=== PATIENT | female | born 1990 | race Caucasian/White ===

== ENCOUNTER 2023-03-21 08:01 | Outpatient (CLI) | payer BC, SELFPAY ==
--- NOTE | 2023-03-21 08:15 | CRLHL7_ITS ---
For Patients: As a result of the Century Cures Act, medical imaging exams and procedure reports are released immediately into your electronic medical record. You may view this report before your referring provider. If you have questions, please contact your health care provider. INDICATION: First trimester scan, establish dates. COMPARISON: None. TECHNIQUE: Real-time anaya-scale imaging of the pelvis was performed. FINDINGS: Sonographic imaging demonstrates a single living intrauterine gestation. The embryo demonstrates a regular cardiac rate measuring 168 beats per minute. The embryo`s crown-rump length measurement of 1.9 cm corresponds to a gestational age of 8 weeks 3 days with a sonographic due date of 10/28/2023. There is a normal-appearing yolk sac. There are no gross abnormalities noted within the embryo at this early state of development. The gestational sac has a normal appearance. There is no evidence of a perigestational hemorrhage. The amount of fluid within the sac appears appropriate for gestational age. The cervix is closed. The myometrium appears normal. Corpus luteal cyst right ovary. Left ovary not visualized. There are no suspicious fluid collections noted in the cul-de-sac. IMPRESSION: Normal first trimester OB ultrasound exam. Gestational age calculated at 8 weeks 3 days with a sonographic due date of 10/28/2023. Dictated by Abundio Lane MD @ 03/21/2023 9:09:45 AM (Electronically Signed)
== END 2023-03-21 08:02 | disposition home or self-care (01) ==
LOC: US 08:02
PROVIDERS: PCP Physician Assistant; Visit Provider Family Medicine
DX: Z34.91 Encounter for supervision of normal pregnancy, unspecified, first trimester (principal); Z3A.08 8 weeks gestation of pregnancy
CPT/HCPCS: 76817; 82565; 82570; 84156; 84450; 84460; 84520; 84550; 86592; 86703; 86704; 86706; 86762; 86787; 86803; 86850; 86900; 86901; 87086; 87340; 87491; 87591

== ENCOUNTER 2023-04-21 12:00 | Outpatient (CLI) | payer BC, SELFPAY | END 2023-04-21 12:01 | disposition home or self-care (01) | PROVIDERS: PCP Physician Assistant; Visit Provider Obstetrics & Gynecology | DX: E55.9 Vitamin D deficiency, unspecified (principal); E53.8 Deficiency of other specified B group vitamins | CPT/HCPCS: 80048 ==

== ENCOUNTER 2023-05-12 16:58 | Outpatient (REF) | payer BC, SELFPAY | END 2023-05-12 16:59 | disposition home or self-care (01) | LOC: NFLDREF 16:58 | PROVIDERS: PCP Physician Assistant; Referring Provider Physician Assistant; Visit Provider Obstetrics & Gynecology | DX: Z00.00 Encounter for general adult medical examination without abnormal findings (principal); Q87.81 Alport syndrome; E66.9 Obesity, unspecified; E55.9 Vitamin D deficiency, unspecified; E53.8 Deficiency of other specified B group vitamins; N20.0 Calculus of kidney | CPT/HCPCS: 82570; 84156 ==

== ENCOUNTER 2023-06-05 10:10 | Outpatient (CLI) | payer BC, OTHER, SELFPAY ==
--- OUTSIDE RECORDS SUMMARY | 2023-06-12 09:46 | XMS_ITS | Clinical Summary ---
Author Name Unknown Organization [email or web address] [facility] [employer] [facility] Address [place], [place] [address] Care Team Providers Care Powerbuilder Name Role Phone Val Byrd Primary Care Provider +1- [phone] Allergies Active Allergy Reactions Criticality Noted Date Comments 2-Octyl Cyanoacrylate Rash 06/12/2020 Amoxicillin Hives 05/16/2020 Cefaclor Hives 05/16/2020 Cefuroxime Axetil Hives 05/16/2020 Clindamycin Hives 05/16/2020 Latex Rash 05/16/2020 Benzalkonium Chloride Rash 04/22/2022 Shellfish Derived Itching 05/22/2020 Itchy tongue and lips (benadryl has taken care of it in the past) Ondansetron Chest Pain 02/13/2022 Medications Medication Sig Dispensed Refills Start Date End Date Status albuterol (PROVENTIL) 0.083 % neb solutionIndications: Exacerbation of asthma, unspecified asthma severity, unspecified whether persistent Inhale 3 mL (2.5 mg) via a nebulizer every 4 hours if needed for Shortness Of Breath or Wheezing. 1 box 180 mL 11 09/02/2022 Active albuterol HFA (PRO-AIR; VENTOLIN; PROVENTIL) 90 mcg/actuation inhalerIndications:M ild persistent asthma without complication Inhale 2 Puffs by mouth every 4 hours if needed for Wheezing 1st choice. 18 g 11 09/02/2022 Active beclomethasone dipropionate (Qvar RediHaler) 40 mcg/actuation HFA inhalerIndications:M ild persistent asthma without complication Inhale 2 Puffs by mouth two times daily. Doesn't need a spacer or shaking. 10.6 g 11 09/02/2022 Active montelukast (SINGULAIR) 10 mg tabletIndications:Al lergic rhinitis due to pollen, unspecified seasonality Take 1 Tablet (10 mg) by mouth at bedtime. 90 Tablet 3 09/02/2022 Active triamcinolone (ARISTOCORT) 0.1 % ointmentIndications: Polymorphous light eruption Apply topically to affected area(s) two times daily. 80 g 1 09/02/2022 Active mometasone (NASONEX) (50 mcg each actuation) nasal sprayIndications:All ergic rhinitis due to pollen, unspecified seasonality Inhale 2 Sprays to both nostrils once daily. 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 180 Tablet 3 09/02/2022 Active 727-xkrq-prrds-omega 3 27 mg iron- 800 mcg-235 mg cap Take by mouth. 0 03/03/2023 Active azithromycin (Zithromax Z-Wade) 250 mg tabletIndications:Br onchitis Take 500 mg (2 tabs) by mouth on day 1, then 250 mg (1 tab) daily for days 2-5. 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 Val Byrd PA-C, Family Medicine.....................08/31/2021 9:04 AM Endometriosis 07/30/2021 Comments Yes Resolved Problems Problem Noted Date Diagnosed Date Resolved Date Pap smear for cervical cancer screening 07/24/2020 11/27/2021 Overview: 07/24/2020 NIL/HPV negative. Plan: Pap/HPV due 07/2025 Encounters Date Type Department Care Team Description 05/05/2023 2:25 PM FABRIC WORKER LEADER - 05/05/2023 11:59 PM FABRIC WORKER LEADER Hospital En[facility] [address] [place] [address] Val Byrd PA Olsen, Michelle J, PT 05/05/2023 Travel 04/28/2023 9:59 AM FABRIC WORKER LEADER - 04/28/2023 11:59 PM FABRIC WORKER LEADER Hospital Encounter [facility] ? [facility] [address] [place] [address] Val Byrd PA Olsen, Michelle J, PT 04/28/2023 Travel 04/21/2023 7:47 AM FABRIC WORKER LEADER - 04/21/2023 11:59 PM FABRIC WORKER LEADER Hospital Encounter [facility] ? [facility] [address], [place] [address] Val Byrd PA Olsen, Michelle J, PT 04/21/2023 Travel 04/13/2023 9:45 AM FABRIC WORKER LEADER Office Visit [facility] [address] [place] [phone] Yoselin Drew, PRIMER WATERPROOFING MACHINE OPERATOR Throat Problem; Sinus Problem; Headache (C/O having a sore throat 04/06/2023. Cough sinus congestion and sinus headache. She has asthma and is . ) 04/13/2023 Travel 04/07/2023 12:56 PM FABRIC WORKER LEADER - 04/07/2023 11:59 PM FABRIC WORKER LEADER Hospital Encounter [facility] ? [facility] [address] [place] [address] Val Byrd PA Helms, Colleen G, PT 04/07/2023 Travel 03/31/2023 10:54 AM FABRIC WORKER LEADER - 03/31/2023 11:59 PM FABRIC WORKER LEADER Hospital Encounter [facility] ? [facility] [address] [place] [address] Val Byrd PA Helms, Colleen G, PT 03/31/2023 Travel 03/24/2023 1:36 PM CDT - 03/24/2023 11:59 PM CDT Hospital Encounter [facility] ? [facility] [address] [place] [address] Val Byrd, Adelita Christianson, PT 03/24/2023 Travel 03/18/2023 1:25 PM CDT - 03/18/2023 11:59 PM CDT Hospital Encounter [facility] and [facility] ? [facility] [address] [place] [address] Val Byrd PA Olsen, Michelle J, PT Chronic right-sided thoracic back pain 03/18/2023 Travel from Last 3 Months Immunizations Name Administration Dates Next Due COVID-19 vaccine (Grovac NTTesaris 30mcg/0.3mL) PF, MDV 06/17/2021,12/17/2020,11/19/2020 DT (Age < 7 years) 09/17/1993 DTP 01/20/1991, 0,01/31/1989,10/29 DTaP 07/13/2007 HIB HbOC (HibTITER) 03/03/1990 Hepatitis B (Peds) 03/02/1999,10/31/1998, 999 Hepatitis B, Unspecified 03/02/1999,10/31/1998,0 08/21/1998 Human Papilloma Virus Vaccine 01/11/2008, 008,07/13/2007 Influenza A (H1N1), Inactivated 04/15/2009 Influenza Virus, Unspecified 04/23/2016, 04/17/2015,04/04/2014,04/27,05/01/2011,03/31/2009,04/02/2005 ,03/14/2004,06/09/2000,04/03/1999,03/26 Influenza, IIV3 (Age >=3 years) 04/02/20 05,03/14/2004,06/09/2000,04/03 Influenza, IIV4 05/14/2021, 1,06/28/2019,07/21,04/23/2016 Influenza, IIV4 (=>6mos) MDV 04/17/2015 Influenza, Live, Intranasal Laiv3 03/31/2009 MMR 09/17/1993,03/03/1990 Meningococcal Vaccine (Menomune) 07/13/2007 Oral Polio Vaccine 09/17/1993, 1,01/31/1989,10/29 Pneumococcal Poly,23-Valent (Pneumovax) 04/04/2014 Polio (Oral Polio Vaccine,Unspecified) 0 09/17/1993,01/20/1991,01/31/1989,10/29 Td (Age >=7 Years) 08/28/2004,03/02/1999 Tdap 06/09/2017,07/13/2007 Social History Tobacco Use Types Packs/Day Years Used Date Smoking Tobacco: Never Smokeless Tobacco: Never Tobacco Cessation:Counseling Given: Yes Alcohol Use Standard Drinks/Week Comments Yes 0 (1 standard drink = 0.6 oz pur e alcohol) 1 per month PHQ-2 Answer Date Recorded PHQ-2 TOTAL SCORE 0 09/02/2022 Social Connections Answer Date Recorded Frequency of Communication with Friends and Fami ly 0 09/02/2022 Financial Resource Strain Answer Date R ecorded Difficulty of Paying Living Expenses 3 09/02/2022 Difficulty of Paying Living Expenses Not on file 09/02/2022 Food Insecurity Answer Date Recorded Worried About Running Out of Food in the Last Ye ar 1 09/02/2022 Transportation Needs Answer Date Record ed Lack of Transportation (Medical) 1 09/02/2022 Housing Stability Answer Date Recorded Unable to Pay for Housing in the Last Year 1 09/02/2022 Comments Yes Sex and Gender Information Value Date Recorded Sex Assigned at Not on file Gender Identity Not on file Sexual Orientation Not on file Obstetrics History Para Term AB IAB SAB Ectopic Multiple Livin g Live Births 1 Date Outcome GA Total Labor Labor/2nd/3rd Weight Sex Delivery Anes PTL Christine A1 A5 Name Cl in Current Last Filed Vital Signs Vital Sign Reading Time Taken Comments Blood Pressure 99/70 04/13/2023 10:07 AM FABRIC WORKER LEADER Pulse 93 04/13/2023 10:07 AM FABRIC WORKER LEADER Temperature 36.4 ??C (97.6 ??F) 04/13/2023 10:[address] Respiratory Rate 14 04/13/2023 10:07 AM FABRIC WORKER LEADER Oxygen Saturation 96% 04/13/2023 10:07 AM FABRIC WORKER LEADER Inhaled Oxygen Concentration - - Weight 109.8 kg (242 lb) 04/13/2023 10:07 AM FABRIC WORKER LEADER Height 172.7 cm (5' 8) 10/08/2022 8:13 PM CDT Body Mass Index 36.8 10/08/2022 8:13 PM CDT Plan of Treatment Health Maintenance Due Date Last Done Comments Pneumococcal series for age 6-64 (2 of 2 - PCV) 04/04/2015 04/04/2014 Influenza for age 9-49 01/24/2023 , 07/24/2020, 06/28/2019, Additional history exists BMI (ht and wt on same day) for age 18+ 09/03/2023 09/02/2022, 08/28/2021 Depression screening for age 12+ 09/03/2023 09/03/19 23, 08/28/2021 Pap test for age 21-65 07/24/2025 (Verified in Care Everywhere or Patient Record) Tetanus booster 06/09/2027 06/09/2017, 06/26, 08/28/2004, Additional history exists Tdap Completed 06/09/2017, 07/13/2007 HIV for age 15-65 Completed 09/02/2022 Hepatitis C screening for ag e 18-79 Completed 09/02/2022 COVID-19 vaccine series Completed 03/23/20, 06/17/2021, 12/17/2020, Additional history exists Procedures Procedure Name Priority Date/Time Associated Diagnosis Comments STREP A PCR STAT 04/13/2023 10:09 AM FABRIC WORKER LEADER Sore throat THROAT RAPID STREP A WITH REFLEX STAT 04/13/2023 10:09 AM FABRIC WORKER LEADER Sore throat from Last 3 Months Results * STREP A PCR (04/13/2023 10:09 AM FABRIC WORKER LEADER) GROUP A STREP Negative 04/13/2023 3:16 PM FABRIC WORKER LEADER [facility] Throat SPECIMEN FROM THROAT / Unknown Non-Blood / Unknown 04/13/2023 10:09 AM FABRIC WORKER LEADER 04/13/2023 10:28 AM FABRIC WORKER LEADER Yoselin Drew NP MICROBIOLOGY [facility] [address] [place] [address], * THROAT RAPID STREP A WITH REFLEX (04/13/2023 10:09 AM FABRIC WORKER LEADER) STREP A ANTIGEN Negative 04/13/2023 10:28 AM FABRIC WORKER LEADER [facility] Comment:PCR to follow. Throat SPECIMEN FROM THROAT / Unknown Non-Blood / Unknown 04/13/2023 10:09 AM FABRIC WORKER LEADER 04/13/2023 10:16 AM FABRIC WORKER LEADER Yoselin Drew NP MICROBIOLOGY [facility] [address] [place], [place] [id number] from Last 3 Months Advance Directives Latest Code Status on File Code Status Date Activated Date Inactivated Comments Full Code 05/23/2020 2:04 PM 05/24/2020 1:14 PM Question Answer Comments Code Status Discussion: Not Discussed Care Teams Powerbuilder Relationship Specialty Start Date End Date Val Byrd PA [address] [place] [address] PCP - General Physician Sitecore Developer 11/21/22
== END 2023-06-05 10:11 | disposition home or self-care (01) ==
LOC: NFLDREF 06-12 09:44
PROVIDERS: PCP Physician Assistant; Referring Provider Physician Assistant; Visit Provider Internal Medicine Nephrology
DX: Q87.81 Alport syndrome (principal)
CPT/HCPCS: 80069; 82043; 82570; 87086

== ENCOUNTER 2023-06-10 14:27 | Outpatient (CLI) | payer BC, OTHER, SELFPAY ==
--- OUTSIDE RECORDS SUMMARY | 2023-06-13 12:23 | XMS_ITS | Clinical Summary ---
Author Name Unknown Organization [employer] [facility] [employer] [facility] Address [place], [place] [address] Care Team Providers Care Divisional Merchandising Manager Name Role Phone Val Byrd Primary Care Provider +1- [phone] Allergies Active Allergy Reactions Criticality Noted Date [...] once daily. 180 Tablet 3 09/02/2022 Active 233-kbbt-ulibt-omega 3 27 mg iron- 800 mcg-235 mg [...] Department Care Team Description 05/05/2023 2:25 PM PROGRAM MANAGER SLP - 05/05/2023 11:59 PM PROGRAM MANAGER SLP Hospital En[facility] [facility] ? [facility] [address] [place] [address] Val Byrd PA Olsen, Michelle J, PT 05/05/2023 Travel 04/28/2023 9:59 AM PROGRAM MANAGER SLP - 04/28/2023 11:59 PM PROGRAM MANAGER SLP Hospital Encounter [facility] ? [facility] [address] [place] [address] Val Byrd PA Olsen, Michelle J, PT 04/28/2023 Travel 04/21/2023 7:47 AM PROGRAM MANAGER SLP - 04/21/2023 11:59 PM PROGRAM MANAGER SLP Hospital Encounter [facility] ? [facility] [address], [place] [address] Val Byrd PA Olsen, Michelle J, PT 04/21/2023 Travel 04/13/2023 9:45 AM PROGRAM MANAGER SLP Office Visit [facility] [address] [place] [phone] Yoselin Drew, CARDIOVASCULAR RADIOLOGIC TECHNOLOGIST Throat Problem; Sinus Problem; Headache (C/O having a sore throat 04/06/2023. Cough sinus congestion and sinus headache. She has asthma and is . ) 04/13/2023 Travel 04/07/2023 12:56 PM PROGRAM MANAGER SLP - 04/07/2023 11:59 PM PROGRAM MANAGER SLP Hospital Encounter [facility] ? [facility] [address] [place] [address] Val Byrd PA Helms, Colleen G, PT 04/07/2023 Travel 03/31/2023 10:54 AM PROGRAM MANAGER SLP - 03/31/2023 11:59 PM PROGRAM MANAGER SLP Hospital Encounter [facility] [facility] ? [facility] [address] [place] [address] Val Byrd PA Helms, Colleen G, PT 03/31/2023 Travel 03/24/2023 1:36 PM CDT - 03/24/2023 11:59 PM CDT Hospital Encounter [facility] ? [facility] [address] [place] [address] Val Byrd, Adelita Christianson, PT 03/24/2023 Travel 03/18/2023 1:25 PM CDT - 03/18/2023 11:59 PM CDT Hospital Encounter [facility] ? [facility] [address] [place] [address] Val Byrd PA Olsen, Michelle J, PT Chronic right-sided thoracic back pain 03/18/2023 Travel from Last 3 Months Immunizations Name Administration Dates Next Due COVID-19 vaccine ([employer] 30mcg/0.3mL) PF, MDV 06/17/2021,12/17/2020,11/19/2020 DT (Age < [...] Comments Blood Pressure 99/70 04/13/2023 10:07 AM PROGRAM MANAGER SLP Pulse 93 04/13/2023 10:07 AM PROGRAM MANAGER SLP Temperature 36.4 ??C (97.6 ??F) 04/13/2023 10:[address] Respiratory Rate 14 04/13/2023 10:07 AM PROGRAM MANAGER SLP Oxygen Saturation 96% 04/13/2023 10:07 AM PROGRAM MANAGER SLP Inhaled Oxygen Concentration - - Weight 109.8 kg (242 lb) 04/13/2023 10:07 AM PROGRAM MANAGER SLP Height 172.7 cm (5' 8) 10/08/2022 8:13 [...] STREP A PCR STAT 04/13/2023 10:09 AM PROGRAM MANAGER SLP Sore throat THROAT RAPID STREP A WITH REFLEX STAT 04/13/2023 10:09 AM PROGRAM MANAGER SLP Sore throat from Last 3 Months Results * STREP A PCR (04/13/2023 10:09 AM PROGRAM MANAGER SLP) GROUP A STREP Negative 04/13/2023 3:16 PM PROGRAM MANAGER SLP [facility] Throat SPECIMEN FROM THROAT / Unknown Non-Blood / Unknown 04/13/2023 10:09 AM PROGRAM MANAGER SLP 04/13/2023 10:28 AM PROGRAM MANAGER SLP Yoselin Drew NP MICROBIOLOGY [facility] [address] [place] [address], * THROAT RAPID STREP A WITH REFLEX (04/13/2023 10:09 AM PROGRAM MANAGER SLP) STREP A ANTIGEN Negative 04/13/2023 10:28 AM PROGRAM MANAGER SLP [facility] Comment:PCR to follow. Throat SPECIMEN FROM THROAT / Unknown Non-Blood / Unknown 04/13/2023 10:09 AM PROGRAM MANAGER SLP 04/13/2023 10:16 AM PROGRAM MANAGER SLP Yoselin Drew NP MICROBIOLOGY [facility] [address] [place], [place] [id number] from Last 3 Months Advance Directives Latest Code Status on File Code Status Date Activated Date Inactivated Comments Full Code 05/23/2020 2:04 PM 05/24/2020 1:14 PM Question Answer Comments Code Status Discussion: Not Discussed Care Teams Divisional Merchandising Manager Relationship Specialty Start Date End Date Val Byrd PA [address] [place] [address] PCP - General Physician Inspector Metal Fabricating 11/21/22
== END 2023-06-10 14:28 | disposition home or self-care (01) ==
LOC: NFLDREF 06-13 12:21
PROVIDERS: PCP Physician Assistant; Referring Provider Physician Assistant; Visit Provider Internal Medicine Nephrology
DX: N28.9 Disorder of kidney and ureter, unspecified (principal); Q87.81 Alport syndrome; Z34.90 Encounter for supervision of normal pregnancy, unspecified, unspecified trimester
CPT/HCPCS: 87086

== ENCOUNTER 2023-06-19 15:22 | Outpatient (CLI) | payer BC, OTHER, SELFPAY ==
--- OUTSIDE RECORDS SUMMARY | 2023-06-19 15:39 | XMS_ITS | Clinical Summary ---
Author Name Unknown Organization [employer] [facility] [employer] [facility] Address [place], [place] [address] Care Team Providers Care Authorizer Name Role Phone Val Byrd Primary Care Provider +1- [phone] Allergies Active Allergy Reactions Criticality Noted Date [...] once daily. 180 Tablet 3 09/02/2022 Active 163-zxba-ltigt-omega 3 27 mg iron- 800 mcg-235 mg [...] Department Care Team Description 05/05/2023 2:25 PM ILLUSTRATOR SET - 05/05/2023 11:59 PM ILLUSTRATOR SET Hospital En[facility] [place] [facility] ? [facility] [address] [place] [address] Val Byrd PA Olsen, Michelle J, PT 05/05/2023 Travel 04/28/2023 9:59 AM ILLUSTRATOR SET - 04/28/2023 11:59 PM ILLUSTRATOR SET Hospital Encounter [facility] ? [facility] [address] [place] [address] Val Byrd PA Olsen, Michelle J, PT 04/28/2023 Travel 04/21/2023 7:47 AM ILLUSTRATOR SET - 04/21/2023 11:59 PM ILLUSTRATOR SET Hospital Encounter [facility] ? [facility] [address], [place] [address] Val Byrd PA Olsen, Michelle J, PT 04/21/2023 Travel 04/13/2023 9:45 AM ILLUSTRATOR SET Office Visit [facility] [address] [place] [phone] Yoselin Drew, TUNNEL KILN FIRER Throat Problem; Sinus Problem; Headache (C/O having a sore throat 04/06/2023. Cough sinus congestion and sinus headache. She has asthma and is . ) 04/13/2023 Travel 04/07/2023 12:56 PM ILLUSTRATOR SET - 04/07/2023 11:59 PM ILLUSTRATOR SET Hospital Encounter [facility] ? [facility] [address] [place] [address] Val Byrd PA Helms, Colleen G, PT 04/07/2023 Travel 03/31/2023 10:54 AM ILLUSTRATOR SET - 03/31/2023 11:59 PM ILLUSTRATOR SET Hospital Encounter [facility] ? [facility] [address] [place] [address] Val Byrd, Adelita Christianson, PT 03/31/2023 Travel 03/24/2023 1:36 PM CDT - 03/24/2023 11:59 PM CDT Hospital Encounter [facility] ? [facility] [address] [place] [address] Val Byrd, Adelita Christianson, PT 03/24/2023 Travel from Last 3 Months Immunizations Name Administration Dates Next Due COVID-19 vaccine ([employer] 30mcg/0.3mL) PF, MDV 06/17/2021,12/17/2020,11/19/2020 DT (Age < 7 years) 09/17/1993 DTP 01/20/1991, 0,01/31/1989,10/29 DTaP 07/13/2007 HIB HbOC (HibTITER) 03/03/1990 Hepatitis B (Peds) 03/02/1999,10/31/1998, 999 Hepatitis B, Unspecified 03/02/1999,10/31/1998,0 08/21/1998 Human Papilloma Virus Vaccine 01/11/2008, 008,07/13/2007 Influenza A (H1N1), Inactivated 04/15/2009 Influenza Virus, Unspecified 04/23/2016, 04/17/2015,04/04/2014,04/27,05/01/2011,03/31/2009,04/02/2005 ,03/14/2004,06/09/2000,04/03/1999,03/26 Influenza, IIV3 (Age >=3 years) 04/02/20 05,03/14/2004,06/09/2000,04/03 Influenza, IIV4 05/14/2021,,06/28/2019,07/21,04/23/2016 Influenza, IIV4 (=>6mos) MDV 04/17/2015 Influenza, Live, [...] Comments Blood Pressure 99/70 04/13/2023 10:07 AM ILLUSTRATOR SET Pulse 93 04/13/2023 10:07 AM ILLUSTRATOR SET Temperature 36.4 ??C (97.6 ??F) 04/13/2023 10:[address] Respiratory Rate 14 04/13/2023 10:07 AM ILLUSTRATOR SET Oxygen Saturation 96% 04/13/2023 10:07 AM ILLUSTRATOR SET Inhaled Oxygen Concentration - - Weight 109.8 kg (242 lb) 04/13/2023 10:07 AM ILLUSTRATOR SET Height 172.7 cm (5' 8) 10/08/2022 8:13 [...] 08/28/2021 Depression screening for age 12+ 09/03/2023 09/03/19, 08/28/2021 Pap test for age 21-65 07/24/2025 [...] STREP A PCR STAT 04/13/2023 10:09 AM ILLUSTRATOR SET Sore throat THROAT RAPID STREP A WITH REFLEX STAT 04/13/2023 10:09 AM ILLUSTRATOR SET Sore throat from Last 3 Months Results * STREP A PCR (04/13/2023 10:09 AM ILLUSTRATOR SET) GROUP A STREP Negative 04/13/2023 3:16 PM ILLUSTRATOR SET [facility] Throat SPECIMEN FROM THROAT / Unknown Non-Blood / Unknown 04/13/2023 10:09 AM ILLUSTRATOR SET 04/13/2023 10:28 AM ILLUSTRATOR SET Yoselin Drew NP MICROBIOLOGY [facility] [address] [place] [address], [place] * THROAT RAPID STREP A WITH REFLEX (04/13/2023 10:09 AM ILLUSTRATOR SET) STREP A ANTIGEN Negative 04/13/2023 10:28 AM ILLUSTRATOR SET [facility] Comment:PCR to follow. Throat SPECIMEN FROM THROAT / Unknown Non-Blood / Unknown 04/13/2023 10:09 AM ILLUSTRATOR SET 04/13/2023 10:16 AM ILLUSTRATOR SET Yoselin Drew TUNNEL KILN FIRER MICROBIOLOGY [facility] [address] [place] [address] from Last 3 Months Advance Directives Latest Code Status on File Code Status Date Activated Date Inactivated Comments Full Code 05/23/2020 2:04 PM 05/24/2020 1:14 PM Question Answer Comments Code Status Discussion: Not Discussed Care Teams Authorizer Relationship Specialty Start Date End Date Val Byrd PA [address] [place] [address] PCP - General Physician Salad Chef 11/21/22
== END 2023-06-19 15:23 | disposition home or self-care (01) ==
PROVIDERS: PCP Physician Assistant; Visit Provider Obstetrics & Gynecology
DX: Q87.81 Alport syndrome (principal)
CPT/HCPCS: 82565; 87086

== ENCOUNTER 2023-07-07 14:21 | Outpatient (REF) | payer BC, OTHER, SELFPAY ==
--- OUTSIDE RECORDS SUMMARY | 2023-07-08 06:55 | XMS_ITS | Clinical Summary ---
Author Name Unknown Organization [facility] Address [address] [place] [id number] Care Team Providers Care Bank Courier Name Role Phone No Ref-Primary, Physician Primary Care Provider Allergies Active Allergy Reactions Criticality Noted Date Comments Amoxicillin Hives Medium 10/13/2008 Benzalkonium Chloride Rash Low 04/22/2022 Cefaclor Hives Medium 10/13/2008 Cefuroxime Hives Medium 10/13/2008 Clindamycin Hives Medium 02/28/2014 Cyanoacrylate Rash Low 06/12/2020 Latex Rash Medium 07/17/2009 Ondansetron 02/13/2022 Other Reaction(s): Chest Pain Shellfish-Derived Products Itching 0 Itchy tongue and lips (mary jane has taken care of it in the past) Medications Medication Sig Dispensed Refills Start Date End Date Status albuterol (PROVENTIL) (2.5 MG/3ML) 0.083% neb solution Inhale 2.5 mg into the lungs 3 times daily as needed for wheezing or shortness of breath 0 09/02/2022 Active aspirin (ASA) 81 MG chewable tablet Take 81 mg by mouth daily 0 Active QVAR REDIHALER 40 MCG/ACT inhaler Inhale 2 puffs into the lungs 2 times daily 0 Active cyanocobalamin (VITAMIN B-12) 1000 MCG tablet Take 2,000 mcg by mouth daily 0 09/02/2022 Active montelukast (SINGULAIR) 10 MG tablet Take 1 tablet by mouth at bedtime 0 Active pyridOXINE (VITAMIN B6) 25 MG tablet Take 25 mg by mouth daily 0 Active Vit-Fe Eiu-KN-Wotfx (ONE-A-DAY WOMENS ) 28-0.8 & 223 MG MISC Take 1 tablet by mouth daily 0 Active loratadine (CLARITIN REDITABS) 10 MG ODT Take 10 mg by mouth daily 0 Active Encounters Date Type Department Care Team Description 07/03/2023 9:30 AM RESTORATIVE COORDINATOR Office Visit [facility] [address] [place] [address] Gayle Gonzalez MD Sabol, Bethany, MD Yamamura, Yasuko, MD Pre-exist hyp chronic kidney disease comp preg, second tri (Primary Dx); High-risk , unspecified trimester 07/03/2023 8:35 AM RESTORATIVE COORDINATOR - 07/03/2023 11:59 PM RESTORATIVE COORDINATOR Hospital Encounter [facility] [address] [place] [phone] Gayle Gonzalez MD Sabol, Bethany, MD Alport syndrome; High-risk , unspecified trimester Discharge Disposition: Home or Self Care 07/03/2023 Travel 06/24/2023 PRE VISIT [facility] [address] [place], [place] [address] [place] [address] Myra Eisenberg, DAQUAN Consult (CKD, endometriosis, AMA, asthma, alport syndrome); Ultrasound (L2 - CKD, endometriosis, AMA, asthma, alport syndrome) 05/28/2023 Orders Only [facility] [address] [place] [address] Gayle Plascencia RN Alport syndrome (Primary Dx); High-risk , unspecified trimester 05/23/2023 Telephone [facility] [address] [place] [address] Gayle Plascencia RN Referral 05/22/2023 Medical Correspondence [facility] [address] [place] [address] Outside, Provider 05/22/2023 Transcribe Orders [facility] [address] [place] [address] Venice Murray A related condition, antepartum (Primary Dx) from Last 3 Months Social History Tobacco Use Types Packs/Day Years Used Date Smoking Tobacco: Never Assessed Adolescent Education Answer Date Record ed Getting School Help Needed Not on file 05/22 Estimated Date of Delivery Comme nts Yes 10/31/2023 Based on last me nstrual period of 01/24/2023 Sex and Gender Information Value Date Recorded Sex Assigned at Not on file Gender Identity Not on file Sexual Orientation Not on file Last Filed Vital Signs Vital Sign Reading Time Taken Comments Blood Pressure 114/82 07/03/2023 10:18 AM RESTORATIVE COORDINATOR Pulse 82 07/03/2023 10:18 AM RESTORATIVE COORDINATOR Temperature - - Respiratory Rate 18 07/03/2023 10:18 AM RESTORATIVE COORDINATOR Oxygen Saturation 100% 07/03/2023 10:18 AM RESTORATIVE COORDINATOR RA Inhaled Oxygen Concentration - - Weight - - Height - - Body Mass Index - - Plan of Treatment Upcoming Encounters Date Type Department Care Team (Late st Contact Info) Description 07/28/2023 8:45 AM RESTORATIVE COORDINATOR Appointment [facility] [address] [place] [phone] Donnie Stanton MD [address] [place], [place] [phone] 07/28/2023 9:15 AM RESTORATIVE COORDINATOR Office Visit [facility] [address] [place] [address] Donnie Stanton MD [address] [place], [place] [id number] Health Maintenance Due Date Last Done Comments ADVANCE CARE PLANNING 1988 ANNUAL REVIEW OF HM ORDERS 1988 HIV SCREENING 09/20/2003 HEPATITIS C SCREENING 2006 PAP 2009 MATERNAL SCREENING DISCUSSION 04/04/2023 PHQ-2 (once per calendar year) 2023 OBGCT (OB) 07/11/2023 YEARLY PREVENTIVE VISIT 09/03/2023 09/03/19 23, 08/28/2021, 07/24/2020, Additional history exists DTAP/TDAP/TD IMMUNIZATION (9 - Td or Tdap) 06/09/2027 06/09/2017, 07/13/2007, 07/13/2007, Additional history exists IPV IMMUNIZATION Completed 09/17/1993, , 01/31/1989, Additional history exists HEPATITIS B IMMUNIZATION Completed 999, 03/02/1999, 10/31/1998, Additional history exists MENINGITIS IMMUNIZATION Aged Out 07/13/2007 No l onger eligible based on patient's age to complete this topic HPV IMMUNIZATION Completed 01/11/2008, , 07/13/2007 Pneumococcal Vaccine: Pediatrics (0 to 5 Years) and At-Risk Patients (6 to 64 Years) Aged Out 04/04/2014 No longer eligible based on patient's age to complete this topic INFLUENZA VACCINE Completed 03/21/2023, , 07/24/2020, Additional history exists COVID-19 Vaccine Completed 03/23/2023, , 12/17/2020, Additional history exists RSV MONOCLONAL ANTIBODY Aged Out No l onger eligible based on patient's age to complete this topic RSV VACCINE ( & 60+) (No Doses Required) Completed Procedures Procedure Name Priority Date/Time Associated Diagnosis Comments [facility] COMPREHENSIVE SINGLE Routine 07/03/2023 9:50 AM RESTORATIVE COORDINATOR Alport syndrome High-risk , unspecified trimester from Last 3 Months Results * [facility] US Comprehensive Single (07/03/2023 9:50 AM RESTORATIVE COORDINATOR) Anatomical Region Laterality Modality Ultrasound 07/03/2023 8:44 AM RESTORATIVE COORDINATOR Impressions 07/04/2023 2:25 PM RESTORATIVE COORDINATOR IMPRESSION ----- 1) Reyes intrauterine at 22w 6d gestational age. 2) None of the anomalies commonly detected by ultrasound were evident in the detailed anatomic survey described above, although evaluation of anatomy was suboptimal as noted above. 3) Growth parameters and estimated weight were consistent with an appropriate for gestation age pattern of growth. 4) The amniotic fluid volume appeared normal. Narrative 07/04/2023 2:25 PM RESTORATIVE COORDINATOR ?Comprehensive ----- Pat. Name: MYRA FORD ? Study Date: ??07/03/2023 8:44am Pat. NO: ??[id number] ?Referring ??MD: VENICE RIBEIRO Site: ??[facility] ? Patcher Helper: Liza Howell RDMS : ??1990 ?Age: ?? 32 ----- INDICATION ----- Chronic kidney disease, Alport Syndrome, Advanced Maternal Age--Primigravida at delivery METHOD ----- Transabdominal ultrasound examination. View: Sufficient ----- Reyes . Number of fetuses: 1 DATING ----- ? Date ?Details ?Gest. age ?SPRING LMP ?01/24/2023 ? 22 w + 6 d ? 10/31/2023 Prior assessment ? 04/21/2023 ? GA: 8 w + 3 d ? 18 w + 6 d ? 11/28/2023 U/S ? 07/03/2023 ?based upon AC, BPD, Femur, HC ? 23 w + 6 d ? 10/24/2023 Assigned dating ?Dating performed on 07/03/2023, based on the LMP ?22 w + 6 d ? 10/31/2023 GENERAL EVALUATION ----- Cardiac activity present. FHR 157 bpm. movements present. Presentation Variable. Placenta Posterior, No Previa, > 2 cm from internal os. Umbilical cord 3 vessel cord. Amniotic fluid normal MVP, MVP 5.0 cm. BIOMETRY ----- Main Biometry: BPD ?58.7 ?mm ? 24w 0d ?Hadlock OFD ?76.7 ?mm ? 23w 3d ?Nicolaides HC ?216.1 ?mm ?23w 5d ?Hadlock Cerebellum tr ?25.0 ? mm ?23w 0d ?Nicolaides AC ?196.1 ?mm ?24w 2d ?84% ?Hadlock Femur ?41.1 ? mm ?23w 2d ?Hadlock Humerus ?38.7 ?mm ? 23w 5d ?Chen Weight Calculation: EFW ? 636 ? g ? 86% ?Hadlock EFW (lb,oz) ? 1 lb 6 ?oz EFW by ?Hadlock ([id number]) Head / Face / Neck Biometry: Peat Shredder Tender ? 6.3 ? mm CM ?3.3 ? mm Nasal bone ? 8.7 ? mm Nuchal fold ? 5.4 ? mm ANATOMY ----- The following structures appear normal: Head / Neck ? Cranium. Head size. Head shape. Lateral ventricles. Choroid plexus. Midline falx. Cavum septi pellucidi. Cerebellum. Cisterna magna. ? Parenchyma. Thalami. Vermis. ? Neck. Nuchal fold. Face ? Lips. Profile. Nose. Maxilla. Mandible. Orbits. Lens. Heart / Thorax ?RVOT view. LVOT view. Situs. Bicaval view. Ductal arch view. Superior vena cava. Inferior vena cava. 3-vessel view. 4-wlovph-acpsqln view. ? Cardiac position. Cardiac size. Cardiac rhythm. ? Right lung. Left lung. Diaphragm. Abdomen ? Abdominal wall. Cord insertion. Stomach. Kidneys. Bladder. Liver. Bowel. Genitals. Spine ?Cervical spine. Thoracic spine. Lumbar spine. Sacral spine. Extremities / Skeleton ?Right arm. Right hand. Left arm. Left hand. Right leg. Right foot. Left leg. Left foot. The following structures could not be adequately visualized: Heart / Thorax ?4-chamber view. Aortic arch view. MATERNAL STRUCTURES ----- Cervix ?Visualized ? Appearance: Appears Closed ? Approach - Transabdominal: Cervical length 38.8 mm Right Ovary ?Not visualized Left Ovary ?Not visualized RECOMMENDATION ----- We discussed the findings on today's ultrasound with the patient. 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 She is followed closely at [facility] for this and she overall has done well with symptoms of mild chronic hematuria with normal kidney function. Other female family members that are also carriers for this have done well in their pregnancies. I reviewed that while overall, I would anticipate favorable outcomes for Myra, but that X-linked Alport syndrome and can be associated with worsening of renal disease in select patients, which may manifest as worsening hematuria, proteinuria, and increased risk for development of preeclampsia. Additionally, decrease in renal function has been reported, although uncommon. As Alport syndrome has additionally been associated with increased risk of developing gestational hypertension preeclampsia or eclampsia in , recommend daily low dose aspirin through delivery. Agree with the plan per Myra's round up ring hand for serial follow-up BMP/renal panel every 1-2 months during . Also recommend increased blood pressure monitoring with OB visits every 2 weeks after 24 weeks and the weekly at 32 weeks. As long as blood pressure and renal function remain within normal limits, then timing or mode of delivery is per routine OB indications. If there is worsening hematuria, proteinuria or hypertension, recommend repeat consult with MFM at that time. We will plan to see Myra back here in 3 weeks for a repeat US to re-evaluate anatomy that was suboptimally seen today. Following this, recommend repeat assessment of growth and anatomy at 32 weeks and weekly BPP at 37 weeks due to BMI > 35. Return to primary provider for continued care. Thank-you for the opportunity to participate in the care of this patient. If you have questions regarding today's evaluation or if we can be of further service, please contact the [facility]. anomalies may be present but not detected I spent a total of 45 minutes on the date of this encounter including preparing to see the patient (reviewing medical records/tests), in direct [id number] contact with the patient during her visit with the majority spent counseling and discussing the plan of care and documenting the visit in the electronic medical record. Please see note for details. Procedure Note Donnie Stanton MD - 07/04/2023 Comprehensive ----- Pat. Name: MYRA FORD Study Date: 07/03/2023 8:44am Pat. NO: [id number] Referring MD: VENICE RIBEIRO Site: [facility] Patcher Helper: Liza Howell RDMS : 1990 Age: 32 ----- INDICATION ----- Chronic kidney disease, Alport Syndrome, Advanced MaternalAge--Primigravida at delivery METHOD ----- Transabdominal ultrasound examination. View: Sufficient ----- Reyes . Number of fetuses: 1 DATING ----- DateDetailsGest. age SPRING LMP w + 6 d 10/31/2023 Prior assessment 04/21/2023 GA: 8 w +3 d18 w + 6 d 11/28/2023 U/S 07/03/2023ased upon AC, BPD, Femur, HC23 w + 6 d 10/24/2023 Assigned dating Dating performed on 07/03/2023, based onthe LMP 22 w+ 6 d 10/31/2023 GENERAL EVALUATION ----- Cardiac activity present. FHR 157 bpm. movements present. Presentation Variable. Placenta Posterior, No Previa, > 2 cm from internal os. Umbilical cord 3 vessel cord. Amniotic fluid normal MVP, MVP 5.0 cm. BIOMETRY ----- Main Biometry: BPD 58.7 mm24w 0d Hadlock OFD 76.7 mm23w 3d Nicolaides HC 216.1 mm23w 5d Hadlock Cerebellum tr 25.0 mm23w 0d Nicolaides AC 196.1 mm24w 2d 84% Hadlock Femur 41.1 mm23w 2d Hadlock Humerus 38.7 mm23w 5d Chen Weight Calculation: EFW 636 g86% Hadlock EFW (lb,oz) 1 lb 6 oz EFW by Angelina ([id number]) Head / Face / Neck Biometry: Peat Shredder Tender 6.3 mm CM 3.3 mm Nasal bone 8.7 mm Nuchal fold 5.4 mm ANATOMY ----- The following structures appear normal: Head / Neck Cranium. Head size. Head shape.Lateral ventricles. Choroid plexus. Midline falx. Cavum septi pellucidi.Cerebellum. Cisterna magna. Parenchyma. Thalami. Vermis. Neck. Nuchal fold. Face Lips. Profile. Nose. Maxilla.Mandible. Orbits. Lens. Heart / Thorax RVOT view. LVOT view. Situs. Bicavalview. Ductal arch view. Superior vena cava. Inferior vena cava. 3-vesselview. 3-hscsoi-jhqjvit view. Cardiac position. Cardiac size.Cardiac rhythm. Right lung. Left lung.Diaphragm. Abdomen Abdominal wall. Cord insertion.Stomach. Kidneys. Bladder. Liver. Bowel. Genitals. Spine Cervical spine. Thoracic spine.Lumbar spine. Sacral spine. Extremities / Skeleton Right arm. Right hand. Left arm. [place]ef[place]and. Right leg. Right foot. Left leg. Left foot. The following structures could not be adequately visualized: Heart / Thorax 4-chamber view. Aortic arch view. MATERNAL STRUCTURES ----- Cervix Visualized Appearance: Appears Closed Approach - Transabdominal:Cervical length 38.8 mm Right Ovary Not visualized Left Ovary Not visualized RECOMMENDATION ----- We discussed the findings on today's ultrasound with the patient. Myra presents today to also discuss management of her as she daniel carrier of X-linked Alport Syndrome. She is followed closely at [facility] for this and she overall has done well with symptoms of mild chronic hematuria withnormal kidney function. Other female family members that are also carriersfor this have done well in their pregnancies. I reviewed that while overall, I would anticipatefavorable outcomes for Myra, but that X-linked Alport syndromeand can be associated with worsening of renal disease in select patients, which maymanifest as worsening hematuria, proteinuria, and increased risk fordevelopment of preeclampsia. Additionally, decrease in renal function has been reported, althoughuncommon. As Alport syndrome has additionally been associated withincreased risk of developing gestational hypertension preeclampsia or eclampsia in , recommenddaily low dose aspirin through delivery. Agree with the plan per Myra'snephrologist for serial follow-up BMP/renal panel every 1-2 months during . Alsorecommend increased blood pressure monitoring with OB visits every 2 weeksafter 24 weeks and the weekly at 32 weeks. As long as blood pressure and renal functionremain within normal limits, then timing or mode of delivery is perroutine OB indications. If there is worsening hematuria, proteinuria or hypertension, recommend repeatconsult with MFM at that time. We will plan to see Myra back here in 3 weeks for a repeat US tore-evaluate anatomy that was suboptimally seen today. Followingthis, recommend repeat assessment of growth and anatomy at 32 weeks and weekly BPP at 37weeks due to BMI > 35. Return to primary provider for continued care. Thank-you for the opportunity to participate in the care of this patient.If you have questions regarding today's evaluation or if we can be offurther service, please contact the [facility]. anomalies may be present but not detected I spent a total of 45 minutes on the date of this encounter includingpreparing to see the patient (reviewing medical records/tests), in [id number] contact with the patient during her visit with the majority spent counseling and discussingthe plan of care and documenting the visit in the electronic medicalrecord. Please see note for details. IMPRESSION ----- 1) Reyes intrauterine at 22w 6d gestational age. 2) None of the anomalies commonly detected by ultrasound were evident inthe detailed anatomic survey described above, although evaluation offetal anatomy was suboptimal as noted above. 3) Growth parameters and estimated weight were consistent with anappropriate for gestation age pattern of growth. 4) The amniotic fluid volume appeared normal. Gayle Gonzalez MD [facility] ORDER [facility]ILA from Last 3 Months Care Teams Bank Courier Relationship Specialty Start Date End Date No Ref-Primary, Physician PCP - General 05/28/23
--- OUTSIDE RECORDS SUMMARY | 2023-07-08 06:55 | XMS_ITS | Encounter Summary ---
Author Name Unknown Organization [facility] Address [address] [place] [address] Care Team Providers Care Cabinet Maker Name Role Phone No Ref-Primary, Physician Primary Care Provider Reason for Visit * Diagnostic Imaging Ultrasound (Routine) - Pending Review Specialty Diagnoses / Procedures Referred By Contac t Referred To Contact Radiology. Diagnoses Alport syndrome High-risk , unspecified trimester Procedures [facility] US Comprehensive Single Gayle Gonzalez MD [address] [address] Referral ID Status Reason Start Date Expiration Date V isits Requested Visits Authorized [id number] Pending Review 05/28/2023 05/27/2024 1 1 Encounter Details Date Type Department Care Team (Latest Contact Info) Description 07/03/2023 8:35 AM PHARMACIST APPRENTICE - 07/03/2023 11:59 PM PHARMACIST APPRENTICE Hospital Encounter [facility] [place] [address] [place] [address] Gayle Gonzalez MD [address] [facility] [address] [place] [address] Shayy Huerta MD [address] [facility] [address] [place], [place] [phone] Alport syndrome; High-risk , unspecified trimester Discharge Disposition: Home or Self Care Social History Tobacco Use Types Packs/Day Years [...] on file Sexual Orientation Not on file documented as of this encounter Medications at Time of Discharge Medication Sig Dispensed Refills Start Date End Date albuterol (PROVENTIL) (2.5 MG/3ML) 0.083% neb solution Inhale 2.5 mg into the lungs 3 times daily as needed for wheezing or shortness of breath 0 09/02/2022 aspirin (ASA) 81 MG chewable tablet Take 81 mg by mouth daily 0 cyanocobalamin (VITAMIN B-12) 1000 MCG tablet Take 2,000 mcg by mouth daily 0 09/02/2022 loratadine (CLARITIN REDITABS) 10 MG ODT Take 10 mg by mouth daily 0 montelukast (SINGULAIR) 10 MG tablet Take 1 tablet by mouth at bedtime 0 Vit-Fe Zhw-NP-Sirou (ONE-A-DAY WOMENS ) 28-0.8 & 223 MG MISC Take 1 tablet by mouth daily 0 pyridOXINE (VITAMIN B6) 25 MG tablet Take 25 mg by mouth daily 0 QVAR REDIHALER 40 MCG/ACT inhaler Inhale 2 puffs into the lungs 2 times daily 0 documented as of this encounter Plan of Treatment Upcoming Encounters Date Type Department Care Team (Late st Contact Info) Description 07/28/2023 8:45 AM PHARMACIST APPRENTICE Appointment [facility] [place] [address] [facility] [address] [place] [phone] Donnie Stanton MD [address] [place] [address] [place], [place] [phone] 07/28/2023 9:15 AM PHARMACIST APPRENTICE Office Visit [facility] [place] [address] [facility] [address] [place] [phone] Donnie Stanton MD [address] [place] [address] documented as of this encounter Procedures Procedure Name Priority Date/Time Associated Diagnosis Comments [facility] US COMPREHENSIVE SINGLE Routine 07/03/2023 9:50 AM PHARMACIST APPRENTICE Alport syndrome High-risk , unspecified trimester documented in this encounter Results * [facility] US Comprehensive Single (07/03/2023 9:50 AM PHARMACIST APPRENTICE) Anatomical Region Laterality Modality Ultrasound 07/03/2023 8:44 AM PHARMACIST APPRENTICE Impressions 07/04/2023 2:25 PM PHARMACIST APPRENTICE IMPRESSION ----- 1) Reyes intrauterine at 22w [...] volume appeared normal. Narrative 07/04/2023 2:25 PM PHARMACIST APPRENTICE ?Comprehensive ----- Pat. Name: HEIDI FORD ? Study Date: ??07/03/2023 8:44am Pat. NO: ??[id number] ?Referring ??MD: VENICE ELMORE RIBEIRO Site: ??[facility] ? Mandarin Tutor: Liza Howell RDMS : ??1990 ?Age: ?? [...] 1 lb 6 ?oz EFW by ?Hadlock ([id number]) Head / Face / Neck Biometry: Seismograph Shooter ? 6.3 ? mm CM ?3.3 ? [...] vena cava. Inferior vena cava. 3-vessel view. 3-psmusr-gjnrwwq view. ? Cardiac position. Cardiac size. Cardiac [...] findings on today's ultrasound with the patient. 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 She is followed closely at [facility] for this and she overall has done well with symptoms of mild chronic hematuria with normal kidney function. Other female family members that are also carriers for this have done well in their pregnancies. I reviewed that while overall, I would anticipate favorable outcomes for Heidi, but that X-linked Alport syndrome and can [...] through delivery. Agree with the plan per Heidi's inspector for serial follow-up BMP/renal panel every 1-2 [...] that time. We will plan to see Heidi back here in 3 weeks for a [...] the patient (reviewing medical records/tests), in direct wtbb-rm-xhil contact with the patient during her visit with the majority spent counseling and discussing the plan of care and documenting the visit in the electronic medical record. Please see note for details. Procedure Note Donnie Stanton MD - 07/04/2023 Comprehensive ----- Pat. Name: HEIDI FORD Study Date: 07/03/2023 8:44am Pat. NO: [id number] Referring MD: VENICE RIBEIRO Site: [facility] Mandarin Tutor: Liza Howell RDMS : 1990 Age: 32 [...] (lb,oz) 1 lb 6 oz EFW by Hadlock (LLI-CB-[id number]-FL) Head / Face / Neck Biometry: Seismograph Shooter 6.3 mm CM 3.3 mm Nasal bone [...] Superior vena cava. Inferior vena cava. 3-vesselview. 7-rkbfwz-wvzmyye view. Cardiac position. Cardiac size.Cardiac rhythm. Right [...] the findings on today's ultrasound with the patientBrandee Gordon presents today to also discuss management of her as she daniel carrier of X-linked Alport Syndrome. She is followed closely at [facility] for this and she overall has done well with symptoms of mild chronic hematuria withnormal kidney function. Other female family members that are also carriersfor this have done well in their pregnancies. I reviewed that while overall, I would anticipatefavorable outcomes for Heidi, but that X-linked Alport syndromeand can be [...] through delivery. Agree with the plan per Heidi'snephrologist for serial follow-up BMP/renal panel every 1-2 [...] that time. We will plan to see Heidi back here in 3 weeks for a [...] see the patient (reviewing medical records/tests), in qepfkgtfqa-md-jvcc contact with the patient during her visit [...] fluid volume appeared normal. Gayle Gonzalez MD [facility] ORDER [facility] documented in this encounter Visit Diagnoses Diagnosis Alport syndrome Other specified congenital anomalies High-risk , unspecified trimester documented in this encounter Care Teams Cabinet Maker Relationship Specialty Start Date End Date No Ref-Primary, Physician PCP - General 05/28/23 documented as of this encounter
--- OUTSIDE RECORDS SUMMARY | 2023-07-08 06:55 | XMS_ITS | Encounter Summary ---
Author Name Unknown Organization [facility] Address [address] [place] [address]. [place] [address] Care Team Providers Care Machine Candle Molder Name Role Phone No Ref-Primary, Physician Primary Care Provider Encounter Details Date Type Department Care Team (Latest Contact Info) Description 07/03/2023 Travel Social History Tobacco Use Types Packs/Day Years [...] on file documented as of this encounter Plan of Treatment Upcoming Encounters Date Type Department Care Team (Late st Contact Info) Description 07/28/2023 8:45 AM MANAGEMENT SME Appointment [facility] [place] [address] [facility] [address] [place] [phone] Donnie Stanton MD [address] [address] [place], [place] [phone] 07/28/2023 9:15 AM MANAGEMENT SME Office Visit [facility] [address] [facility] [address] [place] [phone] Donnie Stanton MD [address] [place], [place] [phone] documented as of this encounter Visit Diagnoses Not on filedocumented in this encounter Care Teams Machine Candle Molder Relationship Specialty Start Date End Date No Ref-Primary, Physician PCP - General 05/28/23 documented as of this encounter
--- OUTSIDE RECORDS SUMMARY | 2023-07-08 06:55 | XMS_ITS | Encounter Summary ---
Author Name Unknown Organization [facility] Address [address] [place] [address]. [place] [address] Care Team Providers Care Molded Grid And Parts Inspector Name Role Phone No Ref-Primary, Physician Primary Care Provider Reason for Visit * Reason Comments Consult CKD, endometriosis, AMA, asthma, alport syndrome Ultrasound L2 - CKD, endometrio sis, AMA, asthma, alport syndrome Encounter Details Date Type Department Care Team (Late st Contact Info) Description 06/24/2023 PRE VISIT [facility] [place] [address] [place], [place] [phone] Heidi Eisenberg, RN Consult (CKD, endometriosis, AMA, asthma, alport syndrome); Ultrasound (L2 - CKD, endometriosis, AMA, asthma, alport syndrome) Social History Tobacco Use Types Packs/Day Years [...] Encounters Date Type Department Care Team (Late Contact Info) Description 07/28/2023 8:45 AM SENIOR DESIGN ENGINEERING SPECIALIST Appointment [facility] [place] [address] [facility] [address] [place] [phone] Donnie Stanton MD [address] [place], [place] [address] 07/28/2023 9:15 AM SENIOR DESIGN ENGINEERING SPECIALIST Office Visit [facility] [address] [facility] [address] [place] [phone] Donnie Stanton MD [address] [place] [address] documented as of this encounter Visit Diagnoses Not on filedocumented in this encounter Care Teams Molded Grid And Parts Inspector Relationship Specialty Start Date End Date No Ref-Primary, Physician PCP - General 05/28/23 documented as of this encounter
--- OUTSIDE RECORDS SUMMARY | 2023-07-08 06:55 | XMS_ITS | Clinical Summary ---
Author Name Unknown Organization [employer] [facility] [employer] [facility] Address [place], [place] [address] Care Team Providers Care Telephone Exchange Operator Name Role Phone Val Byrd Primary Care Provider [phone] Allergies Active Allergy Reactions Criticality Noted Date [...] once daily. 180 Tablet 3 09/02/2022 Active 499-nxlp-ojesv-omega 3 27 mg iron- 800 mcg-235 mg [...] Department Care Team Description 05/05/2023 2:25 PM A CLASS LINEMAN - 05/05/2023 11:59 PM A CLASS LINEMAN [facility] [address] [place] [address] Val Byrd PA Olsen, Michelle J, PT 05/05/2023 Travel 04/28/2023 9:59 AM A CLASS LINEMAN - 04/28/2023 11:59 PM A CLASS LINEMAN Hospital Encounter [facility] [address] [place] [address] Val Byrd PA Olsen, Michelle J, PT 04/28/2023 Travel 04/21/2023 7:47 AM A CLASS LINEMAN - 04/21/2023 11:59 PM A CLASS LINEMAN Hospital Encounter [facility] [address] [place] [address] Val Byrd PA Olsen, Michelle J, PT 04/21/2023 Travel 04/13/2023 9:45 AM A CLASS LINEMAN Office Visit [facility] [address] [place] [phone] Yoselin Drew, GUEST RELATIONS REPRESENTATIVE Throat Problem; Sinus Problem; Headache (C/O having a sore throat 04/06/2023. Cough sinus congestion and sinus headache. She has asthma and is . ) 04/13/2023 Travel 04/07/2023 12:56 PM A CLASS LINEMAN - 04/07/2023 11:59 PM A CLASS LINEMAN Hospital En[facility] [address] [place] [address] Val Byrd PA Helms, Colleen G, PT 04/07/2023 Travel from Last 3 Months Immunizations Name Administration Dates Next Due COVID-19 vaccine ([employer] 30mcg/0.3mL) PF, MDV 06/17/2021,12/17/2020,11/19/2020 DT (Age [...] Comments Blood Pressure 99/70 04/13/2023 10:07 AM A CLASS LINEMAN Pulse 93 04/13/2023 10:07 AM A CLASS LINEMAN Temperature 36.4 ??C (97.6 ??F) 04/13/2023 10:[address] Respiratory Rate 14 04/13/2023 10:07 AM A CLASS LINEMAN Oxygen Saturation 96% 04/13/2023 10:07 AM A CLASS LINEMAN Inhaled Oxygen Concentration - - Weight 109.8 kg (242 lb) 04/13/2023 10:07 AM A CLASS LINEMAN Height 172.7 cm (5' 8) 10/08/2022 8:13 [...] STREP A PCR STAT 04/13/2023 10:09 AM A CLASS LINEMAN Sore throat THROAT RAPID STREP A WITH REFLEX STAT 04/13/2023 10:09 AM A CLASS LINEMAN Sore throat from Last 3 Months Results * STREP A PCR (04/13/2023 10:09 AM A CLASS LINEMAN) GROUP A STREP Negative 04/13/2023 3:16 PM A CLASS LINEMAN [facility] Throat SPECIMEN FROM THROAT / Unknown Non-Blood / Unknown 04/13/2023 10:09 AM A CLASS LINEMAN 04/13/2023 10:28 AM A CLASS LINEMAN Narrative Authorizing Provider Result Nava Drew NP MICROBIOLOGY Performing Organization Address City/[facility]/ZIP Co de Phone Number [facility] [address] [place] [address], * THROAT RAPID STREP A WITH REFLEX (04/13/2023 10:09 AM A CLASS LINEMAN) STREP A ANTIGEN Negative 04/13/2023 10:28 AM A CLASS LINEMAN [facility] Comment:PCR to follow. Throat SPECIMEN FROM THROAT / Unknown Non-Blood / Unknown 04/13/2023 10:09 AM A CLASS LINEMAN 04/13/2023 10:16 AM A CLASS LINEMAN Narrative Authorizing Provider Result Nava Drew NP MICROBIOLOGY Performing Organization Address City/[facility]/ZIP Co de Phone Number [facility] [address] [place] [phone] from Last 3 Months Advance Directives Latest Code Status on File Code Status Date Activated Date Inactivated Comments Full Code 05/23/2020 2:04 PM 05/24/2020 1:14 PM Question Answer Comments Code Status Discussion: Not Discussed Care Teams Telephone Exchange Operator Relationship Specialty Start Date End Date Val Byrd PA [address] [facility] [address] PCP - General Physician Mine Geologist 11/21/22
--- OUTSIDE RECORDS SUMMARY | 2023-07-08 06:55 | XMS_ITS | Encounter Summary ---
Author Name Unknown Organization [facility] Address [address] [place] [address] Care Team Providers Care Retail Seasonal Specialist Name Role Phone No Ref-Primary, Physician Primary Care Provider Reason for Referral * Diagnostic Imaging Ultrasound (Routine) - Pending Review Specialty Diagnoses / Procedures Referred By Contac t Referred To Contact Radiology. Diagnoses High-risk , unspecified trimester Procedures [facility] US Comprehensive Single F/U Donnie Stanton MD [address] [place] [address] Referral ID Status Reason Start Date Expiration Date V isits Requested Visits Authorized [id number] Pending Review 07/03/2023 07/02/2024 1 1 ETY REPORTER Reason for Visit * Reason Comments Ultrasound L2- CKD, alport synd antonio, endometriosis, AMA Consult CKD, alport syndrome , endometriosis, AMA * Consultation (Routine: Next available opening) - Pending Review Specialty Diagnoses / Procedures Referred By Contac t Referred To Contact Diagnoses Alport syndrome High-risk , unspecified trimester Gayle Gonzalez MD [address] [place] [address] Referral ID Status Reason Start Date Expiration Date V isits Requested Visits Authorized [id number] Pending Review 05/28/2023 05/27/2024 1 1 Encounter Details Date Type Department Care Team ([facility] st Contact Info) Description 07/03/2023 9:30 AM SOCIETY REPORTER Office Visit [facility] [place] [address] [place] [address] Gayle Gonzalez MD [address] [place] [address] Shayy Huerta MD [address] [place] [address] Donnie Stanton MD [address] [place] [address] Pre-exist hyp chronic kidney disease comp preg, second tri (Primary Dx); High-risk , unspecified trimester Social History Tobacco Use Types Packs/Day Years [...] on file documented as of this encounter Last Filed Vital Signs Vital Sign Reading Time Taken Comments Blood Pressure 114/82 07/03/2023 10:18 AM SOCIETY REPORTER Pulse 82 07/03/2023 10:18 AM SOCIETY REPORTER Temperature - - Respiratory Rate 18 07/03/2023 10:18 AM SOCIETY REPORTER Oxygen Saturation 100% 07/03/2023 10:18 AM SOCIETY REPORTER RA Inhaled Oxygen Concentration - - Weight - - Height - - Body Mass Index - - documented in this encounter Progress Notes * Donnie Stanton MD - 07/03/2023 9:30 AM CST Please see Imaging tab under Chart Review for details of today's visit, which is summarized below: Impression ========= 1) Reyes intrauterine at 22w 6d gestational age. 2) None of the anomalies commonly detected by ultrasound were evident in the detailed anatomic survey described above, although evaluation of anatomy was suboptimal as noted above. 3) Growth parameters and estimated weight were consistent with an appropriate for gestation age pattern of growth. 4) The amniotic fluid volume appeared normal. Recommendation We discussed the findings on today's ultrasound with the patient. 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 She is followed closely at [facility] for this and she overall has done well with symptoms of mild chronic hematuria with normal kidney function. Other female family members that are also carriers for this have done well in their pregnancies. I reviewed that while overall, I would anticipate favorable outcomes for Heidi, but that X-linked Alport syndrome and canbe associated with worsening of renal disease in select patients, which may manifest as worsening hematuria, proteinuria, and increased risk for development of preeclampsia. Additionally, decrease inrenal function has been reported, although uncommon. As Alport syndrome has additionally been associated with increased risk of developing gestational hypertension preeclampsia or eclampsia in , recommend daily low dose aspirin through delivery. Agree with the plan per Heidi's nephrologistfor serial follow-up BMP/renal panel every 1-2 months [...] the patient (reviewing medical records/tests), in direct vtya-md-thbs contact with the patient during her visit with the majority spent counseling and discussing the plan of care and documenting the visit in the electronic medical record. Please see note for details. Donnie Stanton ETY REPORTER documented in this encounter Nursing Notes * Geri Laurent RN - 07/03/2023 9:30 AM CST Heidi seen in clinic today at 22w6d gestation for L2/MFM Consult d/t CKD, Alport syndrome, AMA at delivery, endometriosis. Pt here with . VS obtained. Meds and allergies reviewed. Patient reports positive movement, denies pain, denies contractions/pre-term labor, leaking of fluid, or bleeding. Patient denies headache, visual changes, nausea/vomiting, epigastric pain related to preeclampsia. Dr. Stanton met with pt and discussed POC, see separate note. Plan for RL2 in 3 weeks. Future visits scheduled at commercial front load operator. Pt discharged stable and ambulatory. Geri Laurent RN ETY REPORTER documented in this encounter Plan of Treatment Upcoming Encounters Date Type Department Care Team (Late st Contact Info) Description 07/28/2023 8:45 AM SOCIETY REPORTER Appointment [facility] [place] [address] [facility] [address] [place] [phone] Donnie Stanton MD [address] [place], [place] [address] 07/28/2023 9:15 AM SOCIETY REPORTER Office Visit [facility] [place] [address] [facility] [address] [place] [phone] Donnie Stanton MD [address] [place], [place] [address] Scheduled Orders Name Type Priority Associated Diagnoses Orde r Schedule MFM US Comprehensive Single F/U Imaging Routine High-risk , unspecified trimester Expected: 07/24/2023 (Approximate), Expires: 07/03/2024 documented as of this encounter Visit Diagnoses Diagnosis Pre-exist hyp chronic kidney disease comp preg, second tri- Primary High-risk , unspecified trimester documented in this encounter Care Teams Retail Seasonal Specialist Relationship Specialty Start Date End Date No Ref-Primary, Physician PCP - General 05/28/23 documented as of this encounter
--- OUTSIDE RECORDS SUMMARY | 2023-07-08 06:55 | XMS_ITS | Referral Summary ---
Author Name Unknown Organization [facility] Address [address] [place] [address] Care Team Providers Care Design Studio Consultant Name Role Phone No Ref-Primary, Physician Primary Care Provider Encounters Date Type Department Care Team Description 07/03/2023 Travel 07/03/2023 8:35 AM DERRICK BUILDER - 07/03/2023 11:59 PM DERRICK BUILDER Hospital Encounter [facility] Maternal Medicine [facility] [address] [place] [address] Gayle Gonzalez MD Sabol, Bethany, MD Alport syndrome; High-risk , unspecified trimester Discharge Disposition: Home or Self Care 07/03/2023 9:30 AM DERRICK BUILDER Office Visit [facility] Maternal Medicine [facility] [address] [place] [address] Gayle Gonzalez MD Sabol, Bethany, MD Yamamura, Yasuko, MD Pre-exist hyp chronic kidney disease comp preg, second tri (Primary Dx); High-risk , unspecified trimester 06/24/2023 PRE VISIT [facility] Maternal Medicine [facility] [address] [place] [address] Heidi Eisenberg, RN Consult (CKD, endometriosis, AMA, asthma, alport syndrome); Ultrasound (L2 - CKD, endometriosis, AMA, asthma, alport syndrome) 05/28/2023 Orders Only [facility] Maternal Medicine [facility] [address] [place] [address] Gayle Plascencia RN Alport syndrome (Primary Dx); High-risk , unspecified trimester 05/23/2023 Telephone [facility] [place] [address] [place] [address] Gayle Plascencia RN Referral 05/22/[address] [facility] [address] [place] [address] Outside, Provider 05/22/2023 Transcribe Orders [facility] [address] [place] [address] [place] Murray related condition, antepartum (Primary Dx) from Last 3 Months Allergies Active Allergy Reactions Criticality Noted Date Comments Amoxicillin Hives Medium 10/13/2008 Benzalkonium Chloride Rash Low 04/22/2022 Cefaclor Hives Medium 10/13/2008 Cefuroxime Hives Medium 10/13/2008 Clindamycin Hives Medium 02/28/2014 Cyanoacrylate Rash Low 06/12/2020 Latex Rash Medium 07/17/2009 Ondansetron 02/13/2022 Other Reaction(s): Chest Pain Shellfish-Derived Products Itching 0 Itchy tongue and lips (benadryl has taken [...] mg by mouth daily 0 Active Vit-Fe Dcz-DU-Npzmz (ONE-A-DAY WOMENS ) 28-0.8 & 223 MG MISC Take 1 tablet by mouth daily 0 Active loratadine (CLARITIN REDITABS) 10 MG ODT Take 10 mg by mouth daily 0 Active Social History Tobacco Use Types Packs/Day Years [...] Comments Blood Pressure 114/82 07/03/2023 10:18 AM DERRICK BUILDER Pulse 82 07/03/2023 10:18 AM DERRICK BUILDER Temperature - - Respiratory Rate 18 07/03/2023 10:18 AM DERRICK BUILDER Oxygen Saturation 100% 07/03/2023 10:18 AM DERRICK BUILDER RA Inhaled Oxygen Concentration - - Weight - - Height - - Body Mass Index - - Plan of Treatment Upcoming Encounters Date Type Department Care Team (Late st Contact Info) Description 07/28/2023 8:45 AM DERRICK BUILDER Appointment [facility] [address] [facility] [facility] [address] [place] [address] Donnie Stanton MD [address] [place], [place] [address] 07/28/2023 9:15 AM DERRICK BUILDER Office Visit [facility] [address] [facility] [address] [place] [phone] Donnie Stanton MD [address] [place], [place] [phone] Procedures Procedure Name Priority Date/Time Associated Diagnosis Comments [facility] S[facility] Routine 07/03/2023 9:50 AM DERRICK BUILDER Alport syndrome High-risk , unspecified trimester from Last 3 Months Results * [facility] Single (07/03/2023 9:50 AM DERRICK BUILDER) Anatomical Region Laterality Modality Ultrasound 07/03/2023 8:44 AM DERRICK BUILDER Impressions 07/04/2023 2:25 PM DERRICK BUILDER IMPRESSION ----- 1) Reyes intrauterine at 22w [...] volume appeared normal. Narrative 07/04/2023 2:25 PM DERRICK BUILDER ?Comprehensive ----- Pat. Name: HEIDI FORD ? Study Date: ??07/03/2023 8:44am Pat. NO: ??[id number] ?Referring ??: VENICE RIBEIRO Site: ??[facility] ? Sub Plant Manager: Liza Howell RDMS : ??1990 ?Age: ?? [...] 1 lb 6 ?oz EFW by ?Hadlock ([id number]) Head / Face / Neck Biometry: Internet Researcher ? 6.3 ? mm CM ?3.3 ? [...] vena cava. Inferior vena cava. 3-vessel view. 5-ljsnxf-tokrljf view. ? Cardiac position. Cardiac size. Cardiac [...] She is followed closely at [facility] for this and she overall has [...] delivery. Agree with the plan per Heidi's carton stapler for serial follow-up BMP/renal panel every 1-2 [...] the patient (reviewing medical records/tests), in direct yxph-nt-xzyc contact with the patient during her visit with the majority spent counseling and discussing the plan of care and documenting the visit in the electronic medical record. Please see note for details. Procedure Note Donnie Stanton MD - 07/04/2023 Comprehensive ----- Pat. Name: HEIDI FORD Study Date: 07/03/2023 8:44am Pat. NO: [id number] Referring MD: VENICE RIBEIRO Site: [facility] Sub Plant Manager: Liza Howell RDMS : 1990 Age: 32 [...] 1 lb 6 oz EFW by Hadlock ([id number]) Head / Face / Neck Biometry: Internet Researcher 6.3 mm CM 3.3 mm Nasal bone [...] Superior vena cava. Inferior vena cava. 3-vesselview. 2-kvtwsc-fufnrku view. Cardiac position. Cardiac size.Cardiac rhythm. Right [...] Alport Syndrome. She is followed closely at [facility] for this and she overall has [...] see the patient (reviewing medical records/tests), in crzidtvgvx-kn-zgfy contact with the patient during her visit [...] volume appeared normal. Gayle Gonzalez MD IMG M US ORDER SOILA from Last 3 Months Care Teams Design Studio Consultant Relationship Specialty Start Date End Date No Ref-Primary, Physician PCP - General 05/28/23
--- OUTSIDE RECORDS SUMMARY | 2023-07-08 06:56 | XMS_ITS | Encounter Summary ---
Author Name Unknown Organization [facility] Address [address] [place] [address]. [place] [address] Care Team Providers Care Medical Case Manager Name Role Phone No Ref-Primary, Physician Primary Care Provider Encounter Details Date Type Department Care Team (Late st Contact Info) Description 05/22/2023 Medical Correspondence [facility] [address] [place] [phone] Outside, Provider Social History Tobacco Use Types Packs/Day Years Used Date Smoking Tobacco: Never Assessed Adolescent Education Answer Date Record ed Getting School Help Needed Not on file 05/22 Sex and Gender Information Value Date Recorded Sex Assigned at Not on file Gender Identity Not on file Sexual Orientation Not on file documented as of this encounter Plan of Treatment Upcoming Encounters Date Type Department Care Team (Late Contact Info) Description 07/28/2023 8:45 AM MOLD CLAMPER Appointment [facility] Maternal Medicine [facility] [address] [facility] [address] [place] [phone] Donnie Stanton MD [address] [place], [place] [phone] 07/28/2023 9:15 AM MOLD CLAMPER Office Visit [facility] Maternal Medicine [facility] [address] [facility] [address] [place] [phone] Donnie Stanton MD [address] [place], [place] [phone] documented as of this encounter Visit Diagnoses Not on filedocumented in this encounter Care Teams Medical Case Manager Relationship Specialty Start Date End Date No Ref-Primary, Physician PCP - General 05/28/23 documented as of this encounter
--- OUTSIDE RECORDS SUMMARY | 2023-07-08 06:56 | XMS_ITS | Encounter Summary ---
Author Name Unknown Organization [facility] Address [address] [place] [address]. [place] [address] Care Team Providers Care Tax Assessor Name Role Phone Unavailable Primary Care Provider Unavailabl e Reason for Visit * Reason Onset Date Comments Referral 05/23/2023 Encounter Details Date Type Department Care Team (Late st Contact Info) Description 05/23/2023 Telephone [facility] Maternal Medicine [facility] [address] [place] [address] Gayle Plascencia, financial planning analyst Social History Tobacco Use Types Packs/Day Years Used Date Smoking Tobacco: Never Assessed Adolescent Education Answer Date Record ed Getting School Help Needed Not on file 05/22 Sex and Gender Information Value Date Recorded Sex Assigned at Not on file Gender Identity Not on file Sexual Orientation Not on file documented as of this encounter Miscellaneous Notes * Telephone Encounter - Gayle Plascencia RN - 05/23/2023 2:07 PM COTTON STOMPER Phone call to [facility] regarding referral to [facility] for L2 and consult. Pt did have a MFM consult at [place] 07/2021. Does provider want another consult in a different health system? Kumar Young will call back to display card writer on 05/27/23. Gayle Plascencia RN ON STOMPER documented in this encounter Plan of Treatment Upcoming Encounters Date Type Department Care Team (Late Contact Info) Description 07/28/2023 8:45 AM COTTON STOMPER Appointment [facility] Maternal Medicine [facility] [address] [place] [phone] Donnie Stanton MD [address] [place], [place] [phone] 07/28/2023 9:15 AM COTTON STOMPER Office Visit [facility] Maternal Medicine [facility] [address] [place] [phone] Donnie Stanton MD [address] [place], [place] [phone] documented as of this encounter Visit Diagnoses Not on filedocumented in this encounter
--- OUTSIDE RECORDS SUMMARY | 2023-07-08 06:56 | XMS_ITS | Encounter Summary ---
Author Name Unknown Organization [facility] Address [address] [place] [address]. [place] [address] Care Team Providers Care It Application Administrator Name Role Phone Unavailable Primary Care Provider Unavailabl e Reason for Referral * Consultation (Routine: Next available opening) - Pending Review Specialty Diagnoses / Procedures Referred By Maria Dolores t Referred To Contact Diagnoses related condition, antepartum Martina Murray [address] [address] [facility] [address] [place] [address] Referral ID Status Reason Start Date Expiration Date V isits Requested Visits Authorized [id number] Pending Review 05/22/2023 05/21/2024 1 1 Question Answer Preferred Location: [facility] 10/28/2023 Ultrasound Comprehensive US (>than 18 weeks GA) US PROC NONE MFM Issue OTHER (enter details in Comments) - Alport Syndrome MFM MD Consultation (unrelated to Ultrasound findings): Yes Inflammatory Bowel Disease Clinic: Joint MFM and GI Consultation: No Chronic Kidney Disease: Joint MFM and Nephrology Consultation No Genetic Counseling Consultation: No fax NH+[facility] - Martina Quevedo - Comments There is no height or weight on file to calculate BMI. >> Patient may proceed with recommendations for further testing as directed by the Maternal Medicine Specialist >> >> If requesting Echo: MFM will determine appropriate location for exam due to indication. >> If requesting Lung Maturity Amnio: If results indicate lung maturity, induction or C/S is recommended within 36 hours. Please schedule accordingly. Please be aware that coverage of these services is subject to the terms and limitations of your health insurance plan. Call member services at your health plan with any benefit or coverage questions. UTATIONAL SCIENTIST Encounter Details Date Type Department Care Team (Latest Contact Info) Description 05/22/2023 Transcribe Orders [facility] Maternal Medicine [place] [address] [place] [phone] Martina Murray [facility] [address] [place] [address] related condition, antepartum (Primary Dx) Social History Tobacco Use Types Packs/Day Years [...] st Contact Info) Description 07/28/2023 8:45 AM COMPUTATIONAL SCIENTIST Appointment [facility] Medicine [place] [address] [place] [phone] Donnie Stanton MD [address] [place] [phone] 07/28/2023 9:15 AM COMPUTATIONAL SCIENTIST Office Visit [facility] Maternal Medicine [place] [address] [facility] [address] [place] [phone] Donnie Stanton MD [address] [place], [place] [phone] Scheduled Referrals Name Type Priority Associated Diagnoses Orde r Schedule [facility] Ctr Referral - Referral Routine: Next available opening related condition, antepartum Expected: 05/22/2023 (Approximate), Expires: 11/18/2023 documented as of this encounter Visit Diagnoses Diagnosis related condition, antepartum- Primary documented in this encounter
--- OUTSIDE RECORDS SUMMARY | 2023-07-08 06:56 | XMS_ITS | Encounter Summary ---
Author Name Unknown Organization [facility] Address [address] [place] [address] Care Team Providers Care Network Systems Administrator Name Role Phone No Ref-Primary, Physician Primary Care Provider Reason for Referral * Diagnostic Imaging Ultrasound (Routine) - Pending Review Specialty Diagnoses / Procedures Referred By Contac t Referred To Contact Radiology. Diagnoses Alport syndrome High-risk , unspecified trimester Procedures MFM US Comprehensive Single Gayle Gonzalez MD [address] [place] [address] Referral ID Status Reason Start Date Expiration Date V isits Requested Visits Authorized [id number] Pending Review 05/28/2023 05/27/2024 1 1 ER OPERATOR * Consultation (Routine: Next available opening) - Pending Review Specialty Diagnoses / Procedures Referred By Contac t Referred To Contact Diagnoses Alport syndrome High-risk , unspecified trimester Gayle Gonzalez MD [address] [place] [address] Referral ID Status Reason Start Date Expiration Date V isits Requested Visits Authorized [id number] Pending Review 05/28/2023 05/27/2024 1 1 Question Answer MFM Consult Yes Additional Information: MFM PAC consult ER OPERATOR Encounter Details Date Type Department Care Team ([facility] st Contact Info) Description 05/28/[address] [facility] Maternal Medicine [facility] [address] [place], [place] [phone] Gayle Plascencia RN Alport syndrome (Primary Dx); High-risk , unspecified trimester Social [...] (Late Contact Info) Description 07/28/2023 8:45 AM CASTER OPERATOR Appointment [facility] Maternal Medicine [facility] [address] [facility] [address] [place] [phone] Donnie Stanton MD [address] [place], [place] [address] 07/28/2023 9:15 AM CASTER OPERATOR Office Visit [facility] Maternal Medicine [facility] [address] [place] [phone] Donnie Stanton MD [address] [place], [place] [phone] Scheduled Referrals Name Type Priority Associated Diagnoses Orde r Schedule [facility] Office Visit Referral Routine: Next available opening Alport syndrome High-risk , unspecified trimester Expected: 06/11/2023 (Approximate), Expires: 05/28/2024 documented as of this encounter Results * [facility] US Comprehensive Single (07/03/2023 9:50 AM CASTER OPERATOR) Anatomical Region Laterality Modality Ultrasound 07/03/2023 8:44 AM CASTER OPERATOR Impressions 07/04/2023 2:25 PM CASTER OPERATOR IMPRESSION ----- 1) Reyes intrauterine at 22w [...] volume appeared normal. Narrative 07/04/2023 2:25 PM CASTER OPERATOR ?Comprehensive ----- Pat. Name: HEIDI FORD ? Study Date: ??07/03/2023 8:44am Pat. NO: ??[id number] ?Referring ??MD: VENICE RIBEIRO Site: ??[facility] ? Mid Level Game Designer: Liza Howell RDMS : ??1990 ?Age: ?? [...] ? 1 lb 6 ?oz EFW [facility] ?[facility] ([id number]) Head / Face / Neck Biometry: Quote Clerk ? 6.3 ? mm CM ?3.3 ? [...] vena cava. Inferior vena cava. 3-vessel view. 1-ciedii-wpyngak view. ? Cardiac position. Cardiac size. Cardiac [...] Syndrome. She is followed closely at [facility] for this and she overall has done [...] delivery. Agree with the plan per Heidi's seasoning mixer for serial follow-up BMP/renal panel every 1-2 [...] the patient (reviewing medical records/tests), in direct ztzj-af-txzl contact with the patient during her visit with the majority spent counseling and discussing the plan of care and documenting the visit in the electronic medical record. Please see note for details. Procedure Note Donnie Stanton MD - 07/04/2023 Comprehensive ----- Pat. Name: HEIDI FORD Study Date: 07/03/2023 8:44am Pat. NO: [id number] Referring MD: VENICE RIBEIRO Site: [facility] Mid Level Game Designer: Liza Howell RDMS : 1990 Age: 32 [...] 1 lb 6 oz EFW by Hadlock ([id number]) Head / Face / Neck Biometry: Quote Clerk 6.3 mm CM 3.3 mm Nasal bone [...] Superior vena cava. Inferior vena cava. 3-vesselview. 6-uqrkrp-yszaeyk view. Cardiac position. Cardiac size.Cardiac rhythm. Right [...] She is followed closely at [facility] for this and she overall has [...] see the patient (reviewing medical records/tests), in krghjotdmg-df-ewou contact with the patient during her visit [...] fluid volume appeared normal. Gayle Gonzalez MD [facility] ORDER SOILA documented in this encounter Visit Diagnoses Diagnosis Alport syndrome- Primary Other specified congenital anomalies High-risk , unspecified trimester Alport syndrome Other specified congenital anomalies High-risk , unspecified trimester documented in this encounter Care Teams Network Systems Administrator Relationship Specialty Start Date End Date No Ref-Primary, Physician PCP - General 05/28/23 documented as of this encounter
== END 2023-07-07 14:22 | disposition home or self-care (01) ==
LOC: NFLDREF 14:21
PROVIDERS: PCP Physician Assistant; Referring Provider Physician Assistant; Visit Provider Obstetrics & Gynecology
DX: Q87.81 Alport syndrome (principal)
CPT/HCPCS: 82570; 84156

== ENCOUNTER 2023-07-25 15:39 | Outpatient (CLI) | payer BC, OTHER, SELFPAY ==
[2023-07-25 15:51] VITALS: BP 115/76; PULSE 85; RESP 16; TEMP 36.8
[2023-07-25 16:43] LABS: Bilirubin Urine Negative (Negative); Blood Urine Trace-intact (Negative); Color Urine Yellow (Yellow); Glucose Urine Negative (Negative); Ketones Urine Negative (Negative); Leukocyte Esterase Urine Negative (Negative); Nitrite Urine Negative (Negative); Protein Urine Negative (Negative); Specific Gravity Urine 1.015 (1.000-1.030); Urobilinogen Urine 0.2 (0.2-1.0)
[2023-07-25 16:51] LABS: Appearance Urine Clear (Clear)
[2023-07-25 16:52] LABS: Squamous Epithelial Cell Urine Few (None-Few); WBC Urine 0-2 (0-5)
--- NOTE | 2023-07-25 17:39 | P.OBLDTN_ITS ---
OB - Triage/Final Diagnosis Visit Information Time Seen by Provider: 17:00 Date of evaluation: 07/25/23 Narrative: The patient is a 32 year old 1 para 0 at 26 weeks gestation by LMP, who presents with abdominal pain. course is complicated by Alport syndrome, AMA asthma, obesity. Heidi called the nurse triage today in the setting of cramping. She specifically had 1 intense cramps Friday afternoon, subsequently resolved. Her pain recurred on night, when she had 45 minutes of intermittent cramping that did wake her from sleep. She noted this was positional, worse when she was lying on her right side. Today, she notes period like cramping and low abdominal pressure. She notes this has been absent while resting in triage. She has never felt her belly get tight. She notes her pain today preceded three episodes of loose stools. Denies nauesea/vomiting, fevers/chills, sick contacts. No abnormal vaginal discharge, vulvovaginal itching/burning, bleeding, leaking or decreased movement. Evaluation Laboratory results: Laboratory Tests 07/25/23 Range/Units 16:28 Urine Color Yellow (Yellow) Urine Appearance Clear (Clear) Urine pH 7.0 (5.0-8.5) Ur Specific Cache 1.015 (1.000-1.030) Urine Protein Negative (Negative) Urine Glucose (UA) Negative (Negative) Urine Ketones Negative (Negative) Urine Blood Trace-intact A (Negative) Urine Nitrite Negative (Negative) Urine Bilirubin Negative (Negative) Urine Urobilinogen 0.2 (0.2-1.0) Ur Leukocyte Esterase Negative (Negative) Urine RBC 2-5 A (0-2) Urine WBC 0-2 (0-5) Ur Squamous Epith Cells Few (None-Few) Urine Bacteria None (None) Vital signs: Vital Signs - 24 hr 07/25/23 15:51 Temperature 98.2 F Pulse Rate 85 Respiratory Rate 16 Blood Pressure 115/76 Comments: General: Alert and oriented, no acute distress Abdomen: Gravid, otherwise soft. Tenderness to palpation on the left mid to low abdomen, Carnett's sign positive. No rebound or guarding. Pelvic: External genitalia within normal limits. Speculum inserted, cervix appears unremarkable and closed. Physiologic discharge noted. Sterile vaginal exam completed, cervix closed. heart rate: Reassuring for gestational age across greater than 1 hour of monitoring, no decelerations [place]: No contractions Final Diagnosis (1) Musculoskeletal pain: Status: Acute Problem details: Ms. Amaya is a 32yo at 26w0d GA seen for abdominal pain in . She notes intermittent left sided pain that is positional in nature. Abdomen is mildly tender to palpation, Carnett's sign positive. Reassuring testing, no contractions on tocometer. Denies abdominal tightening, contractions, vaginal bleeding, leaking or decreased movement. Speculum exam unremarkable, cervix closed. UA pending, though denies urgency/frequency, dysuria or malodor. We discussed likely etiology of pain is musculoskeletal vs related to her episode of loose stools. We reviewed use of support belt, ice/heat and/or topical therapies for her pain. No known sick contacts, afebrile with no ongoing diarrhea. Discussed return precautions including contractions, vaginal bleeding, leaking of fluids or decreased movement. (2) : Status: Acute
--- NOTE | 2023-07-25 17:50 | PC.OBNST ---
NST Note NST Note Start: 07/25/23 15:42 Freq: ONCE Status: Active Protocol: Document 07/25/23 17:30 [facility] (Rec: 07/25/23 17:50 [facility] [id number]) NST Note 1 Para (# of births) 0 EDC 10/28/23 Gestational Age In Weeks & Days 26 Weeks & 3 Days Patient Presented with Complaint(s) of Contractions/cramping,Other Other Complaints loose stool and abdominal discomfort. Reactive Yes Appropriate for Gestational Age Yes DAQUAN Greer RN Date 07/25/23 Reactive Yes Appropriate for Gestational Age Yes DAQUAN Bran Date 07/25/23 OB NST charge Yes Complete NST Note via Write Note Yes The provider's electronic signature indicates the NST is reactive/appropriate for gestational age. *Note to provider: If an addendum is required, open the patient's chart and click on the note under the Nurse/Allied Health tab.
== END 2023-07-25 17:42 | disposition home or self-care (01) ==
LOC: OB OUT 15:40 → OB 15:40
PROVIDERS: PCP Physician Assistant; Visit Provider Obstetrics & Gynecology
DX: O47.02 False labor before 37 completed weeks of gestation, second trimester (principal); Z3A.26 26 weeks gestation of pregnancy
CPT/HCPCS: 59025; 81001; 81003; G0463

== ENCOUNTER 2023-07-28 12:10 | Outpatient (CLI) | payer BC, OTHER, SELFPAY | END 2023-07-28 12:11 | disposition home or self-care (01) | LOC: NFLDREF 08-11 10:26 | PROVIDERS: PCP Physician Assistant; Referring Provider Physician Assistant; Visit Provider Obstetrics & Gynecology | DX: Z34.92 Encounter for supervision of normal pregnancy, unspecified, second trimester (principal) | CPT/HCPCS: 86592 ==

== ENCOUNTER 2023-08-12 10:58 | Outpatient (CLI) | payer BC, OTHER, SELFPAY | END 2023-08-12 10:59 | disposition home or self-care (01) | LOC: NFLDREF 08-13 10:54 | PROVIDERS: PCP Physician Assistant; Referring Provider Physician Assistant; Visit Provider Internal Medicine Nephrology | DX: R80.9 Proteinuria, unspecified (principal) | CPT/HCPCS: 82570; 84156; 87086 ==

== ENCOUNTER 2023-09-08 08:04 | Outpatient (CLI) | payer BC, OTHER, SELFPAY ==
--- NOTE | 2023-09-08 08:15 | US_ITS ---
Patient: MYRA FORD Facility:?[facility] RIS Patient ID:?[id number] Site Patient ID:?[id number]. Site :?[id number] Study:?US-OB Pelvis OB F/U GROWTH-09/08/2023 9:07:15 AM Ordering Physician:?KISHORE CHAPIN M.D. Final Report: INDICATION: Third trimester scan, evaluate growth. COMPARISON: 03/21/2023 TECHNIQUE: Real time anaya scale imaging of the fetus was performed. FINDINGS: Sonographic imaging demonstrates a single living intrauterine gestation. Fetus demonstrates a regular cardiac rate of 176 beats per minute. Fetus has a vertex position. The placenta lies left posterior. Amniotic fluid volume appears normal and there is a single deepest vertical pocket: 6.2 cm. The estimated weight is 34 weeks 4 daysgm which lies at the 10/16/2023 %. BPD 85th percentile. HC 90th percentile. AC greater than 97th percentile. FL 70th percentile the HC/AC ratio measures 1.02 range (0.94-1.11). IMPRESSION: Sonographic gestational age 34 weeks 4 days and sonographic due date of 10/16/2023. Sonographic age 15 days ahead of the clinical age. Estimated weight at 95th percentile. Abdominal circumference greater than 97th percentile. Dictated by Abundio Lane MD @ 09/08/2023 10:10:12 AM Signed by:?Abundio Lane MD @09/08/2023 10:10:12 AM (Electronic Signature)
== END 2023-09-08 08:05 | disposition home or self-care (01) ==
LOC: US 08:05
PROVIDERS: PCP Physician Assistant; Visit Provider Obstetrics & Gynecology
DX: Z34.93 Encounter for supervision of normal pregnancy, unspecified, third trimester (principal); O36.63X0 Maternal care for excessive fetal growth, third trimester, not applicable or unspecified; Q87.81 Alport syndrome; Z3A.34 34 weeks gestation of pregnancy
CPT/HCPCS: 76816; 80048; 80069; 82570; 84156; 87086

== ENCOUNTER 2023-09-15 08:57 | Outpatient (CLI) | payer BC, OTHER, SELFPAY ==
--- OUTSIDE RECORDS SUMMARY | 2023-09-15 09:02 | XMS_ITS | Clinical Summary ---
Author Name Unknown Organization [facility] Address [address] [place] [address] Care Team Providers Care Paint Grinder Name Role Phone No Ref-Primary, Physician Primary [...] needed for wheezing or shortness of breath 09/02/2022 Active aspirin (ASA) 81 MG chewable tablet Take 81 mg by mouth daily Active QVAR REDIHALER 40 MCG/ACT inhaler Inhale 2 puffs into the lungs 2 times daily Active cyanocobalamin (VITAMIN B-12) 1000 MCG tablet Take 2,000 mcg by mouth daily 09/02/2022 Active montelukast (SINGULAIR) 10 MG tablet Take 1 tablet by mouth at bedtime Active pyridOXINE (VITAMIN B6) 25 MG tablet Take 25 mg by mouth daily Active Vit-Fe Agm-LQ-Oiqkl (ONE-A-DAY WOMENS ) 28-0.8 & 223 MG MISC Take 1 tablet by mouth daily Active loratadine (CLARITIN REDITABS) 10 MG ODT Take 10 mg by mouth daily Active Encounters Date Type Department Care Team Description 07/28/2023 9:15 AM FASHION MARKETER Office Visit [facility] Medicine [facility] [address] [place] [address] Donnie Stanton MD Rauk, Justice Fuchs MD Encounter for follow-up ultrasound of anatomy (Primary Dx); Pre-exist hyp chronic kidney disease comp preg, second tri; Alport syndrome 07/28/2023 8:34 AM FASHION MARKETER - 07/28/2023 11:59 PM FASHION MARKETER Hospital Encounter [facility] [address] [place] [address] Donnie Stanton MD Rauk, Justice Fcuhs MD High-risk , unspecified trimester Discharge Disposition: Home or Self Care 07/28/2023 Travel 07/08/2023 Telephone [facility] Medicine [address] [phone] Val Donahue RN Clinic Care Coordination - Follow-up 07/03/2023 9:30 AM FASHION MARKETER Office Visit [facility] [address] [address] Gayle Gonzalez MD Sabol, Bethany, MD Yamamura, Yasuko, MD Pre-exist hyp chronic kidney disease comp preg, second tri (Primary Dx); High-risk , unspecified trimester 07/03/2023 8:35 AM FASHION MARKETER - 07/03/2023 11:59 PM FASHION MARKETER Hospital Encounter [facility] Maternal Medicine [address] [phone] Gayle Gonzalez MD Sabol, Bethany, MD Alport syndrome; High-risk , unspecified trimester Discharge Disposition: Home or Self Care 07/03/2023 Travel 06/24/2023 PRE VISIT [facility] [place] [address] [address] [place] [place] [address] Myra Eisenberg, RN Consult (CKD, endometriosis, AMA, asthma, alport syndrome); Ultrasound (L2 - CKD, endometriosis, AMA, asthma, alport syndrome) from Last 3 Months Social History Tobacco [...] Comments Blood Pressure 114/82 07/03/2023 10:18 AM FASHION MARKETER Pulse 82 07/03/2023 10:18 AM FASHION MARKETER Temperature - - Respiratory Rate 18 07/03/2023 10:18 AM FASHION MARKETER Oxygen Saturation 100% 07/03/2023 10:18 AM FASHION MARKETER RA Inhaled Oxygen Concentration - - Weight - - Height - - Body Mass Index - - Plan of Treatment Health Maintenance Due Date [...] history exists IPV IMMUNIZATION Completed 09/17/1993, , 01/20/1991, Additional history exists HEPATITIS B IMMUNIZATION Completed 999, 03/02/1999, 10/31/1998, Additional history exists MENINGITIS IMMUNIZATION Aged Out 07/13/2007, 07/13 No longer eligible based on patient's age to complete this topic HPV IMMUNIZATION Completed 01/11/2008, , 09/11/2007, Additional history exists Pneumococcal Vaccine: Pediatrics (0 to 5 Years) and At-Risk Patients (6 to 64 Years) Aged Out 04/04/2014 No longer eligible based on patient's age to complete this topic INFLUENZA VACCINE Completed 03/21/2023, , 07/24/2020, Additional history exists COVID-19 Vaccine Completed 03/23/2023, , 06/17/2021, Additional history exists RSV MONOCLONAL ANTIBODY Aged Out No l onger eligible based on patient's age to complete this topic RSV VACCINE ( & 60+) (No Doses Required) Completed Procedures Procedure Name Priority Date/Time Associated Diagnosis Comments [facility] US COMPREHENSIVE SINGLE F/U Routine 07/28/2023 9:16 AM FASHION MARKETER High-risk , unspecified trimester LAB RESULT - HIM SCAN 07/07/2023 12:00 AM FASHION MARKETER MF US COMPREHENSIVE SINGLE Routine 07/03/2023 9:50 AM FASHION MARKETER Alport syndrome High-risk , unspecified trimester from Last 3 Months Results * [facility] US Comprehensive Single F/U (07/28/2023 9:16 AM FASHION MARKETER) Anatomical Region Laterality Modality Ultrasound 07/28/2023 8:38 AM FASHION MARKETER Impressions 07/28/2023 9:18 AM FASHION MARKETER IMPRESSION ----- 1) Growth parameters and estimated weight were consistent with appropriate for gestational age pattern of growth. 2) anatomy appeared normal for gestational age. Narrative 07/28/2023 9:18 AM FASHION MARKETER ?Comp Follow Up ----- Pat. Name: MYRA FORD ? Study Date: ??07/28/2023 8:38am Pat. NO: ??[id number] ?Referring ??MD: VENICE ELMORE BATTIEST Site: ??[facility] ? Refrigeration Brazer/Solderer: Genaro Berkowitz RDMS : ??1990 ?Age: ?? 32 ----- INDICATION ----- Suboptimal anatomy on prior u/s. Chronic kidney disease, Alport Syndrome. Advanced Maternal Age. BMI: 36.5. METHOD ----- Transabdominal ultrasound examination. View: Sufficient ----- Reyes . Number of fetuses: 1 DATING ----- ? Date ?Details ?Gest. age ?SPRING LMP ?01/24/2023 ? 26 w + 3 d ? 10/31/2023 Prior assessment ? 04/21/2023 ? GA: 8 w + 3 d ? 22 w + 3 d ? 11/28/2023 U/S ? 07/28/2023 ?based upon AC, BPD, Femur, HC ? 27 w + 6 d ? 10/21/2023 Assigned dating ?Dating performed on 07/03/2023, based on the LMP ?26 w + 3 d ? 10/31/2023 GENERAL EVALUATION ----- Cardiac activity present. FHR 122 bpm. movements present. Presentation breech. Placenta Posterior, No Previa, > 2 cm from internal os. Umbilical cord 3 vessel cord. Amniotic fluid Amount of AF: normal. MVP 5.8 cm. BIOMETRY ----- Main Biometry: BPD ?70.2 ?mm ? 28w 1d ?Angelina JARAMILLO ?93.4 ?mm ? 27w 4d ?Nicolaides HC ?261.5 ?mm ?28w 3d ?Hadlock Cerebellum tr ?32.5 ? mm ?28w 4d ?Nicolaides AC ?233.4 ?mm ?27w 5d ?79% ?Hadlock Femur ?51.0 ? mm ?27w 2d ?Hadlock Weight Calculation: EFW ? 1,108 ?g ? 85% ?Hadlock EFW (lb,oz) ? 2 lb 7 ?oz EFW by ?Hadlock ([id number]) Head / Face / Neck Biometry: CM ?6.0 ? mm ANATOMY ----- The following structures appear normal: Head / Neck ? Cranium. Head size. Head shape. Lateral ventricles. Midline falx. Cavum septi pellucidi. Cerebellum. Cisterna magna. Thalami. Face ? Lips. Profile. Nose. Heart / Thorax ?4-chamber view. RVOT view. LVOT view. Aortic arch view. 2-czcbap-phonjvt view. ? Diaphragm. Abdomen ? Stomach. Kidneys. Bladder. Spine ?Cervical spine. Thoracic spine. Lumbar spine. Sacral spine. MATERNAL STRUCTURES ----- Cervix ?Not examined Right Ovary ?Not examined Left Ovary ?Not examined RECOMMENDATION ----- We discussed the findings on today's ultrasound with the patient. Return to primary provider for continued care. Thank-you for the opportunity to participate in the care of this patient. If you have questions regarding today's evaluation or if we can be of further service, please contact the [facility]. anomalies may be present but not detected Procedure Note Justice Patterson MD - 07/28/2023 Comp Follow Up ----- Pat. Name: MYRA FORD Study Date: 07/28/2023 8:38am Pat. NO: [id number] Referring MD: VENICE RIBEIRO Site: [facility] Refrigeration Brazer/Solderer: Genaro Berkowitz RDMS : 1990 Age: 32 ----- INDICATION ----- Suboptimal anatomy on prior u/s. Chronic kidney disease, Alport Syndrome. Advanced Maternal Age. BMI:36.5. METHOD ----- Transabdominal ultrasound examination. View: Sufficient ----- Reyes . Number of fetuses: 1 DATING ----- DateDetailsGest. age SPRING LMP w + 3 d 10/31/2023 Prior assessment 04/21/2023 GA: 8 w +3 d22 w + 3 d 11/28/2023 U/S 07/28/2023ased upon AC, BPD, Femur, HC27 w + 6 d 10/21/2023 Assigned dating Dating performed on 07/03/2023, based onthe LMP 26 w+ 3 d 10/31/2023 GENERAL EVALUATION ----- Cardiac activity present. FHR 122 bpm. movements present. Presentation breech. Placenta Posterior, No Previa, > 2 cm from internal os. Umbilical cord 3 vessel cord. Amniotic fluid Amount of AF: normal. MVP 5.8 cm. BIOMETRY ----- Main Biometry: BPD 70.2 mm28w 1d Hadlock OFD 93.4 mm27w 4d Nicolaides HC 261.5 mm28w 3d Hadlock Cerebellum tr 32.5 mm28w 4d Nicolaides AC 233.4 mm27w 5d 79% Hadlock Femur 51.0 mm27w 2d Hadlock Weight Calculation: EFW 1,108 g85% Hadlock EFW (lb,oz) 2 lb 7 oz EFW by Hadlock ([id number]) Head / Face / Neck Biometry: CM 6.0 mm ANATOMY ----- The following structures appear normal: Head / Neck Cranium. Head size. Head shape.Lateral ventricles. Midline falx. Cavum septi pellucidi. Cerebellum.Cisterna magna. Thalami. Face Lips. Profile. Nose. Heart / Thorax 4-chamber view. RVOT view. LVOT view.Aortic arch view. 1-jtuiwj-agqfkyn view. Diaphragm. Abdomen Stomach. Kidneys. Bladder. Spine Cervical spine. Thoracic spine.Lumbar spine. Sacral spine. MATERNAL STRUCTURES ----- Cervix Not examined Right Ovary Not examined Left Ovary Not examined RECOMMENDATION ----- We discussed the findings on today's ultrasound with the patient. Return to primary provider for continued care. Thank-you for the opportunity to participate in the care of this patient.If you have questions regarding today's evaluation or if we can be offurther service, please contact the [facility]. anomalies may be present but not detected IMPRESSION ----- 1) Growth parameters and estimated weight were consistent withappropriate for gestational age pattern of growth. 2) anatomy appeared normal for gestational age. Donnie Stanton MD [facility] US ORDERABLE S * LAB RESULT - HIM SCAN (07/07/2023 12:00 AM FASHION MARKETER) 07/07/2023 [facility] * [facility] US Comprehensive Single (07/03/2023 9:50 AM FASHION MARKETER) Anatomical Region Laterality Modality Ultrasound 07/03/2023 8:44 AM FASHION MARKETER Impressions 07/04/2023 2:25 PM FASHION MARKETER IMPRESSION ----- 1) Reyes intrauterine at 22w [...] volume appeared normal. Narrative 07/04/2023 2:25 PM FASHION MARKETER ?Comprehensive ----- Pat. Name: MYRA FORD ? Study Date: ??07/03/2023 8:44am Pat. NO: ??[id number] ?Referring ??: VENICE RIBEIRO Site: ??[facility] ? Refrigeration Brazer/Solderer: Liza Howell [facility] : ??1990 ?Age: ?? 32 ----- INDICATION [...] 1 lb 6 ?oz EFW by ?Hadlock ([id number]) Head / Face / Neck Biometry: Wig Sales Consultant ? 6.3 ? mm CM ?3.3 ? [...] vena cava. Inferior vena cava. 3-vessel view. 7-utibap-xrkedqf view. ? Cardiac position. Cardiac size. Cardiac [...] Alport Syndrome. She is followed closely at [facility] for this and she overall has done [...] delivery. Agree with the plan per Myra's sleeping bag filler for serial follow-up BMP/renal panel every 1-2 [...] the patient (reviewing medical records/tests), in direct hyzo-zj-llyd contact with the patient during her visit with the majority spent counseling and discussing the plan of care and documenting the visit in the electronic medical record. Please see note for details. Procedure Note Donnie Stanton MD - 07/04/2023 Comprehensive ----- Pat. Name: MYRA FORD Study Date: 07/03/2023 8:44am Pat. NO: [id number] Referring MD: VENICE RIBEIRO Site: [facility] Refrigeration Brazer/Solderer: Liza Howell RDMS : 1990 Age: 32 [...] 1 lb 6 oz EFW by Hadlock ([id number]-FL) Head / Face / Neck Biometry: Wig Sales Consultant 6.3 mm CM 3.3 mm Nasal bone [...] Superior vena cava. Inferior vena cava. 3-vesselview. 2-lvaiba-qlcraii view. Cardiac position. Cardiac size.Cardiac rhythm. Right [...] Alport Syndrome. She is followed closely at [facility] for this and she overall has done [...] see the patient (reviewing medical records/tests), in bkxsrspgsw-sn-dayg contact with the patient during her visit [...] volume appeared normal. Gayle Gonzalez MD IMG [facility] US ORDER SOILA from Last 3 Months Care Teams Paint Grinder Relationship Specialty Start Date End Date No Ref-Primary, Physician PCP - General 05/28/23
--- OUTSIDE RECORDS SUMMARY | 2023-09-15 09:02 | XMS_ITS | Encounter Summary ---
Author Name Unknown Organization [facility] Address [address] [place] [address] Care Team Providers Care Cutter Gas Name Role Phone No Ref-Primary, Physician Primary Care Provider Reason for Referral * Diagnostic Imaging Ultrasound (Routine) - Pending Review Specialty Diagnoses / Procedures Referred By Contac t Referred To Contact Radiology. Diagnoses High-risk , unspecified trimester Procedures MF US Comprehensive Single F/U Donnie Stanton MD [address] [place] [address] Referral ID Status Reason Start Date Expiration Date V isits Requested Visits Authorized [id number] Pending Review 07/03/2023 07/02/2024 1 1 ATOR SERVICEMAN Reason for Visit * Reason Comments Ultrasound L2- CKD, alport synd antonio, endometriosis, AMA Consult CKD, alport syndrome , endometriosis, AMA * Consultation (Routine: Next available opening) - Pending Review Specialty Diagnoses / Procedures Referred By Contac t Referred To Contact Diagnoses Alport syndrome High-risk , unspecified trimester Gayle Gonzalez MD [address] [place] [address] Referral ID Status Reason Start Date Expiration Date V isits Requested Visits Authorized [id number] Pending Review 05/28/2023 05/27/2024 1 1 Encounter Details Date Type Department Care Team ([facility] st Contact Info) Description 07/03/2023 9:30 AM ELEVATOR SERVICEMAN Office Visit [facility] [place] [address] [place] [address] Gayle Gonzalez MD [address] [place] [address] Shayy Huerta MD [address] [place] [address] Donnie Stanton MD [address] [place] [address] Pre-exist hyp chronic kidney disease [...] Comments Blood Pressure 114/82 07/03/2023 10:18 AM ELEVATOR SERVICEMAN Pulse 82 07/03/2023 10:18 AM ELEVATOR SERVICEMAN Temperature - - Respiratory Rate 18 07/03/2023 10:18 AM ELEVATOR SERVICEMAN Oxygen Saturation 100% 07/03/2023 10:18 AM ELEVATOR SERVICEMAN RA Inhaled Oxygen Concentration - - Weight [...] She is followed closely at [facility] for this and she overall has [...] the patient (reviewing medical records/tests), in direct qnkk-jq-xujo contact with the patient during her visit with the majority spent counseling and discussing the plan of care and documenting the visit in the electronic medical record. Please see note for details. Donnie Stanton ATOR SERVICEMAN documented in this encounter Nursing Notes * [...] in 3 weeks. Future visits scheduled at front desk team member. Pt discharged stable and ambulatory. Geri Laurent RN ATOR SERVICEMAN documented in this encounter Plan of Treatment Not on file documented as of this encounter Results * MFM US Comprehensive Single F/U (07/28/2023 9:16 AM ELEVATOR SERVICEMAN) Anatomical Region Laterality Modality Ultrasound 07/28/2023 8:38 AM ELEVATOR SERVICEMAN Impressions 07/28/2023 9:18 AM ELEVATOR SERVICEMAN IMPRESSION ----- 1) Growth parameters and estimated weight were consistent with appropriate for gestational age pattern of growth. 2) anatomy appeared normal for gestational age. Narrative 07/28/2023 9:18 AM ELEVATOR SERVICEMAN ?Comp Follow Up ----- Pat. Name: HEIDI AMAYA ? Study Date: ??07/28/2023 8:38am Pat. NO: ??[id number] ?Referring ??MD: VENICE ELMORE [place] Site: ??[facility] ? Emt Basic: Genaro Berkowitz RDMS : ??1990 ?Age: ?? [...] 2 lb 7 ?oz EFW by ?Hadlock ([id number]-FL) Head / Face / Neck Biometry: CM ?6.0 ? mm ANATOMY ----- The following structures appear normal: Head / Neck ? Cranium. Head size. Head shape. Lateral ventricles. Midline falx. Cavum septi pellucidi. Cerebellum. Cisterna magna. Thalami. Face ? Lips. Profile. Nose. Heart / Thorax ?4-chamber view. RVOT view. LVOT view. Aortic arch view. 5-iariav-gqabvkh view. ? Diaphragm. Abdomen ? Stomach. Kidneys. [...] 07/28/2023 Comp Follow Up ----- Pat. Name: HEIDI AMAYA Study Date: 07/28/2023 8:38am Pat. NO: [id number] Referring MD: EVNICE RIBEIRO Site: [facility] Emt Basic: Genaro Berkowitz RDMS : 1990 Age: 32 [...] 2 lb 7 oz EFW by Hadlock ([id number]-FL) Head / Face / Neck Biometry: CM 6.0 mm ANATOMY ----- The following structures appear normal: Head / Neck Cranium. Head size. Head shape.Lateral ventricles. Midline falx. Cavum septi pellucidi. Cerebellum.Cisterna magna. Thalami. Face Lips. Profile. Nose. Heart / Thorax 4-chamber view. RVOT view. LVOT view.Aortic arch view. 2-wdyxsl-yxqjqcs view. Diaphragm. Abdomen Stomach. Kidneys. Bladder. Spine [...] normal for gestational age. Donnie Stanton MD IMG [facility] ORDERABLE S documented in this encounter Visit Diagnoses Diagnosis Pre-exist hyp chronic kidney disease comp preg, second tri- Primary High-risk , unspecified trimester High-risk , unspecified trimester documented in this encounter Care Teams Cutter Gas Relationship Specialty Start Date End Date No Ref-Primary, Physician PCP - General 05/28/23 documented as of this encounter
--- OUTSIDE RECORDS SUMMARY | 2023-09-15 09:02 | XMS_ITS | Referral Summary ---
Author Name Unknown Organization [place] Address [address] [place] [address]. [place] [address] Care Team Providers Care Bottling Line Attendant Name Role Phone No Ref-Primary, Physician Primary Care Provider Encounters Date Type Department Care Team Description 07/28/2023 Travel 07/28/2023 9:15 AM DRY CLEANER Office Visit [facility] Maternal Medicine [facility] [address] [place] [phone] Donnie Stanton MD Rauk, Justice Fuchs MD Encounter for follow-up ultrasound of anatomy (Primary Dx); Pre-exist hyp chronic kidney disease comp preg, second tri; Alport syndrome 07/28/2023 8:34 AM DRY CLEANER - 07/28/2023 11:59 PM DRY CLEANER Hospital Encounter [facility] [address] [place] [phone] Donnie Stanton MD Rauk, Justice Fuchs MD High-risk , unspecified trimester Discharge Disposition: Home or Self Care 07/08/2023 Telephone [facility] Maternal Medicine [address] [place] [address] Val Donahue RN Clinic Care Coordination - Follow-up 07/03/2023 Travel 07/03/2023 8:35 AM DRY CLEANER - 07/03/2023 11:59 PM DRY CLEANER Hospital Encounter [facility] [address] [phone] Gayle Gonzalez MD Sabol, Bethany, MD Alport syndrome; High-risk , unspecified trimester Discharge Disposition: Home or Self Care 07/03/2023 9:30 AM DRY CLEANER Office Visit [facility] [place] [address] [place] [address] Gayle Gonzalez MD Sabol, Bethany, MD Yamamura, Yasuko, MD Pre-exist hyp chronic kidney disease comp preg, second tri (Primary Dx); High-risk , unspecified trimester 06/24/2023 PRE VISIT [facility] Maternal Medicine [facility] [address] [place] [address] Myra Eisenberg RN Consult (CKD, endometriosis, AMA, asthma, alport syndrome); Ultrasound (L2 - CKD, endometriosis, AMA, asthma, alport syndrome) from Last 3 Months Allergies Active Allergy Reactions Criticality Noted Date Comments Amoxicillin Hives Medium 10/13/2008 Benzalkonium Chloride Rash Low 04/22/2022 Cefaclor Hives Medium 10/13/2008 Cefuroxime Hives Medium 10/13/2008 Clindamycin Hives Medium 02/28/2014 Cyanoacrylate Rash Low 06/12/2020 Latex Rash Medium 07/17/2009 Ondansetron 02/13/2022 Other Reaction(s): Chest Pain Shellfish-Derived Products Itching 0 Itchy tongue and lips (crispinl has taken care of it in the [...] 25 mg by mouth daily Active Vit-Fe Xfz-BF-Stivg (ONE-A-DAY WOMENS ) 28-0.8 & 223 MG MISC Take 1 tablet by mouth daily Active loratadine (CLARITIN REDITABS) 10 MG ODT Take 10 mg by mouth daily Active Social History Tobacco Use Types Packs/Day [...] Comments Blood Pressure 114/82 07/03/2023 10:18 AM DRY CLEANER Pulse 82 07/03/2023 10:18 AM DRY CLEANER Temperature - - Respiratory Rate 18 07/03/2023 10:18 AM DRY CLEANER Oxygen Saturation 100% 07/03/2023 10:18 AM DRY CLEANER RA Inhaled Oxygen Concentration - - Weight - - Height - - Body Mass Index - - Plan of Treatment Not on file Procedures Procedure Name Priority Date/Time Associated Diagnosis Comments [facility] US COMPREHENSIVE SINGLE F/U Routine 07/28/2023 9:16 AM DRY CLEANER High-risk , unspecified trimester LAB RESULT - HIM SCAN 07/07/2023 12:00 AM DRY CLEANER [facility] US COMPREHENSIVE SINGLE Routine 07/03/2023 9:50 AM DRY CLEANER Alport syndrome High-risk , unspecified trimester from Last 3 Months Results * [facility] US Comprehensive Single F/U (07/28/2023 9:16 AM DRY CLEANER) Anatomical Region Laterality Modality Ultrasound 07/28/2023 8:38 AM DRY CLEANER Impressions 07/28/2023 9:18 AM DRY CLEANER IMPRESSION ----- 1) Growth parameters and estimated weight were consistent with appropriate for gestational age pattern of growth. 2) anatomy appeared normal for gestational age. Narrative 07/28/2023 9:18 AM DRY CLEANER ?Comp Follow Up ----- Pat. Name: MYRA FORD ? Study Date: ??07/28/2023 8:38am Pat. NO: ??[id number] ?Referring ??MD: VENICE ELMORE DAVEY Site: ??[facility] ? Cmm Programmer: Genaro Berkowitz RDMS : ??1990 ?Age: ?? [...] Biometry: BPD ?70.2 ?mm ? 28w 1d ?Hadlock OFD ?93.4 ?mm ? 27w 4d ?Nicolaides HC ?261.5 ?mm ?28w 3d ?Hadlock Cerebellum tr ?32.5 ? mm ?28w 4d ?Nicolaides AC ?233.4 ?mm ?27w 5d ?79% ?Hadlock Femur ?51.0 ? mm ?27w 2d ?Hadlock Weight Calculation: EFW ? 1,108 ?g ? 85% ?Hadlock EFW (lb,oz) ? 2 lb 7 ?oz EFW by ?Hadlock ([id number]) Head / Face / Neck Biometry: CM ?6.0 ? mm ANATOMY ----- The following structures appear normal: Head / Neck ? Cranium. Head size. Head shape. Lateral ventricles. Midline falx. Cavum septi pellucidi. Cerebellum. Cisterna magna. Thalami. Face ? Lips. Profile. Nose. Heart / Thorax ?4-chamber view. RVOT view. LVOT view. Aortic arch view. 4-lhqxey-ugmpaun view. ? Diaphragm. Abdomen ? Stomach. Kidneys. [...] FORD Study Date: 07/28/2023 8:38am Pat. NO: [id number] Referring MD: VENICE RIBEIRO Site: [facility] Cmm Programmer: Genaro Berkowitz RDMS : 1990 Age: 32 ----- INDICATION ----- Suboptimal anatomy on prior u/s. Chronic kidney disease, Alport Syndrome. Advanced Maternal Age. BMI:36.5. METHOD ----- Transabdominal ultrasound examination. View: Sufficient ----- Reyes . Number of fetuses: 1 DATING ----- DateDetailsGest. age SPRING LMP 6 w + 3 d 10/31/2023 Prior assessment [...] 2 lb 7 oz EFW by Hadlock ([id number]) Head / Face / Neck Biometry: CM 6.0 mm ANATOMY ----- The following structures appear normal: Head / Neck Cranium. Head size. Head shape.Lateral ventricles. Midline falx. Cavum septi pellucidi. Cerebellum.Cisterna magna. Thalami. Face Lips. Profile. Nose. Heart / Thorax 4-chamber view. RVOT view. LVOT view.Aortic arch view. 4-ckeiba-hcwvvew view. Diaphragm. Abdomen Stomach. Kidneys. Bladder. Spine [...] normal for gestational age. Donnie Stanton MD [facility] US ORDERABLE S * LAB RESULT - HIM SCAN (07/07/2023 12:00 AM DRY CLEANER) 07/07/2023 [facility] * [facility] US Comprehensive Single (07/03/2023 9:50 AM DRY CLEANER) Anatomical Region Laterality Modality Ultrasound 07/03/2023 8:44 AM DRY CLEANER Impressions 07/04/2023 2:25 PM DRY CLEANER IMPRESSION ----- 1) Reyes intrauterine at 22w [...] volume appeared normal. Narrative 07/04/2023 2:25 PM DRY CLEANER ?Comprehensive ----- Pat. Name: MYRA FORD ? Study Date: ??07/03/2023 8:44am Pat. NO: ??[id number] ?Referring ??MD: VENICE ELMORE DAVEY Site: ??[facility] ? Cmm Programmer: Liza Howell RDMS : ??1990 ?Age: ?? [...] Biometry: BPD ?58.7 ?mm ? 24w 0d ?Hadcalin OFD ?76.7 ?mm ? 23w 3d ?Nicolaides HC ?216.1 ?mm ?23w 5d ?Hadlock Cerebellum tr ?25.0 ? mm ?23w 0d ?Nicolaides AC ?196.1 ?mm ?24w 2d ?84% ?Hadlock Femur ?41.1 ? mm ?23w 2d ?Hadlock Humerus ?38.7 ?mm ? 23w 5d ?Chen Weight Calculation: EFW ? 636 ? g ? 86% ?Hadlock EFW (lb,oz) ? 1 lb 6 ?oz EFW by ?Hadlock ([id number]) Head / Face / Neck Biometry: Traveling Representative ? 6.3 ? mm CM ?3.3 ? [...] vena cava. Inferior vena cava. 3-vessel view. 4-bzvbxw-etwupvm view. ? Cardiac position. Cardiac size. Cardiac [...] She is followed closely at [facility] for this and she overall has [...] delivery. Agree with the plan per Myra's dispensing audiologist for serial follow-up BMP/renal panel every 1-2 [...] the patient (reviewing medical records/tests), in direct mwzk-fv-wlds contact with the patient during her visit with the majority spent counseling and discussing the plan of care and documenting the visit in the electronic medical record. Please see note for details. Procedure Note Donnie Stanton MD - 07/04/2023 Comprehensive ----- Pat. Name: MYRA FORD Study Date: 07/03/2023 8:44am Pat. NO: [id number] Referring MD: VENICE RIBEIRO Site: [facility] Cmm Programmer: Liza Howell RDMS : 1990 Age: 32 [...] 1 lb 6 oz EFW by Hadlock ([id number]) Head / Face / Neck Biometry: Traveling Representative 6.3 mm CM 3.3 mm Nasal bone [...] Superior vena cava. Inferior vena cava. 3-vesselview. 1-hetcgt-ykbjanv view. Cardiac position. Cardiac size.Cardiac rhythm. Right [...] Alport Syndrome. She is followed closely at [facility] for this and she overall has done [...] see the patient (reviewing medical records/tests), in fjecsdtcny-yq-eyyk contact with the patient during her visit [...] fluid volume appeared normal. Gayle Gonzalez MD [facility] US ORDER SOILA from Last 3 Months Care Teams Bottling Line Attendant Relationship Specialty Start Date End Date No Ref-Primary, Physician PCP - General 05/28/23
--- OUTSIDE RECORDS SUMMARY | 2023-09-15 09:02 | XMS_ITS | Encounter Summary ---
Author Name Unknown Organization [place] Address [address] [place] [address] Care Team Providers Care Ms Sql Dba Name Role Phone No Ref-Primary, Physician Primary Care Provider Reason for Visit * Reason Onset Date Comments Clinic Care Coordination - Follow-up 07/08/2023 Encounter Details Date Type Department Care Team (Late st Contact Info) Description 07/08/2023 Telephone [facility] Maternal Medicine Center [address] [phone] Val Donaheu RN Clinic Care Coordination - Follow-up Social History Tobacco Use Types Packs/Day Years [...] encounter Miscellaneous Notes * Telephone Encounter - Val Dnoahue RN - 07/08/2023 1:36 PM CST Heidi call M to inquire if she needs shorter interval follow-up based on her recent lab results. Current lab results reviewed by JUAN Mohan to keep follow-up appointment on 07-28-23. Val Donahue RN ORIAL DIRECTOR documented in this encounter Plan of Treatment Not on file documented as of this encounter Visit Diagnoses Not on filedocumented in this encounter Care Teams Ms Sql Dba Relationship Specialty Start Date End Date No Ref-Primary, Physician PCP - General 05/28/23 documented as of this encounter
--- OUTSIDE RECORDS SUMMARY | 2023-09-15 09:02 | XMS_ITS | Encounter Summary ---
Author Name Unknown Organization [place] Address [address] [place] [address] Care Team Providers Care Manager Summer Name Role Phone No Ref-Primary, Physician Primary [...] as of this encounter Plan of Treatment Not on file documented as of this encounter Visit Diagnoses Not on filedocumented in this encounter Care Teams Manager Summer Relationship Specialty Start Date End Date No Ref-Primary, Physician PCP - General 05/28/23 documented as of this encounter
--- OUTSIDE RECORDS SUMMARY | 2023-09-15 09:02 | XMS_ITS | Encounter Summary ---
Author Name Unknown Organization [place] Address [address] [place] [address]. [place] [address] Care Team Providers Care Weapons Officer [employer] Name Role Phone No Ref-Primary, Physician Primary Care Provider Reason for Visit * Reason Comments Consult CKD, endometriosis, AMA, asthma, alport syndrome Ultrasound L2 - CKD, endometrio sis, AMA, asthma, alport syndrome Encounter Details Date Type Department Care Team (Late st Contact Info) Description 06/24/2023 PRE VISIT [facility] M[facility] Medicine [facility] [place] [address] [place] [address] Heidi Eisenberg, RN Consult (CKD, endometriosis, AMA, [...] on filedocumented in this encounter Care Teams Weapons Officer [employer] Relationship Specialty Start Date End Date No Ref-Primary, Physician PCP - General 05/28/23 documented as of this encounter
--- OUTSIDE RECORDS SUMMARY | 2023-09-15 09:02 | XMS_ITS | Encounter Summary ---
Author Name Unknown Organization [place] Address [address] [place] [address] Care Team Providers Care Talent Acquisition Relationship Manager Name Role Phone No Ref-Primary, Physician Primary Care Provider Reason for Referral * Diagnostic Imaging Ultrasound (Routine) - Pending Review Specialty Diagnoses / Procedures Referred By Contac t Referred To Contact Radiology. Diagnoses High-risk , unspecified trimester Procedures [facility] US Comprehensive Single F/U Donnie Stanton MD [address] [place] [address] Referral ID Status Reason Start Date Expiration Date V isits Requested Visits Authorized [id number] Pending Review 07/03/2023 07/02/[address] Reason for Visit * Diagnostic Imaging Ultrasound (Routine) - Pending Review Specialty Diagnoses / Procedures Referred By Contac t Referred To Contact Radiology. Diagnoses High-risk , unspecified trimester Procedures [facility] US Comprehensive Single F/U Donnie Stanton MD [address] [place] [address] Referral ID Status Reason Start Date Expiration Date V isits Requested Visits Authorized [id number] Pending Review 07/03/2023 07/02/2024 1 1 Encounter Details Date Type Department Care Team (Latest Contact Info) Description 07/28/2023 8:[address] - 07/28/2023 11:[address] Hospital Encounter [facility] M[facility] Medicine [facility] [place] [address] [place] [phone] Donnie Stanton MD [address] [place] [address] Justice Patterson MD [address] [place] [address] High-risk , unspecified trimester Discharge Disposition: Home [...] for wheezing or shortness of breath 09/02/2022 aspirin (ASA) 81 MG chewable tablet Take 81 mg by mouth daily cyanocobalamin (VITAMIN B-12) 1000 MCG tablet Take 2,000 mcg by mouth daily 09/02/2022 loratadine (CLARITIN REDITABS) 10 MG ODT Take 10 mg by mouth daily montelukast (SINGULAIR) 10 MG tablet Take 1 tablet by mouth at bedtime Vit-Fe Qxn-MG-Ufxxa (ONE-A-DAY WOMENS ) 28-0.8 & 223 MG MISC Take 1 tablet by mouth daily pyridOXINE (VITAMIN B6) 25 MG tablet Take 25 mg by mouth daily QVAR REDIHALER 40 MCG/ACT inhaler Inhale 2 puffs into the lungs 2 times daily documented as of this encounter Plan of Treatment Not on file documented as of this encounter Procedures Procedure Name Priority Date/Time Associated Diagnosis Comments [facility] SINGLE F/U Routine 07/28/2023 9:[address] High-risk , unspecified trimester documented in this encounter Results * [facility] US Comprehensive Single F/U (07/28/2023 9:[address]ER) Anatomical Region Laterality Modality Ultrasound 07/28/2023 8:[address] Impressions 07/28/2023 9:[address] IMPRESSION ----- 1) Growth parameters and estimated weight were consistent with appropriate for gestational age pattern of growth. 2) anatomy appeared normal for gestational age. Narrative 07/28/2023 9:[address] ?Comp Follow Up ----- Pat. Name: HEIDI FORD ? Study Date: ??07/28/2023 8:38am Pat. NO: ??[id number] ?Referring ??: VENICE ELMORE RIBEIRO Site: ??[facility] ? Stage Settings Painter: Genaro Berkowitz RDMS : ??1990 ?Age: ?? [...] 2 lb 7 ?oz EFW by ?Hadlock ([id number]) Head / Face / Neck Biometry: CM ?6.0 ? mm ANATOMY ----- The following structures appear normal: Head / Neck ? Cranium. Head size. Head shape. Lateral ventricles. Midline falx. Cavum septi pellucidi. Cerebellum. Cisterna magna. Thalami. Face ? Lips. Profile. Nose. Heart / Thorax ?4-chamber view. RVOT view. LVOT view. Aortic arch view. 5-bzsotv-vmzaxxa view. ? Diaphragm. Abdomen ? Stomach. Kidneys. [...] Comp Follow Up ----- Pat. Name: HEIDI FORD Study Date: 07/28/2023 8:38am Pat. NO: [id number] Referring MD: VENICE RIBEIRO Site: [facility] Stage Settings Painter: Genaro Berkowitz RDMS : 1990 Age: 32 [...] 2 lb 7 oz EFW by Hadlock ([id number]) Head / Face / Neck Biometry: CM 6.0 mm ANATOMY ----- The following structures appear normal: Head / Neck Cranium. Head size. Head shape.Lateral ventricles. Midline falx. Cavum septi pellucidi. Cerebellum.Cisterna magna. Thalami. Face Lips. Profile. Nose. Heart / Thorax 4-chamber view. RVOT view. LVOT view.Aortic arch view. 0-dtdays-ismvyqd view. Diaphragm. Abdomen Stomach. Kidneys. Bladder. Spine [...] normal for gestational age. Donnie Stanton MD [facility] US ORDERABLE S documented in this encounter Visit Diagnoses Diagnosis High-risk , unspecified trimester documented in this encounter Care Teams Talent Acquisition Relationship Manager Relationship Specialty Start Date End Date No Ref-Primary, Physician PCP - General 05/28/23 documented as of this encounter
--- OUTSIDE RECORDS SUMMARY | 2023-09-15 09:02 | XMS_ITS | Encounter Summary ---
Author Name Unknown Organization [place] Address [address] [place] [address] Care Team Providers Care Cable Engineer Name Role Phone No Ref-Primary, Physician Primary Care Provider Reason for Visit * Diagnostic Imaging Ultrasound (Routine) - Pending Review Specialty Diagnoses / Procedures Referred By Contac t Referred To Contact Radiology. Diagnoses Alport syndrome High-risk , unspecified trimester Procedures [facility] US Comprehensive Single Gayle Gonzalez MD [address] [address] Referral ID Status Reason Start Date Expiration Date V isits Requested Visits Authorized [id number] Pending Review 05/28/2023 05/27/2024 1 1 Encounter Details Date Type Department Care Team (Latest Contact Info) Description 07/03/2023 8:35 AM GLOST KILN PLACER - 07/03/2023 11:59 PM GLOST KILN PLACER Hospital Encounter [facility] Maternal Medicine Center [place] [address] [place] [address] Gayle Gonzalez MD [address] [facility] [address] [place] [address] Shayy Huerta MD [address] [facility] [address] [place], [place] [id number] Alport syndrome; High-risk , unspecified trimester Discharge [...] 1 tablet by mouth at bedtime Vit-Fe Yxb-VO-Qfway (ONE-A-DAY WOMENS ) 28-0.8 & 223 MG [...] Name Priority Date/Time Associated Diagnosis Comments [facility] COMPREHENSIVE SINGLE Routine 07/03/2023 9:50 AM GLOST KILN PLACER Alport syndrome High-risk , unspecified trimester documented in this encounter Results * [facility] Comprehensive Single (07/03/2023 9:50 AM GLOST KILN PLACER) Anatomical Region Laterality Modality Ultrasound 07/03/2023 8:44 AM GLOST KILN PLACER Impressions 07/04/2023 2:25 PM GLOST KILN PLACER IMPRESSION ----- 1) Reyes intrauterine at 22w [...] volume appeared normal. Narrative 07/04/2023 2:25 PM GLOST KILN PLACER ?Comprehensive ----- Pat. Name: DARÍO FORDN ? Study Date: ??07/03/2023 8:44am Pat. NO: ??[id number] ?Referring ??: VENICE RIBEIRO Site: ??[facility] ? Machine Operator Replanter: Liza Howell RDMS : ??1990 ?Age: ?? [...] 1 lb 6 ?oz EFW by ?Hadlock ([id number]) Head / Face / Neck Biometry: Division Sales Manager ? 6.3 ? mm CM ?3.3 ? [...] vena cava. Inferior vena cava. 3-vessel view. 8-hobcmq-fzygdjj view. ? Cardiac position. Cardiac size. Cardiac [...] Alport Syndrome. She is followed closely at [facility] for this and she overall has [...] delivery. Agree with the plan per Heidi's damascener for serial follow-up BMP/renal panel every 1-2 [...] the patient (reviewing medical records/tests), in direct eyuc-ao-yhtk contact with the patient during her visit with the majority spent counseling and discussing the plan of care and documenting the visit in the electronic medical record. Please see note for details. Procedure Note Donnie Stanton MD - 07/04/2023 Comprehensive ----- Pat. Name: HEIDI FORD Study Date: 07/03/2023 8:44am Pat. NO: [id number] Referring MD: VENICE RIBEIRO Site: [facility] Machine Operator Replanter: Liza Howell RDMS : 1990 Age: 32 [...] 1 lb 6 oz EFW by Angelina ([id number]-FL) Head / Face / Neck Biometry: Division Sales Manager 6.3 mm CM 3.3 mm Nasal bone [...] Superior vena cava. Inferior vena cava. 3-vesselview. 8-wqvqgx-vxdltst view. Cardiac position. Cardiac size.Cardiac rhythm. Right [...] see the patient (reviewing medical records/tests), in cucsnjjdfo-hq-ziry contact with the patient during her visit [...] fluid volume appeared normal. Gayle Gonzalez MD [facility] US ORDER SOILA documented in this encounter Visit Diagnoses Diagnosis Alport syndrome Other specified congenital anomalies High-risk , unspecified trimester documented in this encounter Care Teams Cable Engineer Relationship Specialty Start Date End Date No Ref-Primary, Physician PCP - General 05/28/23 documented as of this encounter
--- OUTSIDE RECORDS SUMMARY | 2023-09-15 09:02 | XMS_ITS | Encounter Summary ---
Author Name Unknown Organization [place] Address [address] [place] [address] Care Team Providers Care Carbide Grinder Name Role Phone No Ref-Primary, Physician Primary Care Provider Encounter Details Date Type Department Care Team (Latest Contact Info) Description 07/28/2023 Travel Social History Tobacco Use Types Packs/Day [...] on filedocumented in this encounter Care Teams Carbide Grinder Relationship Specialty Start Date End Date No Ref-Primary, Physician PCP - General 05/28/23 documented as of this encounter
--- OUTSIDE RECORDS SUMMARY | 2023-09-15 09:02 | XMS_ITS | Clinical Summary ---
Author Name Unknown Organization [facility] [employer] [facility] Address [place], [place] [address] Care Team Providers Care Magnetic Healer Name Role Phone Val Byrd Primary Care Provider [phone]- [phone] Allergies Active Allergy Reactions Criticality Noted Date [...] once daily. 180 Tablet 3 09/02/2022 Active 979-gjvs-vqmdw-omega 3 27 mg iron- 800 mcg-235 mg cap Take by mouth. 0 03/03/2023 Active azithromycin (Zithromax Z-Wade) 250 mg tabletIndications:Br onchitis Take 500 mg (2 tabs) by mouth on day 1, then 250 mg (1 tab) daily for days 2-5. 6 Tablet 04/13/2023 Active aspirin chewable 81 mg chewable tablet Chew 81 mg by mouth. Active ferrous sulfate 325 mg delayed release tablet Take 325 mg by mouth once every other day. 07/28/2023 Active albuterol HFA (PRO-AIR; VENTOLIN; PROVENTIL) 90 mcg/actuation inhalerIndications:A sthma, unspecified asthma severity, unspecified whether complicated, unspecified whether persistent Inhale 1-2 Puffs by mouth every 4 hours if needed for Shortness Of Breath or Wheezing. 1 Each 08/25/2023 Active Active Problems Problem Noted Date Diagnosed [...] Encounters Date Type Department Care Team Description 09/08/2023 Orders Only [facility] Scanner 1 scan: (1-Ord) PANNA MARIA, OB PELVIS, 09/08/2023 08/25/2023 12:40 PM CDT Office Visit [facility] [address] [place] [address] Annemarie Randhawa NP Breathing Problem (Started CPAP 2-3 weeks ago. Congenital non-obstructive apnea. Feels that shortness of breath has worsened since starting to use CPAP. Describes having difficulty getting a full breath in or out. /QVAR BID. Using Albuterol BID as well. ) 08/25/2023 Travel 08/25/2023 Nurse Triage [facility] [address] [place] [address] Val Byrd PA Sob (7 months ) from Last 3 Months Immunizations Name Administration Dates Next Due COVID-19 vaccine (PubNub NTech 30mcg/0.3mL) PF, MDV 06/17/2021,12/17/2020,11/19/2020 DT (Age [...] of Communication with Friends and Fami ly Not on file 09/08/2023 Financial Resource Strain Answer Date R ecorded [...] Sign Reading Time Taken Comments Blood Pressure 104/66 08/25/2023 12:18 PM CDT Pulse 94 08/25/2023 12:18 PM CDT Temperature 36.5 ??C (97.7 ??F) 08/25/2023 1 2:18 PM CDT Respiratory Rate 16 08/25/2023 12:1 8 PM CDT Oxygen Saturation 98% 08/25/2023 12: 18 PM CDT Inhaled Oxygen Concentration - - Weight 122.6 kg (270 lb 4.8 oz) 024 12:18 PM CDT Height 172.7 cm (5' 8) 10/08/2022 8:13 PM CDT Body Mass Index 41.1 10/08/2022 8:13 PM CDT Plan of Treatment Health Maintenance Due Date Last Done Comments BMI (ht and wt on same day) for age 18+ 09/03/2023 09/02/2022, 08/28/2021 Depression screening for age 12+ 09/03/2023 09/02/2022, 08/28/2021 Influenza for age 9-49 01/25/2024 , 07/24/2020, 06/28/2019, Additional history exists Pap test for age 21-65 07/24/2025 (Verified in Care Everywhere or Patient Record) Tetanus booster 06/09/2027 06/09/2017, 06/26, 08/28/2004, Additional history exists Pneumococcal series for age 6-64 Aged Out 04/04/2014 No longer eligible based on patient's age to complete this topic Tdap Completed 06/09/2017, 07/13/2007 HIV for age 15-65 Completed 09/02/2022 Hepatitis C screening for age 18-79 Completed 09/02/2022 COVID-19 vaccine series Completed 03/23/20 23, 06/17/2021, 12/17/2020, Additional history exists Procedures Procedure Name Priority Date/Time Associated Diagnosis Comments SCAN-ULTRASOUND REPORT 09/08/2023 12:00 AM CDT LC HIV-1/O/2, 4TH GENERATION Routine 09/02/2022 10:39 AM CDT Encounter for screening for HIV LC HCV ANTIBODY RFX TO QUANT PCR Routine 09/02/2022 10:39 AM CDT Need for hepatitis C screening test from Last 3 Months or Most Recently Relevant to Health Maintenance Results * SCAN-ULTRASOUND REPORT (09/08/2023 12:00 AM CDT) Anatomical Region Laterality Modality Other Scanner OTHER * LC HCV ANTIBODY RFX TO QUANT PCR (09/02/2022 10:39 AM CDT) HCV Ab Non Reactive Non Reactive 09/04/2022 10:06 PM CDT [facility] Blood BLOOD SPECIMEN / Unknown Venipuncture / Unknown 09/02/2022 10:39 AM CDT 09/02/2022 10:43 AM CDT Narrative [facility]) - 09/04/2022 10:06 PM CDT Performed at: ??01 - [address] ??[id number] Information Security Officer: Severo Sunshine MD, Phone: ??[phone] Val [facility] ([facility]) [address] [place] [address], * LC HIV-1/O/2, 4TH GENERATION (09/02/2022 10:39 AM CDT) HIV Scr 4th Gen Non Reactive Non Reactive 09/04/2022 10:06 PM CDT [facility] Comment: HIV Negative HIV-1/HIV-2 antibodies and HIV-1 p24 antigen were NOT detected. There is no laboratory evidence of HIV infection. Blood BLOOD SPECIMEN / Unknown Venipuncture / Unknown 09/02/2022 10:39 AM CDT 09/02/2022 10:43 AM CDT N[facility]ative [facility] - 09/04/2022 10:06 PM CDT Performed at: ??01 - [address] ??[id number] Information Security Officer: Severo Sunshine MD, Phone: ??[phone] Val [facility]) [facility] [place] [phone], from Last 3 Months or Most Recently Relevant to Health Maintenance Advance Directives * Full Code (Latest Code Status on File) Date Activated Date Inactivated Comments 05/23/2020 2:04 PM 05/24/2020 1:14 PM Question Answer Comments Code Status Discussion: Not Discussed Care Teams Magnetic Healer Relationship Specialty Start Date End Date Val Byrd PA [address] [place] [address] PCP - General Physician Lean Process Deployment Consultant 11/21/22
--- OUTSIDE RECORDS SUMMARY | 2023-09-15 09:02 | XMS_ITS | Encounter Summary ---
Author Name Unknown Organization [place] Address [address] [place] [address]. [place] [address] Care Team Providers Care Computer Repair Instructor Name Role Phone No Ref-Primary, Physician Primary Care Provider Reason for Visit * Reason Comments Ultrasound RL2-subopt Encounter Details Date Type Department Care Team (Late st Contact Info) Description 07/28/2023 9:15 AM SYSTEMS REQUIREMENTS PLANNER Office Visit [facility] [place] [address] [place] [address] Donnie Stanton MD [address] [place] [address] Justice Patterson MD [address] [place] [address] Encounter for follow-up ultrasound of anatomy (Primary Dx); 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 Justice Patterson MD Maternal- Medicine EMS REQUIREMENTS PLANNER documented in this encounter Nursing Notes * Crystal Sherman, RN - 07/28/2023 9:15 AM CST Patient presents to [facility] for RL2 at 26w3d due to subopt. Positive movement. Denies LOF, vaginal bleeding or cramping/contractions. SBAR given to [facility] MD, see their note in Epic. EMS REQUIREMENTS PLANNER documented in this encounter Plan of Treatment Not on file documented as of this encounter Visit Diagnoses Diagnosis Encounter for follow-up ultrasound of anatomy- Primary Pre-exist hyp chronic kidney disease comp preg, second tri Alport syndrome Other specified congenital anomalies documented in this encounter Care Teams Computer Repair Instructor Relationship Specialty Start Date End Date No Ref-Primary, Physician PCP - General 05/28/23 documented as of this encounter
== END 2023-09-15 08:58 | disposition home or self-care (01) ==
LOC: NFLDREF 09:00
PROVIDERS: PCP Physician Assistant; Visit Provider Obstetrics & Gynecology
DX: R82.90 Unspecified abnormal findings in urine (principal)
CPT/HCPCS: 87086

== ENCOUNTER 2023-09-22 07:58 | Outpatient (CLI) | payer BC, OTHER, SELFPAY ==
--- OUTSIDE RECORDS SUMMARY | 2023-09-24 07:00 | XMS_ITS | Clinical Summary ---
Author Name Unknown Organization [place] Address [address] [place] [address] Care Team Providers Care Soft Top Installer Name Role Phone No Ref-Primary, Physician Primary [...] 25 mg by mouth daily Active Vit-Fe Aoz-JY-Udxtm (ONE-A-DAY WOMENS ) 28-0.8 & 223 MG MISC Take 1 tablet by mouth daily Active loratadine (CLARITIN REDITABS) 10 MG ODT Take 10 mg by mouth daily Active Encounters Date Type Department Care Team Description 07/28/2023 9:15 AM BAG MENDER Office Visit [facility] Medicine [facility] [address] [place] [address] Donnie Stanton MD Rauk, Justice Fuchs MD Encounter for follow-up ultrasound of anatomy (Primary Dx); Pre-exist hyp chronic kidney disease comp preg, second tri; Alport syndrome 07/28/2023 8:34 AM BAG MENDER - 07/28/2023 11:59 PM BAG MENDER Hospital Encounter [facility] [address] [place] [address] Donnie Stanton MD Rauk, Justice Fuchs MD High-risk , unspecified trimester Discharge Disposition: Home or Self Care 07/28/2023 Travel 07/08/2023 Telephone [facility] Medicine [address] [phone] Val Donahue RN Clinic Care Coordination - Follow-up 07/03/2023 9:30 AM BAG MENDER Office Visit [facility] Medicine [address] [address] Gayle Gonzalez MD Sabol, Bethany, MD Yamamura, Yasuko, MD Pre-exist hyp chronic kidney disease comp preg, second tri (Primary Dx); High-risk , unspecified trimester 07/03/2023 8:35 AM BAG MENDER - 07/03/2023 11:59 PM BAG MENDER Hospital Encounter [facility]aternal [facility] [address] [phone] Gayle Gonzalez MD Sabol, Bethany, MD Alport syndrome; High-risk , unspecified trimester Discharge Disposition: Home or Self Care 07/03/2023 Travel from Last 3 Months Social History Tobacco [...] Comments Blood Pressure 114/82 07/03/2023 10:18 AM BAG MENDER Pulse 82 07/03/2023 10:18 AM BAG MENDER Temperature - - Respiratory Rate 18 07/03/2023 10:18 AM BAG MENDER Oxygen Saturation 100% 07/03/2023 10:18 AM BAG MENDER RA Inhaled Oxygen Concentration - - Weight [...] Procedure Name Priority Date/Time Associated Diagnosis Comments [facility] US COMPREHENSIVE SINGLE F/U Routine 07/28/2023 9:16 AM BAG MENDER High-risk , unspecified trimester LAB RESULT - HIM SCAN 07/07/2023 12:00 AM BAG MENDER [facility] US COMPREHENSIVE SINGLE Routine 07/03/2023 9:50 AM BAG MENDER Alport syndrome High-risk , unspecified trimester from Last 3 Months Results * [facility] US Comprehensive Single F/U (07/28/2023 9:16 AM BAG MENDER) Anatomical Region Laterality Modality Ultrasound 07/28/2023 8:38 AM BAG MENDER Impressions 07/28/2023 9:18 AM BAG MENDER IMPRESSION ----- 1) Growth parameters and estimated weight were consistent with appropriate for gestational age pattern of growth. 2) anatomy appeared normal for gestational age. Narrative 07/28/2023 9:18 AM BAG MENDER ?Comp Follow Up ----- Pat. Name: MYRA FORD ? Study Date: ??07/28/2023 8:38am Pat. NO: ??[id number] ?Referring ??MD: VENICE ELMORE MENDON Site: ??[facility] ? Cashier Ticket Selling: Genaro Berkowitz RDMS : ??1990 ?Age: ?? [...] 2 lb 7 ?oz EFW by ?Hadlock (LYE-JL-SD-DE) Head / Face / Neck Biometry: CM ?6.0 ? mm ANATOMY ----- The following structures appear normal: Head / Neck ? Cranium. Head size. Head shape. Lateral ventricles. Midline falx. Cavum septi pellucidi. Cerebellum. Cisterna magna. Thalami. Face ? Lips. Profile. Nose. Heart / Thorax ?4-chamber view. RVOT view. LVOT view. Aortic arch view. 6-odmbco-srvncfc view. ? Diaphragm. Abdomen ? Stomach. Kidneys. [...] FORD Study Date: 07/28/2023 8:38am Pat. NO: [id number] Referring MD: VENICE RIBEIRO Site: [facility] Cashier Ticket Selling: Genaro Berkowitz RDMS : 1990 Age: 32 [...] 2 lb 7 oz EFW by Hadlock (PTW-OD-FT-FL) Head / Face / Neck Biometry: CM 6.0 mm ANATOMY ----- The following structures appear normal: Head / Neck Cranium. Head size. Head shape.Lateral ventricles. Midline falx. Cavum septi pellucidi. Cerebellum.Cisterna magna. Thalami. Face Lips. Profile. Nose. Heart / Thorax 4-chamber view. RVOT view. LVOT view.Aortic arch view. 2-pnynrn-aldqxxl view. Diaphragm. Abdomen Stomach. Kidneys. Bladder. Spine [...] today's evaluation or if [facility], please contact the [facility]. anomalies may be present but not detected IMPRESSION ----- 1) Growth parameters and estimated weight were consistent withappropriate for gestational age pattern of growth. 2) anatomy appeared normal for gestational age. [facility] * LAB RESULT - HIM SCAN (07/07/2023 12:00 AM BAG MENDER) 07/07/2023 Provider Outside [facility] LAB TE STING * MFM Comprehensive Single (07/03/2023 9:50 AM BAG MENDER) Anatomical Region Laterality Modality Ultrasound 07/03/2023 8:44 AM BAG MENDER Impressions 07/04/2023 2:25 PM BAG MENDER IMPRESSION ----- 1) Reyes intrauterine at 22w [...] volume appeared normal. Narrative 07/04/2023 2:25 PM BAG MENDER ?Comprehensive ----- Pat. Name: MYRA FORD ? Study Date: ??07/03/2023 8:44am Pat. NO: ??[id number] ?Referring ??MD: VENICE RIBEIRO Site: ??[facility] ? Cashier Ticket Selling: Liza Howell RDMS : ??1990 ?Age: ?? [...] 1 lb 6 ?oz EFW by ?Hadlock (OBR-KC-ZP-FL) Head / Face / Neck Biometry: Paediatric Surgeon ? 6.3 ? mm CM ?3.3 ? [...] vena cava. Inferior vena cava. 3-vessel view. 1-pgksgz-uszfshb view. ? Cardiac position. Cardiac size. 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 She is followed closely at [facility] for this and she overall has [...] delivery. Agree with the plan per Myra's milling machine tender for serial follow-up BMP/renal panel every 1-2 [...] the patient (reviewing medical records/tests), in direct akwc-cn-vvtq contact with the patient during her visit with the majority spent counseling and discussing the plan of care and documenting the visit in the electronic medical record. Please see note for details. Procedure Note Donnie Stanton MD - 07/04/2023 Comprehensive ----- Pat. Name: MYRA FORD Study Date: 07/03/2023 8:44am Pat. NO: [id number] Referring MD: VENICE RIBEIRO Site: [facility] Cashier Ticket Selling: Liza Howell RDMS : 1990 Age: 32 [...] 1 lb 6 oz EFW by Hadlock (FCQ-BM-YF-FL) Head / Face / Neck Biometry: Paediatric Surgeon 6.3 mm CM 3.3 mm Nasal bone [...] Superior vena cava. Inferior vena cava. 3-vesselview. 9-dmvafb-icbemje view. Cardiac position. Cardiac size.Cardiac rhythm. Right [...] Alport Syndrome. She is followed closely at [facility] for this and she overall has done [...] see the patient (reviewing medical records/tests), in qgitdxhjwp-qc-ddvy contact with the patient during her visit [...] The amniotic fluid volume appeared normal. Gayle CULLENG [facility] US ORDER SOILA from Last 3 Months Care Teams Soft Top Installer Relationship Specialty Start Date End Date No Ref-Primary, Physician PCP - General 05/28/23
--- OUTSIDE RECORDS SUMMARY | 2023-09-24 07:00 | XMS_ITS | Encounter Summary ---
Author Name Unknown Organization [place] Address [address] [place] [address]. [place] [address] Care Team Providers Care Logging Worker Name Role Phone No Ref-Primary, Physician Primary Care Provider Reason for Visit * Reason Comments Consult CKD, endometriosis, AMA, asthma, alport syndrome Ultrasound L2 - CKD, endometrio sis, AMA, asthma, alport syndrome Encounter Details Date Type Department Care Team (Late st Contact Info) Description 06/24/2023 PRE VISIT [facility] [place] [address] [place] [address] Heidi Eisenberg, RN Consult (CKD, endometriosis, AMA, [...] on filedocumented in this encounter Care Teams Logging Worker Relationship Specialty Start Date End Date No Ref-Primary, Physician PCP - General 05/28/23 documented as of this encounter
--- OUTSIDE RECORDS SUMMARY | 2023-09-24 07:00 | XMS_ITS | Encounter Summary ---
Author Name Unknown Organization [place] Address [address] [place] [address] Care Team Providers Care Sales Exec Name Role Phone No Ref-Primary, Physician Primary Care Provider Reason for Visit * Reason Onset Date Comments Clinic Care Coordination - Follow-up 07/08/2023 Encounter Details Date Type Department Care Team (Late st Contact Info) Description 07/08/2023 Telephone [facility] [address] [phone] Val Donahue RN Clinic Care Coordination - Follow-up Social [...] Miscellaneous Notes * Telephone Encounter - Val Donahue RN - 07/08/2023 1:36 PM CST Heidi call M to inquire if she needs shorter interval follow-up based on her recent lab results. Current lab results reviewed by JUAN Mohan to keep follow-up appointment on 07-28-23. Val Donahue RN RTAINMENT PRODUCTION PROFESSIONAL documented in this encounter Plan of Treatment Not on file documented as of this encounter Visit Diagnoses Not on filedocumented in this encounter Care Teams Sales Exec Relationship Specialty Start Date End Date No Ref-Primary, Physician PCP - General 05/28/23 documented as of this encounter
--- OUTSIDE RECORDS SUMMARY | 2023-09-24 07:00 | XMS_ITS | Clinical Summary ---
Author Name Unknown Organization [facility] Address [place], [place] [address] Care Team Providers Care Manager Of Financial Planning Name Role Phone Val Byrd Primary Care Provider [phone]- [phone] Allergies Active Allergy Reactions Criticality Noted Date [...] once daily. 180 Tablet 3 09/02/2022 Active 325-lgkb-xtutd-omega 3 27 mg iron- 800 mcg-235 mg [...] Department Care Team Description 09/08/2023 Orders Only [facility] Scanner 1 scan: (1-Ord) WAPELLA, OB PELVIS, 09/08/2023 08/25/2023 12:40 PM CDT Office Visit [facility] [address] [place] [address] Annemarie Randhawa NP Breathing Problem (Started CPAP 2-3 weeks ago. Congenital non-obstructive apnea. Feels that shortness of breath has worsened since starting to use CPAP. Describes having difficulty getting a full breath in or out. /QVAR BID. Using Albuterol BID as well. ) 08/25/2023 Travel 08/25/2023 Nurse Triage [facility] [address] [place] [address] Val Byrd PA Sob (7 months ) from Last 3 Months Immunizations Name Administration Dates Next Due COVID-19 vaccine (ASSIA NTech 30mcg/0.3mL) PF, MDV 06/17/2021,12/17/2020,11/19/2020 DT (Age [...] Reactive Non Reactive 09/04/2022 10:06 PM CDT [facility] Blood BLOOD SPECIMEN / Unknown Venipuncture / Unknown 09/02/2022 10:39 AM CDT 09/02/2022 10:43 AM CDT Narrative [facility]) - 09/04/2022 10:06 PM CDT Performed at: ??01 - [address] ??[id number] Nurse Extern: Severo Sunshine MD, Phone: ??[phone] Val [facility]) [address] [place] [address], * LC HIV-1/O/2, 4TH GENERATION (09/02/2022 10:39 AM CDT) HIV Scr 4th Gen Non Reactive Non Reactive 09/04/2022 10:06 PM CDT [facility] Comment: HIV Negative HIV-1/HIV-2 antibodies and HIV-1 p24 antigen were NOT detected. There is no laboratory evidence of HIV infection. Blood BLOOD SPECIMEN / Unknown Venipuncture / Unknown 09/02/2022 10:39 AM CDT 09/02/2022 10:43 AM CDT [facility]ative [facility] - 09/04/2022 10:06 PM CDT Performed at: ??01 - [address] ??[id number] Nurse Extern: Severo Sunshine MD, Phone: ??[phone] Val [facility]) [facility] [place] [phone], from Last 3 Months or Most Recently Relevant to Health Maintenance Advance Directives * Full Code (Latest Code Status on File) Date Activated Date Inactivated Comments 05/23/2020 2:04 PM 05/24/2020 1:14 PM Question Answer Comments Code Status Discussion: Not Discussed Care Teams Manager Of Financial Planning Relationship Specialty Start Date End Date Val Byrd PA [address] [place] [address] PCP - General Physician Winch Driver 11/21/22
--- OUTSIDE RECORDS SUMMARY | 2023-09-24 07:00 | XMS_ITS | Encounter Summary ---
Author Name Unknown Organization [facility] Address [address] [place] [address] Care Team Providers Care Pattern Grader Cutter Name Role Phone No Ref-Primary, Physician Primary Care Provider Reason for Referral * Diagnostic Imaging Ultrasound (Routine) - Pending Review Specialty Diagnoses / Procedures Referred By Contac t Referred To Contact Radiology. Diagnoses High-risk , unspecified trimester Procedures [facility] US Comprehensive Single F/U Donnie Stanton MD [address] [place] [address] Referral ID Status Reason Start Date Expiration Date V isits Requested Visits Authorized [id number] Pending Review 07/03/2023 07/02/2024 1 1 T SCHOOL TEACHER Reason for Visit * Reason Comments Ultrasound L2- CKD, alport synd antonio, endometriosis, AMA Consult CKD, alport syndrome , endometriosis, AMA * Consultation (Routine: Next available opening) - Pending Review Specialty Diagnoses / Procedures Referred By Contac t Referred To Contact Diagnoses Alport syndrome High-risk , unspecified trimester Gayle Gonzalez MD [address] [place] [address] Referral ID Status Reason Start Date Expiration Date V isits Requested Visits Authorized [id number] Pending Review 05/28/2023 05/27/2024 1 1 Encounter Details Date Type Department Care Team ([facility] st Contact Info) Description 07/03/2023 9:30 AM ADULT SCHOOL TEACHER Office Visit [facility] [place] [address] [place] [address] Gayle Gonzalez MD [address] [place] [address] Shayy Huerta MD [address] [place] [address] Donnie Stanton MD [address] [place] [address] Pre-exist hyp chronic kidney disease [...] Comments Blood Pressure 114/82 07/03/2023 10:18 AM ADULT SCHOOL TEACHER Pulse 82 07/03/2023 10:18 AM ADULT SCHOOL TEACHER Temperature - - Respiratory Rate 18 07/03/2023 10:18 AM ADULT SCHOOL TEACHER Oxygen Saturation 100% 07/03/2023 10:18 AM ADULT SCHOOL TEACHER RA Inhaled Oxygen Concentration - - Weight [...] Alport Syndrome. She is followed closely at [facility] for this and she overall has [...] the patient (reviewing medical records/tests), in direct wsri-tk-ajsv contact with the patient during her visit with the majority spent counseling and discussing the plan of care and documenting the visit in the electronic medical record. Please see note for details. Donnie Stanton T SCHOOL TEACHER documented in this encounter Nursing Notes * [...] weeks. Future visits scheduled at front desk lead. Pt discharged stable and ambulatory. Geri Laurent RN T SCHOOL TEACHER documented in this encounter Plan of Treatment Not on file documented as of this encounter Results * MFM US Comprehensive Single F/U (07/28/2023 9:16 AM ADULT SCHOOL TEACHER) Anatomical Region Laterality Modality Ultrasound 07/28/2023 8:38 AM ADULT SCHOOL TEACHER Impressions 07/28/2023 9:18 AM ADULT SCHOOL TEACHER IMPRESSION ----- 1) Growth parameters and estimated weight were consistent with appropriate for gestational age pattern of growth. 2) anatomy appeared normal for gestational age. Narrative 07/28/2023 9:18 AM ADULT SCHOOL TEACHER ?Comp Follow Up ----- Pat. Name: HEIDI AMAYA ? Study Date: ??07/28/2023 8:38am Pat. NO: ??[id number] ?Referring ??MD: VENICE ELMORE [place] Site: ??[facility] ? Cyber Security Architect: Genaro Berkowitz RDMS : ??1990 ?Age: ?? [...] 2 lb 7 ?oz EFW by ?Hadlock ([id number]) Head / Face / Neck Biometry: CM ?6.0 ? mm ANATOMY ----- The following structures appear normal: Head / Neck ? Cranium. Head size. Head shape. Lateral ventricles. Midline falx. Cavum septi pellucidi. Cerebellum. Cisterna magna. Thalami. Face ? Lips. Profile. Nose. Heart / Thorax ?4-chamber view. RVOT view. LVOT view. Aortic arch view. 6-hsrerr-bldnqpc view. ? Diaphragm. Abdomen ? Stomach. Kidneys. [...] AMAYA Study Date: 07/28/2023 8:38am Pat. NO: [id number] Referring MD: VENICE RIBEIRO Site: [facility] Cyber Security Architect: Genaro Berkowitz RDMS : 1990 Age: 32 [...] 2 lb 7 oz EFW by Hadlock ([id number]-[id number]-FL) Head / Face / Neck Biometry: CM 6.0 mm ANATOMY ----- The following structures appear normal: Head / Neck Cranium. Head size. Head shape.Lateral ventricles. Midline falx. Cavum septi pellucidi. Cerebellum.Cisterna magna. Thalami. Face Lips. Profile. Nose. Heart / Thorax 4-chamber view. RVOT view. LVOT view.Aortic arch view. 1-xlyahf-fpdujbv view. Diaphragm. Abdomen Stomach. Kidneys. Bladder. Spine [...] for gestational age. Donnie Stanton MD IMG [facility] ORDERABLE S documented in this encounter Visit Diagnoses Diagnosis Pre-exist hyp chronic kidney disease comp preg, second tri- Primary High-risk , unspecified trimester High-risk , unspecified trimester documented in this encounter Care Teams Pattern Grader Cutter Relationship Specialty Start Date End Date No Ref-Primary, Physician PCP - General 05/28/23 documented as of this encounter
--- OUTSIDE RECORDS SUMMARY | 2023-09-24 07:00 | XMS_ITS | Encounter Summary ---
Author Name Unknown Organization [facility] Address [address] [place] [address] Care Team Providers Care Derrickman Helper Name Role Phone No Ref-Primary, Physician Primary [...] on filedocumented in this encounter Care Teams Derrickman Helper Relationship Specialty Start Date End Date No Ref-Primary, Physician PCP - General 05/28/23 documented as of this encounter
--- OUTSIDE RECORDS SUMMARY | 2023-09-24 07:00 | XMS_ITS | Encounter Summary ---
Author Name Unknown Organization [place] Address [address] [place] [address]. [place] [address] Care Team Providers Care In Service Coordinator Name Role Phone No Ref-Primary, Physician Primary Care Provider Reason for Visit * Reason Comments Ultrasound RL2-subopt Encounter Details Date Type Department Care Team (Late st Contact Info) Description 07/28/2023 9:15 AM INSURANCE WRITER Office Visit [facility] [place] [address] [facility] [address] [place] [address] Donnie Stanton MD [address] [place] [address] Justice Patterson MD [address] [place] [address] Encounter for follow-up ultrasound of [...] for details of today's US at the [facility]. Justice Patterson MD Maternal- Medicine RANCE WRITER documented in this encounter Nursing Notes * Crystal Sherman, RN - 07/28/2023 9:15 AM CST Patient presents to [facility] for RL2 at 26w3d due to subopt. Positive movement. Denies LOF, vaginal bleeding or cramping/contractions. SBAR given to [facility] MD, see their note in Epic. RANCE WRITER documented in this encounter Plan of Treatment Not on file documented as of this encounter Visit Diagnoses Diagnosis Encounter for follow-up ultrasound of anatomy- Primary Pre-exist hyp chronic kidney disease comp preg, second tri Alport syndrome Other specified congenital anomalies documented in this encounter Care Teams In Service Coordinator Relationship Specialty Start Date End Date No Ref-Primary, Physician PCP - General 05/28/23 documented as of this encounter
--- OUTSIDE RECORDS SUMMARY | 2023-09-24 07:00 | XMS_ITS | Encounter Summary ---
Author Name Unknown Organization [facility] Address [address] [place] [address] Care Team Providers Care Mutual Fund Accountant Name Role Phone No Ref-Primary, Physician Primary [...] on filedocumented in this encounter Care Teams Mutual Fund Accountant Relationship Specialty Start Date End Date No Ref-Primary, Physician PCP - General 05/28/23 documented as of this encounter
--- OUTSIDE RECORDS SUMMARY | 2023-09-24 07:00 | XMS_ITS | Encounter Summary ---
Author Name Unknown Organization [facility] Address [address] [place] [address] Care Team Providers Care Gas Mask Assembler Name Role Phone No Ref-Primary, Physician Primary Care Provider Reason for Visit * Diagnostic Imaging Ultrasound (Routine) - Pending Review Specialty Diagnoses / Procedures Referred By Contac t Referred To Contact Radiology. Diagnoses Alport syndrome High-risk , unspecified trimester Procedures [facility] US Comprehensive Single Gayle Gonzalez MD [address] [address] Referral ID Status Reason Start Date Expiration Date V isits Requested Visits Authorized [id number] Pending Review 05/28/2023 05/27/2024 1 1 Encounter Details Date Type Department Care Team (Latest Contact Info) Description 07/03/2023 8:35 AM CONTROL ROOM AGENT - 07/03/2023 11:59 PM CONTROL ROOM AGENT Hospital Encounter [facility] [place] [address] [place] [address] Gayle Gonzalez MD [address] [facility] [address] [place], [place] [id number] Shayy Huerta MD [address] [facility] [address] [place], [place] [id number] Alport syndrome; High-risk , unspecified trimester Discharge [...] 1 tablet by mouth at bedtime Vit-Fe Cdg-WS-Bzgxn (ONE-A-DAY WOMENS ) 28-0.8 & 223 MG [...] Procedure Name Priority Date/Time Associated Diagnosis Comments [facility] COMPREHENSIVE SINGLE Routine 07/03/2023 9:50 AM CONTROL ROOM AGENT Alport syndrome High-risk , unspecified trimester documented in this encounter Results * [facility] Comprehensive Single (07/03/2023 9:50 AM CONTROL ROOM AGENT) Anatomical Region Laterality Modality Ultrasound 07/03/2023 8:44 AM CONTROL ROOM AGENT Impressions 07/04/2023 2:25 PM CONTROL ROOM AGENT IMPRESSION ----- 1) Reyes intrauterine at 22w [...] volume appeared normal. Narrative 07/04/2023 2:25 PM CONTROL ROOM AGENT ?Comprehensive ----- Pat. Name: DARÍO FORDN ? Study Date: ??07/03/2023 8:44am Pat. NO: ??[id number] ?Referring ??: VENICE RIBEIRO Site: ??[facility] ? Chemist Steroids: Liza Howell RDMS : ??1990 ?Age: ?? [...] 1 lb 6 ?oz EFW by ?Hadlock ([id number]-IP-TA-FL) Head / Face / Neck Biometry: Wind Energy Technician ? 6.3 ? mm CM ?3.3 ? [...] vena cava. Inferior vena cava. 3-vessel view. 8-nqwlrz-nqlwjua view. ? Cardiac position. Cardiac size. Cardiac [...] Alport Syndrome. She is followed closely at [facility] for this and she overall has [...] delivery. Agree with the plan per Heidi's assembler lay ups for serial follow-up BMP/renal panel every 1-2 [...] the patient (reviewing medical records/tests), in direct jaze-al-ywtz contact with the patient during her visit with the majority spent counseling and discussing the plan of care and documenting the visit in the electronic medical record. Please see note for details. Procedure Note Donnie Stanton MD - 07/04/2023 Comprehensive ----- Pat. Name: HEIDI FORD Study Date: 07/03/2023 8:44am Pat. NO: [id number] Referring MD: VENICE RIBEIRO Site: [facility] Chemist Steroids: Liza Howell RDMS : 1990 Age: 32 [...] 1 lb 6 oz EFW by Angelina ([id number]-FL) Head / Face / Neck Biometry: Wind Energy Technician 6.3 mm CM 3.3 mm Nasal bone [...] Superior vena cava. Inferior vena cava. 3-vesselview. 4-czpgxu-jdyuhcx view. Cardiac position. Cardiac size.Cardiac rhythm. Right [...] Syndrome. She is followed closely at [facility] for this and she overall [...] see the patient (reviewing medical records/tests), in alwwzwoses-kp-djfm contact with the patient during her visit [...] fluid volume appeared normal. Gayle Gonzalez MD [facility] US ORDER SOILA documented in this encounter Visit Diagnoses Diagnosis Alport syndrome Other specified congenital anomalies High-risk , unspecified trimester documented in this encounter Care Teams Gas Mask Assembler Relationship Specialty Start Date End Date No Ref-Primary, Physician PCP - General 05/28/23 documented as of this encounter
--- OUTSIDE RECORDS SUMMARY | 2023-09-24 07:00 | XMS_ITS | Referral Summary ---
Author Name Unknown Organization [facility] Address [address] [place] [address]. [place] [address] Care Team Providers Care Teacher'S Assistant Name Role Phone No Ref-Primary, Physician Primary Care Provider Encounters Date Type Department Care Team Description 07/28/2023 Travel 07/28/2023 9:15 AM FILM VAULT SUPERVISOR Office Visit [facility] Maternal Medicine [facility] [address] [facility] [address] [place] [phone] Donnie Stanton MD Rauk, Justice Fuchs MD Encounter for follow-up ultrasound of anatomy (Primary Dx); Pre-exist hyp chronic kidney disease comp preg, second tri; Alport syndrome 07/28/2023 8:34 AM FILM VAULT SUPERVISOR - 07/28/2023 11:59 PM FILM VAULT SUPERVISOR Hospital Encounter [facility] Medicine [facility] [address] [place] [phone] Donnie Stanton MD Rauk, Justice Fuchs MD High-risk , unspecified trimester Discharge Disposition: Home or Self Care 07/08/2023 Telephone [facility]aternal [facility] [address] [place] [address] Val Donahue RN Clinic Care Coordination - Follow-up 07/03/2023 Travel 07/03/2023 8:35 AM FILM VAULT SUPERVISOR - 07/03/2023 11:59 PM FILM VAULT SUPERVISOR Hospital Encounter [facility] [address] [address] Gayle Gonzalez MD Sabol, Bethany, MD Alport syndrome; High-risk , unspecified trimester Discharge Disposition: Home or Self Care 07/03/2023 9:30 AM FILM VAULT SUPERVISOR Office Visit [facility] [place] [address] [place] [address] Gayle Gonzalez MD Sabol, Bethany, MD Yamamura, Yasuko, MD Pre-exist hyp chronic kidney disease comp preg, second tri (Primary Dx); High-risk , unspecified trimester from Last 3 Months Allergies Active Allergy [...] 25 mg by mouth daily Active Vit-Fe Ipx-JY-Vapro (ONE-A-DAY WOMENS ) 28-0.8 & 223 MG [...] Comments Blood Pressure 114/82 07/03/2023 10:18 AM FILM VAULT SUPERVISOR Pulse 82 07/03/2023 10:18 AM FILM VAULT SUPERVISOR Temperature - - Respiratory Rate 18 07/03/2023 10:18 AM FILM VAULT SUPERVISOR Oxygen Saturation 100% 07/03/2023 10:18 AM FILM VAULT SUPERVISOR RA Inhaled Oxygen Concentration - - Weight - - Height - - Body Mass Index - - Plan of Treatment Not on file Procedures Procedure Name Priority Date/Time Associated Diagnosis Comments [facility] US COMPREHENSIVE SINGLE F/U Routine 07/28/2023 9:16 AM FILM VAULT SUPERVISOR High-risk , unspecified trimester LAB RESULT - HIM SCAN 07/07/2023 12:00 AM FILM VAULT SUPERVISOR [facility] US COMPREHENSIVE SINGLE Routine 07/03/2023 9:50 AM FILM VAULT SUPERVISOR Alport syndrome High-risk , unspecified trimester from Last 3 Months Results * [facility] US Comprehensive Single F/U (07/28/2023 9:16 AM FILM VAULT SUPERVISOR) Anatomical Region Laterality Modality Ultrasound 07/28/2023 8:38 AM FILM VAULT SUPERVISOR Impressions 07/28/2023 9:18 AM FILM VAULT SUPERVISOR IMPRESSION ----- 1) Growth parameters and estimated weight were consistent with appropriate for gestational age pattern of growth. 2) anatomy appeared normal for gestational age. Narrative 07/28/2023 9:18 AM FILM VAULT SUPERVISOR ?Comp Follow Up ----- Pat. Name: MYRA FORD ? Study Date: ??07/28/2023 8:38am Pat. NO: ??[id number] ?Referring ??MD: VENICE ELMORE [place] Site: ??[facility] ? Safety Scientist: Genaro Berkowitz RDMS : ??1990 ?Age: ?? [...] 2 lb 7 ?oz EFW by ?Hadlock ([id number]-HK-[id number]-FL) Head / Face / Neck Biometry: CM ?6.0 ? mm ANATOMY ----- The following structures appear normal: Head / Neck ? Cranium. Head size. Head shape. Lateral ventricles. Midline falx. Cavum septi pellucidi. Cerebellum. Cisterna magna. Thalami. Face ? Lips. Profile. Nose. Heart / Thorax ?4-chamber view. RVOT view. LVOT view. Aortic arch view. 8-ypjokh-glfqdxj view. ? Diaphragm. Abdomen ? Stomach. Kidneys. [...] FORD Study Date: 07/28/2023 8:38am Pat. NO: [id number] Referring MD: VENICE RIBEIRO Site: [facility] Safety Scientist: Genaro Berkowitz RDMS : 1990 Age: 32 [...] 2 lb 7 oz EFW by Hadlock (URR-IH-RT-FL) Head / Face / Neck Biometry: CM 6.0 mm ANATOMY ----- The following structures appear normal: Head / Neck Cranium. Head size. Head shape.Lateral ventricles. Midline falx. Cavum septi pellucidi. Cerebellum.Cisterna magna. Thalami. Face Lips. Profile. Nose. Heart / Thorax 4-chamber view. RVOT view. LVOT view.Aortic arch view. 0-ptdedc-vahasle view. Diaphragm. Abdomen Stomach. Kidneys. Bladder. Spine [...] normal for gestational age. Donnie Stanton MD [facility] US ORDERABLE S * LAB RESULT - HIM SCAN (07/07/2023 12:00 AM FILM VAULT SUPERVISOR) 07/07/2023 Provider Outside NON-BEAKER LAB TE STING * MFM US Comprehensive Single (07/03/2023 9:50 AM FILM VAULT SUPERVISOR) Anatomical Region Laterality Modality Ultrasound 07/03/2023 8:44 AM FILM VAULT SUPERVISOR Impressions 07/04/2023 2:25 PM FILM VAULT SUPERVISOR IMPRESSION ----- 1) Reyes intrauterine at 22w [...] volume appeared normal. Narrative 07/04/2023 2:25 PM FILM VAULT SUPERVISOR ?Comprehensive ----- Pat. Name: MYRA FORD ? Study Date: ??07/03/2023 8:44am Pat. NO: ??[id number] ?Referring ??MD: VENICE ELMORE [place] Site: ??[facility] ? Safety Scientist: Liza Howell, [facility] : ??1990 ?Age: ?? 32 ----- INDICATION [...] 1 lb 6 ?oz EFW by ?Hadlock ([id number]-OH-XH-FL) Head / Face / Neck Biometry: Mobile Device Developer ? 6.3 ? mm CM ?3.3 ? [...] vena cava. Inferior vena cava. 3-vessel view. 3-fkeqhw-dxbxvmq view. ? Cardiac position. Cardiac size. Cardiac [...] Syndrome. She is followed closely at [facility] for this and she overall has done [...] delivery. Agree with the plan per Myra's cell room supervisor for serial follow-up BMP/renal panel every 1-2 [...] the patient (reviewing medical records/tests), in direct ceej-lt-wptg contact with the patient during her visit with the majority spent counseling and discussing the plan of care and documenting the visit in the electronic medical record. Please see note for details. Procedure Note Donnie Stanotn MD - 07/04/2023 Comprehensive ----- Pat. Name: MYRA FORD Study Date: 07/03/2023 8:44am Pat. NO: [id number] Referring MD: VENICE RIBEIRO Site: [facility] Safety Scientist: Liza Howell RDMS : 1990 Age: 32 [...] 1 lb 6 oz EFW by Hadlock (NST-FG-TA-FL) Head / Face / Neck Biometry: Mobile Device Developer 6.3 mm CM 3.3 mm Nasal bone [...] Superior vena cava. Inferior vena cava. 3-vesselview. 5-fmveqq-izvokgj view. Cardiac position. Cardiac size.Cardiac rhythm. Right [...] She is followed closely at [facility] for this and she overall has [...] see the patient (reviewing medical records/tests), in orowsgzfey-tz-piog contact with the patient during her visit [...] volume appeared normal. Gayle Gonzalez MD IMG [facility] US ORDER SOILA from Last 3 Months Care Teams Teacher'S Assistant Relationship Specialty Start Date End Date No Ref-Primary, Physician PCP - General 05/28/23
--- OUTSIDE RECORDS SUMMARY | 2023-09-24 07:00 | XMS_ITS | Encounter Summary ---
Author Name Unknown Organization [facility] Address [address] [place] [address] Care Team Providers Care Assurance Senior Name Role Phone No Ref-Primary, Physician Primary Care Provider Reason for Referral * Diagnostic Imaging Ultrasound (Routine) - Pending Review Specialty Diagnoses / Procedures Referred By Contac t Referred To Contact Radiology. Diagnoses High-risk , unspecified trimester Procedures [facility] US Comprehensive Single F/U Donnie Stanton MD [address] [place] [address] Referral ID Status Reason Start Date Expiration Date V isits Requested Visits Authorized [id number] Pending Review 07/03/2023 07/02/2024 1 1 TRICAL/INSTRUMENT TECHNICIAN Reason for Visit * Diagnostic Imaging Ultrasound (Routine) - Pending Review Specialty Diagnoses / Procedures Referred By Contac t Referred To Contact Radiology. Diagnoses High-risk , unspecified trimester Procedures [facility] US Comprehensive Single F/U Donnie Stanton MD [address] [place] [address] Referral ID Status Reason Start Date Expiration Date V isits Requested Visits Authorized [id number] Pending Review 07/03/2023 07/02/2024 1 1 Encounter Details Date Type Department Care Team (Latest Contact Info) Description 07/28/2023 8:34 AM ELECTRICAL/INSTRUMENT TECHNICIAN - 07/28/2023 11:59 PM ELECTRICAL/INSTRUMENT TECHNICIAN Hospital Encounter [facility] [place] [address] [place] [phone] Donnie Stanton MD [address] [place] [address] Justice Patterson MD [address] [place] [address] High-risk , unspecified trimester Discharge [...] 1 tablet by mouth at bedtime Vit-Fe Txq-UV-Lthsw (ONE-A-DAY WOMENS ) 28-0.8 & 223 MG [...] Procedure Name Priority Date/Time Associated Diagnosis Comments [facility] SINGLE F/U Routine 07/28/2023 9:16 AM ELECTRICAL/INSTRUMENT TECHNICIAN High-risk , unspecified trimester documented in this encounter Results * [facility] US Comprehensive Single F/U (07/28/2023 9:16 AM ELECTRICAL/INSTRUMENT TECHNICIAN) Anatomical Region Laterality Modality Ultrasound 07/28/2023 8:38 AM ELECTRICAL/INSTRUMENT TECHNICIAN Impressions 07/28/2023 9:18 AM ELECTRICAL/INSTRUMENT TECHNICIAN IMPRESSION ----- 1) Growth parameters and estimated weight were consistent with appropriate for gestational age pattern of growth. 2) anatomy appeared normal for gestational age. Narrative 07/28/2023 9:18 AM ELECTRICAL/INSTRUMENT TECHNICIAN ?Comp Follow Up ----- Pat. Name: HEIDI FORD ? Study Date: ??07/28/2023 8:38am Pat. NO: ??[id number] ?Referring ??: VENICE ELMORE RIBEIRO Site: ??[facility] ? Data Analyst Report Writer: Genaro Berkowitz RDMS : ??1990 ?Age: ?? [...] 2 lb 7 ?oz EFW by ?Hadlock ([id number]-CY-ZO-FL) Head / Face / Neck Biometry: CM ?6.0 ? mm ANATOMY ----- The following structures appear normal: Head / Neck ? Cranium. Head size. Head shape. Lateral ventricles. Midline falx. Cavum septi pellucidi. Cerebellum. Cisterna magna. Thalami. Face ? Lips. Profile. Nose. Heart / Thorax ?4-chamber view. RVOT view. LVOT view. Aortic arch view. 9-ecgcnf-fzmvech view. ? Diaphragm. Abdomen ? Stomach. Kidneys. [...] FORD Study Date: 07/28/2023 8:38am Pat. NO: [id number] Referring MD: VENICE RIBEIRO Site: [facility] Data Analyst Report Writer: Genaro Berkowitz RDMS : 1990 Age: 32 [...] 2 lb 7 oz EFW by Hadlock (IKB-AF-BA-FL) Head / Face / Neck Biometry: CM 6.0 mm ANATOMY ----- The following structures appear normal: Head / Neck Cranium. Head size. Head shape.Lateral ventricles. Midline falx. Cavum septi pellucidi. Cerebellum.Cisterna magna. Thalami. Face Lips. Profile. Nose. Heart / Thorax 4-chamber view. RVOT view. LVOT view.Aortic arch view. 6-urfkvd-enogkef view. Diaphragm. Abdomen Stomach. Kidneys. Bladder. Spine [...] normal for gestational age. Donnie Stanton MD [facility] US ORDERABLE S documented in this encounter Visit Diagnoses Diagnosis High-risk , unspecified trimester documented in this encounter Care Teams Assurance Senior Relationship Specialty Start Date End Date No Ref-Primary, Physician PCP - General 05/28/23 documented as of this encounter
== END 2023-09-22 07:59 | disposition home or self-care (01) ==
LOC: NFLDREF 09-24 06:58
PROVIDERS: PCP Physician Assistant; Referring Provider Physician Assistant; Visit Provider Obstetrics & Gynecology
DX: Z34.93 Encounter for supervision of normal pregnancy, unspecified, third trimester (principal)
CPT/HCPCS: 82728

== ENCOUNTER 2023-09-29 09:04 | Outpatient (CLI) | payer BC, OTHER, SELFPAY ==
--- OUTSIDE RECORDS SUMMARY | 2023-09-29 09:08 | XMS_ITS | Encounter Summary ---
Author Name Unknown Organization [place] Address [address] [place] [address] Care Team Providers Care Cement Finishing Supervisor Name Role Phone No Ref-Primary, Physician Primary Care Provider Reason for Visit * Reason Onset Date Comments Clinic Care Coordination - Follow-up 07/08/2023 Encounter Details Date Type Department Care Team (Late st Contact Info) Description 07/08/2023 Telephone [facility] [address] [phone] Val Donahue RN Clinic Care Coordination - [...] follow-up appointment on 07-28-23. Val Donahue RN ER MINER BLASTING documented in this encounter Plan of Treatment Not on file documented as of this encounter Visit Diagnoses Not on filedocumented in this encounter Care Teams Cement Finishing Supervisor Relationship Specialty Start Date End Date No Ref-Primary, Physician PCP - General 05/28/23 documented as of this encounter
--- OUTSIDE RECORDS SUMMARY | 2023-09-29 09:08 | XMS_ITS | Referral Summary ---
Author Name Unknown Organization [facility] Address [address] [place] [address]. [place] [address] Care Team Providers Care Cleaning Porter Name Role Phone No Ref-Primary, Physician Primary Care Provider Encounters Date Type Department Care Team Description 07/28/2023 Travel 07/28/2023 9:15 AM CRIMINAL LAWYER Office Visit [facility] Maternal Medicine [facility] [address] [place] [phone] Donnie Stanton MD Rauk, Justice Fuchs MD Encounter for follow-up ultrasound of anatomy (Primary Dx); Pre-exist hyp chronic kidney disease comp preg, second tri; Alport syndrome 07/28/2023 8:34 AM CRIMINAL LAWYER - 07/28/2023 11:59 PM CRIMINAL LAWYER Hospital Encounter [facility] Medicine [facility] [address] [place] [phone] Donnie Stanton MD Rauk, Justice Fuchs MD High-risk , unspecified trimester Discharge Disposition: Home or Self Care 07/08/2023 Telephone [facility] [address] [place] [address] Val Donahue RN Clinic Care Coordination - Follow-up 07/03/2023 Travel 07/03/2023 8:35 AM CRIMINAL LAWYER - 07/03/2023 11:59 PM CRIMINAL LAWYER Hospital Encounter [facility] [address] [phone] Gayle Gonzalez MD Sabol, Bethany, MD Alport syndrome; High-risk , unspecified trimester Discharge Disposition: Home or Self Care 07/03/2023 9:30 AM CRIMINAL LAWYER Office Visit [facility] [place] [address] [place] [address] Gayle Gonzalez MD Sabol, Bethany, MD Yamamura, [...] 25 mg by mouth daily Active Vit-Fe Erz-OY-Uvsto (ONE-A-DAY WOMENS ) 28-0.8 & 223 MG [...] Comments Blood Pressure 114/82 07/03/2023 10:18 AM CRIMINAL LAWYER Pulse 82 07/03/2023 10:18 AM CRIMINAL LAWYER Temperature - - Respiratory Rate 18 07/03/2023 10:18 AM CRIMINAL LAWYER Oxygen Saturation 100% 07/03/2023 10:18 AM CRIMINAL LAWYER RA Inhaled Oxygen Concentration - - Weight - - Height - - Body Mass Index - - Plan of Treatment Not on file Procedures Procedure Name Priority Date/Time Associated Diagnosis Comments [facility] US COMPREHENSIVE SINGLE F/U Routine 07/28/2023 9:16 AM CRIMINAL LAWYER High-risk , unspecified trimester LAB RESULT - HIM SCAN 07/07/2023 12:00 AM CRIMINAL LAWYER [facility] US COMPREHENSIVE SINGLE Routine 07/03/2023 9:50 AM CRIMINAL LAWYER Alport syndrome High-risk , unspecified trimester from Last 3 Months Results * [facility] US Comprehensive Single F/U (07/28/2023 9:16 AM CRIMINAL LAWYER) Anatomical Region Laterality Modality Ultrasound 07/28/2023 8:38 AM CRIMINAL LAWYER Impressions 07/28/2023 9:18 AM CRIMINAL LAWYER IMPRESSION ----- 1) Growth parameters and estimated weight were consistent with appropriate for gestational age pattern of growth. 2) anatomy appeared normal for gestational age. Narrative 07/28/2023 9:18 AM CRIMINAL LAWYER ?Comp Follow Up ----- Pat. Name: HEIDI FORD ? Study Date: ??07/28/2023 8:38am Pat. NO: ??[id number] ?Referring ??MD: VENICE ELMORE PONEMAH Site: ??[facility] ? [employer] Instructor: Genaro Berkowitz RDMS : ??1990 ?Age: ?? [...] 2 lb 7 ?oz EFW by ?Hadlock ([id number]-BZ-[place]-FL) Head / Face / Neck Biometry: CM ?6.0 ? mm ANATOMY ----- The following structures appear normal: Head / Neck ? Cranium. Head size. Head shape. Lateral ventricles. Midline falx. Cavum septi pellucidi. Cerebellum. Cisterna magna. Thalami. Face ? Lips. Profile. Nose. Heart / Thorax ?4-chamber view. RVOT view. LVOT view. Aortic arch view. 9-nnmped-qhfrrhb view. ? Diaphragm. Abdomen ? Stomach. Kidneys. [...] FORD Study Date: 07/28/2023 8:38am Pat. NO: [id number] Referring MD: VENICE RIBEIRO Site: [facility] [employer] Instructor: Genaro Berkowitz RDMS : 1990 Age: 32 [...] 2 lb 7 oz EFW by Hadlock (UBC-HA-XG-FL) Head / Face / Neck Biometry: CM 6.0 mm ANATOMY ----- The following structures appear normal: Head / Neck Cranium. Head size. Head shape.Lateral ventricles. Midline falx. Cavum septi pellucidi. Cerebellum.Cisterna magna. Thalami. Face Lips. Profile. Nose. Heart / Thorax 4-chamber view. RVOT view. LVOT view.Aortic arch view. 6-ixjxfr-hrpefkq view. Diaphragm. Abdomen Stomach. Kidneys. Bladder. Spine [...] normal for gestational age. Donnie Stanton MD [facility] US ORDERABLE S * LAB RESULT - HIM SCAN (07/07/2023 12:00 AM CRIMINAL LAWYER) 07/07/2023 Provider Outside NON-BEAKER LAB TE STING * MFM US Comprehensive Single (07/03/2023 9:50 AM CRIMINAL LAWYER) Anatomical Region Laterality Modality Ultrasound 07/03/2023 8:44 AM CRIMINAL LAWYER Impressions 07/04/2023 2:25 PM CRIMINAL LAWYER IMPRESSION ----- 1) Reyes intrauterine at 22w [...] volume appeared normal. Narrative 07/04/2023 2:25 PM CRIMINAL LAWYER ?Comprehensive ----- Pat. Name: HEIDI FORD ? Study Date: ??07/03/2023 8:44am Pat. NO: ??[id number] ?Referring ??MD: VENICE ELMORE PONEMAH Site: ??[facility] ? [employer] Instructor: Liza Howell, [facility] : ??1990 ?Age: ?? 32 ----- INDICATION [...] 1 lb 6 ?oz EFW by ?Hadlock (HRX-LC-KX-FL) Head / Face / Neck Biometry: Nanny Babysitter ? 6.3 ? mm CM ?3.3 ? [...] vena cava. Inferior vena cava. 3-vessel view. 6-kikwos-mwootnk view. ? Cardiac position. Cardiac size. Cardiac [...] She is followed closely at [facility] for this and she overall has [...] delivery. Agree with the plan per Heidi's calcine furnace loader for serial follow-up BMP/renal panel every 1-2 [...] the patient (reviewing medical records/tests), in direct lvmi-sf-iqpd contact with the patient during her visit with the majority spent counseling and discussing the plan of care and documenting the visit in the electronic medical record. Please see note for details. Procedure Note Donnie Stanton MD - 07/04/2023 Comprehensive ----- Pat. Name: HEIDI FORD Study Date: 07/03/2023 8:44am Pat. NO: [id number] Referring MD: VENICE RIBEIRO Site: [facility] [employer] Instructor: Liza Howell RDMS : 1990 Age: 32 [...] 1 lb 6 oz EFW by Hadlock (NEM-BE-BI-FL) Head / Face / Neck Biometry: Nanny Babysitter 6.3 mm CM 3.3 mm Nasal bone [...] Superior vena cava. Inferior vena cava. 3-vesselview. 1-ltxrqp-odhnewn view. Cardiac position. Cardiac size.Cardiac rhythm. Right [...] Alport Syndrome. She is followed closely at [facility] for this and she overall has done [...] see the patient (reviewing medical records/tests), in yrapjjiipj-bm-wchr contact with the patient during her visit [...] volume appeared normal. Gayle Gonzalez MD IMG [facility] US ORDER SOILA from Last 3 Months Care Teams Cleaning Porter Relationship Specialty Start Date End Date No Ref-Primary, Physician PCP - General 05/28/23
--- OUTSIDE RECORDS SUMMARY | 2023-09-29 09:08 | XMS_ITS | Encounter Summary ---
Author Name Unknown Organization [place] Address [address] [place] [address]. [place] [address] Care Team Providers Care Systems Qa Analyst Name Role Phone No Ref-Primary, Physician Primary Care Provider Reason for Visit * Reason Comments Ultrasound RL2-subopt Encounter Details Date Type Department Care Team (Late st Contact Info) Description 07/28/2023 9:15 AM EDGE ROLLER Office Visit [facility] M[facility] Medicine Center [place] [address] [place] [address] Donnie Stanton MD [address] [place] [address] Justice Patterson MD [address] [place] [address] Encounter for follow-up ultrasound of [...] for details of today's US at the [facility]. Justice Patterson MD Maternal- Medicine ROLLER documented in this encounter Nursing Notes * Crystal Sherman, RN - 07/28/2023 9:15 AM CST Patient presents to [facility] for RL2 at 26w3d due to subopt. Positive movement. Denies LOF, vaginal bleeding or cramping/contractions. SBAR given to [facility] MD, see their note in Epic. ROLLER documented in this encounter Plan of Treatment Not on file documented as of this encounter Visit Diagnoses Diagnosis Encounter for follow-up ultrasound of anatomy- Primary Pre-exist hyp chronic kidney disease comp preg, second tri Alport syndrome Other specified congenital anomalies documented in this encounter Care Teams Systems Qa Analyst Relationship Specialty Start Date End Date No Ref-Primary, Physician PCP - General 05/28/23 documented as of this encounter
--- OUTSIDE RECORDS SUMMARY | 2023-09-29 09:08 | XMS_ITS | Encounter Summary ---
Author Name Unknown Organization [facility] Address [address] [place] [address] Care Team Providers Care Medication Tech Name Role Phone No Ref-Primary, Physician Primary Care Provider Reason for Referral * Diagnostic Imaging Ultrasound (Routine) - Pending Review Specialty Diagnoses / Procedures Referred By Contac t Referred To Contact Radiology. Diagnoses High-risk , unspecified trimester Procedures [facility] US Comprehensive Single F/U Donnie Stanton MD [address] [place] [address] Referral ID Status Reason Start Date Expiration Date V isits Requested Visits Authorized [id number] Pending Review 07/03/2023 07/02/2024 1 1 RER WOOD PRESERVING PLANT Reason for Visit * Diagnostic Imaging Ultrasound (Routine) - Pending Review Specialty Diagnoses / Procedures Referred By Contac t Referred To Contact Radiology. Diagnoses High-risk , unspecified trimester Procedures [facility] US Comprehensive Single F/U Donnie Stanton MD [address] [place] [address] Referral ID Status Reason Start Date Expiration Date V isits Requested Visits Authorized [id number] Pending Review 07/03/2023 07/02/2024 1 1 Encounter Details Date Type Department Care Team (Latest Contact Info) Description 07/28/2023 8:34 AM LABORER WOOD PRESERVING PLANT - 07/28/2023 11:59 PM LABORER WOOD PRESERVING PLANT Hospital Encounter [facility] M[facility] Medicine [facility] [place] [address] [place] [phone] Donnie Stanton MD [address] [place] [address] Justice Patterson MD [address] [place] [address] High-risk , unspecified trimester Discharge [...] 1 tablet by mouth at bedtime Vit-Fe Gtb-NI-Hrzwn (ONE-A-DAY WOMENS ) 28-0.8 & 223 MG [...] Procedure Name Priority Date/Time Associated Diagnosis Comments [facility] SINGLE F/U Routine 07/28/2023 9:16 AM LABORER WOOD PRESERVING PLANT High-risk , unspecified trimester documented in this encounter Results * M US Comprehensive Single F/U (07/28/2023 9:16 AM LABORER WOOD PRESERVING PLANT) Anatomical Region Laterality Modality Ultrasound 07/28/2023 8:38 AM LABORER WOOD PRESERVING PLANT Impressions 07/28/2023 9:18 AM LABORER WOOD PRESERVING PLANT IMPRESSION ----- 1) Growth parameters and estimated weight were consistent with appropriate for gestational age pattern of growth. 2) anatomy appeared normal for gestational age. Narrative 07/28/2023 9:18 AM LABORER WOOD PRESERVING PLANT ?Comp Follow Up ----- Pat. Name: HEIDI FORD ? Study Date: ??07/28/2023 8:38am Pat. NO: ??[id number] ?Referring ??: VENICE ELMORE RIBEIRO Site: ??[facility] ? Farm Field Manager: Gnearo Berkowitz RDMS : ??1990 ?Age: ?? 32 [...] 2 lb 7 ?oz EFW by ?Hadlock (KYL-PH-WP-FL) Head / Face / Neck Biometry: CM ?6.0 ? mm ANATOMY ----- The following structures appear normal: Head / Neck ? Cranium. Head size. Head shape. Lateral ventricles. Midline falx. Cavum septi pellucidi. Cerebellum. Cisterna magna. Thalami. Face ? Lips. Profile. Nose. Heart / Thorax ?4-chamber view. RVOT view. LVOT view. Aortic arch view. 3-nxffzs-vcwvcet view. ? Diaphragm. Abdomen ? Stomach. Kidneys. [...] FORD Study Date: 07/28/2023 8:38am Pat. NO: [id number] Referring MD: VENICE RIBEIRO Site: [facility] Farm Field Manager: Genaro Berkowitz RDMS : 1990 Age: 32 [...] 2 lb 7 oz EFW by Hadlock (NYH-ZT-ZJ-FL) Head / Face / Neck Biometry: CM 6.0 mm ANATOMY ----- The following structures appear normal: Head / Neck Cranium. Head size. Head shape.Lateral ventricles. Midline falx. Cavum septi pellucidi. Cerebellum.Cisterna magna. Thalami. Face Lips. Profile. Nose. Heart / Thorax 4-chamber view. RVOT view. LVOT view.Aortic arch view. 9-hkqrjl-pghtfxm view. Diaphragm. Abdomen Stomach. Kidneys. Bladder. Spine [...] normal for gestational age. Donnie Stanton MD [facility] US ORDERABLE S documented in this encounter Visit Diagnoses Diagnosis High-risk , unspecified trimester documented in this encounter Care Teams Medication Tech Relationship Specialty Start Date End Date No Ref-Primary, Physician PCP - General 05/28/23 documented as of this encounter
--- OUTSIDE RECORDS SUMMARY | 2023-09-29 09:08 | XMS_ITS | Encounter Summary ---
Author Name Unknown Organization [facility] Address [address] [place] [address]. [place] [address] Care Team Providers Care Flat Lock Operator Name Role Phone No Ref-Primary, Physician Primary Care Provider Reason for Visit * Reason Comments Consult CKD, endometriosis, AMA, asthma, alport syndrome Ultrasound L2 - CKD, endometrio sis, AMA, asthma, alport syndrome Encounter Details Date Type Department Care Team (Late st Contact Info) Description 06/24/2023 PRE VISIT [facility] [place] [address] [place] [address] Heidi Eisenberg, RN Consult (CKD, endometriosis, AMA, [...] on filedocumented in this encounter Care Teams Flat Lock Operator Relationship Specialty Start Date End Date No Ref-Primary, Physician PCP - General 05/28/23 documented as of this encounter
--- OUTSIDE RECORDS SUMMARY | 2023-09-29 09:08 | XMS_ITS | Encounter Summary ---
Author Name Unknown Organization [facility] Address [address] [place] [address] Care Team Providers Care Filteration Operator Name Role Phone No Ref-Primary, Physician Primary Care Provider Reason for Referral * Diagnostic Imaging Ultrasound (Routine) - Pending Review Specialty Diagnoses / Procedures Referred By Contac t Referred To Contact Radiology. Diagnoses High-risk , unspecified trimester Procedures [facility] US Comprehensive Single F/U Donnie Stanton MD [address] [place] [address] Referral ID Status Reason Start Date Expiration Date V isits Requested Visits Authorized [id number] Pending Review 07/03/2023 07/02/2024 1 1 LE PREPARATION SUPERVISOR Reason for Visit * Reason Comments Ultrasound L2- CKD, alport synd antonio, endometriosis, AMA Consult CKD, alport syndrome , endometriosis, AMA * Consultation (Routine: Next available opening) - Pending Review Specialty Diagnoses / Procedures Referred By Contac t Referred To Contact Diagnoses Alport syndrome High-risk , unspecified trimester Gayle Gonzalez MD [address] [place] [address] Referral ID Status Reason Start Date Expiration Date V isits Requested Visits Authorized [id number] Pending Review 05/28/2023 05/27/2024 1 1 Encounter Details Date Type Department Care Team ([facility] st Contact Info) Description 07/03/2023 9:30 AM SAMPLE PREPARATION SUPERVISOR Office Visit [facility] [place] [address] [place] [address] Gayle Gonzalez MD [address] [place] [address] Shayy Huerta MD [address] [place] [address] Donnie Stanton MD [address] [place] [address] Pre-exist hyp chronic kidney disease [...] Comments Blood Pressure 114/82 07/03/2023 10:18 AM SAMPLE PREPARATION SUPERVISOR Pulse 82 07/03/2023 10:18 AM SAMPLE PREPARATION SUPERVISOR Temperature - - Respiratory Rate 18 07/03/2023 10:18 AM SAMPLE PREPARATION SUPERVISOR Oxygen Saturation 100% 07/03/2023 10:18 AM SAMPLE PREPARATION SUPERVISOR RA Inhaled Oxygen Concentration - - [...] Alport Syndrome. She is followed closely at [facility] for this and she overall has [...] the patient (reviewing medical records/tests), in direct ucfa-ot-byaw contact with the patient during her visit with the majority spent counseling and discussing the plan of care and documenting the visit in the electronic medical record. Please see note for details. Donnie Stanton LE PREPARATION SUPERVISOR documented in this encounter Nursing Notes * [...] weeks. Future visits scheduled at front desk admin. Pt discharged stable and ambulatory. Geri Laurent RN LE PREPARATION SUPERVISOR documented in this encounter Plan of Treatment Not on file documented as of this encounter Results * MFM US Comprehensive Single F/U (07/28/2023 9:16 AM SAMPLE PREPARATION SUPERVISOR) Anatomical Region Laterality Modality Ultrasound 07/28/2023 8:38 AM SAMPLE PREPARATION SUPERVISOR Impressions 07/28/2023 9:18 AM SAMPLE PREPARATION SUPERVISOR IMPRESSION ----- 1) Growth parameters and estimated weight were consistent with appropriate for gestational age pattern of growth. 2) anatomy appeared normal for gestational age. Narrative 07/28/2023 9:18 AM SAMPLE PREPARATION SUPERVISOR ?Comp Follow Up ----- Pat. Name: HEIDI AMAYA ? Study Date: ??07/28/2023 8:38am Pat. NO: ??[id number] ?Referring ??MD: VENICE ELMORE MOORHEAD Site: ??[facility] ? Biophysics Teacher: Genaro Berkowitz RDMS : ??1990 ?Age: ?? [...] 2 lb 7 ?oz EFW by ?Hadlock (JWT-CA-FE-FL) Head / Face / Neck Biometry: CM ?6.0 ? mm ANATOMY ----- The following structures appear normal: Head / Neck ? Cranium. Head size. Head shape. Lateral ventricles. Midline falx. Cavum septi pellucidi. Cerebellum. Cisterna magna. Thalami. Face ? Lips. Profile. Nose. Heart / Thorax ?4-chamber view. RVOT view. LVOT view. Aortic arch view. 3-lrewjl-vwxgtcu view. ? Diaphragm. Abdomen ? Stomach. Kidneys. [...] AMAYA Study Date: 07/28/2023 8:38am Pat. NO: [id number] Referring MD: VENICE RIBEIRO Site: [facility] Biophysics Teacher: Genaro Berkowitz RDMS : 1990 Age: 32 [...] 2 lb 7 oz EFW by Hadlock (AWS-IE-DG-FL) Head / Face / Neck Biometry: CM 6.0 mm ANATOMY ----- The following structures appear normal: Head / Neck Cranium. Head size. Head shape.Lateral ventricles. Midline falx. Cavum septi pellucidi. Cerebellum.Cisterna magna. Thalami. Face Lips. Profile. Nose. Heart / Thorax 4-chamber view. RVOT view. LVOT view.Aortic arch view. 7-kmrgzx-mplzncf view. Diaphragm. Abdomen Stomach. Kidneys. Bladder. Spine [...] for gestational age. Donnie Stanton MD IMG [facility] ORDERABLE S documented in this encounter Visit Diagnoses Diagnosis Pre-exist hyp chronic kidney disease comp preg, second tri- Primary High-risk , unspecified trimester High-risk , unspecified trimester documented in this encounter Care Teams Filteration Operator Relationship Specialty Start Date End Date No Ref-Primary, Physician PCP - General 05/28/23 documented as of this encounter
--- OUTSIDE RECORDS SUMMARY | 2023-09-29 09:08 | XMS_ITS | Encounter Summary ---
Author Name Unknown Organization [facility] Address [address] [place] [address] Care Team Providers Care Operations Executive Name Role Phone No Ref-Primary, Physician Primary [...] on filedocumented in this encounter Care Teams Operations Executive Relationship Specialty Start Date End Date No Ref-Primary, Physician PCP - General 05/28/23 documented as of this encounter
--- OUTSIDE RECORDS SUMMARY | 2023-09-29 09:08 | XMS_ITS | Clinical Summary ---
Author Name Unknown Organization [facility] Address [place], [place] [address] Care Team Providers Care Rail Switch Operator Name Role Phone Val Byrd Primary Care Provider [phone] Allergies Active Allergy Reactions Criticality Noted Date [...] once daily. 180 Tablet 3 09/02/2022 Active 606-bvws-hjjsw-omega 3 27 mg iron- 800 mcg-235 mg [...] Department Care Team Description 09/08/2023 Orders Only [facility] Scanner 1 scan: (1-Ord) [place], OB PELVIS, 09/08/2023 08/25/2023 12:40 PM CDT Office Visit [facility] [address] [place] [address] Annemarie Randhawa NP Breathing Problem (Started CPAP 2-3 weeks ago. Congenital non-obstructive apnea. Feels that shortness of breath has worsened since starting to use CPAP. Describes having difficulty getting a full breath in or out. /QVAR BID. Using Albuterol BID as well. ) 08/25/2023 Travel 08/25/2023 Nurse Triage [facility] [address] [place] [address] Val Byrd PA Sob (7 months ) from Last 3 Months Immunizations Name Administration Dates Next Due COVID-19 vaccine (Bellmetric NTech 30mcg/0.3mL) PF, MDV 06/17/2021,12/17/2020,11/19/2020 DT (Age [...] 10/08/2022 8:13 PM CDT Plan of Treatment Upcoming Encounters Date Type Department Care Team (Late st Contact Info) Description 10/09/2023 8:10 AM CDT Office Visit [facility] [address] [place] [address] Val Byrd PA [address] [place] [address] Health Maintenance Due Date Last Done Comments [...] Reactive Non Reactive 09/04/2022 10:06 PM CDT [facility] Blood BLOOD SPECIMEN / Unknown Venipuncture / Unknown 09/02/2022 10:39 AM CDT 09/02/2022 10:43 AM CDT Narrative [facility] ([facility]) - 09/04/2022 10:06 PM CDT Performed at: ??[address] - [address] ??[id number] [place]: Severo Sunshine MD, Phone: ??[phone] Val [facility] ([facility]) [address] [place] [address] * LC HIV-1/O/2, 4TH GENERATION (09/02/2022 10:39 AM CDT) HIV Scr 4th Gen Non Reactive Non Reactive 09/04/2022 10:06 PM CDT [facility] Comment: HIV Negative HIV-1/HIV-2 antibodies and HIV-1 p24 antigen were NOT detected. There is no laboratory evidence of HIV infection. Blood BLOOD SPECIMEN / Unknown Venipuncture / Unknown 09/02/2022 10:39 AM CDT 09/02/2022 10:43 AM CDT Narrative [facility] ([facility]) - 09/04/2022 10:06 PM CDT Performed at: ??01 - [address] ??[id number] [place]: Severo Sunshine MD, Phone: ??[phone] Val [facility] ([facility]) [address] [place] [address] from Last 3 Months or Most Recently Relevant to Health Maintenance Advance Directives * Full Code (Latest Code Status on File) Date Activated Date Inactivated Comments 05/23/2020 2:04 PM 05/24/2020 1:14 PM Question Answer Comments Code Status Discussion: Not Discussed Care Teams Rail Switch Operator Relationship Specialty Start Date End Date Val Byrd PA [address] [place] [address] PCP - General Physician Artificial Stone Setter 11/21/22
--- OUTSIDE RECORDS SUMMARY | 2023-09-29 09:08 | XMS_ITS | Encounter Summary ---
Author Name Unknown Organization [facility] Address [address] [place] [address] Care Team Providers Care Registered Public Health Nurse Name Role Phone No Ref-Primary, Physician Primary Care Provider Reason for Visit * Diagnostic Imaging Ultrasound (Routine) - Pending Review Specialty Diagnoses / Procedures Referred By Contac t Referred To Contact Radiology. Diagnoses Alport syndrome High-risk , unspecified trimester Procedures [facility] US Comprehensive Single Gayle Gonzalez MD [address] [address] Referral ID Status Reason Start Date Expiration Date V isits Requested Visits Authorized [id number] Pending Review 05/28/2023 05/27/2024 1 1 Encounter Details Date Type Department Care Team (Latest Contact Info) Description 07/03/2023 8:35 AM CONTINUITY PERSON - 07/03/2023 11:59 PM CONTINUITY PERSON Hospital Encounter [facility] [place] [address] [place] [address] Gayle Gonzalez MD [address] [facility] [address] [place], [place] [phone] Shayy Huerta MD [address] [facility] [address] [place], [place] [phone] Alport syndrome; High-risk , unspecified trimester Discharge [...] 1 tablet by mouth at bedtime Vit-Fe Gll-FY-Nalhn (ONE-A-DAY WOMENS ) 28-0.8 & 223 MG [...] Procedure Name Priority Date/Time Associated Diagnosis Comments [facility] COMPREHENSIVE SINGLE Routine 07/03/2023 9:50 AM CONTINUITY PERSON Alport syndrome High-risk , unspecified trimester documented in this encounter Results * [facility] Comprehensive Single (07/03/2023 9:50 AM CONTINUITY PERSON) Anatomical Region Laterality Modality Ultrasound 07/03/2023 8:44 AM CONTINUITY PERSON Impressions 07/04/2023 2:25 PM CONTINUITY PERSON IMPRESSION ----- 1) Reyes intrauterine at 22w [...] volume appeared normal. Narrative 07/04/2023 2:25 PM CONTINUITY PERSON ?Comprehensive ----- Pat. Name: DARÍO FORDN ? Study Date: ??07/03/2023 8:44am Pat. NO: ??[id number] ?Referring ??: VNEICE RIBEIRO Site: ??[facility] ? Museum Exhibit Designer: Liza Howell RDMS : ??1990 ?Age: [...] 1 lb 6 ?oz EFW by ?Hadlock (FFO-SH-XP-FL) Head / Face / Neck Biometry: Mother Repairer ? 6.3 ? mm CM ?3.3 ? [...] vena cava. Inferior vena cava. 3-vessel view. 5-brkynj-myhepjq view. ? Cardiac position. Cardiac size. Cardiac [...] Syndrome. She is followed closely at [facility] for this and she overall has [...] delivery. Agree with the plan per Heidi's volcanology teacher for serial follow-up BMP/renal panel every 1-2 [...] the patient (reviewing medical records/tests), in direct cxvt-oi-tntg contact with the patient during her visit with the majority spent counseling and discussing the plan of care and documenting the visit in the electronic medical record. Please see note for details. Procedure Note Donnie Stanton MD - 07/04/2023 Comprehensive ----- Pat. Name: HEIDI FORD Study Date: 07/03/2023 8:44am Pat. NO: [id number] Referring MD: VENICE RIBEIRO Site: [facility] Museum Exhibit Designer: Liza Howell RDMS : 1990 Age: [...] 1 lb 6 oz EFW by Angelina (LRO-IC-MV-FL) Head / Face / Neck Biometry: Mother Repairer 6.3 mm CM 3.3 mm Nasal bone [...] Superior vena cava. Inferior vena cava. 3-vesselview. 4-kijehj-wzzhged view. Cardiac position. Cardiac size.Cardiac rhythm. Right [...] Alport Syndrome. She is followed closely at [facility] for this and she overall [...] see the patient (reviewing medical records/tests), in cnvfiqhqtv-ya-knxv contact with the patient during her visit [...] fluid volume appeared normal. Gayle Gonzalez MD [facility] US ORDER SOILA documented in this encounter Visit Diagnoses Diagnosis Alport syndrome Other specified congenital anomalies High-risk , unspecified trimester documented in this encounter Care Teams Registered Public Health Nurse Relationship Specialty Start Date End Date No Ref-Primary, Physician PCP - General 05/28/23 documented as of this encounter
--- OUTSIDE RECORDS SUMMARY | 2023-09-29 09:08 | XMS_ITS | Encounter Summary ---
Author Name Unknown Organization [facility] Address [address] [place] [address] Care Team Providers Care Computer Aided Design Operator Name Role Phone No Ref-Primary, Physician [...] on filedocumented in this encounter Care Teams Computer Aided Design Operator Relationship Specialty Start Date End Date No Ref-Primary, Physician PCP - General 05/28/23 documented as of this encounter
--- OUTSIDE RECORDS SUMMARY | 2023-09-29 09:08 | XMS_ITS | Clinical Summary ---
Author Name Unknown Organization [facility] Address [address] [place] [address] Care Team Providers Care Manager Battery Name Role Phone No Ref-Primary, Physician Primary [...] 25 mg by mouth daily Active Vit-Fe Ygm-SH-Mffqy (ONE-A-DAY WOMENS ) 28-0.8 & 223 MG MISC Take 1 tablet by mouth daily Active loratadine (CLARITIN REDITABS) 10 MG ODT Take 10 mg by mouth daily Active Encounters Date Type Department Care Team Description 07/28/2023 9:15 AM EQUIPMENT OPERATOR WAREHOUSE Office Visit [facility] Medicine [facility] [address] [place] [address] Donnie Stanton MD Rauk, Justice Fuchs MD Encounter for follow-up ultrasound of anatomy (Primary Dx); Pre-exist hyp chronic kidney disease comp preg, second tri; Alport syndrome 07/28/2023 8:34 AM EQUIPMENT OPERATOR WAREHOUSE - 07/28/2023 11:59 PM EQUIPMENT OPERATOR WAREHOUSE Hospital Encounter [facility] [address] [place] [address] Donnie Stanton MD Rauk, Justice Fuchs MD High-risk , unspecified trimester Discharge Disposition: Home or Self Care 07/28/2023 Travel 07/08/2023 Telephone [facility] Medicine [address] [phone] Val Donahue RN Clinic Care Coordination - Follow-up 07/03/2023 9:30 AM EQUIPMENT OPERATOR WAREHOUSE Office Visit [facility] Medicine [address] [address] Gayle Gonzalez MD Sabol, Bethany, MD Yamamura, Yasuko, MD Pre-exist hyp chronic kidney disease comp preg, second tri (Primary Dx); High-risk , unspecified trimester 07/03/2023 8:35 AM EQUIPMENT OPERATOR WAREHOUSE - 07/03/2023 11:59 PM EQUIPMENT OPERATOR WAREHOUSE Hospital Encounter [facility] Maternal Medicine [address] [phone] Gayle Gonzalez MD Sabol, Bethany, MD Alport [...] Comments Blood Pressure 114/82 07/03/2023 10:18 AM EQUIPMENT OPERATOR WAREHOUSE Pulse 82 07/03/2023 10:18 AM EQUIPMENT OPERATOR WAREHOUSE Temperature - - Respiratory Rate 18 07/03/2023 10:18 AM EQUIPMENT OPERATOR WAREHOUSE Oxygen Saturation 100% 07/03/2023 10:18 AM EQUIPMENT OPERATOR WAREHOUSE RA Inhaled Oxygen Concentration - - Weight - - Height - - Body Mass Index - - Plan of Treatment Health Maintenance Due Date Last Done Comments ADVANCE CARE PLANNING 1990 ANNUAL REVIEW OF HM ORDERS 1988 GLUCOSE 1988 HIV SCREENING 09/20/2003 HEPATITIS C SCREENING 2006 PAP 2009 MATERNAL SCREENING DISCUSSION 04/04/2023 PHQ-2 (once per calendar year) 2023 OBGCT (OB) 07/11/2023 YEARLY PREVENTIVE VISIT 09/03/2023 09/03/19 23, 08/28/2021, 07/24/2020, Additional history exists GROUP B STREP SCREENING 10/03/2023 DTAP/TDAP/TD IMMUNIZATION (9 - Td or Tdap) [...] Procedure Name Priority Date/Time Associated Diagnosis Comments [facility] US COMPREHENSIVE SINGLE F/U Routine 07/28/2023 9:16 AM EQUIPMENT OPERATOR WAREHOUSE High-risk , unspecified trimester LAB RESULT - HIM SCAN 07/07/2023 12:00 AM EQUIPMENT OPERATOR WAREHOUSE MF US COMPREHENSIVE SINGLE Routine 07/03/2023 9:50 AM EQUIPMENT OPERATOR WAREHOUSE Alport syndrome High-risk , unspecified trimester from Last 3 Months Results * [facility] US Comprehensive Single F/U (07/28/2023 9:16 AM EQUIPMENT OPERATOR WAREHOUSE) Anatomical Region Laterality Modality Ultrasound 07/28/2023 8:38 AM EQUIPMENT OPERATOR WAREHOUSE Impressions 07/28/2023 9:18 AM EQUIPMENT OPERATOR WAREHOUSE IMPRESSION ----- 1) Growth parameters and estimated weight were consistent with appropriate for gestational age pattern of growth. 2) anatomy appeared normal for gestational age. Narrative 07/28/2023 9:18 AM EQUIPMENT OPERATOR WAREHOUSE ?Comp Follow Up ----- Pat. Name: MYRA FORD ? Study Date: ??07/28/2023 8:38am Pat. NO: ??[id number] ?Referring ??MD: VENICE ELMORE GRATIOT Site: ??[facility] ? Ship Rigger: Genaro Berkowitz RDMS : ??1990 ?Age: ?? [...] 2 lb 7 ?oz EFW by ?Hadlock (RIK-CW-VY-NE) Head / Face / Neck Biometry: CM ?6.0 ? mm ANATOMY ----- The following structures appear normal: Head / Neck ? Cranium. Head size. Head shape. Lateral ventricles. Midline falx. Cavum septi pellucidi. Cerebellum. Cisterna magna. Thalami. Face ? Lips. Profile. Nose. Heart / Thorax ?4-chamber view. RVOT view. LVOT view. Aortic arch view. 9-yugltj-yhwbvbm view. ? Diaphragm. Abdomen ? Stomach. Kidneys. [...] FORD Study Date: 07/28/2023 8:38am Pat. NO: [id number] Referring MD: VENICE RIBEIRO Site: [facility] Ship Rigger: Genaro Berkowitz RDMS : 1990 Age: 32 [...] 2 lb 7 oz EFW by Hadlock (TGE-PX-BC-FL) Head / Face / Neck Biometry: CM 6.0 mm ANATOMY ----- The following structures appear normal: Head / Neck Cranium. Head size. Head shape.Lateral ventricles. Midline falx. Cavum septi pellucidi. Cerebellum.Cisterna magna. Thalami. Face Lips. Profile. Nose. Heart / Thorax 4-chamber view. RVOT view. LVOT view.Aortic arch view. 0-lijfme-jpwygbi view. Diaphragm. Abdomen Stomach. Kidneys. Bladder. Spine [...] anatomy appeared normal for gestational age. [facility] * LAB RESULT - HIM SCAN (07/07/2023 12:00 AM EQUIPMENT OPERATOR WAREHOUSE) 07/07/2023 [facility] MARYANNE CAMP[facility]LL * AMANDEEP[facility] Comprehensive Single (07/03/2023 9:50 AM EQUIPMENT OPERATOR WAREHOUSE) Anatomical Region Laterality Modality Ultrasound 07/03/2023 8:44 AM EQUIPMENT OPERATOR WAREHOUSE Impressions 07/04/2023 2:25 PM EQUIPMENT OPERATOR WAREHOUSE IMPRESSION ----- 1) Reyes intrauterine at 22w [...] volume appeared normal. Narrative 07/04/2023 2:25 PM EQUIPMENT OPERATOR WAREHOUSE ?Comprehensive ----- Pat. Name: MYRA FORD ? Study Date: ??07/03/2023 8:44am Pat. NO: ??[id number] ?Referring ??: VENICE RIBEIRO Site: ??[facility] ? Ship Rigger: Liza Howell RDMS : ??1990 ?Age: ?? [...] 1 lb 6 ?oz EFW by ?Hadlock (WHV-QS-KQ-FL) Head / Face / Neck Biometry: Dental Office Manager ? 6.3 ? mm CM ?3.3 [...] vena cava. Inferior vena cava. 3-vessel view. 3-ucmqrj-doosswk view. ? Cardiac position. Cardiac size. Cardiac [...] Syndrome. She is followed closely at [facility] for this and she overall has done [...] delivery. Agree with the plan per Myra's strap buckler for serial follow-up BMP/renal panel every 1-2 [...] the patient (reviewing medical records/tests), in direct kjgi-ii-qphn contact with the patient during her visit with the majority spent counseling and discussing the plan of care and documenting the visit in the electronic medical record. Please see note for details. Procedure Note Donnie Stanton MD - 07/04/2023 Comprehensive ----- Pat. Name: MYRA FORD Study Date: 07/03/2023 8:44am Pat. NO: [id number] Referring MD: VENICE RIBEIRO Site: [facility] Ship Rigger: Liza Howell RDMS : 1990 Age: 32 [...] 1 lb 6 oz EFW by Hadlock (ACG-LF-ZU-FL) Head / Face / Neck Biometry: Dental Office Manager 6.3 mm CM 3.3 mm Nasal [...] Superior vena cava. Inferior vena cava. 3-vesselview. 1-sscdmm-rwjeuzr view. Cardiac position. Cardiac size.Cardiac rhythm. Right [...] Alport Syndrome. She is followed closely at [facility] for this and she overall has [...] see the patient (reviewing medical records/tests), in lblepmjbaz-yg-wavq contact with the patient during her visit [...] SOILA from Last 3 Months Care Teams Manager Battery Relationship Specialty Start Date End Date No Ref-Primary, Physician PCP - General 05/28/23
--- NOTE | 2023-09-29 09:15 | US_ITS ---
Patient: MYRA FORD Facility:?[facility] RIS Patient ID:?[id number] Site Patient ID:?[id number]. Site :?1990 Study:?US-OB Pelvis growth-09/29/2023 9:39:18 AM Ordering Physician:Portia Nunn Final Report: INDICATION: Uterine size date discrepancy COMPARISON: 09/08/2023 TECHNIQUE: Real time anaya scale imaging of the fetus was performed. FINDINGS: Sonographic imaging demonstrates a single living intrauterine gestation. Fetus demonstrates a regular cardiac rate of 139 beats per minute. Fetus has a vertex position. The placenta lies posteriorly. Amniotic fluid volume appears normal and there is a single deepest vertical pocket: 5.3 cm. The estimated weight is 3348gm which lies at the greater than 97th %. On the prior OB ultrasound exam dated 09/08/2023 the estimated weight was at the 95th%. BPD 85th percentile. HC 76th percentile. AC greater than 97th percentile. FL 50th percentile. The HC/AC ratio measures 0.94 range (0.91-1.05). IMPRESSION: Sonographic gestational age 37 weeks 3 days and sonographic due date of 10/17/2023. Sonographic age is 2 weeks ahead of the clinical age. Estimated weight greater than 97th percentile. Abdominal circumference greater than 97th percentile. Dictated by Abundio Lane MD @ 09/29/2023 12:05:08 PM Signed by:?Abundio Lane MD @09/29/2023 12:05:08 PM (Electronic Signature)
== END 2023-09-29 09:05 | disposition home or self-care (01) ==
LOC: US 09:04
PROVIDERS: PCP Physician Assistant; Visit Provider Obstetrics & Gynecology
DX: O36.63X0 Maternal care for excessive fetal growth, third trimester, not applicable or unspecified (principal); Z3A.37 37 weeks gestation of pregnancy
CPT/HCPCS: 76816

== ENCOUNTER 2023-10-01 07:58 | Outpatient (RCR) | payer BC, OTHER, SELFPAY ==
--- NOTE | 2023-09-23 12:11 | URNOTE ---
?Request received for authorization for Iron Dextran (Infed)? (J1750). Prior authorization is not required per active [facility] [place] coverage, Ref# [id number], date range: 09/23/23 to 10/24/2023.
[2023-10-01 08:14] VITALS: BP 122/82; PULSE 97; RESP 16; TEMP 36.4; O2SAT 96
[2023-10-01] MEDS: SODIUM CHLORIDE 0.9 % (FLUSH) 10 ML SYRINGE IVF (08:30)
[2023-10-01] MEDS: IRON DEXTRAN COMPLEX 25 MG in 0.9 % SODIUM CHLORIDE 100 ml 100 ML 402 MG IVPB (08:38)
[2023-10-01 09:02] VITALS: BP 119/83; PULSE 97; RESP 16; TEMP 36.6; O2SAT 97
[2023-10-01] MEDS: IRON DEXTRAN COMPLEX 975 MG in 0.9 % SODIUM CHLORIDE 250 ml 250 ML 269.5 MG IVPB (10:01)
== END 2024-03-29 23:59 | disposition home or self-care (01) ==
LOC: CCIC 07:58
PROVIDERS: PCP Physician Assistant; Referring Provider Physician Assistant; Visit Provider Obstetrics & Gynecology
DX: O99.013 Anemia complicating pregnancy, third trimester (principal)
CPT/HCPCS: 96365; 96366; 96415; J1750; J7030; J7050

== ENCOUNTER 2023-10-06 15:53 | Outpatient (CLI) | payer BC, OTHER, SELFPAY ==
--- OUTSIDE RECORDS SUMMARY | 2023-10-06 15:55 | XMS_ITS | Encounter Summary ---
Author Name Unknown Organization [facility] Address [address] [place] [address] Care Team Providers Care Solar Sales Rep Name Role Phone No Ref-Primary, Physician Primary Care Provider Reason for Referral * Diagnostic Imaging Ultrasound (Routine) - Pending Review Specialty Diagnoses / Procedures Referred By Contac t Referred To Contact Radiology. Diagnoses High-risk , unspecified trimester Procedures [facility] US Comprehensive Single F/U Donnie Stanton MD [address] [place] [address] [place] [address] Referral ID Status Reason Start Date Expiration Date V isits Requested Visits Authorized [id number] Pending Review 07/03/2023 07/02/2024 1 1 AL HYGIENE CONSULTANT Reason for Visit * Diagnostic Imaging Ultrasound (Routine) - Pending Review Specialty Diagnoses / Procedures Referred By Contac t Referred To Contact Radiology. Diagnoses High-risk , unspecified trimester Procedures [facility] US Comprehensive Single F/U Donnie Stanton MD [id number] [place] [address] Referral ID Status Reason Start Date Expiration Date V isits Requested Visits Authorized [id number] Pending Review 07/03/2023 07/02/2024 1 1 Encounter Details Date Type Department Care Team (Latest Contact Info) Description 07/28/2023 8:34 AM MENTAL HYGIENE CONSULTANT - 07/28/2023 11:59 PM MENTAL HYGIENE CONSULTANT Hospital Encounter [facility] [place] [address] [place] [phone] Donnie Stanton MD [address] [place] [address] Justice Patterson MD [address] [place] [address] High-risk , unspecified trimester Discharge [...] 1 tablet by mouth at bedtime Vit-Fe Kid-KH-Edkva (ONE-A-DAY WOMENS ) 28-0.8 & 223 MG [...] Procedure Name Priority Date/Time Associated Diagnosis Comments [facility] SINGLE F/U Routine 07/28/2023 9:16 AM MENTAL HYGIENE CONSULTANT High-risk , unspecified trimester documented in this encounter Results * [facility] US Comprehensive Single F/U (07/28/2023 9:16 AM MENTAL HYGIENE CONSULTANT) Anatomical Region Laterality Modality Ultrasound 07/28/2023 8:38 AM MENTAL HYGIENE CONSULTANT Impressions 07/28/2023 9:18 AM MENTAL HYGIENE CONSULTANT IMPRESSION ----- 1) Growth parameters and estimated weight were consistent with appropriate for gestational age pattern of growth. 2) anatomy appeared normal for gestational age. Narrative 07/28/2023 9:18 AM MENTAL HYGIENE CONSULTANT ?Comp Follow Up ----- Pat. Name: HEDII FORD ? Study Date: ??07/28/2023 8:38am Pat. NO: ??[id number] ?Referring ??: VENICE ELMORE RIBEIRO Site: ??[facility] ? Boat Detailer: Genaro Berkowitz RDMS : ??1990 ?Age: ?? [...] 2 lb 7 ?oz EFW by ?Hadlock ([id number]-XS-YH-FL) Head / Face / Neck Biometry: CM ?6.0 ? mm ANATOMY ----- The following structures appear normal: Head / Neck ? Cranium. Head size. Head shape. Lateral ventricles. Midline falx. Cavum septi pellucidi. Cerebellum. Cisterna magna. Thalami. Face ? Lips. Profile. Nose. Heart / Thorax ?4-chamber view. RVOT view. LVOT view. Aortic arch view. 7-oxbgxa-tsebwpu view. ? Diaphragm. Abdomen ? Stomach. Kidneys. [...] FORD Study Date: 07/28/2023 8:38am Pat. NO: [id number] Referring MD: VENICE RIBEIRO Site: [facility] Boat Detailer: Genaro Berkowitz RDMS : 1990 Age: 32 [...] 2 lb 7 oz EFW by Hadlock (AXK-ZX-RN-FL) Head / Face / Neck Biometry: CM 6.0 mm ANATOMY ----- The following structures appear normal: Head / Neck Cranium. Head size. Head shape.Lateral ventricles. Midline falx. Cavum septi pellucidi. Cerebellum.Cisterna magna. Thalami. Face Lips. Profile. Nose. Heart / Thorax 4-chamber view. RVOT view. LVOT view.Aortic arch view. 8-lgtruq-lgcmjqi view. Diaphragm. Abdomen Stomach. Kidneys. Bladder. Spine [...] normal for gestational age. Donnie Stanton MD [facility] US ORDERABLE S documented in this encounter Visit Diagnoses Diagnosis High-risk , unspecified trimester documented in this encounter Care Teams Solar Sales Rep Relationship Specialty Start Date End Date No Ref-Primary, Physician PCP - General 05/28/23 documented as of this encounter
--- OUTSIDE RECORDS SUMMARY | 2023-10-06 15:55 | XMS_ITS | Clinical Summary ---
Author Name Unknown Organization [facility] Address [address] [place] [address] Care Team Providers Care Automobile Body Repair Chief Name Role Phone No Ref-Primary, Physician Primary [...] 25 mg by mouth daily Active Vit-Fe Soj-LP-Weihm (ONE-A-DAY WOMENS ) 28-0.8 & 223 MG MISC Take 1 tablet by mouth daily Active loratadine (CLARITIN REDITABS) 10 MG ODT Take 10 mg by mouth daily Active Encounters Date Type Department Care Team Description 07/28/2023 9:15 AM CROP PEST CONTROL SPECIALIST Office Visit [facility] Medicine [facility] [address] [place] [address] Donnie Stanton MD Rauk, Justice Fuchs MD Encounter for follow-up ultrasound of anatomy (Primary Dx); Pre-exist hyp chronic kidney disease comp preg, second tri; Alport syndrome 07/28/2023 8:34 AM CROP PEST CONTROL SPECIALIST - 07/28/2023 11:59 PM CROP PEST CONTROL SPECIALIST Hospital Encounter [facility] Medicine [facility] [address] [place] [address] Donnie Stanton MD Rauk, Justice Fuchs MD High-risk , unspecified trimester Discharge Disposition: Home or Self Care 07/28/2023 Travel 07/08/2023 Telephone [facility] Medicine [address] [address] Val Donahue, DAQUAN Clinic Care Coordination - Follow-up from Last 3 Months Social History Tobacco [...] Comments Blood Pressure 114/82 07/03/2023 10:18 AM CROP PEST CONTROL SPECIALIST Pulse 82 07/03/2023 10:18 AM CROP PEST CONTROL SPECIALIST Temperature - - Respiratory Rate 18 07/03/2023 10:18 AM CROP PEST CONTROL SPECIALIST Oxygen Saturation 100% 07/03/2023 10:18 AM CROP PEST CONTROL SPECIALIST RA Inhaled Oxygen Concentration - - Weight [...] Procedure Name Priority Date/Time Associated Diagnosis Comments [facility] US COMPREHENSIVE SINGLE F/U Routine 07/28/2023 9:16 AM CROP PEST CONTROL SPECIALIST High-risk , unspecified trimester from Last 3 Months Results * [facility] US Comprehensive Single F/U (07/28/2023 9:16 AM CROP PEST CONTROL SPECIALIST) Anatomical Region Laterality Modality Ultrasound 07/28/2023 8:38 AM CROP PEST CONTROL SPECIALIST Impressions 07/28/2023 9:18 AM CROP PEST CONTROL SPECIALIST IMPRESSION ----- 1) Growth parameters and estimated weight were consistent with appropriate for gestational age pattern of growth. 2) anatomy appeared normal for gestational age. Narrative 07/28/2023 9:18 AM CROP PEST CONTROL SPECIALIST ?Comp Follow Up ----- Pat. Name: DARÍO FORDN ? Study Date: ??07/28/2023 8:38am Pat. NO: ??[id number] ?Referring ??MD: VENICE ELMORE [place] Site: ??[facility] ? Scrub Technician: Genaro Berkowitz RDMS : ??1990 ?Age: ?? 32 ----- INDICATION ----- Suboptimal anatomy on prior u/s. Chronic kidney disease, Alport Syndrome. Advanced Maternal Age. BMI: 36.5. METHOD ----- Transabdominal ultrasound examination. View: Sufficient ----- Reyes . Number of fetuses: 1 DATING ----- ? Date ?Details ?Gest. age ?SPIRNG LMP ?01/24/2023 ? 26 w + 3 [...] 2 lb 7 ?oz EFW by ?Hadlock ([id number]-QB-YZ-FL) Head / Face / Neck Biometry: CM ?6.0 ? mm ANATOMY ----- The following structures appear normal: Head / Neck ? Cranium. Head size. Head shape. Lateral ventricles. Midline falx. Cavum septi pellucidi. Cerebellum. Cisterna magna. Thalami. Face ? Lips. Profile. Nose. Heart / Thorax ?4-chamber view. RVOT view. LVOT view. Aortic arch view. 9-byagfl-qoficei view. ? Diaphragm. Abdomen ? Stomach. Kidneys. [...] FORD Study Date: 07/28/2023 8:38am Pat. NO: [id number] Referring MD: VENICE RIBEIRO Site: [facility] Scrub Technician: Genaro Berkowitz RDMS : 1990 Age: 32 [...] (lb,oz) 2 lb 7 oz EFW by Angelina (MUM-GP-XB-FL) Head / Face / Neck Biometry: CM 6.0 mm ANATOMY ----- The following structures appear normal: Head / Neck Cranium. Head size. Head shape.Lateral ventricles. Midline falx. Cavum septi pellucidi. Cerebellum.Cisterna magna. Thalami. Face Lips. Profile. Nose. Heart / Thorax 4-chamber view. RVOT view. LVOT view.Aortic arch view. 9-gjtuta-ktjwbkh view. Diaphragm. Abdomen Stomach. Kidneys. Bladder. Spine [...] normal for gestational age. Donnie Stanton MD [facility] ORDERABLE S from Last 3 Months Care Teams Automobile Body Repair Chief Relationship Specialty Start Date End Date No Ref-Primary, Physician PCP - General 05/28/23
--- OUTSIDE RECORDS SUMMARY | 2023-10-06 15:55 | XMS_ITS | Clinical Summary ---
Author Name Unknown Organization [employer] Address [address] Care Team Providers Care Website Designer Name Role Phone Val Byrd Primary Care Provider [phone]- [phone] Allergies Active Allergy Reactions Criticality Noted Date [...] once daily. 180 Tablet 3 09/02/2022 Active 680-olnx-kblzj-omega 3 27 mg iron- 800 mcg-235 mg [...] Encounters Date Type Department Care Team Description 09/29/2023 Orders Only [facility] Scanner 1 scan: (1-Ord) [facility], OB PELVIS GROWTH, 09/29/2023 09/08/2023 Orders Only [facility] Scanner 1 scan: (1-Ord) [place], OB PELVIS, 09/08/2023 08/25/2023 12:40 PM CDT Office Visit [facility] [address] [place] [address] Annemarie Randhawa, LESLYE Breathing Problem (Started CPAP 2-3 weeks ago. Congenital non-obstructive apnea. Feels that shortness of breath has worsened since starting to use CPAP. Describes having difficulty getting a full breath in or out. /QVAR BID. Using Albuterol BID as well. ) 08/25/2023 Travel 08/25/2023 Nurse Triage [facility] [address] [place] [address] Val Byrd PA Sob (7 months ) from Last 3 Months Immunizations Name Administration Dates Next Due COVID-19 vaccine ([employer] NTech 30mcg/0.3mL) PF, MDV 06/17/2021,12/17/2020,11/19/2020 DT (Age [...] Description 10/09/2023 8:10 AM CDT Office Visit [facility] [address] [place] [address] Val Byrd PA [address] [place] [address] Health Maintenance Due Date Last Done Comments BMI (ht and wt on same day) for age 18+ 09/03/2023 09/02/2022, 08/28/2021 Depression screening for age 12+ 09/03/2023 09/02/2022, 08/28/2021 Influenza for age 9-49 01/25/2024 1, 07/24/2020, 06/28/2019, Additional history exists Pap test [...] Priority Date/Time Associated Diagnosis Comments SCAN-ULTRASOUND REPORT 09/29/2023 12:00 AM CDT SCAN-ULTRASOUND REPORT 09/08/2023 12:00 AM CDT LC HIV-1/O/2, 4TH GENERATION Routine 09/02/2022 10:39 AM CDT Encounter for screening for HIV LC HCV ANTIBODY RFX TO QUANT PCR Routine 09/02/2022 10:39 AM CDT Need for hepatitis C screening test from Last 3 Months or Most Recently Relevant to Health Maintenance Results * SCAN-ULTRASOUND REPORT (09/29/2023 12:00 AM CDT) Only the most recent of2 resultswithin the time period is included. Anatomical Region Laterality Modality Other Scanner OTHER * LC HCV ANTIBODY RFX TO QUANT PCR (09/02/2022 10:39 AM CDT) HCV Ab Non Reactive Non Reactive 09/04/2022 10:06 PM CDT [facility] Blood BLOOD SPECIMEN / Unknown Venipuncture / Unknown 09/02/2022 10:39 AM CDT 09/02/2022 10:43 AM CDT Narrative [facility] - 09/04/2022 10:06 PM CDT Performed at: ??[address] ??[id number] Security Support Analyst: Severo Sunshine MD, Phone: ??[phone] Val [facility] ([facility]) [address] [place] [address] * LC HIV-1/O/2, 4TH GENERATION (09/02/2022 10:39 AM CDT) HIV Scr 4th Gen Non Reactive Non Reactive 09/04/2022 10:06 PM CDT [facility] ([facility] Comment: HIV Negative HIV-1/HIV-2 antibodies and HIV-1 p24 antigen were NOT detected. There is no laboratory evidence of HIV infection. Blood BLOOD SPECIMEN / Unknown Venipuncture / Unknown 09/02/2022 10:39 AM CDT 09/02/2022 10:43 AM CDT Narrative [facility] ([facility]) - 09/04/2022 10:06 PM CDT Performed at: ??[address] ??[id number] Security Support Analyst: Severo Sunshine MD, Phone: ??[phone] Val [facility] Performing Organization Address City/[facility] Co de Phone Number [facility] ([facility]) [address] [place] [address] from Last 3 Months or Most Recently Relevant to Health Maintenance Advance Directives * Full Code (Latest Code Status on File) Date Activated Date Inactivated Comments 05/23/2020 2:04 PM 05/24/2020 1:14 PM Question Answer Comments Code Status Discussion: Not Discussed Care Teams Website Designer Relationship Specialty Start Date End Date Val Byrd PA [address] [facility] [id number] PCP - General Physician Instrumentation And Control Technician 11/21/22
--- OUTSIDE RECORDS SUMMARY | 2023-10-06 15:55 | XMS_ITS | Referral Summary ---
Author Name Unknown Organization [facility] [facility] Address [address] [place] [address] Care Team Providers Care Mink Farmer Name Role Phone No Ref-Primary, Physician Primary Care Provider Encounters Date Type Department Care Team Description 07/28/2023 Travel 07/28/2023 9:15 AM COMPLIANCE AND CONTROL ANALYST Office Visit [facility] [address] [facility] [address] [place] [phone] Donnie Stanton MD Rauk, Justice Fuchs MD Encounter for follow-up ultrasound of anatomy (Primary Dx); Pre-exist hyp chronic kidney disease comp preg, second tri; Alport syndrome 07/28/2023 8:34 AM COMPLIANCE AND CONTROL ANALYST - 07/28/2023 11:59 PM COMPLIANCE AND CONTROL ANALYST Hospital Encounter [facility] [address] [facility] [address] [place] [phone] Donnie Stanton MD Rauk, Justice Fuchs MD High-risk , unspecified trimester Discharge Disposition: Home or Self Care 07/08/2023 Telephone [facility] [address] [place] [address] Val Donahue, RN Clinic Care Coordination - Follow-up from Last 3 Months Allergies Active Allergy Reactions Criticality Noted Date Comments Amoxicillin Hives Medium 10/13/2008 Benzalkonium Chloride Rash Low 04/22/2022 Cefaclor Hives Medium 10/13/2008 Cefuroxime Hives Medium 10/13/2008 Clindamycin Hives Medium 02/28/2014 Cyanoacrylate Rash Low 06/12/2020 Latex Rash Medium 07/17/2009 Ondansetron 02/13/2022 Other Reaction(s): Chest Pain Shellfish-Derived Products Itching 0 Itchy tongue and lips (mounikaeugeniokarissa has taken care of it in the [...] 25 mg by mouth daily Active Vit-Fe Zrq-KJ-Glbzd (ONE-A-DAY WOMENS ) 28-0.8 & 223 MG [...] Comments Blood Pressure 114/82 07/03/2023 10:18 AM COMPLIANCE AND CONTROL ANALYST Pulse 82 07/03/2023 10:18 AM COMPLIANCE AND CONTROL ANALYST Temperature - - Respiratory Rate 18 07/03/2023 10:18 AM COMPLIANCE AND CONTROL ANALYST Oxygen Saturation 100% 07/03/2023 10:18 AM COMPLIANCE AND CONTROL ANALYST RA Inhaled Oxygen Concentration - - Weight - - Height - - Body Mass Index - - Plan of Treatment Not on file Procedures Procedure Name Priority Date/Time Associated Diagnosis Comments MFM US COMPREHENSIVE SINGLE F/U Routine 07/28/2023 9:16 AM COMPLIANCE AND CONTROL ANALYST High-risk , unspecified trimester from Last 3 Months Results * [facility] US Comprehensive Single F/U (07/28/2023 9:16 AM COMPLIANCE AND CONTROL ANALYST) Anatomical Region Laterality Modality Ultrasound 07/28/2023 8:38 AM COMPLIANCE AND CONTROL ANALYST Impressions 07/28/2023 9:18 AM COMPLIANCE AND CONTROL ANALYST IMPRESSION ----- 1) Growth parameters and estimated weight were consistent with appropriate for gestational age pattern of growth. 2) anatomy appeared normal for gestational age. Narrative 07/28/2023 9:18 AM COMPLIANCE AND CONTROL ANALYST ?Comp Follow Up ----- Pat. Name: HEIDI FORD ? Study Date: ??07/28/2023 8:38am Pat. NO: ??[id number] ?Referring ??: VENICE ELMORE RIBEIRO Site: ??[facility] ? Ornamental Iron Worker Helper: Genaro Berkowitz RDMS : ??1990 ?Age: ?? [...] 2 lb 7 ?oz EFW by ?Hadlock ([id number]-IE-IZ-FL) Head / Face / Neck Biometry: CM ?6.0 ? mm ANATOMY ----- The following structures appear normal: Head / Neck ? Cranium. Head size. Head shape. Lateral ventricles. Midline falx. Cavum septi pellucidi. Cerebellum. Cisterna magna. Thalami. Face ? Lips. Profile. Nose. Heart / Thorax ?4-chamber view. RVOT view. LVOT view. Aortic arch view. 3-twuoai-etjkuju view. ? Diaphragm. Abdomen ? Stomach. Kidneys. [...] FORD Study Date: 07/28/2023 8:38am Pat. NO: [id number] Referring MD: VENICE RIBEIRO Site: [facility] Ornamental Iron Worker Helper: Genaro Berkowitz RDMS : 1990 Age: 32 [...] 2 lb 7 oz EFW by Hadlock ([id number]-FL) Head / Face / Neck Biometry: CM 6.0 mm ANATOMY ----- The following structures appear normal: Head / Neck Cranium. Head size. Head shape.Lateral ventricles. Midline falx. Cavum septi pellucidi. Cerebellum.Cisterna magna. Thalami. Face Lips. Profile. Nose. Heart / Thorax 4-chamber view. RVOT view. LVOT view.Aortic arch view. 6-paaiec-ptaeoyq view. Diaphragm. Abdomen Stomach. Kidneys. Bladder. Spine [...] normal for gestational age. Donnie Stanton MD [facility] US ORDERABLE S from Last 3 Months Care Teams Mink Farmer Relationship Specialty Start Date End Date No Ref-Primary, Physician PCP - General 05/28/23
--- OUTSIDE RECORDS SUMMARY | 2023-10-06 15:55 | XMS_ITS | Encounter Summary ---
Author Name Unknown Organization [facility] Address [address] [place] [address]. [place] [address] Care Team Providers Care Pneumatic Tube Fitter Name Role Phone No Ref-Primary, Physician Primary Care Provider Reason for Visit * Reason Comments Ultrasound RL2-subopt Encounter Details Date Type Department Care Team (Late st Contact Info) Description 07/28/2023 9:15 AM LOGISTICS OPERATIONS DIRECTOR Office Visit [facility] [place] [address] [facility] [address] [place] [address] Donnie Stanton MD [address] [place] [address] Justice Patterson MD [address] [place] [address] Encounter for follow-up ultrasound of [...] for details of today's US at the [facility]. Justice Patterson MD Maternal- Medicine STICS OPERATIONS DIRECTOR documented in this encounter Nursing Notes * Crystal Sherman, RN - 07/28/2023 9:15 AM CST Patient presents to [facility] for RL2 at 26w3d due to subopt. Positive movement. Denies LOF, vaginal bleeding or cramping/contractions. SBAR given to [facility] MD, see their note in Epic. STICS OPERATIONS DIRECTOR documented in this encounter Plan of Treatment Not on file documented as of this encounter Visit Diagnoses Diagnosis Encounter for follow-up ultrasound of anatomy- Primary Pre-exist hyp chronic kidney disease comp preg, second tri Alport syndrome Other specified congenital anomalies documented in this encounter Care Teams Pneumatic Tube Fitter Relationship Specialty Start Date End Date No Ref-Primary, Physician PCP - General 05/28/23 documented as of this encounter
--- OUTSIDE RECORDS SUMMARY | 2023-10-06 15:55 | XMS_ITS | Encounter Summary ---
Author Name Unknown Organization [facility] Address [address] [place] [address] Care Team Providers Care Conservation Engineer Name Role Phone No Ref-Primary, Physician [...] on filedocumented in this encounter Care Teams Conservation Engineer Relationship Specialty Start Date End Date No Ref-Primary, Physician PCP - General 05/28/23 documented as of this encounter
--- OUTSIDE RECORDS SUMMARY | 2023-10-06 15:56 | XMS_ITS | Encounter Summary ---
Author Name Unknown Organization [facility] Address [address] [place] [address] Care Team Providers Care Repairer Welding Systems And Equipment Name Role Phone No Ref-Primary, Physician Primary Care Provider Reason for Referral * Diagnostic Imaging Ultrasound (Routine) - Pending Review Specialty Diagnoses / Procedures Referred By Contac t Referred To Contact Radiology. Diagnoses High-risk , unspecified trimester Procedures [facility] US Comprehensive Single F/U Donnie Stanton MD [address] [place] [address] Referral ID Status Reason Start Date Expiration Date V isits Requested Visits Authorized [id number] Pending Review 07/03/2023 07/02/2024 1 1 RER Reason for Visit * Reason Comments Ultrasound L2- CKD, alport synd antonio, endometriosis, AMA Consult CKD, alport syndrome , endometriosis, AMA * Consultation (Routine: Next available opening) - Pending Review Specialty Diagnoses / Procedures Referred By Contac t Referred To Contact Diagnoses Alport syndrome High-risk , unspecified trimester Gayle Gonzalez MD [address] [place] [address] Referral ID Status Reason Start Date Expiration Date V isits Requested Visits Authorized [id number] Pending Review 05/28/2023 05/27/2024 1 1 Encounter Details Date Type Department Care Team ([facility] st Contact Info) Description 07/03/2023 9:30 AM LABORER Office Visit [facility] [place] [address] [place] [address] Gayle Gonzalez MD [address] [place] [address] Shayy Huerta MD [address] [place] [address] Donnie Stanton MD [address] [place] [address] Pre-exist hyp chronic kidney disease [...] Comments Blood Pressure 114/82 07/03/2023 10:18 AM LABORER Pulse 82 07/03/2023 10:18 AM LABORER Temperature - - Respiratory Rate 18 07/03/2023 10:18 AM LABORER Oxygen Saturation 100% 07/03/2023 10:18 AM LABORER RA Inhaled Oxygen Concentration - - Weight - - Height - - Body Mass Index - - documented in this encounter Progress Notes * Donnie Stanton MD - 07/03/2023 9:30 AM CST Please see Imaging tab under Chart Review for details of today's visit, which is summarized below: Impression ========= 1) Reyse intrauterine at 22w 6d gestational age. 2) [...] Alport Syndrome. She is followed closely at [facility] for this and she overall has [...] the patient (reviewing medical records/tests), in direct cwlq-ie-cgis contact with the patient during her visit with the majority spent counseling and discussing the plan of care and documenting the visit in the electronic medical record. Please see note for details. Donnie Stanton RER documented in this encounter Nursing Notes * [...] 3 weeks. Future visits scheduled at front office help. Pt discharged stable and ambulatory. Geri Laurent RN RER documented in this encounter Plan of Treatment Not on file documented as of this encounter Results * MFM US Comprehensive Single F/U (07/28/2023 9:16 AM LABORER) Anatomical Region Laterality Modality Ultrasound 07/28/2023 8:38 AM LABORER Impressions 07/28/2023 9:18 AM LABORER IMPRESSION ----- 1) Growth parameters and estimated weight were consistent with appropriate for gestational age pattern of growth. 2) anatomy appeared normal for gestational age. Narrative 07/28/2023 9:18 AM LABORER ?Comp Follow Up ----- Pat. Name: HEIDI AMAYA ? Study Date: ??07/28/2023 8:38am Pat. NO: ??[id number] ?Referring ??MD: VENICE ELMORE MORTON Site: ??[facility] ? Worm Raiser: Genaro Berkowitz RDMS : ??1990 ?Age: ?? [...] 2 lb 7 ?oz EFW by ?Hadlock (AKF-OB-ZS-FL) Head / Face / Neck Biometry: CM ?6.0 ? mm ANATOMY ----- The following structures appear normal: Head / Neck ? Cranium. Head size. Head shape. Lateral ventricles. Midline falx. Cavum septi pellucidi. Cerebellum. Cisterna magna. Thalami. Face ? Lips. Profile. Nose. Heart / Thorax ?4-chamber view. RVOT view. LVOT view. Aortic arch view. 1-mfhxeg-bzjjvtw view. ? Diaphragm. Abdomen ? Stomach. Kidneys. [...] AMAYA Study Date: 07/28/2023 8:38am Pat. NO: [id number] Referring MD: VENICE RIBEIRO Site: [facility] Worm Raiser: Genaro Berkowitz RDMS : 1990 Age: 32 [...] 2 lb 7 oz EFW by Hadlock (VIK-QR-QR-FL) Head / Face / Neck Biometry: CM 6.0 mm ANATOMY ----- The following structures appear normal: Head / Neck Cranium. Head size. Head shape.Lateral ventricles. Midline falx. Cavum septi pellucidi. Cerebellum.Cisterna magna. Thalami. Face Lips. Profile. Nose. Heart / Thorax 4-chamber view. RVOT view. LVOT view.Aortic arch view. 6-ixpkrg-crzfqoz view. Diaphragm. Abdomen Stomach. Kidneys. Bladder. Spine [...] for gestational age. Donnie Stanton MD [facility] ORDERABLE S documented in this encounter Visit Diagnoses Diagnosis Pre-exist hyp chronic kidney disease comp preg, second tri- Primary High-risk , unspecified trimester High-risk , unspecified trimester documented in this encounter Care Teams Repairer Welding Systems And Equipment Relationship Specialty Start Date End Date No Ref-Primary, Physician PCP - General 05/28/23 documented as of this encounter
--- OUTSIDE RECORDS SUMMARY | 2023-10-06 15:56 | XMS_ITS | Encounter Summary ---
Author Name Unknown Organization [facility] Address [address] [place] [address] Care Team Providers Care Immigration Patrol Inspector Name Role Phone No Ref-Primary, Physician Primary Care Provider Reason for Visit * Diagnostic Imaging Ultrasound (Routine) - Pending Review Specialty Diagnoses / Procedures Referred By Contac t Referred To Contact Radiology. Diagnoses Alport syndrome High-risk , unspecified trimester Procedures [facility] US Comprehensive Single Gayle Gonzalez MD [address] [address] Referral ID Status Reason Start Date Expiration Date V isits Requested Visits Authorized [id number] Pending Review 05/28/2023 05/27/2024 1 1 Encounter Details Date Type Department Care Team (Latest Contact Info) Description 07/03/2023 8:35 AM PROCEDURES ANALYST - 07/03/2023 11:59 PM PROCEDURES ANALYST Hospital Encounter [facility] [place] [address] [place] [address] Gayle Gonzalez MD [address] [facility] [address] [place], [place] [id number] Shayy Huerta MD [address] [facility] [address] [place], [place] [id number] Alport syndrome; High-risk , unspecified trimester Discharge [...] 1 tablet by mouth at bedtime Vit-Fe Tie-KW-Scyag (ONE-A-DAY WOMENS ) 28-0.8 & 223 MG [...] Procedure Name Priority Date/Time Associated Diagnosis Comments [facility] COMPREHENSIVE SINGLE Routine 07/03/2023 9:50 AM PROCEDURES ANALYST Alport syndrome High-risk , unspecified trimester documented in this encounter Results * [facility] Comprehensive Single (07/03/2023 9:50 AM PROCEDURES ANALYST) Anatomical Region Laterality Modality Ultrasound 07/03/2023 8:44 AM PROCEDURES ANALYST Impressions 07/04/2023 2:25 PM PROCEDURES ANALYST IMPRESSION ----- 1) Reyes intrauterine at 22w [...] volume appeared normal. Narrative 07/04/2023 2:25 PM PROCEDURES ANALYST ?Comprehensive ----- Pat. Name: DARÍO FORDN ? Study Date: ??07/03/2023 8:44am Pat. NO: ??[id number] ?Referring ??: VENICE RIBEIRO Site: ??[facility] ? Rubber Covering Machine Operator: Liza Howell RDMS : ??1990 ?Age: ?? [...] 1 lb 6 ?oz EFW by ?Hadlock (EDR-VL-KN-FL) Head / Face / Neck Biometry: Manager Concrete ? 6.3 ? mm CM ?3.3 ? [...] vena cava. Inferior vena cava. 3-vessel view. 5-ojptgs-vksegat view. ? Cardiac position. Cardiac size. Cardiac [...] Alport Syndrome. She is followed closely at [facility] for this and she overall has done [...] delivery. Agree with the plan per Heidi's tobacco sorter for serial follow-up BMP/renal panel every 1-2 [...] the patient (reviewing medical records/tests), in direct ncfc-ne-ephy contact with the patient during her visit with the majority spent counseling and discussing the plan of care and documenting the visit in the electronic medical record. Please see note for details. Procedure Note Donnie Stanton MD - 07/04/2023 Comprehensive ----- Pat. Name: HEIDI FODR Study Date: 07/03/2023 8:44am Pat. NO: [id number] Referring MD: VENICE RIBEIRO Site: [facility] Rubber Covering Machine Operator: Liza Howell RDMS : 1990 Age: 32 [...] 1 lb 6 oz EFW by Angelina ([id number]-YD-RL-FL) Head / Face / Neck Biometry: Manager Concrete 6.3 mm CM 3.3 mm Nasal bone [...] Superior vena cava. Inferior vena cava. 3-vesselview. 6-rnzvkz-nbnpbpe view. Cardiac position. Cardiac size.Cardiac rhythm. Right [...] She is followed closely at [facility] for this and she overall has [...] see the patient (reviewing medical records/tests), in ylnyjqbtsy-kz-jusl contact with the patient during her visit [...] fluid volume appeared normal. Gayle Gonzalez MD [facility] US ORDER SOILA documented in this encounter Visit Diagnoses Diagnosis Alport syndrome Other specified congenital anomalies High-risk , unspecified trimester documented in this encounter Care Teams Immigration Patrol Inspector Relationship Specialty Start Date End Date No Ref-Primary, Physician PCP - General 05/28/23 documented as of this encounter
--- OUTSIDE RECORDS SUMMARY | 2023-10-06 15:56 | XMS_ITS | Encounter Summary ---
Author Name Unknown Organization [facility] Address [address] [place] [address] Care Team Providers Care Customs And Border Protection Inspector Name Role Phone No Ref-Primary, Physician Primary Care Provider Reason for Visit * Reason Onset Date Comments Clinic Care Coordination - Follow-up 07/08/2023 Encounter Details Date Type Department Care Team (Late st Contact Info) Description 07/08/2023 Telephone [facility] [address] [phone] Val Donahue RN Clinic Care Coordination - [...] follow-up appointment on 07-28-23. Val Donahue RN NICAL BUYER documented in this encounter Plan of Treatment Not on file documented as of this encounter Visit Diagnoses Not on filedocumented in this encounter Care Teams Customs And Border Protection Inspector Relationship Specialty Start Date End Date No Ref-Primary, Physician PCP - General 05/28/23 documented as of this encounter
--- OUTSIDE RECORDS SUMMARY | 2023-10-06 15:56 | XMS_ITS | Encounter Summary ---
Author Name Unknown Organization [facility] Address [address] [place] [address] Care Team Providers Care Telemedicine Physician Name Role Phone No Ref-Primary, Physician Primary [...] on filedocumented in this encounter Care Teams Telemedicine Physician Relationship Specialty Start Date End Date No Ref-Primary, Physician PCP - General 05/28/23 documented as of this encounter
[2023-10-07 15:15] LABS: Strep B DNA Probe Negative (Negative)
[2023-10-07 15:22] LABS: Strep B Susceptibility Needed? No
== END 2023-10-06 15:54 | disposition home or self-care (01) ==
PROVIDERS: PCP Physician Assistant; Visit Provider Obstetrics & Gynecology
DX: Z34.93 Encounter for supervision of normal pregnancy, unspecified, third trimester (principal); Z3A.36 36 weeks gestation of pregnancy
CPT/HCPCS: 87081; 87653

== ENCOUNTER 2023-10-15 10:38 | Outpatient (CLI) | payer BC, OTHER, SELFPAY ==
--- NOTE | 2023-10-15 11:00 | US_ITS ---
Patient: MYRA FORD Facility:?[facility] RIS Patient ID:?[id number] Patient ID:?[id number]. Site :?1990 Study:?US-OB Pelvis growth/BPP-10/15/2023 11:15:00 AM Ordering Physician:Portia Nunn Final Report: INDICATION: Obesity TECHNIQUE: Real time anaya scale imaging of the fetus was performed. COMPARISON: 09/29/2023 FINDINGS: Sonographic imaging demonstrates a single living intrauterine gestation. Fetus demonstrates a regular cardiac rate of 149 beats per minute. Fetus has a vertex position. The placenta lies fundal. Amniotic fluid volume appears normal and there is a single deepest pocket of 5.0 cm. The estimated weight is 3749gm which lies at the 92nd %. On the prior OB ultrasound dated 09/29/2023 the estimated weight was at the greater than 97th percentile. BPD 62nd percentile. HC 35th percentile. AC greater than 97th percentile. FL 60th percentile. The fetus was active and demonstrated normal breathing movements. There was normal flexion and extension of the trunk and extremities. IMPRESSION: Normal biophysical profile score 8/8. Sonographic gestational age 38 weeks 4 days and sonographic due date of 10/25/2023. Sonographic gauge 6 days ahead of the clinical age. Estimated weight 92nd percent. Abdominal circumference greater than 97th percentile. Dictated by Abundio Lane MD @ 10/15/2023 12:19:44 PM Signed by:?Abundio Lane MD @10/15/2023 12:19:44 PM (Electronic Signature)
== END 2023-10-15 10:39 | disposition home or self-care (01) ==
LOC: US 10:38
PROVIDERS: PCP Physician Assistant; Visit Provider Obstetrics & Gynecology
DX: O99.213 Obesity complicating pregnancy, third trimester (principal); Z3A.38 38 weeks gestation of pregnancy
CPT/HCPCS: 76816; 76819; 82728

== ENCOUNTER 2023-10-21 10:11 | Outpatient (CLI) | payer BC, OTHER, SELFPAY ==
--- NOTE | 2023-10-21 09:45 | CRLHL7_ITS ---
For Patients: As a result of the Century Cures Act, medical imaging exams and procedure reports are released immediately into your electronic medical record. You may view this report before your referring provider. If you have questions, please contact your health care provider. OB ULTRASOUND BIOPHYSICAL PROFILE INDICATION: Obesity. LMP: 01/24/2023. SPRING by LMP: 10/30/2022. GA: 38w 4d. Single. COMPARISON: 10/15/2023. TECHNIQUE: Transabdominal. FINDINGS: Cervix: Not visualized. positioning: Vertex. Amniotic fluid: 25.2 cm MANNY 8.3 cm SDP BIOPHYSICAL PROFILE: Total score: 8. Gross body movements: 2. tone: 2. Respiratory activity: 2. Amniotic fluid SDP: 2. Placenta position: Posterior. DOPPLERS: heart rate: 154 bpm. IMPRESSION: 1. Normal biophysical profile score of 8/8. 2. Polyhydramnios. Cristo Servin M.D. Body/Diagnostic Radiologist [email or web address] SP/Dictated by: Cristo Servin MD @ 10/21/2023 2:11:00 PM (Electronically Signed)
--- OUTSIDE RECORDS SUMMARY | 2023-10-21 10:13 | XMS_ITS | Referral Summary ---
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, second tri; Alport syndrome 07/28/2023 8:34 AM COOK SHIP - 07/28/2023 11:59 PM COOK SHIP Hospital Encounter [facility] Maternal Medicine [facility] [address] [place] [phone] Donnie Stanton MD Rauk, Justice Fuchs MD High-risk , unspecified trimester Discharge Disposition: Home or Self Care from Last 3 Months Allergies Active Allergy Reactions Criticality Noted Date Comments Amoxicillin Hives Medium 10/13/2008 Benzalkonium Chloride Rash Low 04/22/2022 Cefaclor Hives Medium 10/13/2008 Cefuroxime Hives Medium 10/13/2008 Clindamycin Hives Medium 02/28/2014 Cyanoacrylate Rash Low 06/12/2020 Latex Rash Medium 07/17/2009 Ondansetron 02/13/2022 Other Reaction(s): Chest Pain Shellfish-Derived Products Itching 0 Itchy tongue and lips (michaelcarolinakarissa has taken care of it in the [...] 25 mg by mouth daily Active Vit-Fe Aef-CO-Hfkiu (ONE-A-DAY WOMENS ) 28-0.8 & 223 MG [...] Comments Blood Pressure 114/82 07/03/2023 10:18 AM COOK SHIP Pulse 82 07/03/2023 10:18 AM COOK SHIP Temperature - - Respiratory Rate 18 07/03/2023 10:18 AM COOK SHIP Oxygen Saturation 100% 07/03/2023 10:18 AM COOK SHIP RA Inhaled Oxygen Concentration - - Weight - - Height - - Body Mass Index - - Plan of Treatment Not on file Procedures Procedure Name Priority Date/Time Associated Diagnosis Comments [facility] COM[facility]LE F/U Routine 07/28/2023 9:16 AM COOK SHIP High-risk , unspecified trimester from Last 3 Months Results * [facility] Comprehensive Single F/U (07/28/2023 9:16 AM COOK SHIP) Anatomical Region Laterality Modality Ultrasound 07/28/2023 8:38 AM COOK SHIP Impressions 07/28/2023 9:18 AM COOK SHIP IMPRESSION ----- 1) Growth parameters and estimated weight were consistent with appropriate for gestational age pattern of growth. 2) anatomy appeared normal for gestational age. Narrative 07/28/2023 9:18 AM COOK SHIP ?Comp Follow Up ----- Pat. Name: HEIDI FORD ? Study Date: ??07/28/2023 8:38am Pat. NO: ??[id number] ?Referring ??: VENICE ELMORE [place] Site: [facility] Invisible Braces Orthodontist: Genaro Berkowitz RDMS : ??1990 ?Age: ?? [...] 2 lb 7 ?oz EFW by ?Hadlock ([id number]) Head / Face / Neck Biometry: CM ?6.0 ? mm ANATOMY ----- The following structures appear normal: Head / Neck ? Cranium. Head size. Head shape. Lateral ventricles. Midline falx. Cavum septi pellucidi. Cerebellum. Cisterna magna. Thalami. Face ? Lips. Profile. Nose. Heart / Thorax ?4-chamber view. RVOT view. LVOT view. Aortic arch view. 1-bjvnak-uyxijjy view. ? Diaphragm. Abdomen ? Stomach. Kidneys. [...] FORD Study Date: 07/28/2023 8:38am Pat. NO: [id number] Referring MD: VENICE RIBEIRO Site: [facility] Orthodontist: Genaro Berkowitz RDMS : 1990 Age: 32 [...] 2 lb 7 oz EFW by Hadlock ([id number]-FL) Head / Face / Neck Biometry: CM 6.0 mm ANATOMY ----- The following structures appear normal: Head / Neck Cranium. Head size. Head shape.Lateral ventricles. Midline falx. Cavum septi pellucidi. Cerebellum.Cisterna magna. Thalami. Face Lips. Profile. Nose. Heart / Thorax 4-chamber view. RVOT view. LVOT view.Aortic arch view. 7-bnlzza-pljdibe view. Diaphragm. Abdomen Stomach. Kidneys. Bladder. Spine [...] normal for gestational age. Donnie Stanton MD [facility] ORDERABLE S from Last 3 Months Care Teams Golf Course Superintendent Relationship Specialty Start Date End Date No Ref-Primary, Physician PCP - General 05/28/23
--- OUTSIDE RECORDS SUMMARY | 2023-10-21 10:13 | XMS_ITS | Encounter Summary ---
Author Organization [place] Address [address] [place] [address]. [place] [address] Care Team Providers Care Demand Planning Analyst Name Role Phone No Ref-Primary, Physician [...] on filedocumented in this encounter Care Teams Demand Planning Analyst Relationship Specialty Start Date End Date No Ref-Primary, Physician PCP - General 05/28/23 documented as of this encounter
--- OUTSIDE RECORDS SUMMARY | 2023-10-21 10:13 | XMS_ITS | Clinical Summary ---
Author Organization [employer] [facility] Address [place], [place] [address] Care Team Providers Care Multiple Needle Stitcher Name Role Phone Val Byrd Primary Care Provider [phone]- [phone] Allergies Active Allergy Reactions Criticality Noted Date Comments 2-Octyl Cyanoacrylate Rash 06/12/2020 Amoxicillin Hives 05/16/2020 Cefaclor Hives 05/16/2020 Cefuroxime Axetil Hives 05/16/2020 Clindamycin Hives 05/16/2020 Latex Rash 05/16/2020 Benzalkonium Chloride Rash 04/22/2022 Shellfish Derived Itching 05/22/2020 Itchy tongue and lips (benadryl has taken care of it in the past) Ondansetron Chest Pain 02/13/2022 Medications Medication Sig Dispensed Refills Start Date End Date Status mometasone (NASONEX) (50 mcg each actuation) nasal sprayIndications:A llergic rhinitis due to pollen, unspecified seasonality Inhale 2 Sprays to both nostrils once daily. 17 g 11 09/02/2022 Active cyanocobalamin (Vitamin B-12) 1,000 mcg tabletIndications: B12 deficiency Take 2 Tablets (2,000 mcg) by mouth once daily. 180 Tablet 3 09/02/2022 Active 223-[id number]-pgkqq-ome ga3 27 mg iron- 800 mcg-235 mg cap Take by mouth. 0 03/03/2023 Ac tive aspirin chewable 81 mg chewable tablet Chew 81 mg by mouth. Active ferrous sulfate 325 mg delayed release tablet Take 325 mg by mouth once every other day. 07/28/2023 Active albuterol HFA (PRO-AIR; VENTOLIN; PROVENTIL) 90 mcg/actuation inhalerIndications :Mild persistent asthma without complication Inhale 1-2 Puffs by mouth every 4 hours if needed for Shortness Of Breath or Wheezing. 1 Each 11 10/09/2023 Active albuterol 0.083% (2.5 mg/3 mL) neb solutionIndication s:Mild persistent asthma without complication Inhale 3 mL (2.5 mg) via a nebulizer every 4 hours if needed for Shortness Of Breath or Wheezing. 1 box 180 mL 11 10/09/2023 Active beclomethasone dipropionate (Qvar RediHaler) 40 mcg/actuation HFA inhalerIndications :Mild persistent asthma without complication Inhale 2 Puffs by mouth two times daily. 10.6 g 11 10/09/2023 Active montelukast (SINGULAIR) 10 mg tabletIndications: Allergic rhinitis due to pollen, unspecified seasonality Take 1 Tablet (10 mg) by mouth at bedtime. 90 Tablet 3 10/09/2023 Active triamcinolone 0.1 % ointmentIndication s:Polymorphous light eruption Apply topically to affected area(s) two times daily. Apply to sun exposed area if rash develops 80 g 10/13/2023 Active albuterol (PROVENTIL) 0.083 % neb solutionIndication s:Exacerbation of asthma, unspecified asthma severity, unspecified whether persistent Inhale 3 mL (2.5 mg) via a nebulizer every 4 hours if needed for Shortness Of Breath or Wheezing. 1 box 180 mL 11 09/02/2022 4 Discontinue d(Reorder (E-cancel not sent)) albuterol HFA (PRO-AIR; VENTOLIN; PROVENTIL) 90 mcg/actuation inhalerIndications :Mild persistent asthma without complication Inhale 2 Puffs by mouth every 4 hours if needed for Wheezing 1st choice. 18 g 11 09/02/2022 4 Discontinue d(*Med complete/Re gimen complete/Le marisol of care change) beclomethasone dipropionate (Qvar RediHaler) 40 mcg/actuation HFA inhalerIndications :Mild persistent asthma without complication Inhale 2 Puffs by mouth two times daily. Doesn't need a spacer or shaking. 10.6 g 11 09/02/2022 4 Discontinue d(Reorder (E-cancel not sent)) montelukast (SINGULAIR) 10 mg tabletIndications: Allergic rhinitis due to pollen, unspecified seasonality Take 1 Tablet (10 mg) by mouth at bedtime. 90 Tablet 3 09/02/2022 4 Discontinue d(Reorder (E-cancel not sent)) triamcinolone (ARISTOCORT) 0.1 % ointmentIndication s:Polymorphous light eruption Apply topically to affected area(s) two times daily. 80 g 1 09/02/2022 4 Discontinue d(Reorder (E-cancel not sent)) azithromycin (Zithromax Z-Wade) 250 mg tabletIndications: Bronchitis Take 500 mg (2 tabs) by mouth on day 1, then 250 mg (1 tab) daily for days 2-5. 6 Tablet 04/13/2023 4 Discontinue d(*Med complete/Re gimen complete/Le marisol of care change) albuterol HFA (PRO-AIR; VENTOLIN; PROVENTIL) 90 mcg/actuation inhalerIndications :Asthma, unspecified asthma severity, unspecified whether complicated, unspecified whether persistent Inhale 1-2 Puffs by mouth every 4 hours if needed for Shortness Of Breath or Wheezing. 1 Each 08/25/2023 4 Discontinue d(Reorder (E-cancel not sent)) triamcinolone 0.1 % ointmentIndication s:Polymorphous light eruption Apply topically to affected area(s) two times daily. 80 g 1 10/09/2023 4 Discontinue d(Reorder (E-cancel not sent)) Active Problems Problem Noted Date Diagnosed Date [...] Encounters Date Type Department Care Team Description 10/09/2023 8:10 AM CDT Office Visit [facility] [address] [place] [address] Val Byrd PA Medication Management (Needs meds refilled-seeing OB at [facility]) 10/09/2023 Refill [facility] [address] [place] [address] Val Byrd PA Refill Request (Triamcinolone) 10/09/2023 Travel 09/29/2023 Orders Only [facility] Scanner 1 scan: (1-Ord) [facility], OB PELVIS GROWTH, 09/29/2023 09/08/2023 Orders Only [facility] Scanner 1 scan: (1-Ord) [facility], OB PELVIS, 09/08/2023 08/25/2023 12:40 PM CDT Office Visit [facility] [address] [place] [address] Annemarie Randhawa NP Breathing Problem (Started CPAP 2-3 weeks ago. Congenital non-obstructive apnea. Feels that shortness of breath has worsened since starting to use CPAP. Describes having difficulty getting a full breath in or out. /QVAR BID. Using Albuterol BID as well. ) 08/25/2023 Travel 08/25/2023 Nurse Triage [facility] [address] [place] [address] Val Byrd PA Sob (7 months ) from Last 3 Months Immunizations Name Administration Dates Next Due COVID-19 vaccine (Encover-Bio NTech 30mcg/0.3mL) PFKAVIN 06/17/2021,12/17/2020,11/19/2020 DT (Age < 7 years) 09/17/1993 [...] Answer Date Recorded PHQ-2 TOTAL SCORE 0 10/09/2023 Social Connections Answer Date Recorded Frequency of Communication with Friends and Fami ly 0 10/09/2023 Financial Resource Strain Answer Date R ecorded Difficulty of Paying Living Expenses 3 10/09/2023 Difficulty of Paying Living Expenses Not on file 10/09/2023 Food Insecurity Answer Date Recorded Worried About Running Out of Food in the Last Ye ar 1 10/09/2023 Transportation Needs Answer Date Record ed Lack of Transportation (Medical) 1 10/09/2023 Housing Stability Answer Date Recorded Unable to Pay for Housing in the Last Year 1 10/09/2023 Comments Yes Sex and Gender Information Value [...] Sign Reading Time Taken Comments Blood Pressure 114/77 10/09/2023 8:18 AM CDT Pulse 94 10/09/2023 8:18 AM CDT Temperature 36.5 ??C (97.7 ??F) 08/25/2023 12:18 PM C DT Respiratory Rate 16 08/25/2023 12:18 PM CDT Oxygen Saturation 99% 10/09/2023 8:18 AM CDT Inhaled Oxygen Concentration - - Weight 126.6 kg (279 lb) 10/09/2023 8:18 AM CDT Height 171.1 cm (5' 7.36) 10/09/2023 8:18 AM CD T Body Mass Index 43.23 10/09/2023 8:18 AM CDT Plan of Treatment Health Maintenance Due Date Last Done Comments Influenza for age 9-49 01/25/2024 , 07/24/2020, 06/28/2019, Additional history exists BMI (ht and wt on same day) for age 18+ 10/08/2024 10/09/2023, 09/02/2022, 08/28/2021 Depression screening for age 12+ 10/08/2024 10/09/2023, 10/09/2023, 09/02/2022, Additional history exists Pap test for age [...] Reactive Non Reactive 09/04/2022 10:06 PM CDT [facility] Blood BLOOD SPECIMEN / Unknown Venipuncture / Unknown 09/02/2022 10:39 AM CDT 09/02/2022 10:43 AM CDT Narrative [facility] - 09/04/2022 10:06 PM CDT Performed at: ??01 - [address] ??[id number] [place] Supervisor: Severo Sunshine MD, Phone: ??[phone] Val [facility] Performing Organization Address City/[facility]/ZIP Co de Phone Number [facility] ([facility]) [address] [place] [address] * LC HIV-1/O/2, 4TH GENERATION (09/02/2022 10:39 AM CDT) HIV Scr 4th Gen Non Reactive Non Reactive 09/04/2022 10:06 PM CDT [facility] ([facility]) Comment: HIV Negative HIV-1/HIV-2 antibodies and HIV-1 p24 antigen were NOT detected. There is no laboratory evidence of HIV infection. Blood BLOOD SPECIMEN / Unknown Venipuncture / Unknown 09/02/2022 10:39 AM CDT 09/02/2022 10:43 AM CDT Narrative [facility] ([facility]) - 09/04/2022 10:06 PM CDT Performed at: ??01 - [address] ??[id number] [place] Supervisor: Severo Sunshine MD, Phone: ??[phone] Val [facility] Performing Organization Address City/[facility]/ZIP Co de Phone Number [facility] ([facility]) [address] [place] [address] from Last 3 Months or Most Recently Relevant to Health Maintenance Advance Directives * Full Code (Latest Code Status on File) Date Activated Date Inactivated Comments 05/23/2020 2:04 PM 05/24/2020 1:14 PM Question Answer Comments Code Status Discussion: Not Discussed Care Teams Multiple Needle Stitcher Relationship Specialty Start Date End Date Val Byrd PA [address] [facility] [address] PCP - General Physician Terminal Operations Supervisor 11/21/22
--- OUTSIDE RECORDS SUMMARY | 2023-10-21 10:13 | XMS_ITS | Clinical Summary ---
Author Organization [place] Address [address] [place] [address] Care Team Providers Care Checking Department Supervisor Name Role Phone No Ref-Primary, Physician [...] 25 mg by mouth daily Active Vit-Fe Jhg-ZO-Bbizq (ONE-A-DAY WOMENS ) 28-0.8 & 223 MG MISC Take 1 tablet by mouth daily Active loratadine (CLARITIN REDITABS) 10 MG ODT Take 10 mg by mouth daily Active Encounters Date Type Department Care Team Description 07/28/2023 9:15 AM BUSINESS CASE ANALYST Office Visit [facility] Medicine [facility] [address] [place] [address] Donnie Stanton MD Rauk, Justice Fuchs MD Encounter for follow-up ultrasound of anatomy (Primary Dx); Pre-exist hyp chronic kidney disease comp preg, second tri; Alport syndrome 07/28/2023 8:34 AM BUSINESS CASE ANALYST - 07/28/2023 11:59 PM BUSINESS CASE ANALYST Hospital Encounter [facility] Medicine [facility] [address] [place] [address] Donnie Stanton MD Rauk, Justice Fuchs MD High-risk , unspecified trimester Discharge Disposition: Home or Self Care 07/28/2023 Travel from Last 3 Months Social History [...] Comments Blood Pressure 114/82 07/03/2023 10:18 AM BUSINESS CASE ANALYST Pulse 82 07/03/2023 10:18 AM BUSINESS CASE ANALYST Temperature - - Respiratory Rate 18 07/03/2023 10:18 AM BUSINESS CASE ANALYST Oxygen Saturation 100% 07/03/2023 10:18 AM BUSINESS CASE ANALYST RA Inhaled Oxygen Concentration - - [...] Procedure Name Priority Date/Time Associated Diagnosis Comments [facility] COMPREHENSIVE SINGLE F/U Routine 07/28/2023 9:16 AM BUSINESS CASE ANALYST High-risk , unspecified trimester from Last 3 Months Results * [facility] Comprehensive Single F/U (07/28/2023 9:16 AM BUSINESS CASE ANALYST) Anatomical Region Laterality Modality Ultrasound 07/28/2023 8:38 AM BUSINESS CASE ANALYST Impressions 07/28/2023 9:18 AM BUSINESS CASE ANALYST IMPRESSION ----- 1) Growth parameters and estimated weight were consistent with appropriate for gestational age pattern of growth. 2) anatomy appeared normal for gestational age. Narrative 07/28/2023 9:18 AM BUSINESS CASE ANALYST ?Comp Follow Up ----- Pat. Name: HEIDI FORD ? Study Date: ??07/28/2023 8:38am Pat. NO: ??[id number] ?Referring ??MD: VENICE ELMORE [place] Site: [facility] Terrazzo Helper: Genaro Berkowitz RDMS : ??1990 ?Age: [...] 2 lb 7 ?oz EFW by ?Hadlock ([id number]-MU-TU-FL) Head / Face / Neck Biometry: CM ?6.0 ? mm ANATOMY ----- The following structures appear normal: Head / Neck ? Cranium. Head size. Head shape. Lateral ventricles. Midline falx. Cavum septi pellucidi. Cerebellum. Cisterna magna. Thalami. Face ? Lips. Profile. Nose. Heart / Thorax ?4-chamber view. RVOT view. LVOT view. Aortic arch view. 6-vhwkhh-sknytak view. ? Diaphragm. Abdomen ? Stomach. Kidneys. [...] FORD Study Date: 07/28/2023 8:38am Pat. NO: [id number] Referring MD: VENICE RIBEIRO Site: [facility] Terrazzo Helper: Genaro Berkowitz RDMS : 1990 Age: [...] 2 lb 7 oz EFW by Hadlock ([id number]-[id number]-FL) Head / Face / Neck Biometry: CM 6.0 mm ANATOMY ----- The following structures appear normal: Head / Neck Cranium. Head size. Head shape.Lateral ventricles. Midline falx. Cavum septi pellucidi. Cerebellum.Cisterna magna. Thalami. Face Lips. Profile. Nose. Heart / Thorax 4-chamber view. RVOT view. LVOT view.Aortic arch view. 0-hgofkn-rtrxkep view. Diaphragm. Abdomen Stomach. Kidneys. Bladder. Spine [...] normal for gestational age. Donnie Stanton MD [facility] ORDER[facility] S from Last 3 Months Care Teams Checking Department Supervisor Relationship Specialty Start Date End Date No Ref-Primary, Physician PCP - General 05/28/23
--- OUTSIDE RECORDS SUMMARY | 2023-10-21 10:13 | XMS_ITS | Encounter Summary ---
Author Organization [facility] Address [address] [place] [address]. [place] [address] Care Team Providers Care Dcs Engineer Name Role Phone No Ref-Primary, Physician Primary Care Provider Reason for Visit * Reason Comments Ultrasound RL2-subopt Encounter Details Date Type Department Care Team (Late st Contact Info) Description 07/28/2023 9:15 AM CATTLE FEEDER Office Visit [facility] [place] [address] [place] [address] Donnie Stanton MD [address] [place] [address] Justice Patterson MD [address] [place] [address] Encounter for follow-up ultrasound of [...] for details of today's US at the [facility]. Justice Patterson MD Maternal- Medicine LE FEEDER documented in this encounter Nursing Notes * Crystal Sherman, RN - 07/28/2023 9:15 AM CST Patient presents to [facility] for RL2 at 26w3d due to subopt. Positive movement. Denies LOF, vaginal bleeding or cramping/contractions. SBAR given to [facility] MD, see their note in Epic. 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
--- OUTSIDE RECORDS SUMMARY | 2023-10-21 10:14 | XMS_ITS | Encounter Summary ---
Author Organization [place] Address [address] [place] [id number] Care Team Providers Care Automatic Chief Name Role Phone No Ref-Primary, Physician Primary Care Provider Reason for Referral * Diagnostic Imaging Ultrasound (Routine) - Pending Review Specialty Diagnoses / Procedures Referred By Contac t Referred To Contact Radiology. Diagnoses High-risk , unspecified trimester Procedures [facility] US Comprehensive Single F/U Donnie Stanton MD [address] [place] [address] Referral ID Status Reason Start Date Expiration Date V isits Requested Visits Authorized [id number] Pending Review 07/03/2023 07/02/2024 1 1 ETSWEEPER OPERATOR Reason for Visit * Diagnostic Imaging Ultrasound (Routine) - Pending Review Specialty Diagnoses / Procedures Referred By Contac t Referred To Contact Radiology. Diagnoses High-risk , unspecified trimester Procedures [facility] US Comprehensive Single F/U Donnie Stanton MD [address] [place] [address] Referral ID Status Reason Start Date Expiration Date V isits Requested Visits Authorized [id number] Pending Review 07/03/2023 07/02/2024 1 1 Encounter Details Date Type Department Care Team (Latest Contact Info) Description 07/28/2023 8:34 AM STREETSWEEPER OPERATOR - 07/28/2023 11:59 PM STREETSWEEPER OPERATOR Hospital Encounter [facility] Maternal Medicine [facility] [address] [place] [phone] Donnie Stanton MD [address] [place] [address] Justice Patterson MD [address] [place] [address] High-risk , unspecified trimester Discharge [...] 1 tablet by mouth at bedtime Vit-Fe Deb-JI-Zgikr (ONE-A-DAY WOMENS ) 28-0.8 & 223 MG [...] Procedure Name Priority Date/Time Associated Diagnosis Comments [facility] SINGLE F/U Routine 07/28/2023 9:16 AM STREETSWEEPER OPERATOR High-risk , unspecified trimester documented in this encounter Results * M US Comprehensive Single F/U (07/28/2023 9:16 AM STREETSWEEPER OPERATOR) Anatomical Region Laterality Modality Ultrasound 07/28/2023 8:38 AM STREETSWEEPER OPERATOR Impressions 07/28/2023 9:18 AM STREETSWEEPER OPERATOR IMPRESSION ----- 1) Growth parameters and estimated weight were consistent with appropriate for gestational age pattern of growth. 2) anatomy appeared normal for gestational age. Narrative 07/28/2023 9:18 AM STREETSWEEPER OPERATOR ?Comp Follow Up ----- Pat. Name: HEIDI FORD ? Study Date: ??07/28/2023 8:38am Pat. NO: ??[id number] ?Referring ??: VENICE ELMORE [place] Site: ??[facility] ? Telephone Assembler: Genaro Berkowitz RDMS : ??1990 ?Age: ?? [...] 2 lb 7 ?oz EFW by ?Hadlock ([id number]) Head / Face / Neck Biometry: CM ?6.0 ? mm ANATOMY ----- The following structures appear normal: Head / Neck ? Cranium. Head size. Head shape. Lateral ventricles. Midline falx. Cavum septi pellucidi. Cerebellum. Cisterna magna. Thalami. Face ? Lips. Profile. Nose. Heart / Thorax ?4-chamber view. RVOT view. LVOT view. Aortic arch view. 2-eogkzk-farnbnn view. ? Diaphragm. Abdomen ? Stomach. Kidneys. [...] FORD Study Date: 07/28/2023 8:38am Pat. NO: [id number] Referring MD: VENICE ELMORE RIBEIRO Site: [facility] Telephone Assembler: Genaro Berkowitz RDMS : 1990 Age: 32 [...] 2 lb 7 oz EFW by Hadlock ([id number]) Head / Face / Neck Biometry: CM 6.0 mm ANATOMY ----- The following structures appear normal: Head / Neck Cranium. Head size. Head shape.Lateral ventricles. Midline falx. Cavum septi pellucidi. Cerebellum.Cisterna magna. Thalami. Face Lips. Profile. Nose. Heart / Thorax 4-chamber view. RVOT view. LVOT view.Aortic arch view. 6-qrxvrs-stiijuy view. Diaphragm. Abdomen Stomach. Kidneys. Bladder. Spine [...] normal for gestational age. Donnie Stanton MD [facility] US ORDERABLE S documented in this encounter Visit Diagnoses Diagnosis High-risk , unspecified trimester documented in this encounter Care Teams Automatic Chief Relationship Specialty Start Date End Date No Ref-Primary, Physician PCP - General 05/28/23 documented as of this encounter
== END 2023-10-21 10:12 | disposition home or self-care (01) ==
LOC: US 10:11
PROVIDERS: PCP Physician Assistant; Visit Provider Obstetrics & Gynecology
DX: O99.213 Obesity complicating pregnancy, third trimester (principal); O40.3XX0 Polyhydramnios, third trimester, not applicable or unspecified; Z3A.38 38 weeks gestation of pregnancy
CPT/HCPCS: 76819; 82728

== ENCOUNTER 2023-10-24 07:00 | Inpatient (IN) | payer BC, OTHER, SELFPAY ==
[2023-10-24] VITALS (8 sets, daily range): BP systolic 115–144; BP diastolic 69–83; PULSE 72–95; RESP 16; TEMP 36.6; O2SAT 96–97; BMI 42.8
--- OUTSIDE RECORDS SUMMARY | 2023-10-24 07:03 | XMS_ITS | Clinical Summary ---
Author Organization [employer] Address [place], [place] [address] Care Team Providers Care Spring Intern Name Role Phone Val Byrd Primary Care Provider [phone]- [phone] Allergies Active Allergy Reactions Criticality Noted Date [...] once daily. 180 Tablet 3 09/02/2022 Active 910-ordb-tudnw-ome ga3 27 mg iron- 800 mcg-235 mg [...] Encounters Date Type Department Care Team Description 10/15/2023 Orders Only [facility] Scanner 1 scan: (1-Ord) [facility], OB PELVIS GROWTH, 10/15/2023 10/09/2023 8:10 AM CDT Office Visit [facility] [address] [place] [address] Val Byrd PA Medication Management (Needs meds refilled-seeing OB at [facility]) 10/09/2023 Refill [facility] [address] [place] [address] Val Byrd PA Refill Request (Triamcinolone) 10/09/2023 Travel 09/29/2023 Orders Only [facility] Scanner 1 scan: (1-Ord) [facility], OB PELVIS GROWTH, 09/29/2023 09/08/2023 Orders Only [facility] Scanner 1 scan: (1-Ord) [place], OB PELVIS, 09/08/2023 08/25/2023 12:40 PM CDT Office Visit [facility] [address] [place] [address] Annemarie Randhawa, LESLYE Breathing Problem (Started CPAP 2-3 weeks ago. Congenital non-obstructive apnea. Feels that shortness of breath has worsened since starting to use CPAP. Describes having difficulty getting a full breath in or out. /QVAR BID. Using Albuterol BID as well. ) 08/25/2023 Travel 08/25/2023 Nurse Triage [facility] [address] [place] [address] Val Byrd PA Sob (7 months ) from Last 3 Months Immunizations Name Administration Dates Next Due COVID-19 vaccine (Pfizer-Bio NTech 30mcg/0.3mL) PF, MDV 06/17/2021,12/17/2020,11/19/2020 DT (Age [...] Priority Date/Time Associated Diagnosis Comments SCAN-ULTRASOUND REPORT 10/15/2023 12:00 AM CDT SCAN-ULTRASOUND REPORT 09/29/2023 12:00 AM CDT SCAN-ULTRASOUND REPORT 09/08/2023 12:00 AM CDT LC HIV-1/O/2, 4TH GENERATION Routine 09/02/2022 10:39 AM CDT Encounter for screening for HIV LC HCV ANTIBODY RFX TO QUANT PCR Routine 09/02/2022 10:39 AM CDT Need for hepatitis C screening test from Last 3 Months or Most Recently Relevant to Health Maintenance Results * SCAN-ULTRASOUND REPORT (10/15/2023 12:00 AM CDT) Only the most recent of3 resultswithin the time period is included. Anatomical Region Laterality Modality Other Scanner OTHER * LC HCV ANTIBODY RFX TO QUANT PCR (09/02/2022 10:39 AM CDT) HCV Ab Non Reactive Non Reactive 09/04/2022 10:06 PM CDT [facility] (CET) Blood BLOOD SPECIMEN / Unknown Venipuncture / Unknown 09/02/2022 10:39 AM CDT 09/02/2022 10:43 AM CDT [facility] FOR ESOTERIC TESTING (CET) - 09/04/2022 10:06 PM CDT Performed at: ??[address] ??[id number] Millinery Blocker: Severo Sunshine MD, Phone: ??[phone] Val [facility] Performing Organization Address City/[facility] Co de Phone Number [facility] ESOTERIC TESTING (CET) [address] [place] [address] * LC HIV-1/O/2, 4TH GENERATION (09/02/2022 10:39 AM CDT) HIV Scr 4th Gen Non Reactive Non Reactive 09/04/2022 10:06 PM CDT [facility] (CET) Comment: HIV Negative HIV-1/HIV-2 antibodies and HIV-1 p24 antigen were NOT detected. There is no laboratory evidence of HIV infection. Blood BLOOD SPECIMEN / Unknown Venipuncture / Unknown 09/02/2022 10:39 AM CDT 09/02/2022 10:43 AM CDT [facility] ESOTERIC TESTING (CET) - 09/04/2022 10:06 PM CDT Performed at: ??[address] ??[id number] Millinery Blocker: Severo Sunshine MD, Phone: ??[phone] Val [facility] (CET) [address] [place] [address] from Last 3 Months or Most Recently Relevant to Health Maintenance Advance Directives * Full Code (Latest Code Status on File) Date Activated Date Inactivated Comments 05/23/2020 2:04 PM 05/24/2020 1:14 PM Question Answer Comments Code Status Discussion: Not Discussed Care Teams Spring Intern Relationship Specialty Start Date End Date Val Byrd PA [address] [facility] [address] PCP - General Physician Sports Development Officer 11/21/22
--- OUTSIDE RECORDS SUMMARY | 2023-10-24 07:04 | XMS_ITS | Referral Summary ---
Author Organization [place] Address [address] [place] [address] Care Team Providers Care Injection Wax Molder Name Role Phone No Ref-Primary, Physician Primary Care Provider Encounters Date Type Department Care Team Description 07/28/2023 Travel 07/28/2023 9:15 AM PARTNER MARKETING INTERN Office Visit [facility] Maternal Medicine [facility] [address] [place] [phone] Donnie Stanton MD Rauk, Justice Fuchs MD Encounter for follow-up ultrasound of anatomy (Primary Dx); Pre-exist hyp chronic kidney disease comp preg, second tri; Alport syndrome 07/28/2023 8:34 AM PARTNER MARKETING INTERN - 07/28/2023 11:59 PM PARTNER MARKETING INTERN Hospital Encounter [facility] Maternal Medicine [facility] [address] [place] [phone] Donnie Stanton MD Rauk, Justice Fuchs MD [...] 25 mg by mouth daily Active Vit-Fe Psp-MP-Vlhrr (ONE-A-DAY WOMENS ) 28-0.8 & 223 MG [...] Comments Blood Pressure 114/82 07/03/2023 10:18 AM PARTNER MARKETING INTERN Pulse 82 07/03/2023 10:18 AM PARTNER MARKETING INTERN Temperature - - Respiratory Rate 18 07/03/2023 10:18 AM PARTNER MARKETING INTERN Oxygen Saturation 100% 07/03/2023 10:18 AM PARTNER MARKETING INTERN RA Inhaled Oxygen Concentration - - Weight - - Height - - Body Mass Index - - Plan of Treatment Not on file Procedures Procedure Name Priority Date/Time Associated Diagnosis Comments [facility] COMPREHENSIVE SINGLE F/U Routine 07/28/2023 9:16 AM PARTNER MARKETING INTERN High-risk , unspecified trimester from Last 3 Months Results * [facility] Comprehensive Single F/U (07/28/2023 9:16 AM PARTNER MARKETING INTERN) Anatomical Region Laterality Modality Ultrasound 07/28/2023 8:38 AM PARTNER MARKETING INTERN Impressions 07/28/2023 9:18 AM PARTNER MARKETING INTERN IMPRESSION ----- 1) Growth parameters and estimated weight were consistent with appropriate for gestational age pattern of growth. 2) anatomy appeared normal for gestational age. Narrative 07/28/2023 9:18 AM PARTNER MARKETING INTERN ?Comp Follow Up ----- Pat. Name: HEIDI FORD ? Study Date: ??07/28/2023 8:38am Pat. NO: ??[id number] ?Referring ??: VENICE ELMORE [place] Site: ??[facility] ? Electronic Warfare Linguist: Genaro Berkowitz RDMS : ??1990 ?Age: ?? [...] 2 lb 7 ?oz EFW by ?Hadlock ([id number]-AS-YP-FL) Head / Face / Neck Biometry: CM ?6.0 ? mm ANATOMY ----- The following structures appear normal: Head / Neck ? Cranium. Head size. Head shape. Lateral ventricles. Midline falx. Cavum septi pellucidi. Cerebellum. Cisterna magna. Thalami. Face ? Lips. Profile. Nose. Heart / Thorax ?4-chamber view. RVOT view. LVOT view. Aortic arch view. 8-bcvdjr-jfsfnfm view. ? Diaphragm. Abdomen ? Stomach. Kidneys. [...] FORD Study Date: 07/28/2023 8:38am Pat. NO: [id number] Referring MD: VENICE RIBEIRO Site: [facility] Electronic Warfare Linguist: Genaro Berkowitz RDMS : 1990 Age: 32 ----- INDICATION ----- Suboptimal anatomy on prior u/s. Chronic kidney disease, Alport Syndrome. Advanced Maternal Age. BMI:36.5. METHOD ----- Transabdominal ultrasound examination. View: Sufficient ----- Eryes . Number of fetuses: 1 DATING ----- [...] 2 lb 7 oz EFW by Hadlock ([id number]-[id number]-FL) Head / Face / Neck Biometry: CM 6.0 mm ANATOMY ----- The following structures appear normal: Head / Neck Cranium. Head size. Head shape.Lateral ventricles. Midline falx. Cavum septi pellucidi. Cerebellum.Cisterna magna. Thalami. Face Lips. Profile. Nose. Heart / Thorax 4-chamber view. RVOT view. LVOT view.Aortic arch view. 7-rcfjnc-rninzyt view. Diaphragm. Abdomen Stomach. Kidneys. Bladder. Spine [...] normal for gestational age. Donnie Stanton MD [facility] ORDERABLE S from Last 3 Months Care Teams Injection Wax Molder Relationship Specialty Start Date End Date No Ref-Primary, Physician PCP - General 05/28/23
--- OUTSIDE RECORDS SUMMARY | 2023-10-24 07:04 | XMS_ITS | Encounter Summary ---
Author Organization [facility] Address [address] [place] [address]. [place] [address] Care Team Providers Care First Beater Name Role Phone No Ref-Primary, Physician Primary Care Provider Reason for Visit * Reason Comments Ultrasound RL2-subopt Encounter Details Date Type Department Care Team (Late st Contact Info) Description 07/28/2023 9:15 AM MUSIC LIBRARIAN Office Visit [facility] Maternal Medicine [facility] [place] [address] [place] [address] Donnie Stanton MD [address] [place] [address] Justice Patterson MD [address] [place] [address] Encounter for follow-up ultrasound of [...] for details of today's US at the [facility]. Justice Patterson MD Maternal- Medicine C LIBRARIAN documented in this encounter Nursing Notes * Crystal Sherman, RN - 07/28/2023 9:15 AM CST Patient presents to [facility] for RL2 at 26w3d due to subopt. Positive movement. Denies LOF, vaginal bleeding or cramping/contractions. SBAR given to [facility] MD, see their note in Epic. C LIBRARIAN documented in this encounter Plan of Treatment Not on file documented as of this encounter Visit Diagnoses Diagnosis Encounter for follow-up ultrasound of anatomy- Primary Pre-exist hyp chronic kidney disease comp preg, second tri Alport syndrome Other specified congenital anomalies documented in this encounter Care Teams First Beater Relationship Specialty Start Date End Date No Ref-Primary, Physician PCP - General 05/28/23 documented as of this encounter
--- OUTSIDE RECORDS SUMMARY | 2023-10-24 07:04 | XMS_ITS | Encounter Summary ---
Author Organization [facility] Address [address] [place] [address] Care Team Providers Care Mechanical Test Technician Name Role Phone No Ref-Primary, Physician Primary Care Provider Reason for Referral * Diagnostic Imaging Ultrasound (Routine) - Pending Review Specialty Diagnoses / Procedures Referred By Contac t Referred To Contact Radiology. Diagnoses High-risk , unspecified trimester Procedures [facility] US Comprehensive Single F/U Donnie Stanton MD [address] [place] [address] Referral ID Status Reason Start Date Expiration Date V isits Requested Visits Authorized [id number] Pending Review 07/03/2023 07/02/2024 1 1 ING PATROLLER Reason for Visit * Diagnostic Imaging Ultrasound (Routine) - Pending Review Specialty Diagnoses / Procedures Referred By Contac t Referred To Contact Radiology. Diagnoses High-risk , unspecified trimester Procedures [facility] US Comprehensive Single F/U Donnie Stanton MD [address] [place] [address] Referral ID Status Reason Start Date Expiration Date V isits Requested Visits Authorized [id number] Pending Review 07/03/2023 07/02/2024 1 1 Encounter Details Date Type Department Care Team (Latest Contact Info) Description 07/28/2023 8:34 AM PARKING PATROLLER - 07/28/2023 11:59 PM PARKING PATROLLER Hospital Encounter [facility] Maternal Medicine [facility] [address] [facility] [address] [place] [phone] Donnie Stanton MD [address] [place] [address] Justiec Patterson MD [address] [place] [address] High-risk , unspecified trimester Discharge [...] 1 tablet by mouth at bedtime Vit-Fe Wsg-AJ-Gvkwy (ONE-A-DAY WOMENS ) 28-0.8 & 223 MG [...] Procedure Name Priority Date/Time Associated Diagnosis Comments [facility] SINGLE F/U Routine 07/28/2023 9:16 AM PARKING PATROLLER High-risk , unspecified trimester documented in this encounter Results * M US Comprehensive Single F/U (07/28/2023 9:16 AM PARKING PATROLLER) Anatomical Region Laterality Modality Ultrasound 07/28/2023 8:38 AM PARKING PATROLLER Impressions 07/28/2023 9:18 AM PARKING PATROLLER IMPRESSION ----- 1) Growth parameters and estimated weight were consistent with appropriate for gestational age pattern of growth. 2) anatomy appeared normal for gestational age. Narrative 07/28/2023 9:18 AM PARKING PATROLLER ?Comp Follow Up ----- Pat. Name: HEIDI FORD ? Study Date: ??07/28/2023 8:38am Pat. NO: ??[id number] ?Referring ??: VENICE ELMORE [place] Site: ??[facility] ? [place] Drafter: Genaro Berkowitz RDMS : ??1990 ?Age: ?? [...] 2 lb 7 ?oz EFW by ?Hadlock (QOF-LH-IP-FL) Head / Face / Neck Biometry: CM ?6.0 ? mm ANATOMY ----- The following structures appear normal: Head / Neck ? Cranium. Head size. Head shape. Lateral ventricles. Midline falx. Cavum septi pellucidi. Cerebellum. Cisterna magna. Thalami. Face ? Lips. Profile. Nose. Heart / Thorax ?4-chamber view. RVOT view. LVOT view. Aortic arch view. 1-cghfte-jrdywwe view. ? Diaphragm. Abdomen ? Stomach. Kidneys. [...] FORD Study Date: 07/28/2023 8:38am Pat. NO: [id number] Referring MD: VENICE ELMORE RIBEIRO Site: [facility] [place] Drafter: Genaro Berkowitz RDMS : 1990 Age: 32 [...] 2 lb 7 oz EFW by Hadlock ([id number]-[id number]-FL) Head / Face / Neck Biometry: CM 6.0 mm ANATOMY ----- The following structures appear normal: Head / Neck Cranium. Head size. Head shape.Lateral ventricles. Midline falx. Cavum septi pellucidi. Cerebellum.Cisterna magna. Thalami. Face Lips. Profile. Nose. Heart / Thorax 4-chamber view. RVOT view. LVOT view.Aortic arch view. 2-aefnbp-szpaucx view. Diaphragm. Abdomen Stomach. Kidneys. Bladder. Spine [...] normal for gestational age. Donnie Stanton MD [facility] US ORDERABLE S documented in this encounter Visit Diagnoses Diagnosis High-risk , unspecified trimester documented in this encounter Care Teams Mechanical Test Technician Relationship Specialty Start Date End Date No Ref-Primary, Physician PCP - General 05/28/23 documented as of this encounter
--- OUTSIDE RECORDS SUMMARY | 2023-10-24 07:04 | XMS_ITS | Encounter Summary ---
Author Organization [facility] Address [address] [place] [address]. [place] [address] Care Team Providers Care Geothermal Technician Name Role Phone No Ref-Primary, Physician [...] on filedocumented in this encounter Care Teams Geothermal Technician Relationship Specialty Start Date End Date No Ref-Primary, Physician PCP - General 05/28/23 documented as of this encounter
--- OUTSIDE RECORDS SUMMARY | 2023-10-24 07:04 | XMS_ITS | Clinical Summary ---
Author Organization [place] Address [address] [place] [address] Care Team Providers Care Burrer Operator Name Role Phone No Ref-Primary, Physician [...] 25 mg by mouth daily Active Vit-Fe Cdb-HH-Rbgnz (ONE-A-DAY WOMENS ) 28-0.8 & 223 MG MISC Take 1 tablet by mouth daily Active loratadine (CLARITIN REDITABS) 10 MG ODT Take 10 mg by mouth daily Active Encounters Date Type Department Care Team Description 07/28/2023 9:15 AM CLINICAL STAFF RN Office Visit [facility] [address] [place] [address] Donnie Stanton MD Rauk, Justice Fuchs MD Encounter for follow-up ultrasound of anatomy (Primary Dx); Pre-exist hyp chronic kidney disease comp preg, second tri; Alport syndrome 07/28/2023 8:34 AM CLINICAL STAFF RN - 07/28/2023 11:59 PM CLINICAL STAFF RN Hospital Encounter [facility] [address] [place] [address] Donnie Stanton MD Rauk, Justice Fuchs MD [...] Comments Blood Pressure 114/82 07/03/2023 10:18 AM CLINICAL STAFF RN Pulse 82 07/03/2023 10:18 AM CLINICAL STAFF RN Temperature - - Respiratory Rate 18 07/03/2023 10:18 AM CLINICAL STAFF RN Oxygen Saturation 100% 07/03/2023 10:18 AM CLINICAL STAFF RN RA Inhaled Oxygen Concentration - - Weight [...] Procedure Name Priority Date/Time Associated Diagnosis Comments [facility] US COMPREHENSIVE SINGLE F/U Routine 07/28/2023 9:16 AM CLINICAL STAFF RN High-risk , unspecified trimester from Last 3 Months Results * [facility] US Comprehensive Single F/U (07/28/2023 9:16 AM CLINICAL STAFF RN) Anatomical Region Laterality Modality Ultrasound 07/28/2023 8:38 AM CLINICAL STAFF RN Impressions 07/28/2023 9:18 AM CLINICAL STAFF RN IMPRESSION ----- 1) Growth parameters and estimated weight were consistent with appropriate for gestational age pattern of growth. 2) anatomy appeared normal for gestational age. Narrative 07/28/2023 9:18 AM CLINICAL STAFF RN ?Comp Follow Up ----- Pat. Name: HEIDI FORD ? Study Date: ??07/28/2023 8:38am Pat. NO: ??[id number] ?Referring ??MD: VENICE ELMORE [place] Site: ??[facility] ? Vp Clinical Research: Genaro Berkowitz RDMS : ??1990 ?Age: ?? [...] 2 lb 7 ?oz EFW by ?Hadlock (FOK-NY-BF-FL) Head / Face / Neck Biometry: CM ?6.0 ? mm ANATOMY ----- The following structures appear normal: Head / Neck ? Cranium. Head size. Head shape. Lateral ventricles. Midline falx. Cavum septi pellucidi. Cerebellum. Cisterna magna. Thalami. Face ? Lips. Profile. Nose. Heart / Thorax ?4-chamber view. RVOT view. LVOT view. Aortic arch view. 9-leqonh-gxddtmc view. ? Diaphragm. Abdomen ? Stomach. Kidneys. [...] FORD Study Date: 07/28/2023 8:38am Pat. NO: [id number] Referring MD: VENICE RIBEIRO Site: [facility] Vp Clinical Research: Genaro Berkowitz RDMS : 1990 Age: 32 [...] 2 lb 7 oz EFW by Hadlock (AOE-UW-RT-FL) Head / Face / Neck Biometry: CM 6.0 mm ANATOMY ----- The following structures appear normal: Head / Neck Cranium. Head size. Head shape.Lateral ventricles. Midline falx. Cavum septi pellucidi. Cerebellum.Cisterna magna. Thalami. Face Lips. Profile. Nose. Heart / Thorax 4-chamber view. RVOT view. LVOT view.Aortic arch view. 7-yhghhv-uqpmvtu view. Diaphragm. Abdomen Stomach. Kidneys. Bladder. Spine [...] normal for gestational age. Donnie Stanton MD [facility] ORDER[facility] S from Last 3 Months Care Teams Burrer Operator Relationship Specialty Start Date End Date No Ref-Primary, Physician PCP - General 05/28/23
--- NOTE | 2023-10-24 08:45 | P.LDBA_ITS ---
Subjective History of Present Illness Date Seen: 10/24/23 Narrative: Patient is being admitted to Labor and Delivery for IOL due to suspected macrosomia, mild polyhydramnios, maternal Alport syndrome, AMA. She is a 33 year old at 39 0/7 weeks gestation. Her full history and physical was dictated by Dr. Roldan on 10/21/2023. Please see this for details. Specific Issues/Plans G 1 P 0 Spouse: Jan. Baby: [place] Gender. H&P 10/21/[address] Roldan. 1. 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 Recommendations from M 07/2021: * labs: serum creatinine 03/06/23 w/ Nephrology: normal at 9, 24 hour urine protein 288 mg 05/13/23, hgb A1C: 5.1 * Normal baseline pre E labs, P/C ratio: 0.1 * Low dose aspirin at 12-14 weeks for pre E prophylaxis * Nephrology 05/14: Cr 0.5, Hb 12.4. Serial follow-up BMP/renal panel every 1-2 months during . * Repeat serum creatinine, urine culture, and 24 hour protein collection at 20- 24 weeks: 07/07/2023: Total protein 465 mg. Creatinine 06/19/2023: 0.5 Urine culture 06/19/2023 shows no growth. * Repeat serum creatinine, urine culture, and 24 hour protein collection at 32- 34 weeks: 692 mg protein/24 h. Cr 0.5 * Consider repeat serum creatinine and 24 hour urine protein collection 6 weeks * Contingent on maternal BP, renal function, and growth, tentatively plan for delivery if the achieves 39-40 weeks gestation * Generally, losartan is not used during ; decisions re: reinitiation of prophylaxis may be contingent on maternal serum creatinine and/or degree of proteinuria in 3rd trimester * If nephrotic range proteinuria develops in 3rd trimester, consider prophylactic enoxaparin 40mg daily starting 12 hours following neuraxial anesthesia placement AND 4 hours following catheter removal with continuation until full ambulation is resumed d/t potential hypercoagulable risk * Per [facility]: OB visits every 2 weeks after 24 weeks, then weekly at 32 weeks. If there is worsening hematuria, proteinuria or hypertension, recommend repeat consult with MFM. * Per MFM: Repeat ultrasound for growth and anatomy at 32 weeks: EFW at the 95th percentile, AC greater than 97th percentile. SDP 6.2 cm. * 09/03/23: Does not meet criteria for preeclampsia. Return in 1 month for visit with nephrology 2. BMI 36.3 Hemoglobin A1c 5.1% Recommend daily low dose aspirin at 12 weeks for pre E prophylaxis Weekly BPP at 37 weeks per MFM 3. Advanced maternal age. [id number] ordered 04/21/23. Does not want to know gender. Level 2 ultrasound 07/03/23: Posterior placenta without previa. Three-vessel cord. Normal fluid with MVP 5 cm, EFW 86%, AC 84% normal visualized anatomy, though they were unable to obtain four-chamber heart view and aortic arch view. Repeat US for completion of anatomy scan scheduled with MFM: per pt report normal views 07/28/23, waiting for MFM report. 4. Varicella equivocal. Rec. PP vaccine. 5. Anemia. Hgb 9.8 at 26wks. PO iron supplement. 9.1 on 09/21. Will start IV iron [scheduled for 09/30] Repeat Hgb at 38 weeks: 10.6 6. macrosomia Growth on 09/28 @ 35w for fundal height discrepancy. EFW: >97%tile (7lb 6oz), AC >97%tile. SDP 5.3 cm. 7. Polyhydramnios, mild (SDP 8.3cm, MANNY 25.2 cm on 10/21/23) Delivery at 39 0/7 - 39 6/7 weeks recommended Flu: 03/21/23 Covid: 03/23/23 Tdap: 08/25/23 OB - Problem Based A/P Additional Plan (1) Polyhydramnios: Status: Acute (2) Advanced maternal age (AMA) in : Status: Acute (3) Alport syndrome: Problem details: (X-LINK RECESSIVE) WITH MEDULLARY SPONGE KIDNEY Status: Acute Plan 1. IOL: Cervical check on Friday/50%/Vx/-3. Plan to start cervical ripening today with vaginal Cytotec per protocol. Encouraged ambulation. 2. GBS negative no need for antibiotic prophylaxis. 3. Pain management as needed. 4. Continuous monitoring. OB Exam Physical Exam Vital signs: Pulse BP Pulse Ox 80 115/69 97 10/24/23 07:45 10/24/23 07:45 10/24/23 07:40 Detailed Labor and Delivery Exam Patient Gravid: Yes Tachysystole: No Fetus (Single) Heart Rate Baseline: 130 Monitor Accelerations: Present Monitor Decelerations: None Gin Pole Operator Variability: Moderate (6-25)
[2023-10-24] MEDS: miSOPROStoL 25 MCG/0.25 TABLET VAGINAL ×2 (11:46→16:00)
[2023-10-24 16:30] LABS: Basophils Absolute Auto 0.02 K/uL (0.00-0.30); Basophils Percent Auto 0.3 % (0.0-3.0); Eosinophils Absolute Auto 0.04 K/uL (0.00-0.50); Eosinophils Percent Auto 0.6 % (0.0-7.0); Hemoglobin* 10.6 gm/dL (12.0-16.0); Immature Granulocytes Abs Auto 0.04 K/uL (0.00-0.30); Immature Granulocytes Pct Auto 0.6 %; Lymphocytes Absolute Auto 1.69 K/uL (0.90-2.90); Lymphocytes Percent Auto 25.8 % (20-44); Mean Corpuscular HGB Conc 32 gm/dL (32-36); Mean Corpuscular Hemoglobin 28 pg (26-34); Mean Corpuscular Volume 86 fL (80-100); Monocytes Percent Auto 6.9 % (0.0-11.0); Neutrophils Percent Auto 65.8 % (42.0-72.0); Platelet Count* 166 K/uL (140-440); RDW Coefficient of Variation % 19.9 % (11.5-15.5); Red Blood Count 3.84 m/uL (4.00-5.20); White Blood Count* 6.54 K/uL (4.50-11.00)
[2023-10-24 16:38] LABS: Slide Review Reflex No
[2023-10-24] MEDS: MORPHINE 10 MG/ML inj IM (22:04)
[2023-10-24] MEDS: hydrOXYzine pamoate 25 MG CAPSULE 100 MG PO (22:04)
--- NOTE | 2023-10-24 22:11 | P.OBPN_ITS ---
Subjective Date Seen: 10/24/23 Narrative: Okay Objective Vital Signs: Last Vital Signs Temp 98 F 10/24/23 20:17 Pulse 74 10/24/23 21:31 Resp 16 10/24/23 16:23 BP 144/77 H 10/24/23 21:31 Pulse Ox 97 10/24/23 07:40 Pelvic Exam Dilation (cm): 3 Effacement (%): 75 Station: Ballotable Contractions Monitor mode: External Contraction pattern: Regular Contraction intensity: Moderate Assessment Assessment: induction ongoing Status: Category l Heart Rate Baseline: 130 Pharmacy Operations Specialist Variability: Moderate (6-25) Monitor Accelerations: Present Monitor Decelerations: None Plan Plan: Bedside US confirms baby is still vertex, still ballotable. NST reassuring she is eleuterio frequently, has made adequate progress with Cytotec. Will plan to change to IV Oxytocin after 11pm and hopefully able to AROM in the morning. She would like to take Morphine and Vistaril to rest overnight. Plan was discussed with patient and and in agreement. Patient had 1 elevated blood pressure, will keep close monitoring of vital signs, if another is elevated will collect preeclampsia labs.
[2023-10-25] VITALS (87 sets, daily range): BP systolic 84–140; BP diastolic 51–98; PULSE 54–164; RESP 16–18; TEMP 36.6–37.4; O2SAT 92–100
[2023-10-25] MEDS: OXYTOCIN 30 unit/500 ML in NS 30 UNIT/500 ML BAG IVPB (00:15)
[2023-10-25] MEDS: LACTATED RINGERS 1000 ML 1,000 ML 125 ML IV ×2 (00:17→18:37)
[2023-10-25] MEDS: LACTATED RINGERS 1000 ML 1,000 ML 1125 ML IV ×3 (05:03→10:00)
--- NOTE | 2023-10-25 09:25 | PM.OBPNL ---
Subjective Time Seen by Provider: 09:25 Date Seen: 10/25/23 Narrative: Subjective: Patient is feeling more uncomfortable with contractions over the last 45 minutes asking for an epidural. Pitocin: Just increased to 11 milliunits/minute. Referral consent obtained to perform AROM Vital signs: Per electronic medical record. EFM: Baseline 110's, positive accelerations, negative decelerations, moderate variability, reactive. Category 1. [place]: Contractions every 2-4 minutes. SVE: 3 cm/80%/-1. AROM performed. Assessment: 33-year-old 1 para 0 at 39 weeks 1 days gestation undergoing induction of labor due to polyhydramnios Plan: 1. Continue Pitocin per labor induction protocol. 2. Desires epidural for labor analgesia. Objective Vital Signs: Last Vital Signs Temp 98.9 F 10/25/23 07:20 Pulse 71 10/25/23 08:17 Resp 18 10/25/23 01:15 BP 125/71 10/25/23 08:17 Pulse Ox 98 10/25/23 04:15 Pelvic Exam Dilation (cm): 3 Effacement (%): 75 Station: Ballotable Contractions Monitor mode: External Contraction pattern: Regular Contraction intensity: Moderate Assessment Status: Category l Heart Rate Baseline: 130 Monitor Accelerations: Present Monitor Decelerations: None
[2023-10-25] MEDS: BUPIVACAINE 0.25% PF 10 ML 10 ML ML EPIDURAL (10:36)
[2023-10-25] MEDS: ROPIVACAINE 0.2% 100 ml 100 ML 12 MG EPIDURAL (10:41)
--- NOTE | 2023-10-25 10:44 | PM.ANBPRC ---
[facility] Medical History Nephrolithiasis ?N20.0 - Calculus of kidney (ICD-10) Vitamin D deficiency ?E55.9 - Vitamin D deficiency, unspecified (ICD-10) B12 deficiency ?E53.8 - Deficiency of other specified B group vitamins (ICD-10) Fibula fracture ?S82.409A - Unspecified fracture of shaft of unspecified fibula, initial encounter for closed fracture (ICD-10) Surgical History History of cholecystectomy ?Z90.49 - Acquired absence of other specified parts of digestive tract (ICD-10) S/P correction of deviated nasal septum ?Z98.890 - Other specified postprocedural states (ICD-10) H/O laparoscopy ?Z98.890 - Other specified postprocedural states (ICD-10) Family History Sister Alport syndrome Mother Alport syndrome Aunt Alport syndrome Grandfather Alport syndrome Social History What is your current living situation?: I presently have a place to live Problems where you live: no known problems In the past 12 months, utilities in danger of being shut off: no In past 12 months, lack of transportation kept you from medical appts, meetings, work, or getting things needed for daily living: no In the past 12 mos, have been you worried that your food would run out before you had money to buy more?: never true In the past 12 mos, the food you bought just didn't last and you didn't have money to buy more?: never true Smoking Status: Never smoker How often does anyone, including family, friends and others, physically hurt you: never How often does anyone, including family, friends and others, insult or talk down to you: never How often does anyone, including family, friends and others, threaten you with harm: never How often does anyone, including family, friends and others, scream or curse at you: never Little interest or pleasure in doing things: several days Feeling down, depressed, or hopeless: not at all Meds Home Medications and Allergies Home Medications ?Medication ?Instructions ?Recorded ?Confirmed ?Type albuterol sulfate 90 mcg/actuation 2 puff inhalation Q6H PRN 03/21/23 10/24/23 History aerosol inhaler beclomethasone dipropionate 40 2 inh inhalation BID 03/21/23 10/24/23 History mcg/actuation HFA breath activated aerosol (Qvar RediHaler) montelukast 10 mg tablet 10 mg PO QHS 03/21/23 10/24/23 History vitamin B complex (B 1 tab PO QDAY 03/21/23 10/24/23 History Complex-Vitamin B12 tablet) aspirin 81 mg chewable tablet 81 mg PO QDAY 05/14/23 10/24/23 History vits 75-iron 28 mg-folic 1 pkg PO DAILY 05/14/23 10/24/23 History acid 800 mcg-omega-3 oral combo pack (One A Day Women's DHA) loratadine 10 mg tablet (Claritin) 10 mg PO QDAY 08/11/23 10/24/23 History mometasone 50 mcg/actuation nasal 2 spray intranasal QDAY PRN 09/08/23 10/24/23 History spray Allergies Allergy/AdvReac Type Severity Reaction Status Date / Time bacitracin Allergy Intermediate Verified 10/24/23 07:55 [From Neosporin ([id number])] neomycin Allergy Intermediate Verified 10/24/23 07:55 [From Neosporin ([id number])] polymyxin B Allergy Intermediate Verified 10/24/23 07:55 [From Neosporin ([id number])] 2-octyl cyanoacrylate Allergy Mild Verified 10/24/23 07:55 amoxicillin Allergy Mild Verified 10/24/23 07:55 cefaclor Allergy Mild Verified 10/24/23 07:55 cefuroxime Allergy Mild Verified 10/24/23 07:55 clindamycin Allergy Mild Verified 10/24/23 07:55 latex Allergy Mild Verified 10/24/23 07:55 ondansetron Allergy Mild Verified 10/24/23 07:55 shellfish derived Allergy Mild Verified 10/24/23 07:55 dermabond Allergy Intermediate Uncoded 10/21/23 10:50 Results Labs Labs: Laboratory Results - last 24 hr 10/24/23 16:20 WBC 6.54 RBC 3.84 L Hgb 10.6 L Hct 33.0 MCV 86 MCH 28 MCHC 32 RDW Coeff of Kurt 19.9 H Plt Count 166 Neut % (Auto) 65.8 Lymph % (Auto) 25.8 [place] % (Auto) 6.9 Eos % (Auto) 0.6 Baso % (Auto) 0.3 Neut # (Auto) 4.30 Lymph # (Auto) 1.69 [facility] # (Auto) 0.50 Eos # (Auto) 0.04 Baso # (Auto) 0.02 Abs Immat Gran (auto) 0.04 Imm/Tot Granulo (auto) 0.6 Blood Type AB Positive Antibody Screen NEGATIVE Vital Signs Vital Signs: Last Vital Signs Temp 98.9 F 10/25/23 07:20 Pulse 72 10/25/23 10:42 Resp 18 10/25/23 01:15 BP 133/73 10/25/23 10:42 Pulse Ox 100 10/25/23 10:30 Weight: 127.913 kg Height: 172.72 cm Anesthesia Procedures Epidural Insertion Patient Location: OB Start Time: 10:00 Stop Time: 10:44 Start Date: 10/25/23 Stop Date: 10/25/23 Reason for Block: procedure for pain Patient Position: sitting Performed By: Rahul Cardozo Preanesthetic Checklist: IV checked, risks and benefits discussed, monitors and equipment checked, pre-op evaluation, timeout performed and anesthesia consent Prep: chlorhexidine gluconate Monitoring: blood pressure monitoring, continuous pulse oximetry and heart rate Approach: midline Vertebral Space: lumbar (1-5) Epidural Technique: CÉSAR saline Needle Type: Tuohy needle Injection Technique: continuous catheter Needle gauge: 17 Needle Length (cm): 10 cm Needle Insertion Depth (cm): 8 Catheter Gauge: 19 Catheter Type: multi-orifice Catheter at skin depth (cm): 13 Test Dose Result: negative and lidocaine 1.5% with epinephrine 1 to 200,000
[2023-10-25] MEDS: PHENYLEPHRINE 100 MCG/ML SYRINGE IVP ×2 (11:15→13:46)
--- NOTE | 2023-10-25 12:22 | PM.OBLDTN ---
OB - Triage/Final Diagnosis Visit Information Narrative: The patient is a [] year old [] para [] at [] weeks gestation by [], who presents with []. [] Evaluation Laboratory results: Laboratory Tests 10/24/23 Range/Units 16:20 WBC 6.54 (4.50-11.00) K/uL RBC 3.84 L (4.00-5.20) m/uL Hgb 10.6 L (12.0-16.0) gm/dL Hct 33.0 (33.0-51.0) % MCV 86 (80-100) fL MCH 28 (26-34) pg MCHC 32 (32-36) gm/dL RDW Coeff of Kurt 19.9 H (11.5-15.5) % Plt Count 166 (140-440) K/uL Neut % (Auto) 65.8 (42.0-72.0) % Lymph % (Auto) 25.8 (20-44) % [place] % (Auto) 6.9 (0.0-11.0) % Eos % (Auto) 0.6 (0.0-7.0) % Baso % (Auto) 0.3 (0.0-3.0) % Neut # (Auto) 4.30 (1.7-7.0) K/uL Lymph # (Auto) 1.69 (0.90-2.90) K/uL [place] # (Auto) 0.50 (0.00-0.90) K/UL Eos # (Auto) 0.04 (0.00-0.50) K/uL Baso # (Auto) 0.02 (0.00-0.30) K/uL Abs Immat Gran (auto) 0.04 (0.00-0.30) K/uL Imm/Tot Granulo (auto) 0.6 % RPR Screen Pending Blood Type AB Positive Antibody Screen NEGATIVE Vital signs: Vital Signs - 24 hr 10/24/23 16:23 10/24/23 16:23 10/24/23 20:16 Temperature 98 F Pulse Rate 72 75 Respiratory Rate 16 Blood Pressure 128/83 130/77 Pulse Oximetry 10/24/23 20:17 10/24/23 21:31 10/25/23 00:15 Temperature 98 F 98.2 F Pulse Rate 74 Respiratory Rate Blood Pressure 144/77 H Pulse Oximetry 10/25/23 00:16 10/25/23 01:15 10/25/23 01:15 Temperature 98 F Pulse Rate 78 79 Respiratory Rate 18 Blood Pressure 118/59 L 111/72 Pulse Oximetry 10/25/23 02:15 10/25/23 02:15 10/25/23 03:15 Temperature Pulse Rate 79 Respiratory Rate Blood Pressure 123/77 117/72 Pulse Oximetry 98 10/25/23 03:15 10/25/23 04:15 10/25/23 04:15 Temperature 98.4 F Pulse Rate 68 62 Respiratory Rate Blood Pressure 116/76 Pulse Oximetry 99 98 10/25/23 05:17 10/25/23 06:17 10/25/23 07:19 Temperature Pulse Rate 71 70 75 Respiratory Rate Blood Pressure 113/61 113/65 121/76 Pulse Oximetry 10/25/23 07:20 10/25/23 08:17 10/25/23 09:27 Temperature 98.9 F Pulse Rate 71 71 Respiratory Rate Blood Pressure 125/71 139/66 Pulse Oximetry 10/25/23 09:30 10/25/23 09:54 10/25/23 10:00 Temperature 97.9 F Pulse Rate Respiratory Rate Blood Pressure Pulse Oximetry 100 99 10/25/23 10:05 10/25/23 10:10 10/25/23 10:15 Temperature Pulse Rate Respiratory Rate Blood Pressure Pulse Oximetry 100 100 97 10/25/23 10:16 10/25/23 10:20 10/25/23 10:21 Temperature Pulse Rate Respiratory Rate Blood Pressure Pulse Oximetry 93 92 93 10/25/23 10:25 10/25/23 10:30 10/25/23 10:36 Temperature Pulse Rate 73 Respiratory Rate Blood Pressure 138/75 Pulse Oximetry 100 100 10/25/23 10:38 10/25/23 10:40 10/25/23 10:42 Temperature Pulse Rate 75 76 72 Respiratory Rate Blood Pressure 131/73 134/77 133/73 Pulse Oximetry 10/25/23 10:49 10/25/23 10:57 10/25/23 11:00 Temperature 98.0 F Pulse Rate 72 80 Respiratory Rate Blood Pressure 116/67 100/56 L Pulse Oximetry 10/25/23 11:13 10/25/23 11:28 10/25/23 11:43 Temperature Pulse Rate 79 75 68 Respiratory Rate Blood Pressure 95/53 L 99/52 L 94/53 L Pulse Oximetry 10/25/23 12:14 Temperature Pulse Rate 74 Respiratory Rate Blood Pressure 101/54 L Pulse Oximetry Fetus (Single) Heart Rate Baseline: 130 Monitor Accelerations: Present Monitor Decelerations: None Final Diagnosis (1) Polyhydramnios: Status: Acute (2) Advanced maternal age (AMA) in : Status: Acute (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
--- NOTE | 2023-10-25 12:23 | P.OBPN_ITS ---
Subjective Time Seen by Provider: 12:23 Date Seen: 10/25/23 Narrative: Subjective: Patient is comfortable w/ epidural.. Pitocin: 14 milliunits/minute. Vital signs: Per electronic medical record. EFM: Baseline 110s, + accelerations, no decelerations, moderate variability, reactive. Category 1. [place]: Contractions every 1-4 minutes. SVE: 8 cm/100 %/0. Assessment: 33-year-old 1 para 0 at 39 weeks 1 days gestation undergoing induction of labor for polyhydramnios. Plan: 1. Continue Pitocin per labor induction protocol. 2. Continue epidural for labor analgesia. Objective Vital Signs: Last Vital Signs Temp 98.0 F 10/25/23 11:00 Pulse 74 10/25/23 12:14 Resp 18 10/25/23 01:15 BP 101/54 L 10/25/23 12:14 Pulse Ox 100 10/25/23 10:30 Pelvic Exam Dilation (cm): 3 Effacement (%): 75 Station: Ballotable Contractions Monitor mode: External Contraction pattern: Regular Contraction intensity: Moderate Assessment Status: Category l Heart Rate Baseline: 130 Monitor Accelerations: Present Monitor Decelerations: None
--- NOTE | 2023-10-25 19:10 | PM.PROC ---
Procedure Note Time Seen by Provider: 20:47 Date Seen: 10/25/23 Provider Contact Time: 19:10 Date of procedure: 10/25/23 Will [facility] bill your pro fee for this procedure?: Yes Procedure: Preoperative diagnosis: 33-year-old 1 para 0 at 39 and 1/7 weeks with arrest of descent and occiput posterior presentation Postoperative diagnosis: Same Procedure: Primary low-transverse section Anesthesia: Epidural Surgeon: Martina Quevedo MD Cotton Ginner Helper: Not applicable Quantitative blood loss: 660 mL IV Fluid: 1200 mL UOP: 175 mL Specimen: None Drain(s): Edouard Indications: Pushing for 2.5 hours with minimal descent of the vertex. Findings: A live female infant was delivered from the LOP position at 8:08 p.m. Apgars were 8 at 1 min and 9 at 5 min, respectively. weight: 9 lb 14 oz. Nuchal cord(s): No. The placenta was delivered spontaneously and complete at 8:10 p.m. Amniotic fluid: Clear. Normal uterus, fallopian tubes and ovaries were noted. Procedure: Heidi was taken to the OR where epidural anesthetic was found be adequate. A Edouard catheter was placed. The patient was then placed in the dorsal supine position with a leftward tilt. She was then prepped and draped in a normal sterile manner. A Pfannenstiel skin incision was made and carried through sharply to the underlying layer of fascia. Fascia was incised in the midline and this incision carried laterally with Novak scissors. The superior aspect of fascial incision was grasped with Jeinffer clamps, tented up, and the rectus muscles dissected off with a combination of blunt and sharp dissection. The inferior aspect of the fascial incision was was not dissected off the rectus muscles. The rectus muscles were in the midline. The peritoneum was entered bluntly. This opening was extended bluntly. An Florentin-O self-retaining retractor was placed. A bladder flap was not created. Uterus was incised in a low transverse manner in the midline. This incision carried laterally with blunt pressure on the inferior and superior aspects of the uterine incision. The amniotic sac was ruptured. The infant's head and body was delivered atraumatically. The was shown to the patient and her support person and then handed to waiting pediatric and nursing staff. The placenta was delivered spontaneously. The uterus was cleared of clots and debris. The uterine incision was re-approximated with the uterus in vivo. The 1st layer using 0-Vicryl in a running, locked manner. The 2nd layer using 0-Monocryl in a running, vertical, imbricating layer. Additional sutures needed for hemostasis: No. Excellent hemostasis was verified. The Florentin retractor was removed. The peritoneum was reapproximated using 3-0 Vicryl suture in a running manner. The rectus muscles were not reapproximated. The rectus muscles were then closely inspected to verify hemostasis. Hemostasis was obtained with bipolar cautery. The fascia was then re-approximated using 0-Maxon loop in a running manner. The subcutaneous tissue was then irrigated with saline and hemostasis obtained with bipolar cautery. The subcutaneous tissue was re-approximated using 3-0 plain gut interrupted sutures. The skin was reapproximated using 4-0 Monocryl in a running subcuticular manner. No skin adhesive was used. A silver-containing Mepiplex dressing was applied. The patient tolerated this procedure well. Sponge, lap and instrument counts were correct x2 active to the procedure. Patient was taken to the recovery area in stable condition. The patient received 500 mg azithromycin, 450 mg gentamicin, 500 mg metronidazole in 2000 mg of vancomycin for preoperative antibiotic prophylaxis.
[2023-10-25] MEDS: AZITHROMYCIN 500 MG in 0.9 % SODIUM CHLORIDE 250 ml 250 ML 255 MG IVPB (19:18)
[2023-10-25 19:19] LABS: Hemoglobin* 10.1 gm/dL (12.0-16.0)
[2023-10-25] MEDS: metroNIDAZOLE 500 MG/100 ML PIGGYBACK IVPB (20:28)
[2023-10-25] MEDS: KETOROLAC 30 MG/ML inj IVP (20:45)
--- NOTE | 2023-10-25 21:12 | W.ANESCHARGE ---
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
--- NOTE | 2023-10-25 21:13 | P.NB_ITS ---
Nerve Block Nerve Block Time Seen by Provider: 20:50 Date Seen: 10/25/23 Type of block requested by surgeon for post-operative analgesia: TAP Side: bilateral Time out performed: Yes Verification of patient name: Yes Verification of date of : Yes Site marking: site marked Name of person performing procedure: Rahul Cardozo Continuous monitoring Was continuous monitoring of O2 sat, B/P, manager monitoring, recorded every 15 minutes?: Yes Procedure Checklist: sterile prep, needles and gloves Ultrasound guided. Images saved: Yes Medications given in 5ml increments after negative aspiration: Marcaine %: 0.25 mL: 30 Needle gauge: 20 and Exparel mL: 10 Needle gauge: 20 Patient tolerated procedure well: Yes Additional comments: Injected in 5 mL increments after negative aspiration Block Charges Block Charge (with Pro Fee): TAP Bilateral Use of Ultrasound Machine for Block: Yes- US Guidance/pain block
[2023-10-25] MEDS: GENTAMICIN 450 MG in 0.9 % SODIUM CHLORIDE 100 ml 100 ML 111.25 MG IVPB (21:15)
[2023-10-25] MEDS: LACTATED RINGERS 1000 ML 1,000 ML 500 ML IV (23:05)
[2023-10-26] VITALS (16 sets, daily range): BP systolic 103–128; BP diastolic 69–76; PULSE 61–92; RESP 16–18; TEMP 36.4–36.9; O2SAT 96–100
[2023-10-26] MEDS: ACETAMINOPHEN 500 MG TABLET 1000 MG PO ×4 (00:18→18:51)
[2023-10-26] MEDS: KETOROLAC 30 MG/ML inj 15 MG IVP ×4 (02:45→20:59)
--- NOTE | 2023-10-26 04:17 | PM.OBPNVD1 ---
OB - PN:Subj Subjective Time Seen by Provider: 04:17 Date Seen: 10/26/23 Patient comments OB post-: no complaints, pain well controlled, tolerating diet and flatus present infant status: [place] feeding status: breast and bottle feeding Narrative: POD#1 from a primary low-transverse for arrest of descent and LOP presentation. She is tolerating a regular diet. A Edouard catheter is in place so it is not urinating on her own urine output is adequate. OB - PN: Obj Exam Physical Exam: Vital signs: Temp Pulse Resp BP Pulse Ox O2 Del Method 97.6 F 79 18 111/71 99 Room Air 10/26/23 03:44 10/26/23 03:44 10/26/23 04:00 10/26/23 03:44 10/26/23 03:44 10/26/23 03:44 Narrative: GENERAL APPEARANCE: Pleasant, , well-groomed woman in no acute distress. VITAL SIGNS: as noted in nursing notes . LUNGS: Clear to auscultation bilaterally without wheezes, rales or rhonchi. HEART: Regular rate and rhythm with normal S1 and S2. No gallop, rub or murmur. ABDOMEN: Gravid. Soft, nontender, nondistended, with normal bowels sounds throughout. FUNDUS: Firm, midline, at the umbilicus. INCISION: Silver-containing dressing in place, dry and intact. EXTREMITIES: SCD's in place. +2 BLE edema to the ankle. NEUROLOGIC: Normal gait and balance. Normal deep tendon reflexes at bilateral patella 2+/2, equal without clonus. PSYCHIATRIC: alert and oriented x3. Normal speech pattern, eye contact and affect. SKIN: Warm, dry, and well perfused. Good turgor. No lesions, nodules or rashes. OB - PN: Obj Data Labs Labs: Laboratory Results - last 24 hr 10/25/23 19:14 Hgb 10.1 L OB - PN: A/P Delivery Assessment and Plan (1) Polyhydramnios: Status: Acute (2) Advanced maternal age (AMA) in : Status: Acute (3) Alport syndrome: Problem details: (X-LINK RECESSIVE) WITH MEDULLARY SPONGE KIDNEY Status: Acute Plan Comments: Continue postoperative care Expect discharge home tomorrow.
[2023-10-26 07:10] LABS: Hemoglobin* 8.1 gm/dL (12.0-16.0)
[2023-10-26] MEDS: ENOXAPARIN 40 MG/0.4 ML INJ SUBCUT (08:53)
[2023-10-26] MEDS: DOCUSATE SODIUM 100 MG CAPSULE PO (08:54)
[2023-10-26] MEDS: HYDROCORTISONE 1 % CREAM 1 APPLIC TOPICAL (20:59)
[2023-10-26 21:20] LABS: Rapid Plasma Reagin (RPR) Non Reactive (Non Reactive)
[2023-10-26] MEDS: SODIUM CHLORIDE 0.9 % (FLUSH) 10 ML SYRINGE IVF (21:30)
[2023-10-27] MEDS: ACETAMINOPHEN 500 MG TABLET 1000 MG PO (01:00)
[2023-10-27] MEDS: SODIUM CHLORIDE 0.9 % (FLUSH) 10 ML SYRINGE IVF (02:48)
[2023-10-27] MEDS: KETOROLAC 30 MG/ML inj 15 MG IVP (02:48)
[2023-10-27 03:59] VITALS: BP 115/77; PULSE 89; RESP 16; TEMP 36.8; O2SAT 97
[2023-10-27] MEDS: HYDROCODONE-ACETAMIN 5-325 MG 1 TAB PO (06:46)
--- NOTE | 2023-10-27 08:12 | PM.OBDSVD1 ---
DS: Providers Provider Date Seen: 10/27/23 Date of admission: 10/24/23 07:00 Primary care physician: Val Byrd PA-C Admitting Clinician: Allie Dennison MD Attending Physician on discharge: Allie Dennison MD Date of Discharge: 10/27/23 DS: Diagnosis Discharge Diagnosis (1) care following delivery: Status: Acute (2) Lactating mother: Status: Acute (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 (4) Obesity, Class II, BMI 35-39.9: Status: Acute (5) Kidney disease: Status: Acute (6) Asthma: Status: Acute (7) Anemia, : Status: Acute Exam Narrative: Exam Narrative: GENERAL APPEARANCE:? normal affect, alert, no distress? MOOD:? appropriate? CHEST:? clear to auscultation and percussion? HEART:? regular rate and rhythm? ABDOMEN:? soft, non-tender the uterine fundus is U/2 and is appropriate for the stage of recovery. Incision dressing is clean, dry and intact.?? EXTREMITIES:? normal and 1+ edema? Const: Vital Signs, click to edit/add: Vital Signs - 24 hr 10/26/23 09:00 10/26/23 10:14 10/26/23 11:15 Temperature 97.7 F 97.8 F Pulse Rate [Pulse Oximeter] 61 73 Respiratory Rate 16 16 16 Blood Pressure [Le ft Arm] 122/76 128/76 Pulse Oximetry 96 99 Oxygen Delivery Me thod Room Air Room Air 10/26/23 13:14 10/26/23 17:45 10/26/23 19:40 Temperature 97.9 F Pulse Rate [Pulse Oximeter] 91 Respiratory Rate 16 16 18 Blood Pressure [Le ft Arm] 103/69 Pulse Oximetry 97 Oxygen Delivery Me thod Room Air 10/26/23 20:45 10/26/23 21:13 10/27/23 03:59 Temperature 97.8 F 98.2 F Pulse Rate [Pulse Oximeter] 91 89 Respiratory Rate 16 18 16 Blood Pressure [Le ft Arm] 107/73 115/77 Pulse Oximetry 97 97 Oxygen Delivery Me thod Room Air Room Air OB - DS: Summary Hospital Course Hospital Course: Heidi is a 33 year old G 1 P 1 at 39.1 weeks gestation that was admitted to the Center on 10/24/23 for IOL for polyhydramnios, AMA, obesity, kidney disease, and Alport Syndrome. She had an uncomplicated delivery for failure to progress. She delivered a viable female infant. She is breast feeding and supplementing with formula. the patient has done well. Her pain is well controlled with current medications.? She has no new complaints.? Urinary output is adequate and she is voiding without difficulty.? Has a good appetite, is tolerating a general diet, is passing flatus, and has not had a bowel movement.? Has scant amount of rubra lochia.? She is ambulating well. She is unsure what she is planning for control. She is considering an IUD or condoms. Peripartum Data delivery method: Primary C/S; Labored Procedures: Procedures Operation Date: 10/25/23 19:45 Actual Procedure Side Surgeon p PRIMARY LOW TRANSVERSE Section Martina Quevedo MD complications: none Infant Gender: Female Discharge Plan: Home Status at Discharge Functional status at discharge: independent ambulation Overall status at discharge: patient is progressing back to baseline Time Spent with Patient Time attestation: Total time spent providing and/or coordinating discharge services: Discharge Plan Discharge Disposition: Home, Self-Care Date of Admission: 10/24/23 07:00 Primary Care Provider: Val Byrd Condition: Stable Anticipated Discharge Date/Time: 10/27/23 10:00 Discharge Medications: New docusate sodium 100 mg Capsule 100 mg PO BID PRNQty: 120 0RF Rx Instructions: Take 1-2 tablets daily as needed for constipation. hydrocodone-acetaminophen 5-325 mg Tablet 1 - 2 tab PO Q6H PRNQty: 30 0RF Continued loratadine [Claritin] 10 mg tablet 10 mg PO QDAY albuterol sulfate 90 mcg/actuation HFA aerosol inhaler 2 puff inhalation Q6H PRN Qvar RediHaler 40 mcg/actuation HFA aerosol breath activated 2 inh inhalation BID Hold Instructions: Pt. states not needed montelukast 10 mg tablet 10 mg PO QHS vitamin B complex [B Complex-Vitamin B12] Tablet 1 tab PO QDAY mometasone 50 mcg/actuation spray,non-aerosol 2 spray intranasal QDAY PRN Rx Instructions: administer into each nostril One A Day Women's DHA 28 mg iron- 800 mcg combo pack 1 pkg PO DAILY Discontinued aspirin 81 mg tablet,chewable 81 mg PO QDAY Discharge Orders: Discharge Order (Routine); Ordered 10/27/23 Ordered By: Irma Salvador Patient Education: OB /Breast Feeding Additional Instructions: Discharge instructions were reviewed with the patient including signs and symptoms of infection and home going medications? ?? Activity restrictions:? Lifting Restrictions: 20 pounds for 6 weeks? No high-impact or core exercises for 6 weeks.?? No not submerge incision under water X 2 weeks?? Nothing vaginally for 6 weeks: no tampons or intercourse? Do not drive while taking narcotic pain medication(s)? Off Work or School for 8 weeks? ?? Symptoms to report to doctor:? -Bleeding that saturates more than one pad per hour? -Passing clots larger than the size of a golf ball? -Pain not relieved by prescribed medication? -Fever above 100.4 degrees Fahrenheit? -A foul vaginal odor? -Difficulty in emotions, mood and functions? -Thoughts of hurting yourself and/or ? -Painful, reddened area in your breast? -Any drainage, redness or tenderness in your IV/epidural site? -Severe headache that doesn't improve after taking medications? -Changes in vision, including temporary loss of vision, blurred vision, and/or light sensitivity? -Upper abdominal pain (usually under ribs on the right side)? -Decrease in urination or painful, frequent urinating? -Chest pain? -Shortness of breath? -Tenderness or pain with redness and/swelling in the calf(s) of your leg? Follow up visits:?? 1. 1 week visit:? incision check.? 2. 2-week visit: discuss feeding/care concerns, review control options and screen for anxiety/depression.? 3. 6-week visit for an annual exam.? ?? consultation services are available to all mothers and babies for the first year after delivery.? To make an appointment, please call [phone].? Follow Up Appointments: [facility] [Provider Group] Forms: MyHealth Info Instructions
[2023-10-27 08:30] VITALS: BP 134/78; PULSE 85; RESP 16; TEMP 36.9; O2SAT 98
[2023-10-27] MEDS: DOCUSATE SODIUM 100 MG CAPSULE PO (11:22)
== END 2023-10-27 11:36 | disposition home or self-care (01) | DRG 540 ==
PROVIDERS: Obstetrics & Gynecology; Admitting Provider Obstetrics & Gynecology; Visit Provider Obstetrics & Gynecology
PROC: (CPT 59514; principal; 2023-10-25 19:30)
DX: O40.3XX0 Polyhydramnios, third trimester, not applicable or unspecified (principal); O64.0XX0 Obstructed labor due to incomplete rotation of fetal head, not applicable or unspecified; O36.63X0 Maternal care for excessive fetal growth, third trimester, not applicable or unspecified; Z3A.39 39 weeks gestation of pregnancy; Q87.81 Alport syndrome; Q61.5 Medullary cystic kidney; G89.18 Other acute postprocedural pain; Z37.0 Single live birth; O99.214 Obesity complicating childbirth; J45.909 Unspecified asthma, uncomplicated; O90.81 Anemia of the puerperium; D64.9 Anemia, unspecified
CPT/HCPCS: 01967; 01968; 36415; 59200; 64488; 76942; 85018; 85025; 86592; 86850; 86900; 86901; 99140; A9270; C9290; J0456; J0665; J1100; J1580; J1650; J1836; J1885; J2210; J2270; J2274; J2371; J2590; J2795; J3010; J3370; J7030; J7050; J7120

== ENCOUNTER 2023-10-27 20:43 | Inpatient (IN) | payer BC, OTHER, SELFPAY ==
[2023-10-27] VITALS (7 sets, daily range): BP systolic 128–163; BP diastolic 85–92; PULSE 73–98; RESP 16–18; TEMP 36.5–36.9; O2SAT 96–99; BMI 42.6
--- NOTE | 2023-10-27 20:51 | ED_ITS ---
HPI - General Adult General Date Seen: 10/27/23 Chief complaint: Post OB/Post- Complication Stated complaint: Two days post , high BP Time Seen by Provider: 10/27/23 20:50 History of Present Illness HPI narrative: This is a 33-year-old female, , who is now 2 days post tpartum after Caesarean delivery. Per records she was admitted 10/23 for induction of labor due to macrosomia, polyhydramnios, Alport syndrome, medullary sponge kidney, and advanced maternal age. Per records from 10/23-Alport syndrome martin's risk for worsening kidney function during . It looks like her 24 hour urine protein was 228 mg. Repeat 24 hour urine collection had 32 weeks was 6 and 92 mg. Creatinine was 0.5. According to hospital records from the OB floor- She was admitted on the for induction of labor. She was started on Pitocin. It sounds like she had section for failure to progress. According to discharge summary blood pressure was 122/76 and then 128/76 yesterday on 10/25. She has been having some lower abdominal pain from her incision but feels like it is healing well. It has not been bleeding. No new redness. No purulent drainage. She has had light vaginal bleeding without clots. No brownish bleeding or purulent bleeding. No fevers. She did have a headache in the hospital . This was tolerable treated with New [place] and Tylenol. She had swelling of both her arms and both of her legs in the hospital due to fluids. Discharged home with New Albin for pain control, docusate. She was discharged home this morning. Since then she has been doing well but feeling a bit worse. Headache is worse this afternoon. She had taken her Tylenol and New [place] on schedule. She still having some pain in her incision but feels otherwise fine. No change in her bleeding. She notes that the swelling that had been present in her hands is better and improving but she is having increasing swelling bilaterally in her lower extremities. There feeling tight but not painful. No rashes. She has been trying to sleep in her easy chair with her feet up as much as possible. Although her headaches worse this afternoon she is not having any other symptoms. No focal numbness or weakness. No blurry vision or light sensitivity. No nausea or vomiting. No abdominal pain. No jaundice. Related Data Home Medications ?Medication ?Instructions ?Recorded ?Confirmed albuterol sulfate 90 mcg/actuation 2 puff inhalation Q6H PRN 03/21/23 10/24/23 aerosol inhaler beclomethasone dipropionate 40 2 inh inhalation BID 03/21/23 10/24/23 mcg/actuation HFA breath activated aerosol (Qvar RediHaler) montelukast 10 mg tablet 10 mg PO QHS 03/21/23 10/24/23 vitamin B complex (B 1 tab PO QDAY 03/21/23 10/24/23 Complex-Vitamin B12 tablet) vits 75-iron 28 mg-folic 1 pkg PO DAILY 05/14/23 10/24/23 acid 800 mcg-omega-3 oral combo pack (One A Day Women's DHA) loratadine 10 mg tablet (Claritin) 10 mg PO QDAY 08/11/23 10/24/23 mometasone 50 mcg/actuation nasal 2 spray intranasal QDAY PRN 09/08/23 10/24/23 spray Previous Rx's ?Medication ?Instructions ?Recorded docusate sodium 100 mg capsule 100 mg PO BID PRN #120 caps 10/27/23 hydrocodone 5 mg-acetaminophen 325 1 - 2 tab PO Q6H PRN #30 tabs 10/27/23 mg tablet Allergies Allergy/AdvReac Type Severity Reaction Status Date / Time bacitracin Allergy Intermediate Verified 10/24/23 07:55 [From Neosporin ([id number])] neomycin Allergy Intermediate Verified 10/24/23 07:55 [From Neosporin ([id number])] polymyxin B Allergy Intermediate Verified 10/24/23 07:55 [From Neosporin ([id number])] 2-octyl cyanoacrylate Allergy Mild Verified 10/24/23 07:55 amoxicillin Allergy Mild Verified 10/24/23 07:55 cefaclor Allergy Mild Verified 10/24/23 07:55 cefuroxime Allergy Mild Verified 10/24/23 07:55 clindamycin Allergy Mild Verified 10/24/23 07:55 latex Allergy Mild Verified 10/24/23 07:55 ondansetron Allergy Mild Verified 10/24/23 07:55 shellfish derived Allergy Mild Verified 10/24/23 07:55 dermabond Allergy Intermediate Uncoded 10/21/23 10:50 [facility] Medical History (Updated 10/27/23 @ 22:48 by Saul Collado MD) 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 - Polymorphous light eruption (ICD-10) Nephrolithiasis ?N20.0 - Calculus of kidney (ICD-10) Vitamin D deficiency ?E55.9 - Vitamin D deficiency, unspecified (ICD-10) B12 deficiency ?E53.8 - Deficiency of other specified B group vitamins (ICD-10) Fibula fracture ?S82.409A - Unspecified fracture of shaft of unspecified fibula, initial encounter for closed fracture (ICD-10) Surgical History (Updated 10/25/23 @ 20:52 by Martina Quevedo MD) Status post primary low transverse section (10/25/23) ?Z98.891 - History of uterine scar from previous surgery (ICD-10) History of cholecystectomy ?Z90.49 - Acquired absence of other specified parts of digestive tract (ICD- 10) S/P correction of deviated nasal septum ?Z98.890 - Other specified postprocedural states (ICD-10) H/O laparoscopy ?Z98.890 - Other specified postprocedural states (ICD-10) Family History Sister Alport syndrome Mother Alport syndrome Aunt Alport syndrome Grandfather Alport syndrome Social History What is your current living situation?: I presently have a place to live Problems where you live: no known problems In the past 12 months, utilities in danger of being shut off: no In past 12 months, lack of transportation kept you from medical appts, meetings, work, or getting things needed for daily living: no In the past 12 mos, have been you worried that your food would run out before you had money to buy more?: never true In the past 12 mos, the food you bought just didn't last and you didn't have money to buy more?: never true Smoking Status: Never smoker Do you use any of these nicotine containing products: None Second hand tobacco smoke exposure: No How often do you have a drink containing alcohol: never How often do you have six or more drinks on one occasion: Never AUDIT-C Alcohol total score: 0 Non-prescribed substance use: denies use How often does anyone, including family, friends and others, physically hurt you : never How often does anyone, including family, friends and others, insult or talk down to you: never How often does anyone, including family, friends and others, threaten you with harm: never How often does anyone, including family, friends and others, scream or curse at you: never Little interest or pleasure in doing things: several days Feeling down, depressed, or hopeless: not at all Exam Narrative: Exam Narrative: Constitutional: Appears well-developed and well-nourished. Alert. Conversant. Looks a little pale, but not diaphoretic or mottling. Overall polite and alert. Non toxic. HENT: Head: Atraumatic. Nose: Nose normal. Mouth/Throat: Oral mucosa is clear and moist. no trismus. Pharynx normal. Tonsils symmetric. No tonsillar enlargement, erythema, or exudate. Eyes: Conjunctivae normal. EOM normal. Pupils equal, round, and reactive to light. No scleral icterus. Neck: Normal range of motion. Neck supple. No tracheal deviation present. No JVD. Cardiovascular: Normal rate, regular rhythm. No gallop. No friction rub. No murmur heard. Symmetric radial artery pulses Pulmonary/Chest: Effort normal. No stridor. No respiratory distress. No wheezes. No rales. No rhonchi . No tenderness. Abdominal: Abdominal binder removed for exam. Soft. Bowel sounds normal. No distension. No mass. No tenderness. No rebound. No guarding. Dressing in place over incision looks dry. No signs of bleeding, purulent drainage. No surrounding erythema. There are 5 circular erythematous macules on the abdominal skin which likely indicate contact dermatitis from the adhesive holding her monitors in place during delivery. Musculoskeletal: RUE: Normal range of motion. No tenderness. No deformity LUE: Normal range of motion. No tenderness. No deformity RLE: Normal range of motion. 2+ pitting edema. No tenderness. No deformity LLE: Normal range of motion. 2+ pitting edema. No tenderness. No deformity Neurological: Mental status normal. Attention normal. Alert and oriented x3. GCS 15. Memory normal. Speech fluent. Cognition normal. Cranial Nerves intact II-XII except I did not formally test gag or visual acuity. EOMI. Palate elevates symmetrically and tongue protrudes in the midline. Strength: 5/5 trapezius on the right and left 5/5 deltoid on the right and left 5/5 biceps on the right and left 5/5 triceps on the right and left 5/5 data acquisition technician on the right and left 5/5 thumb opposition on the right and le ft 5/5 finger abduction on the right and le ft 5/5 hip flexors (L3) on the right and le ft 5/5 quadriceps (L4) on the right and lef t 5/5 tibialis anterior on the right and l eft 5/5 EHL (L5) on the right and left 5/5 gastrocnemius (S1) on the right and left 5/5 hamstring on the right and left Sensation intact to light touch in both upper extremities (C4-T1) Sensation intact to light touch in Both lower extremities (L4-S1). Gait normal. Patellar reflexes 2/4 bilaterally Skin: Skin is warm and dry. No rash noted. No pallor. Normal capillary refill. Psychiatric: Normal mood. Normal affect. Const: Vital Signs, click to edit/add: Vital Signs - 24 hr 10/27/23 20:53 10/27/23 21:00 10/27/23 21:00 Temperature 97.7 F Pulse Rate [Pulse Oximeter] 96 85 90 Respiratory Rate 18 16 Blood Pressure [Ri ght Upper Arm] 139/90 H 142/92 H 145/91 H Pulse Oximetry 99 98 Oxygen Delivery Me thod Room Air Room Air 10/27/23 21:30 10/27/23 22:30 10/27/23 23:00 Temperature 98.5 F Pulse Rate [Pulse Oximeter] 98 88 76 Respiratory Rate 16 18 Blood Pressure [Ri ght Upper Arm] 163/91 H 145/90 H 151/91 H Pulse Oximetry 98 99 Oxygen Delivery Me thod Room Air Room Air Course Vital Signs Vital signs: Initial Vital Signs Temperature 97.7 F 10/27/23 20:53 Temperature Source Temporal Artery Scan 10/27/23 20:53 Pulse Rate 96 10/27/23 20:53 Respiratory Rate 18 10/27/23 20:53 Blood Pressure 139/90 H 10/27/23 20:53 Blood Pressure Mean 106 H 10/27/23 20:53 Blood Pressure Position Sitting 10/27/23 20:53 Pulse Oximetry 99 10/27/23 20:53 Oxygen Delivery Method Room Air 10/27/23 20:53 Vital Signs Temperature 97.7 F 10/27/23 20:53 Pulse Rate 96 10/27/23 20:53 Respiratory Rate 18 10/27/23 20:53 Blood Pressure 139/90 H 10/27/23 20:53 Pulse Oximetry 99 10/27/23 20:53 Oxygen Delivery Method Room Air 10/27/23 20:53 Temperature 98.5 F 10/27/23 22:30 Pulse Rate 76 10/27/23 23:00 Respiratory Rate 18 10/27/23 23:00 Blood Pressure 151/91 H 10/27/23 23:00 Pulse Oximetry 99 10/27/23 23:00 Oxygen Delivery Method Room Air 10/27/23 23:00 Medications Administered Medications: Generic Name Dose Route Start Last Admin Trade Name Freq PRN Reason Stop Dose Admin Nifedipine 60 mg 10/27/23 22:39 10/27/23 23:00 Nifedipine 30 Mg Tab.Er.24 PO 10/27/23 22:40 60 mg ONCE ONE Administration Discontinued Medications Generic Name Dose Route Start Last Admin Trade Name Freq PRN Reason Stop Dose Admin Hydrocodone Bitart/Acetaminophen 1 tab 10/27/23 21:21 10/27/23 21:30 Hydrocodone-Acetamin 5-325 Mg 1 Tab PO 10/27/23 21:22 1 tab ONCE ONE Administration Medical Decision Making [facility] Narrative Medical decision making narrative: Very pleasant 33-year-old female with history of Alport syndrome who is 2 days after [facility] of [facility] (had been present while in the hospital prior to discharge but is worse today) and worsening bilateral lower extremity peripheral edema, with elevated blood pressure readings of approximately 144/93 at home. She has no other focal neurologic deficits or visual symptoms. Differential would include -related hypertension, with her without severe features, preeclampsia. She does not have any fever to suggest meningitis. No postural component to her headache to suggest its dural puncture related. No focal deficits to suggest stroke. On exam she has no hepatomegaly. No significant abdominal tenderness. Her C- section looks good. She denies any purulent bleeding to suggest endometritis. No dysuria to suggest UTI. No focal deficits. She has a headache rated at 3-4/10. Treated with [place]. Does not want any stronger pain medications due to concern for side effects. Blood pressures are mildly 139/90, 142/93 here in ER. These are increased compared to this morning. Laboratory workup shows normal kidney function even with history of Alport syndrome. LFTs normal. Platelet count normal. She is anemic with a hemoglobin of 8.6 but this is actually stable from yesterday 8.1. Urinalysis shows hematuria likely from vaginal bleeding. No symptoms of kidney stone. No signs of UTI on urinalysis. No proteinuria on urinalysis. Overall her headache is really not improved after New Albin given here in the ER. She is not developing any other visual symptoms or focal neurologic deficits white here. Blood pressures remain on the borderline in the low 140s/around 90. Discussed with obstetric, Dr. Estevez. Options here would include initiation of antihypertensives (nifedipine XL or labetalol) with discharge with follow-up tomorrow in clinic for repeat BP, verses admission for office and blood pressure and lab recheck in the morning. Overall the patient is concerned about her worsening headache and has a very long commute to come back to the hospital (about 45 minutes away). Therefore will admit for obs and monitoring. Lab Data Labs: Lab Results 10/27/23 10/27/23 10/27/23 Range/Units 21:30 21:50 21:51 WBC 7.79 (4.50-11.00) K/uL RBC 3.12 L (4.00-5.20) m/uL Hgb 8.6 L (12.0-16.0) gm/dL Hct 26.7 L (33.0-51.0) % MCV 86 (80-100) fL MCH 28 (26-34) pg MCHC 32 (32-36) gm/dL RDW Coeff of Kurt 20.4 H (11.5-15.5) % Plt Count 196 (140-440) K/uL Neut % (Auto) 71.8 (42.0-72.0) % Lymph % (Auto) 21.1 (20-44) % Gaines % (Auto) 4.6 (0.0-11.0) % Eos % (Auto) 1.4 (0.0-7.0) % Baso % (Auto) 0.3 (0.0-3.0) % Neut # (Auto) 5.60 (1.7-7.0) K/uL Lymph # (Auto) 1.64 (0.90-2.90) K/uL Gaines # (Auto) 0.40 (0.00-0.90) K/UL Eos # (Auto) 0.11 (0.00-0.50) K/uL Baso # (Auto) 0.02 (0.00-0.30) K/uL Abs Immat Gran (auto) 0.06 (0.00-0.30) K/uL Imm/Tot Granulo (auto) 0.8 % Sodium 136 (135-149) mmol/L Potassium 3.7 (3.6-5.1) mmol/L Chloride 107 (96-114) mmol/L Carbon Dioxide 25 (20-32) mmol/L Anion Gap 4 L (7-15) mEq/L BUN 17 (5-24) mg/dL Creatinine 0.7 (0.5-1.5) mg/dL Estimated Creat Clear 113.16 Estimated GFR 116 ml/min Glucose 113 (60-115) mg/dL Lactate 1.4 (0.5-1.9) mmol/L Calcium 8.9 (8.4-10.6) mg/dL Total Bilirubin 0.4 (0.1-1.5) mg/dL AST 38 H (12-35) U/L ALT 22 (4-35) U/L Alkaline Phosphatase 72 (40-150) U/L Total Protein 6.3 (6.0-8.3) g/dL Albumin 3.4 (3.3-5.0) g/dL Urine Color Yellow (Yellow) Urine Appearance Clear (Clear) Urine pH 6.0 (5.0-8.5) Ur Specific [place] 1.010 (1.000-1.030) Urine Protein Negative (Negative) Urine Glucose (UA) Negative (Negative) Urine Ketones Negative (Negative) Urine Blood 2+ A (Negative) Urine Nitrite Negative (Negative) Urine Bilirubin Negative (Negative) Urine Urobilinogen 0.2 (0.2-1.0) Ur Leukocyte Esterase Negative (Negative) Urine RBC 5-10 A (0-2) Urine WBC 0-2 (0-5) Ur Squamous Epith Cells None (None-Few) Urine Bacteria None (None) ECG Data Attestation: I personally reviewed and interpreted this ECG as follows: Interpretation: Normal sinus rhythm Rate: 83 NM: 154 QRS axis: Normal axis. ST segment/T wave: No ST segment elevation or depression. QTc: 425 Discharge Plan Discharge Clinical Impression: Headache, Hypertension, Edema, peripheral Patient Disposition: Admit to OB
--- NOTE | 2023-10-27 21:00 | PC.NURSE ---
Pt is a G1L1 with for FTP/OP presentation per pt report on Friday at 2007. Pt states she was induced starting on friday because of her Alports Nephritis. Pt states she went home today and BP has been running high with readings of 144/97,138/92,144/81. Pt was advised to come to ED for evaluaion. Pt was given Hines at 2130 and Nifedipine in ED. Pt's daughter, Yun is using syringe with feeding tube and Pacifier for feedings. Pt has been pumping and also using formula-Similac 360.
--- OUTSIDE RECORDS SUMMARY | 2023-10-27 21:26 | XMS_ITS | Encounter Summary ---
Author Organization [facility] Address [address] [place] [address]. [place] [address] Care Team Providers Care Product Managent Intern Name Role Phone No Ref-Primary, Physician Primary Care Provider Reason for Visit * Reason Comments Ultrasound RL2-subopt Encounter Details Date Type Department Care Team (Late st Contact Info) Description 07/28/2023 9:15 AM FUN HOUSE OPERATOR Office Visit [facility] [place] [address] [place] [address] Donnie Stanton MD [address] [place] [address] Justice Patterson MD [address] [place] [address] Encounter for follow-up ultrasound of [...] for details of today's US at the [facility]. Justice Patterson MD Maternal- Medicine HOUSE OPERATOR documented in this encounter Nursing Notes * Crystal Sherman, RN - 07/28/2023 9:15 AM CST Patient presents to [facility] for RL2 at 26w3d due to subopt. Positive movement. Denies LOF, vaginal bleeding or cramping/contractions. SBAR given to [facility] MD, see their note in Epic. HOUSE OPERATOR documented in this encounter Plan of Treatment Not on file documented as of this encounter Visit Diagnoses Diagnosis Encounter for follow-up ultrasound of anatomy- Primary Pre-exist hyp chronic kidney disease comp preg, second tri Alport syndrome Other specified congenital anomalies documented in this encounter Care Teams Product Managent Intern Relationship Specialty Start Date End Date No Ref-Primary, Physician PCP - General 05/28/23 documented as of this encounter
--- OUTSIDE RECORDS SUMMARY | 2023-10-27 21:26 | XMS_ITS | Clinical Summary ---
Author Organization [facility] Address [place], [place] [address] Care Team Providers Care Soubrette Name Role Phone Val Byrd Primary Care Provider [phone]- [phone] Allergies Active Allergy Reactions Criticality Noted Date [...] once daily. 180 Tablet 3 09/02/2022 Active 993-kalc-uycff-ome ga3 27 mg iron- 800 mcg-235 mg [...] Encounters Date Type Department Care Team Description 10/21/2023 Orders Only [facility] SERVICES Scanner 1 scan: (1-Ord) [facility], OB BIOPHYSICAL PROFILE, 10/21/2023 10/15/2023 Orders Only [facility] Scanner 1 scan: (1-Ord) [facility] OB PELVIS GROWTH, 10/15/2023 10/09/2023 8:10 AM CDT Office Visit [facility] [address] [place] [address] Val Bydr PA Medication Management (Needs meds refilled-seeing OB at [facility]) 10/09/2023 Refill [facility] [address] [place] [address] Val Byrd PA Refill Request (Triamcinolone) 10/09/2023 Travel 09/29/2023 Orders Only [facility] Scanner 1 scan: (1-Ord) [facility], OB PELVIS GROWTH, 09/29/2023 09/08/2023 Orders Only [facility] Scanner 1 scan: (1-Ord) [facility] OB PELVIS, 09/08/2023 08/25/2023 12:40 PM CDT Office Visit [facility] [address] [place] [address] Annemarie Randhawa, LESLYE Breathing Problem (Started CPAP 2-3 weeks ago. Congenital non-obstructive apnea. Feels that shortness of breath has worsened since starting to use CPAP. Describes having difficulty getting a full breath in or out. /QVAR BID. Using Albuterol BID as well. ) 08/25/2023 Travel 08/25/2023 Nurse Triage [facility] [address] [place] [address] Val Byrd PA Sob (7 months ) from Last 3 Months Immunizations Name Administration Dates Next Due COVID-19 vaccine ([employer] NTech 30mcg/0.3mL) PF, MDV 06/17/2021,12/17/2020,11/19/2020 DT (Age [...] 10/09/2023 8:18 AM CDT Plan of Treatment Upcoming Encounters Date Type Department Care Team (Late st Contact Info) Description 10/28/2023 9:50 AM CDT Office Visit [facility] [address] [place] [address] Manisha Middleton MD [address] [place] [address] Health Maintenance Due Date Last Done Comments [...] Priority Date/Time Associated Diagnosis Comments SCAN-ULTRASOUND REPORT 10/21/2023 12:00 AM CDT SCAN-ULTRASOUND REPORT 10/15/2023 12:00 AM CDT SCAN-ULTRASOUND [...] to Health Maintenance Results * SCAN-ULTRASOUND REPORT (10/21/2023 12:00 AM CDT) Only the most recent of4 resultswithin the time period is included. Anatomical Region Laterality Modality Other Scanner OTHER * LC HCV ANTIBODY RFX TO QUANT PCR (09/02/2022 10:39 AM CDT) Pathologist [facility] HCV Ab Non Reactive Non Reactive 09/04/2022 10:06 PM CDT [facility] ESOTERIC TESTING (CET) Blood BLOOD SPECIMEN / Unknown Venipuncture / Unknown 09/02/2022 10:39 AM CDT 09/02/2022 10:43 AM CDT [facility] ESOTERIC TESTING (CET) - 09/04/2022 10:06 PM CDT Performed at: ??01 - [address] ??[id number] Roof Cement And Paint Maker: Severo Sunshine MD, Phone: ??[phone] aVl [facility] FOR ESOTERIC TESTING (CET) [address] [place] [address], * LC HIV-1/O/2, 4TH GENERATION (09/02/2022 10:39 AM CDT) [facility] HIV Scr 4th Gen Non Reactive Non Reactive 09/04/2022 10:[address] [facility] FOR ESOTERIC TESTING (CET) Comment: HIV Negative HIV-1/HIV-2 antibodies and HIV-1 p24 antigen were NOT detected. There is no laboratory evidence of HIV infection. Blood BLOOD SPECIMEN / Unknown Venipuncture / Unknown 09/02/2022 10:39 AM CDT 09/02/2022 10:43 AM CDT [facility] FOR ESOTERIC TESTING (CET) - 09/04/2022 10:06 PM CDT Performed at: ??01 - [facility] [address] [place] [address] ??[id number] [employer] Maker: Severo Sunshine MD, Phone: ??[phone] Val [facility] FOR ESOTERIC TESTING (CET) [address] from Last 3 Months or Most Recently Relevant to Health Maintenance Advance Directives * Full Code (Latest Code Status on File) Date Activated Date Inactivated Comments 05/23/2020 2:04 PM 05/24/2020 1:14 PM Question Answer Comments Code Status Discussion: Not Discussed Care Teams Soubrette Relationship Specialty Start Date End Date Val Byrd PA [address] [facility] [address] PCP - General Physician [employer] Model 11/21/22
--- OUTSIDE RECORDS SUMMARY | 2023-10-27 21:26 | XMS_ITS | Encounter Summary ---
Author Organization [place] Address [address] [place] [address] Care Team Providers Care Development Officer Name Role Phone No Ref-Primary, Physician Primary Care Provider Reason for Referral * Diagnostic Imaging Ultrasound (Routine) - Pending Review Specialty Diagnoses / Procedures Referred By Contac t Referred To Contact Radiology. Diagnoses High-risk , unspecified trimester Procedures [facility] US Comprehensive Single F/U Donnie Stanton MD [address] [place] [address] Referral ID Status Reason Start Date Expiration Date V isits Requested Visits Authorized [id number] Pending Review 07/03/2023 07/02/2024 1 1 ATIONAL SPECIALIST Reason for Visit * Diagnostic Imaging Ultrasound (Routine) - Pending Review Specialty Diagnoses / Procedures Referred By Contac t Referred To Contact Radiology. Diagnoses High-risk , unspecified trimester Procedures [facility] US Comprehensive Single F/U Donnie Stanton MD [address] [place] [address] Referral ID Status Reason Start Date Expiration Date V isits Requested Visits Authorized [id number] Pending Review 07/03/2023 07/02/2024 1 1 Encounter Details Date Type Department Care Team (Latest Contact Info) Description 07/28/2023 8:34 AM EDUCATIONAL SPECIALIST - 07/28/2023 11:59 PM EDUCATIONAL SPECIALIST Hospital Encounter [facility] Maternal Medicine [facility] [address] [place] [phone] Donnie Stanton MD [address] [place] [address] Justice Patterson MD [address] [place] [address] High-risk , unspecified trimester Discharge [...] 1 tablet by mouth at bedtime Vit-Fe Gre-GZ-Tjypu (ONE-A-DAY WOMENS ) 28-0.8 & 223 MG [...] Procedure Name Priority Date/Time Associated Diagnosis Comments [facility] SINGLE F/U Routine 07/28/2023 9:16 AM EDUCATIONAL SPECIALIST High-risk , unspecified trimester documented in this encounter Results * M US Comprehensive Single F/U (07/28/2023 9:16 AM EDUCATIONAL SPECIALIST) Anatomical Region Laterality Modality Ultrasound 07/28/2023 8:38 AM EDUCATIONAL SPECIALIST Impressions 07/28/2023 9:18 AM EDUCATIONAL SPECIALIST IMPRESSION ----- 1) Growth parameters and estimated weight were consistent with appropriate for gestational age pattern of growth. 2) anatomy appeared normal for gestational age. Narrative 07/28/2023 9:18 AM EDUCATIONAL SPECIALIST ?Comp Follow Up ----- Pat. Name: HEIDI FORD ? Study Date: ??07/28/2023 8:38am Pat. NO: ??[id number] ?Referring ??: VENICE ELMORE OMAHA Site: [facility] ? Manager General: Genaro Berkowitz RDMS : ??1990 ?Age: ?? [...] 2 lb 7 ?oz EFW by ?Hadlock ([id number]-FL) Head / Face / Neck Biometry: CM ?6.0 ? mm ANATOMY ----- The following structures appear normal: Head / Neck ? Cranium. Head size. Head shape. Lateral ventricles. Midline falx. Cavum septi pellucidi. Cerebellum. Cisterna magna. Thalami. Face ? Lips. Profile. Nose. Heart / Thorax ?4-chamber view. RVOT view. LVOT view. Aortic arch view. 5-vrlkav-fksitek view. ? Diaphragm. Abdomen ? Stomach. Kidneys. [...] FORD Study Date: 07/28/2023 8:38am Pat. NO: [id number] Referring MD: VENICE ELMORE RIBEIRO Site: [facility] Manager General: Genaro Berkowitz RDMS : 1990 Age: 32 [...] 2 lb 7 oz EFW by Hadlock ([id number]-FL) Head / Face / Neck Biometry: CM 6.0 mm ANATOMY ----- The following structures appear normal: Head / Neck Cranium. Head size. Head shape.Lateral ventricles. Midline falx. Cavum septi pellucidi. Cerebellum.Cisterna magna. Thalami. Face Lips. Profile. Nose. Heart / Thorax 4-chamber view. RVOT view. LVOT view.Aortic arch view. 4-tiixqj-skrngvg view. Diaphragm. Abdomen Stomach. Kidneys. Bladder. Spine [...] normal for gestational age. Donnie Stanton MD [facility] US ORDERABLE S documented in this encounter Visit Diagnoses Diagnosis High-risk , unspecified trimester documented in this encounter Care Teams Development Officer Relationship Specialty Start Date End Date No Ref-Primary, Physician PCP - General 05/28/23 documented as of this encounter
--- OUTSIDE RECORDS SUMMARY | 2023-10-27 21:26 | XMS_ITS | Encounter Summary ---
Author Organization [place] Address [address] [place] [address]. [place] [address] Care Team Providers Care Rod Mill Operator Name Role Phone No Ref-Primary, Physician [...] on filedocumented in this encounter Care Teams Rod Mill Operator Relationship Specialty Start Date End Date No Ref-Primary, Physician PCP - General 05/28/23 documented as of this encounter
--- OUTSIDE RECORDS SUMMARY | 2023-10-27 21:26 | XMS_ITS | Clinical Summary ---
Author Organization [facility] Address [address] [place] [address] Care Team Providers Care Gravel Weigher Name Role Phone No Ref-Primary, Physician Primary [...] 25 mg by mouth daily Active Vit-Fe Lfh-VQ-Hseta (ONE-A-DAY WOMENS ) 28-0.8 & 223 MG MISC Take 1 tablet by mouth daily Active loratadine (CLARITIN REDITABS) 10 MG ODT Take 10 mg by mouth daily Active Encounters Date Type Department Care Team Description 07/28/2023 9:15 AM SHIPFITTER HELPER Office Visit [facility] Medicine [facility] [address] [place] [address] Donnie Stanton MD Rauk, Justice Fuchs MD Encounter for follow-up ultrasound of anatomy (Primary Dx); Pre-exist hyp chronic kidney disease comp preg, second tri; Alport syndrome 07/28/2023 8:34 AM SHIPFITTER HELPER - 07/28/2023 11:59 PM SHIPFITTER HELPER Hospital Encounter [facility] Medicine [facility] [address] [place] [address] Donnie Stanton MD Rauk, Justice Fuchs MD [...] Comments Blood Pressure 114/82 07/03/2023 10:18 AM SHIPFITTER HELPER Pulse 82 07/03/2023 10:18 AM SHIPFITTER HELPER Temperature - - Respiratory Rate 18 07/03/2023 10:18 AM SHIPFITTER HELPER Oxygen Saturation 100% 07/03/2023 10:18 AM SHIPFITTER HELPER RA Inhaled Oxygen Concentration - - Weight [...] Procedure Name Priority Date/Time Associated Diagnosis Comments [facility] US COMPREHENSIVE SINGLE F/U Routine 07/28/2023 9:16 AM SHIPFITTER HELPER High-risk , unspecified trimester from Last 3 Months Results * [facility] US Comprehensive Single F/U (07/28/2023 9:16 AM SHIPFITTER HELPER) Anatomical Region Laterality Modality Ultrasound 07/28/2023 8:38 AM SHIPFITTER HELPER Impressions 07/28/2023 9:18 AM SHIPFITTER HELPER IMPRESSION ----- 1) Growth parameters and estimated weight were consistent with appropriate for gestational age pattern of growth. 2) anatomy appeared normal for gestational age. Narrative 07/28/2023 9:18 AM SHIPFITTER HELPER ?Comp Follow Up ----- Pat. Name: HEIDI FORD ? Study Date: ??07/28/2023 8:38am Pat. NO: ??[id number] ?Referring ??MD: VENICE ELMORE [place] Site: ??[facility] ? Graphic Design Manager: Genaro Berkowitz RDMS : ??1990 ?Age: ?? [...] 2 lb 7 ?oz EFW by ?Hadlock ([id number]-FL) Head / Face / Neck Biometry: CM ?6.0 ? mm ANATOMY ----- The following structures appear normal: Head / Neck ? Cranium. Head size. Head shape. Lateral ventricles. Midline falx. Cavum septi pellucidi. Cerebellum. Cisterna magna. Thalami. Face ? Lips. Profile. Nose. Heart / Thorax ?4-chamber view. RVOT view. LVOT view. Aortic arch view. 9-ghcvnh-tsxvhvu view. ? Diaphragm. Abdomen ? Stomach. Kidneys. [...] FORD Study Date: 07/28/2023 8:38am Pat. NO: [id number] Referring MD: VENICE RIBEIRO Site: [facility] Graphic Design Manager: Genaro Berkowitz RDMS : 1990 Age: [...] 2 lb 7 oz EFW by Hadlock (APA-QW-AL-FL) Head / Face / Neck Biometry: CM 6.0 mm ANATOMY ----- The following structures appear normal: Head / Neck Cranium. Head size. Head shape.Lateral ventricles. Midline falx. Cavum septi pellucidi. Cerebellum.Cisterna magna. Thalami. Face Lips. Profile. Nose. Heart / Thorax 4-chamber view. RVOT view. LVOT view.Aortic arch view. 2-vzxekq-zqpqbsh view. Diaphragm. Abdomen Stomach. Kidneys. Bladder. Spine [...] normal for gestational age. Donnie Stanton MD [facility] from Last 3 Months Care Teams Gravel Weigher Relationship Specialty Start Date End Date No Ref-Primary, Physician PCP - General 05/28/23
--- OUTSIDE RECORDS SUMMARY | 2023-10-27 21:26 | XMS_ITS | Referral Summary ---
Author Organization [place] Address [address] [place] [address] Care Team Providers Care Check Out Clerk Name Role Phone No Ref-Primary, Physician Primary Care Provider Encounters Date Type Department Care Team Description 07/28/2023 Travel 07/28/2023 9:15 AM FABRICATION ENGINEER Office Visit [facility] Maternal Medicine [facility] [address] [place] [phone] Donnie Stanton MD Rauk, Justice Fuchs MD Encounter for follow-up ultrasound of anatomy (Primary Dx); Pre-exist hyp chronic kidney disease comp preg, second tri; Alport syndrome 07/28/2023 8:34 AM FABRICATION ENGINEER - 07/28/2023 11:59 PM FABRICATION ENGINEER Hospital Encounter [facility] Maternal Medicine [facility] [address] [place] [phone] Donnie Stanton MD Rauk, Justice Fuchs MD [...] 25 mg by mouth daily Active Vit-Fe Spv-DO-Wpflv (ONE-A-DAY WOMENS ) 28-0.8 & 223 MG [...] Comments Blood Pressure 114/82 07/03/2023 10:18 AM FABRICATION ENGINEER Pulse 82 07/03/2023 10:18 AM FABRICATION ENGINEER Temperature - - Respiratory Rate 18 07/03/2023 10:18 AM FABRICATION ENGINEER Oxygen Saturation 100% 07/03/2023 10:18 AM FABRICATION ENGINEER RA Inhaled Oxygen Concentration - - Weight - - Height - - Body Mass Index - - Plan of Treatment Not on file Procedures Procedure Name Priority Date/Time Associated Diagnosis Comments [facility] COMPREHENSIVE SINGLE F/U Routine 07/28/2023 9:16 AM FABRICATION ENGINEER High-risk , unspecified trimester from Last 3 Months Results * [facility] Comprehensive Single F/U (07/28/2023 9:16 AM FABRICATION ENGINEER) Anatomical Region Laterality Modality Ultrasound 07/28/2023 8:38 AM FABRICATION ENGINEER Impressions 07/28/2023 9:18 AM FABRICATION ENGINEER IMPRESSION ----- 1) Growth parameters and estimated weight were consistent with appropriate for gestational age pattern of growth. 2) anatomy appeared normal for gestational age. Narrative 07/28/2023 9:18 AM FABRICATION ENGINEER ?Comp Follow Up ----- Pat. Name: HEIDI FORD ? Study Date: ??07/28/2023 8:38am Pat. NO: ??[id number] ?Referring ??: VENICE ELMORE [place] Site: ??[facility] ? Global Program Manager: Genaro Berkowitz RDMS : ??1990 ?Age: [...] 2 lb 7 ?oz EFW by ?Hadlock (LLT-WQ-FL-FL) Head / Face / Neck Biometry: CM ?6.0 ? mm ANATOMY ----- The following structures appear normal: Head / Neck ? Cranium. Head size. Head shape. Lateral ventricles. Midline falx. Cavum septi pellucidi. Cerebellum. Cisterna magna. Thalami. Face ? Lips. Profile. Nose. Heart / Thorax ?4-chamber view. RVOT view. LVOT view. Aortic arch view. 4-xivxim-oxejgvr view. ? Diaphragm. Abdomen ? Stomach. Kidneys. [...] FORD Study Date: 07/28/2023 8:38am Pat. NO: [id number] Referring MD: VENICE RIBEIRO Site: [facility] Global Program Manager: Genaro Berkowitz RDMS : 1990 Age: [...] 2 lb 7 oz EFW by Hadlock (CIP-[id number]-XZ-FL) Head / Face / Neck Biometry: CM 6.0 mm ANATOMY ----- The following structures appear normal: Head / Neck Cranium. Head size. Head shape.Lateral ventricles. Midline falx. Cavum septi pellucidi. Cerebellum.Cisterna magna. Thalami. Face Lips. Profile. Nose. Heart / Thorax 4-chamber view. RVOT view. LVOT view.Aortic arch view. 9-twozvx-zqxopto view. Diaphragm. Abdomen Stomach. Kidneys. Bladder. Spine [...] normal for gestational age. Donnie Stanton MD [facility] ORDERABLE S from Last 3 Months Care Teams Check Out Clerk Relationship Specialty Start Date End Date No Ref-Primary, Physician PCP - General 05/28/23
[2023-10-27] MEDS: HYDROCODONE-ACETAMIN 5-325 MG 1 TAB PO (21:30)
[2023-10-27 21:48] LABS: Appearance Urine Clear (Clear); Bilirubin Urine Negative (Negative); Blood Urine 2+ (Negative); Color Urine Yellow (Yellow); Glucose Urine Negative (Negative); Ketones Urine Negative (Negative); Leukocyte Esterase Urine Negative (Negative); Nitrite Urine Negative (Negative); Protein Urine Negative (Negative); Urobilinogen Urine 0.2 (0.2-1.0)
[2023-10-27 21:53] LABS: Lactate* 1.4 mmol/L (0.5-1.9)
[2023-10-27 21:54] LABS: Basophils Absolute Auto 0.02 K/uL (0.00-0.30); Basophils Percent Auto 0.3 % (0.0-3.0); Eosinophils Absolute Auto 0.11 K/uL (0.00-0.50); Eosinophils Percent Auto 1.4 % (0.0-7.0); Hematocrit 26.7 % (33.0-51.0); Hemoglobin* 8.6 gm/dL (12.0-16.0); Immature Granulocytes Abs Auto 0.06 K/uL (0.00-0.30); Immature Granulocytes Pct Auto 0.8 %; Lymphocytes Absolute Auto 1.64 K/uL (0.90-2.90); Lymphocytes Percent Auto 21.1 % (20-44); Mean Corpuscular HGB Conc 32 gm/dL (32-36); Mean Corpuscular Hemoglobin 28 pg (26-34); Mean Corpuscular Volume 86 fL (80-100); Monocytes Percent Auto 4.6 % (0.0-11.0); Neutrophils Percent Auto 71.8 % (42.0-72.0); Platelet Count* 196 K/uL (140-440); RDW Coefficient of Variation % 20.4 % (11.5-15.5); Red Blood Count 3.12 m/uL (4.00-5.20); White Blood Count* 7.79 K/uL (4.50-11.00)
[2023-10-27 21:57] LABS: Slide Review Reflex No
[2023-10-27 22:12] LABS: Chloride* 107 mmol/L (96-114)
[2023-10-27 22:13] LABS: Albumin* 3.4 g/dL (3.3-5.0); Potassium* 3.7 mmol/L (3.6-5.1); Sodium* 136 mmol/L (135-149)
[2023-10-27 22:15] LABS: Anion Gap 4 mEq/L (7-15); Aspartate Amino Transferase* 38 U/L (12-35); Bilirubin Total* 0.4 mg/dL (0.1-1.5); Carbon Dioxide* 25 mmol/L (20-32); Creatinine* 0.7 mg/dL (0.5-1.5); Est. Creatinine Clearance* 113.16; Estimated Glomerular Filt Rate 116 ml/min
[2023-10-27 22:16] LABS: Alanine Aminotransferase* 22 U/L (4-35); Alkaline Phosphatase* 72 U/L (40-150); Blood Urea Nitrogen* 17 mg/dL (5-24); Calcium* 8.9 mg/dL (8.4-10.6); Glucose* 113 mg/dL (60-115); Total Protein* 6.3 g/dL (6.0-8.3)
[2023-10-27 22:25] LABS: WBC Urine 0-2 (0-5)
[2023-10-27] MEDS: NIFEdipine 30 MG TAB.ER.24 60 MG PO (23:00)
--- NOTE | 2023-10-27 23:46 | PM.GYNHPNOR ---
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 She is postop day number 2 following a primary delivery for arrest of descent and occiput posterior position. She had been discharged from the hospital earlier today, but came in for evaluation because she wasn't feeling right. She has a history of kidney disease, Alport's Syndrome, which caused chronic proteinuria. She did not have pre-eclampsia during nor throughout labor and delivery.In the ED, her BP was mildly elevated to 130-140/90. Labs were normal except for a Hgb of 8.6 (up from 8.1 postop) and an AST of 38. She lives 45 minutes from the hospital and declined outpatient management due to feeling unwell and difficulty arranging a return evaluation in clinic tomorrow. She was accompanied tonight by her sister and had her with her as well. She is breast feeding. Review of Systems Status of ROS: Reports: 10 or more systems reviewed and unremarkable except as noted in History and below Const: Denies: fever or chills Eyes: Denies: change in vision or seeing flashes Cardio: Reports: swelling of feet/ankles; Denies: lightheadedness or shortness of breath with exertion Resp: Denies: shortness of breath GI: Denies: abdominal pain, nausea or vomiting Integ/Breast: Denies: breast pain Neuro: Reports: headache Meds Home Medications and Allergies Home Medications ?Medication ?Instructions ?Recorded ?Confirmed ?Type albuterol sulfate 90 mcg/actuation 2 puff inhalation Q6H PRN 03/21/23 10/24/23 History aerosol inhaler beclomethasone dipropionate 40 2 inh inhalation BID 03/21/23 10/24/23 History mcg/actuation HFA breath activated aerosol (Qvar RediHaler) montelukast 10 mg tablet 10 mg PO QHS 03/21/23 10/24/23 History vitamin B complex (B 1 tab PO QDAY 03/21/23 10/24/23 History Complex-Vitamin B12 tablet) vits 75-iron 28 mg-folic 1 pkg PO DAILY 05/14/23 10/24/23 History acid 800 mcg-omega-3 oral combo pack (One A Day Women's DHA) loratadine 10 mg tablet (Claritin) 10 mg PO QDAY 08/11/23 10/24/23 History mometasone 50 mcg/actuation nasal 2 spray intranasal QDAY PRN 09/08/23 10/24/23 History spray Allergies Allergy/AdvReac Type Severity Reaction Status Date / Time bacitracin Allergy Intermediate Verified 10/24/23 07:55 [From Neosporin ([id number])] neomycin Allergy Intermediate Verified 10/24/23 07:55 [From Neosporin ([id number])] polymyxin B Allergy Intermediate Verified 10/24/23 07:55 [From Neosporin ([id number])] 2-octyl cyanoacrylate Allergy Mild Verified 10/24/23 07:55 amoxicillin Allergy Mild Verified 10/24/23 07:55 cefaclor Allergy Mild Verified 10/24/23 07:55 cefuroxime Allergy Mild Verified 10/24/23 07:55 clindamycin Allergy Mild Verified 10/24/23 07:55 latex Allergy Mild Verified 10/24/23 07:55 ondansetron Allergy Mild Verified 10/24/23 07:55 shellfish derived Allergy Mild Verified 10/24/23 07:55 dermabond Allergy Intermediate Uncoded 10/21/23 10:50 PFSH Active Problems Edema, peripheral (Acute) ?R60.0 - Localized edema (ICD-10) Hypertension (Acute) ?I10 - Essential (primary) hypertension (ICD-10) Headache (Acute) ?R51.9 - Headache, unspecified (ICD-10) Anemia, (Acute) ?O90.81 - Anemia of the puerperium (ICD-10) Lactating mother (Acute) ?Z39.1 - Encounter for care and examination of lactating mother (ICD-10) care following delivery (Acute) ?Z39.2 - Encounter for routine follow-up (ICD-10) Status post primary low transverse section (Acute 10/25/23) Girl, Yun, Apgars 8/9, weight 9#14oz. 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 Amaya is a 32yo at 26w0d GA seen for abdominal pain in . She notes intermittent left sided pain that is positional in nature. Abdomen is mildly tender to palpation, Carnett's sign positive. Reassuring testing, no contractions on tocometer. Denies abdominal tightening, contractions, vaginal bleeding, leaking or decreased movement. Speculum exam unremarkable, cervix closed. UA pending, though denies urgency/frequency, dysuria or malodor. We discussed likely etiology of pain is musculoskeletal vs related to her episode of loose stools. We reviewed use of support belt, ice/heat and/or topical therapies for her pain. No known sick contacts, afebrile with no ongoing diarrhea. Discussed return precautions including contractions, vaginal bleeding, leaking of fluids or decreased movement. 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 ?Q87.81 - Alport syndrome (ICD-10) Migraines (Acute) ?G43.909 - Migraine, unspecified, not intractable, without status migrainosus (ICD-10) Allergic rhinitis (Acute) ?J30.9 - Allergic rhinitis, unspecified (ICD-10) Obesity, Class II, BMI 35-39.9 (Acute) ?E66.9 - Obesity, unspecified (ICD-10) Kidney disease (Acute) ?N28.9 - Disorder of kidney and ureter, unspecified (ICD-10) (Acute) ?Z34.90 - Encounter for supervision of normal , unspecified, unspecified trimester (ICD-10) Endometriosis (Acute) 2016: laparoscopy and excision of endometriosis ?N80.9 - Endometriosis, unspecified (ICD-10) Asthma (Acute) ?J45.909 - Unspecified asthma, uncomplicated (ICD-10) Medical History 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 - Polymorphous light eruption (ICD-10) Nephrolithiasis ?N20.0 - Calculus of kidney (ICD-10) Vitamin D deficiency ?E55.9 - Vitamin D deficiency, unspecified (ICD-10) B12 deficiency ?E53.8 - Deficiency of other specified B group vitamins (ICD-10) Fibula fracture ?S82.409A - Unspecified fracture of shaft of unspecified fibula, initial encounter for closed fracture (ICD-10) Surgical History Status post primary low transverse section (10/25/23) ?Z98.891 - History of uterine scar from previous surgery (ICD-10) History of cholecystectomy ?Z90.49 - Acquired absence of other specified parts of digestive tract (ICD-10) S/P correction of deviated nasal septum ?Z98.890 - Other specified postprocedural states (ICD-10) H/O laparoscopy ?Z98.890 - Other specified postprocedural states (ICD-10) Family History Sister Alport syndrome Mother Alport syndrome Aunt Alport syndrome Grandfather Alport syndrome Social History What is your current living situation?: I presently have a place to live Problems where you live: no known problems In the past 12 months, utilities in danger of being shut off: no In past 12 months, lack of transportation kept you from medical appts, meetings, work, or getting things needed for daily living: no In the past 12 mos, have been you worried that your food would run out before you had money to buy more?: never true In the past 12 mos, the food you bought just didn't last and you didn't have money to buy more?: never true Smoking Status: Never smoker Do you use any of these nicotine containing products: None Second hand tobacco smoke exposure: No How often do you have a drink containing alcohol: never How often do you have six or more drinks on one occasion: Never AUDIT-C Alcohol total score: 0 Non-prescribed substance use: denies use How often does anyone, including family, friends and others, physically hurt you: never How often does anyone, including family, friends and others, insult or talk down to you: never How often does anyone, including family, friends and others, threaten you with harm: never How often does anyone, including family, friends and others, scream or curse at you: never Little interest or pleasure in doing things: several days Feeling down, depressed, or hopeless: not at all Reproductive Health History : 1 Para: 1 Hx # Term Pregnancies: 1 History of multiple gestations: No Number of Living Children: 1 History of pregnancies: No History of ectopic pregnancies: No 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 BOARD 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 - Exam Physical Exam: Vital signs: Temp Pulse Resp BP Pulse Ox O2 Del Method 98.3 F 73 16 128/85 96 Room Air 10/27/23 23:39 10/27/23 23:39 10/27/23 23:39 10/27/23 23:39 10/27/23 23:39 10/27/23 23:39 Constitutional: Constitutional: no acute distress Routine HEENT Exam: Head: Present normal inspection Routine Neck Exam: NECK: Present supple Routine Respiratory Exam: Respiratory: Present CTA bilaterally; Absent crackles, rhonchi or wheezes Routine Cardiovascular Exam: Cardiovascular: Present RRR; Absent murmur Routine Abdominal Exam: Abdominal: Present soft; Absent distended or tenderness Comments: Incision bandaged (silver Mepilex dressing) Routine Extremities Exam: Extremities: Present full ROM and pedal edema Routine Psychiatric Exam: Psychiatric: Present normal affect 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 BOARD ASSEMBLER - Results Labs Labs: Short CBC 10/27/23 Range/Units 21:51 WBC 7.79 (4.50-11.00) K/uL Hgb 8.6 L (12.0-16.0) gm/dL Hct 26.7 L (33.0-51.0) % Plt Count 196 (140-440) K/uL BMP 10/27/23 21:50 Sodium 136 Potassium 3.7 Chloride 107 Carbon Dioxide 25 BUN 17 Creatinine 0.7 Glucose 113 Calcium 8.9 Liver Function 10/27/23 Range/Units 21:50 Total Bilirubin 0.4 (0.1-1.5) mg/dL AST 38 H (12-35) U/L ALT 22 (4-35) U/L Alkaline Phosphatase 72 (40-150) U/L Albumin 3.4 (3.3-5.0) g/dL Urine 10/27/23 Range/Units 21:30 Urine Color Yellow (Yellow) Urine Appearance Clear (Clear) Urine pH 6.0 (5.0-8.5) Ur Specific [place] 1.010 (1.000-1.030) Urine Protein Negative (Negative) Urine Glucose (UA) Negative (Negative) Assessment and Plan Assessment and plan (1) Headache: Status: Acute (2) Hypertension: Status: Acute (3) Edema, peripheral: Status: Acute (4) Anemia, : Status: Acute (5) Status post primary low transverse section: Problem comment: Girl, Yun, Apgars 8/9, weight 9#14oz. Status: Acute Plan The patient will be admitted for continued observation. She is at risk for developing severe pre-eclampsia, but does not meet criteria for severe pre-eclampsia currently. Will monitor BP q4 hours, and repeat labs in the morning. Will treat BP with nifedipine ER 60 mg po daily, received first dose tonight in the ED. Infant may remain with the patient as long as there is another adult present in the room with her.
[2023-10-28] VITALS (18 sets, daily range): BP systolic 104–132; BP diastolic 68–82; PULSE 75–93; RESP 16–17; TEMP 36.6–37; O2SAT 94–98
--- OUTSIDE RECORDS SUMMARY | 2023-10-28 00:33 | XMS_ITS | Encounter Summary ---
Author Organization [facility] Address [address] [place] [id number] Care Team Providers Care Structural Design Engineer Name Role Phone No Ref-Primary, Physician Primary Care Provider Reason for Referral * Diagnostic Imaging Ultrasound (Routine) - Pending Review Specialty Diagnoses / Procedures Referred By Contac t Referred To Contact Radiology. Diagnoses High-risk , unspecified trimester Procedures [facility] US Comprehensive Single F/U Donnie Stanton MD [address] [place] [address] Referral ID Status Reason Start Date Expiration Date V isits Requested Visits Authorized [id number] Pending Review 07/03/2023 07/02/2024 1 1 GE REPAIR CREW PERSON Reason for Visit * Diagnostic Imaging Ultrasound (Routine) - Pending Review Specialty Diagnoses / Procedures Referred By Contac t Referred To Contact Radiology. Diagnoses High-risk , unspecified trimester Procedures [facility] US Comprehensive Single F/U Donnie Stanton MD [address] [place] [address] Referral ID Status Reason Start Date Expiration Date V isits Requested Visits Authorized [id number] Pending Review 07/03/2023 07/02/2024 1 1 Encounter Details Date Type Department Care Team (Latest Contact Info) Description 07/28/2023 8:34 AM BRIDGE REPAIR CREW PERSON - 07/28/2023 11:59 PM BRIDGE REPAIR CREW PERSON Hospital Encounter [facility] Maternal Medicine [facility] [address] [place] [phone] Donnie Stanton MD [address] [place] [address] Justice Patterson MD [address] [place] [address] High-risk , unspecified trimester Discharge [...] 1 tablet by mouth at bedtime Vit-Fe Emz-RG-Mmhxo (ONE-A-DAY WOMENS ) 28-0.8 & 223 MG [...] Procedure Name Priority Date/Time Associated Diagnosis Comments [facility] Routine 07/28/2023 9:16 AM BRIDGE REPAIR CREW PERSON High-risk , unspecified trimester documented in this encounter Results * M US Comprehensive Single F/U (07/28/2023 9:16 AM BRIDGE REPAIR CREW PERSON) Anatomical Region Laterality Modality Ultrasound 07/28/2023 8:38 AM BRIDGE REPAIR CREW PERSON Impressions 07/28/2023 9:18 AM BRIDGE REPAIR CREW PERSON IMPRESSION ----- 1) Growth parameters and estimated weight were consistent with appropriate for gestational age pattern of growth. 2) anatomy appeared normal for gestational age. Narrative 07/28/2023 9:18 AM BRIDGE REPAIR CREW PERSON ?Comp Follow Up ----- Pat. Name: HEIDI FORD ? Study Date: ??07/28/2023 8:38am Pat. NO: ??[id number] ?Referring ??: VENICE ELMORE CARY Site: [facility] ? Sugar Controller: Genaro Berkowitz RDMS : ??1990 ?Age: ?? [...] 2 lb 7 ?oz EFW by ?Hadlock ([id number]-[id number]-FL) Head / Face / Neck Biometry: CM ?6.0 ? mm ANATOMY ----- The following structures appear normal: Head / Neck ? Cranium. Head size. Head shape. Lateral ventricles. Midline falx. Cavum septi pellucidi. Cerebellum. Cisterna magna. Thalami. Face ? Lips. Profile. Nose. Heart / Thorax ?4-chamber view. RVOT view. LVOT view. Aortic arch view. 9-jzpkdc-jlhdsod view. ? Diaphragm. Abdomen ? Stomach. Kidneys. [...] FORD Study Date: 07/28/2023 8:38am Pat. NO: [id number] Referring MD: VENICE ELMORE RIBEIRO Site: [facility] Sugar Controller: Genaro Berkowitz RDMS : 1990 Age: 32 [...] 2 lb 7 oz EFW by Hadlock (BQA-VQ-DH-FL) Head / Face / Neck Biometry: CM 6.0 mm ANATOMY ----- The following structures appear normal: Head / Neck Cranium. Head size. Head shape.Lateral ventricles. Midline falx. Cavum septi pellucidi. Cerebellum.Cisterna magna. Thalami. Face Lips. Profile. Nose. Heart / Thorax 4-chamber view. RVOT view. LVOT view.Aortic arch view. 5-xhkfzi-xytosgo view. Diaphragm. Abdomen Stomach. Kidneys. Bladder. Spine [...] MD [facility] US ORDERABLE S documented in this encounter Visit Diagnoses Diagnosis High-risk , unspecified trimester documented in this encounter Care Teams Structural Design Engineer Relationship Specialty Start Date End Date No Ref-Primary, Physician PCP - General 05/28/23 documented as of this encounter
--- OUTSIDE RECORDS SUMMARY | 2023-10-28 00:33 | XMS_ITS | Referral Summary ---
Author Organization [facility] Address [address] [place] [address] Care Team Providers Care Underground Production Foreperson Name Role Phone No Ref-Primary, Physician Primary Care Provider Encounters Date Type Department Care Team Description 07/28/2023 Travel 07/28/2023 9:15 AM CASINO CAGE MANAGER Office Visit [facility] Maternal Medicine [facility] [address] [place] [phone] Donnie Stanton MD Rauk, Justice Fuchs MD Encounter for follow-up ultrasound of anatomy (Primary Dx); Pre-exist hyp chronic kidney disease comp preg, second tri; Alport syndrome 07/28/2023 8:34 AM CASINO CAGE MANAGER - 07/28/2023 11:59 PM CASINO CAGE MANAGER Hospital Encounter [facility] Maternal Medicine [facility] [address] [place] [phone] Donnie Stanton MD Rauk, Justice Fuchs MD [...] 25 mg by mouth daily Active Vit-Fe Hub-SA-Psrsn (ONE-A-DAY WOMENS ) 28-0.8 & 223 MG [...] Comments Blood Pressure 114/82 07/03/2023 10:18 AM CASINO CAGE MANAGER Pulse 82 07/03/2023 10:18 AM CASINO CAGE MANAGER Temperature - - Respiratory Rate 18 07/03/2023 10:18 AM CASINO CAGE MANAGER Oxygen Saturation 100% 07/03/2023 10:18 AM CASINO CAGE MANAGER RA Inhaled Oxygen Concentration - - Weight - - Height - - Body Mass Index - - Plan of Treatment Not on file Procedures Procedure Name Priority Date/Time Associated Diagnosis Comments [facility] COMPREHENSIVE SINGLE F/U Routine 07/28/2023 9:16 AM CASINO CAGE MANAGER High-risk , unspecified trimester from Last 3 Months Results * [facility] Comprehensive Single F/U (07/28/2023 9:16 AM CASINO CAGE MANAGER) Anatomical Region Laterality Modality Ultrasound 07/28/2023 8:38 AM CASINO CAGE MANAGER Impressions 07/28/2023 9:18 AM CASINO CAGE MANAGER IMPRESSION ----- 1) Growth parameters and estimated weight were consistent with appropriate for gestational age pattern of growth. 2) anatomy appeared normal for gestational age. Narrative 07/28/2023 9:18 AM CASINO CAGE MANAGER ?Comp Follow Up ----- Pat. Name: HEIDI FORD ? Study Date: ??07/28/2023 8:38am Pat. NO: ??[id number] ?Referring ??: VENICE ELMORE SOMERS Site: ??[facility] ? Manager Investment Banking: Genaro Berkowitz RDMS : ??1990 ?Age: ?? [...] 2 lb 7 ?oz EFW by ?Hadlock ([id number]-VU-ZM-FL) Head / Face / Neck Biometry: CM ?6.0 ? mm ANATOMY ----- The following structures appear normal: Head / Neck ? Cranium. Head size. Head shape. Lateral ventricles. Midline falx. Cavum septi pellucidi. Cerebellum. Cisterna magna. Thalami. Face ? Lips. Profile. Nose. Heart / Thorax ?4-chamber view. RVOT view. LVOT view. Aortic arch view. 7-gfowmf-ngqrxxu view. ? Diaphragm. Abdomen ? Stomach. Kidneys. [...] FORD Study Date: 07/28/2023 8:38am Pat. NO: [id number] Referring MD: VENICE RIBEIRO Site: [facility] Manager Investment Banking: Genaro Berkowitz RDMS : 1990 Age: 32 [...] 2 lb 7 oz EFW by Hadlock (EAL-LM-ZD-FL) Head / Face / Neck Biometry: CM 6.0 mm ANATOMY ----- The following structures appear normal: Head / Neck Cranium. Head size. Head shape.Lateral ventricles. Midline falx. Cavum septi pellucidi. Cerebellum.Cisterna magna. Thalami. Face Lips. Profile. Nose. Heart / Thorax 4-chamber view. RVOT view. LVOT view.Aortic arch view. 0-nhdlch-oblpsnx view. Diaphragm. Abdomen Stomach. Kidneys. Bladder. Spine [...] normal for gestational age. Donnie Stanton MD [facility] ORDERABLE S from Last 3 Months Care Teams Underground Production Foreperson Relationship Specialty Start Date End Date No Ref-Primary, Physician PCP - General 05/28/23
--- OUTSIDE RECORDS SUMMARY | 2023-10-28 00:33 | XMS_ITS | Encounter Summary ---
Author Organization [facility] Address [address] [place] [address]. [place] [address] Care Team Providers Care Licensed Massage Practitioner Name Role Phone No Ref-Primary, Physician Primary Care Provider Reason for Visit * Reason Comments Ultrasound RL2-subopt Encounter Details Date Type Department Care Team (Late st Contact Info) Description 07/28/2023 9:15 AM TALENT DEVELOPMENT MANAGER Office Visit [facility] M[facility] Medicine [facility] [place] [address] [place] [phone] Donnie Stanton MD [address] [place] [address] Justice Patterson MD [address] [place] [address] Encounter for follow-up ultrasound of [...] for details of today's US at the [facility]. Justice Patterson MD Maternal- Medicine NT DEVELOPMENT MANAGER documented in this encounter Nursing Notes * Crystal Sherman, RN - 07/28/2023 9:15 AM CST Patient presents to [facility] for RL2 at 26w3d due to subopt. Positive movement. Denies LOF, vaginal bleeding or cramping/contractions. SBAR given to [facility] MD, see their note in Epic. 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
--- OUTSIDE RECORDS SUMMARY | 2023-10-28 00:33 | XMS_ITS | Encounter Summary ---
Author Organization [facility] Address [address] [place] [address]. [place] [address] Care Team Providers Care Higher Education Administrator Name Role Phone No Ref-Primary, Physician [...] on filedocumented in this encounter Care Teams Higher Education Administrator Relationship Specialty Start Date End Date No Ref-Primary, Physician PCP - General 05/28/23 documented as of this encounter
--- OUTSIDE RECORDS SUMMARY | 2023-10-28 00:33 | XMS_ITS | Clinical Summary ---
Author Organization [facility] Address [address] [place] [address] Care Team Providers Care Quality Assurance Specialist Name Role Phone No Ref-Primary, Physician [...] 25 mg by mouth daily Active Vit-Fe Qay-UF-Kdqie (ONE-A-DAY WOMENS ) 28-0.8 & 223 MG MISC Take 1 tablet by mouth daily Active loratadine (CLARITIN REDITABS) 10 MG ODT Take 10 mg by mouth daily Active Encounters Date Type Department Care Team Description 07/28/2023 9:15 AM CLINICAL PROJECT LEADER Office Visit [facility] [address] [place] [address] Donnie Stanton MD Rauk, Justice Fuchs MD Encounter for follow-up ultrasound of anatomy (Primary Dx); Pre-exist hyp chronic kidney disease comp preg, second tri; Alport syndrome 07/28/2023 8:34 AM CLINICAL PROJECT LEADER - 07/28/2023 11:59 PM CLINICAL PROJECT LEADER Hospital Encounter [facility] [address] [place] [address] Donnie Stanton MD Rauk, Justice Fuchs MD [...] Blood Pressure 114/82 07/03/2023 10:18 AM CLINICAL PROJECT LEADER Pulse 82 07/03/2023 10:18 AM CLINICAL PROJECT LEADER Temperature - - Respiratory Rate 18 07/03/2023 10:18 AM CLINICAL PROJECT LEADER Oxygen Saturation 100% 07/03/2023 10:18 AM CLINICAL PROJECT LEADER RA Inhaled Oxygen Concentration - - Weight [...] Procedure Name Priority Date/Time Associated Diagnosis Comments [facility] US COMPREHENSIVE SINGLE F/U Routine 07/28/2023 9:16 AM CLINICAL PROJECT LEADER High-risk , unspecified trimester from Last 3 Months Results * [facility] US Comprehensive Single F/U (07/28/2023 9:16 AM CLINICAL PROJECT LEADER) Anatomical Region Laterality Modality Ultrasound 07/28/2023 8:38 AM CLINICAL PROJECT LEADER Impressions 07/28/2023 9:18 AM CLINICAL PROJECT LEADER IMPRESSION ----- 1) Growth parameters and estimated weight were consistent with appropriate for gestational age pattern of growth. 2) anatomy appeared normal for gestational age. Narrative 07/28/2023 9:18 AM CLINICAL PROJECT LEADER ?Comp Follow Up ----- Pat. Name: HEIDI FORD ? Study Date: ??07/28/2023 8:38am Pat. NO: ??[id number] ?Referring ??MD: VENICE ELMORE [place] Site: [facility] ? Yarn Dyer: Genaro Berkowitz RDMS : ??1990 ?Age: ?? [...] 2 lb 7 ?oz EFW by ?Hadlock ([id number]) Head / Face / Neck Biometry: CM ?6.0 ? mm ANATOMY ----- The following structures appear normal: Head / Neck ? Cranium. Head size. Head shape. Lateral ventricles. Midline falx. Cavum septi pellucidi. Cerebellum. Cisterna magna. Thalami. Face ? Lips. Profile. Nose. Heart / Thorax ?4-chamber view. RVOT view. LVOT view. Aortic arch view. 7-rroped-tirngwd view. ? Diaphragm. Abdomen ? Stomach. Kidneys. [...] FORD Study Date: 07/28/2023 8:38am Pat. NO: [id number] Referring MD: VENICE RIBEIRO Site: [facility] Yarn Dyer: Genaro Berkowitz RDMS : 1990 Age: 32 [...] 2 lb 7 oz EFW by Hadlock ([id number]) Head / Face / Neck Biometry: CM 6.0 mm ANATOMY ----- The following structures appear normal: Head / Neck Cranium. Head size. Head shape.Lateral ventricles. Midline falx. Cavum septi pellucidi. Cerebellum.Cisterna magna. Thalami. Face Lips. Profile. Nose. Heart / Thorax 4-chamber view. RVOT view. LVOT view.Aortic arch view. 0-connqd-yxnlfxw view. Diaphragm. Abdomen Stomach. Kidneys. Bladder. Spine [...] normal for gestational age. Donnie Stanton MD [facility] ORDERABLE S from Last 3 Months Care Teams Quality Assurance Specialist Relationship Specialty Start Date End Date No Ref-Primary, Physician PCP - General 05/28/23
--- OUTSIDE RECORDS SUMMARY | 2023-10-28 00:33 | XMS_ITS | Clinical Summary ---
Author Organization [facility] Address [place], [place] [address] Care Team Providers Care Pot Puncher Name Role Phone Val Byrd Primary Care Provider [phone]- [phone] Allergies Active Allergy Reactions Criticality Noted Date [...] once daily. 180 Tablet 3 09/02/2022 Active 107-dexp-zjqkf-ome ga3 27 mg iron- 800 mcg-235 mg [...] Department Care Team Description 10/21/[address] [facility] Scanner 1 scan: (1-Ord) [facility], OB BIOPHYSICAL PROFILE, 10/21/2023 10/15/[address] [facility] Scanner 1 scan: (1-Ord) [facility] OB PELVIS GROWTH, 10/15/2023 10/09/2023 8:10 AM CDT Office Visit [facility] [address] [place] [address] Val Byrd PA Medication Management (Needs meds refilled-seeing OB at [facility]) 10/09/2023 Refill [facility] [address] [place] [address] Val Byrd PA Refill Request (Triamcinolone) 10/09/2023 Travel 09/29/[address] [facility] Scanner 1 scan: (1-Ord) [facility], OB PELVIS GROWTH, 09/29/2023 09/08/[address] [facility] Scanner 1 scan: (1-Ord) [facility] OB PELVIS, 09/08/2023 08/25/2023 12:40 PM CDT Office Visit [facility] [address] [place] [address] Annemarie Randhawa, LESLYE Breathing Problem (Started CPAP 2-3 weeks ago. Congenital non-obstructive apnea. Feels that shortness of breath has worsened since starting to use CPAP. Describes having difficulty getting a full breath in or out. /QVAR BID. Using Albuterol BID as well. ) 08/25/2023 Travel 08/25/2023 Nurse Triage [facility] [address] [place] [address] Val Byrd PA Sob (7 months ) from Last 3 Months Immunizations Name Administration Dates Next Due COVID-19 vaccine ([employer] 30mcg/0.3mL) PF, MDV 06/17/2021,12/17/2020,11/19/2020 DT (Age [...] Description 10/28/2023 9:50 AM CDT Office Visit [facility] [address] [place] [address] Manisha Middleton MD [address] [place] [address] Health Maintenance Due Date Last Done Comments [...] QUANT PCR (09/02/2022 10:39 AM CDT) Pathologist [facility] HCV Ab Non Reactive Non Reactive 09/04/2022 10:06 PM CDT [facility]IC TESTING (CET) Blood BLOOD SPECIMEN / Unknown Venipuncture / Unknown 09/02/2022 10:39 AM CDT 09/02/2022 10:43 AM CDT [facility] ESOTERIC TESTING (CET) - 09/04/2022 10:06 PM CDT Performed at: ??[address] - [address] ??[id number] [employer] Sales: Severo Sunshine MD, Phone: ??[phone] Val [facility] (CET) [address] [place] [address], * LC HIV-1/O/2, 4TH GENERATION (09/02/2022 10:39 AM CDT) [facility] HIV Scr 4th Gen Non Reactive Non Reactive 09/04/2022 10:[address] [facility] (CET) Comment: HIV Negative HIV-1/HIV-2 antibodies and HIV-1 p24 antigen were NOT detected. There is no laboratory evidence of HIV infection. Blood BLOOD SPECIMEN / Unknown Venipuncture / Unknown 09/02/2022 10:39 AM CDT 09/02/2022 10:43 AM CDT [facility]OTERIC TEST[facility] (CET) - 09/04/2022 10:06 PM CDT Performed at: ??01 - [facility] [address] [place] [address] ??[id number] [employer] Sales: Severo Sunshine MD, Phone: ??[phone] Val [facility]IC TEST[facility] (CET) [address] from Last 3 Months or Most Recently Relevant to Health Maintenance Advance Directives * Full Code (Latest Code Status on File) Date Activated Date Inactivated Comments 05/23/2020 2:04 PM 05/24/2020 1:14 PM Question Answer Comments Code Status Discussion: Not Discussed Care Teams Pot Puncher Relationship Specialty Start Date End Date Val Byrd PA [address] [facility] [address] PCP - General Physician Care Aid 11/21/22
[2023-10-28] MEDS: OXYCODONE 5 MG TABLET PO ×3 (01:30→23:03)
[2023-10-28] MEDS: ACETAMINOPHEN 500 MG TABLET 1000 MG PO ×4 (01:30→22:31)
[2023-10-28 05:58] LABS: Hematocrit 25.6 % (33.0-51.0); Hemoglobin* 8.2 gm/dL (12.0-16.0); Mean Corpuscular HGB Conc 32 gm/dL (32-36); Mean Corpuscular Hemoglobin 28 pg (26-34); Mean Corpuscular Volume 87 fL (80-100); Platelet Count* 171 K/uL (140-440); Red Blood Count 2.96 m/uL (4.00-5.20); White Blood Count* 6.66 K/uL (4.50-11.00)
[2023-10-28 06:03] LABS: Slide Review Reflex No
[2023-10-28 06:15] LABS: Alanine Aminotransferase* 20 U/L (4-35); Aspartate Amino Transferase* 46 U/L (12-35); Blood Urea Nitrogen* 14 mg/dL (5-24); Creatinine* 0.7 mg/dL (0.5-1.5); Est. Creatinine Clearance* 113.16; Estimated Glomerular Filt Rate 116 ml/min
--- NOTE | 2023-10-28 09:27 | PM.ANBPRC ---
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 (ICD-10) Nephrolithiasis ?N20.0 - Calculus of kidney (ICD-10) Vitamin D deficiency ?E55.9 - Vitamin D deficiency, unspecified (ICD-10) B12 deficiency ?E53.8 - Deficiency of other specified B group vitamins (ICD-10) Fibula fracture ?S82.409A - Unspecified fracture of shaft of unspecified fibula, initial encounter for closed fracture (ICD-10) Surgical History Status post primary low transverse section (10/25/23) ?Z98.891 - History of uterine scar from previous surgery (ICD-10) History of cholecystectomy ?Z90.49 - Acquired absence of other specified parts of digestive tract (ICD-10) S/P correction of deviated nasal septum ?Z98.890 - Other specified postprocedural states (ICD-10) H/O laparoscopy ?Z98.890 - Other specified postprocedural states (ICD-10) Family History Sister Alport syndrome Mother Alport syndrome Aunt Alport syndrome Grandfather Alport syndrome Social History What is your current living situation?: I presently have a place to live Problems where you live: no known problems In the past 12 months, utilities in danger of being shut off: no In past 12 months, lack of transportation kept you from medical appts, meetings, work, or getting things needed for daily living: no In the past 12 mos, have been you worried that your food would run out before you had money to buy more?: never true In the past 12 mos, the food you bought just didn't last and you didn't have money to buy more?: never true Smoking Status: Never smoker Do you use any of these nicotine containing products: None Second hand tobacco smoke exposure: No How often do you have a drink containing alcohol: never How often do you have six or more drinks on one occasion: Never AUDIT-C Alcohol total score: 0 Non-prescribed substance use: denies use How often does anyone, including family, friends and others, physically hurt you: never How often does anyone, including family, friends and others, insult or talk down to you: never How often does anyone, including family, friends and others, threaten you with harm: never How often does anyone, including family, friends and others, scream or curse at you: never Little interest or pleasure in doing things: several days Feeling down, depressed, or hopeless: not at all Meds Home Medications and Allergies Home Medications ?Medication ?Instructions ?Recorded ?Confirmed ?Type albuterol sulfate 90 mcg/actuation 2 puff inhalation Q6H PRN 03/21/23 10/28/23 History aerosol inhaler beclomethasone dipropionate 40 2 inh inhalation BID 03/21/23 10/28/23 History mcg/actuation HFA breath activated aerosol (Qvar RediHaler) montelukast 10 mg tablet 10 mg PO QHS 03/21/23 10/28/23 History vitamin B complex (B 1 tab PO QDAY 03/21/23 10/28/23 History Complex-Vitamin B12 tablet) vits 75-iron 28 mg-folic 1 pkg PO DAILY 05/14/23 10/28/23 History acid 800 mcg-omega-3 oral combo pack (One A Day Women's DHA) loratadine 10 mg tablet (Claritin) 10 mg PO QDAY 08/11/23 10/28/23 History mometasone 50 mcg/actuation nasal 2 spray intranasal QDAY PRN 09/08/23 10/28/23 History spray Allergies Allergy/AdvReac Type Severity Reaction Status Date / Time bacitracin Allergy Intermediate Verified 10/24/23 07:55 [From Neosporin ([id number])] neomycin Allergy Intermediate Verified 10/24/23 07:55 [From Neosporin ([id number]-lzm-zjprg)] polymyxin B Allergy Intermediate Verified 10/24/23 07:55 [From Neosporin (cbw-wcw-urrsx)] 2-octyl cyanoacrylate Allergy Mild Verified 10/24/23 07:55 amoxicillin Allergy Mild Verified 10/24/23 07:55 cefaclor Allergy Mild Verified 10/24/23 07:55 cefuroxime Allergy Mild Verified 10/24/23 07:55 clindamycin Allergy Mild Verified 10/24/23 07:55 latex Allergy Mild Verified 10/24/23 07:55 ondansetron Allergy Mild Verified 10/24/23 07:55 shellfish derived Allergy Mild Verified 10/24/23 07:55 dermabond Allergy Intermediate Uncoded 10/21/23 10:50 Results Labs Labs: Laboratory Results - last 24 hr 10/27/23 10/27/23 10/27/23 21:30 21:50 21:51 WBC 7.79 RBC 3.12 L Hgb 8.6 L Hct 26.7 L MCV 86 MCH 28 MCHC 32 RDW Coeff of Kurt 20.4 H Plt Count 196 Neut % (Auto) 71.8 Lymph % (Auto) 21.1 [place] % (Auto) 4.6 Eos % (Auto) 1.4 Baso % (Auto) 0.3 Neut # (Auto) 5.60 Lymph # (Auto) 1.64 [place] # (Auto) 0.40 Eos # (Auto) 0.11 Baso # (Auto) 0.02 Abs Immat Gran (auto) 0.06 Imm/Tot Granulo (auto) 0.8 Sodium 136 Potassium 3.7 Chloride 107 Carbon Dioxide 25 Anion Gap 4 L BUN 17 Creatinine 0.7 Estimated Creat Clear 113.16 Estimated GFR 116 Glucose 113 Lactate 1.4 Calcium 8.9 Total Bilirubin 0.4 AST 38 H ALT 22 Alkaline Phosphatase 72 Total Protein 6.3 Albumin 3.4 Urine Color Yellow Urine Appearance Clear Urine pH 6.0 Ur Specific Ideal 1.010 Urine Protein Negative Urine Glucose (UA) Negative Urine Ketones Negative Urine Blood 2+ A Urine Nitrite Negative Urine Bilirubin Negative Urine Urobilinogen 0.2 Ur Leukocyte Esterase Negative Urine RBC 5-10 A Urine WBC 0-2 Ur Squamous Epith Cells None Urine Bacteria None 10/28/23 05:40 WBC 6.66 RBC 2.96 L Hgb 8.2 L Hct 25.6 L MCV 87 MCH 28 MCHC 32 RDW Coeff of Kurt Plt Count 171 Neut % (Auto) Lymph % (Auto) [place] % (Auto) Eos % (Auto) Baso % (Auto) Neut # (Auto) Lymph # (Auto) [place] # (Auto) Eos # (Auto) Baso # (Auto) Abs Immat Gran (auto) Imm/Tot Granulo (auto) Sodium Potassium Chloride Carbon Dioxide Anion Gap BUN 14 Creatinine 0.7 Estimated Creat Clear 113.16 Estimated GFR 116 Glucose Lactate Calcium Total Bilirubin AST 46 H ALT 20 Alkaline Phosphatase Total Protein Albumin Urine Color Urine Appearance Urine pH Ur Specific Ideal Urine Protein Urine Glucose (UA) Urine Ketones Urine Blood Urine Nitrite Urine Bilirubin Urine Urobilinogen Ur Leukocyte Esterase Urine RBC Urine WBC Ur Squamous Epith Cells Urine Bacteria Vital Signs Vital Signs: Last Vital Signs Temp 98.3 F 10/27/23 23:39 Pulse 75 10/28/23 09:22 Resp 16 10/28/23 04:02 BP 117/77 10/28/23 09:22 Pulse Ox 94 10/28/23 04:02 O2 Del Method Room Air 10/28/23 05:59 Weight: 125.554 kg Height: 172.72 cm Anesthesia Procedures Epidural Blood Patch Patient Location: OB Start Time: 09:10 Stop Time: 09:30 Start Date: 10/28/23 Stop Date: 10/28/23 Reason for Blood Patch: spinal headache ESTIMATOR PRINTING PLATE MAKING: Benny Lam CRNA Preanesthetic Checklist: IV checked, site marked, risks and benefits discussed, monitors and equipment checked, pre-op evaluation, timeout performed and anesthesia consent Patient Symptoms: postural headache Pain (1-10): 8 Pain duration: 3 Days Pain Frequency: intermittent Quality of Pain: aching, pressure and throbbing Pain exacerbated by: standing Pain Made Worse: head movement Pain made better: position change Diagnosis of PDPH: Yes Volume of Blood Injected (mL): 20 Patient Position: sitting Prep: Chloraprep Monitoring: cont pulse oximetry and BP monitoring Approach: midline Location: L3-4 Injection Technique: CÉSAR saline Injection Method: Touhy needle Needle Gauge Used: 17 Needle Length (cm): 10 cm
[2023-10-28] MEDS: IRON SUCROSE COMPLEX 200 MG in 0.9 % SODIUM CHLORIDE 100 ml 100 ML 440 MG IVPB (11:03)
[2023-10-28 12:08] LABS: Hematocrit 27.1 % (33.0-51.0); Hemoglobin* 8.7 gm/dL (12.0-16.0); Mean Corpuscular HGB Conc 32 gm/dL (32-36); Mean Corpuscular Hemoglobin 28 pg (26-34); Mean Corpuscular Volume 86 fL (80-100); Platelet Count* 209 K/uL (140-440); Red Blood Count 3.16 m/uL (4.00-5.20); White Blood Count* 7.11 K/uL (4.50-11.00)
[2023-10-28 12:10] LABS: Slide Review Reflex No
[2023-10-28 12:24] LABS: Alanine Aminotransferase* 30 U/L (4-35); Aspartate Amino Transferase* 63 U/L (12-35); Blood Urea Nitrogen* 13 mg/dL (5-24); Creatinine* 0.7 mg/dL (0.5-1.5); Est. Creatinine Clearance* 113.16; Estimated Glomerular Filt Rate 116 ml/min
[2023-10-28] MEDS: IBUPROFEN 600 MG TABLET PO (16:57)
--- NOTE | 2023-10-28 17:14 | P.OBPN_ITS ---
OB - PN:Subj Subjective Time Seen by Provider: 09:30 Date Seen: 10/28/23 Interval history: Heidi is a 33 yo woman who is POD #3 s/p primary who was admitted for observation last night after complaint of headache. She was noted to have elevated BP at time of admission. She has a history of kidney disease, Alport's Syndrome, which caused chronic proteinuria. She did not have pre-eclampsia during nor throughout labor and delivery.I Narrative: At the time of our interview, she has already had blood patch. This has helped substantially with her headache. She denies any visual changes or RUQ pain. She does have some swelling in her legs. Her and mom note that she is pale. OB - PN: Obj Exam Physical Exam: Vital signs: Temp Pulse Resp BP Pulse Ox O2 Del Method 98.6 F 80 16 117/78 98 Room Air 10/28/23 12:22 10/28/23 14:43 10/28/23 16:09 10/28/23 16:09 10/28/23 12:22 10/28/23 12:22 Narrative: General: Pleasant, no acute distress Heart: Regular rate and rhythm, no murmur or gallop Lungs: Clear to auscultation bilaterally Abdomen: Soft, mildly tender to palpation of fundus, which is 3 cm below U, no distention, no RUQ tenderness. Silver dressing clean, dry and intact. Lower extremities: 1+ bilateral edema, no erythema OB - PN: Obj Data Labs Labs: Laboratory Results - last 24 hr 10/27/23 10/27/23 10/27/23 21:30 21:50 21:51 WBC 7.79 RBC 3.12 L Hgb 8.6 L Hct 26.7 L MCV 86 MCH 28 MCHC 32 RDW Coeff of Kurt 20.4 H Plt Count 196 Neut % (Auto) 71.8 Lymph % (Auto) 21.1 [place] % (Auto) 4.6 Eos % (Auto) 1.4 Baso % (Auto) 0.3 Neut # (Auto) 5.60 Lymph # (Auto) 1.64 [place] # (Auto) 0.40 Eos # (Auto) 0.11 Baso # (Auto) 0.02 Abs Immat Gran (auto) 0.06 Imm/Tot Granulo (auto) 0.8 Sodium 136 Potassium 3.7 Chloride 107 Carbon Dioxide 25 Anion Gap 4 L BUN 17 Creatinine 0.7 Estimated Creat Clear 113.16 Estimated GFR 116 Glucose 113 Lactate 1.4 Calcium 8.9 Total Bilirubin 0.4 AST 38 H ALT 22 Alkaline Phosphatase 72 Total Protein 6.3 Albumin 3.4 Urine Color Yellow Urine Appearance Clear Urine pH 6.0 Ur Specific Supply 1.010 Urine Protein Negative Urine Glucose (UA) Negative Urine Ketones Negative Urine Blood 2+ A Urine Nitrite Negative Urine Bilirubin Negative Urine Urobilinogen 0.2 Ur Leukocyte Esterase Negative Urine RBC 5-10 A Urine WBC 0-2 Ur Squamous Epith Cells None Urine Bacteria None 10/28/23 10/28/23 05:40 11:58 WBC 6.66 7.11 RBC 2.96 L 3.16 L Hgb 8.2 L 8.7 L Hct 25.6 L 27.1 L MCV 87 86 MCH 28 28 MCHC 32 32 RDW Coeff of Kurt Plt Count 171 209 Neut % (Auto) Lymph % (Auto) [place] % (Auto) Eos % (Auto) Baso % (Auto) Neut # (Auto) Lymph # (Auto) [place] # (Auto) Eos # (Auto) Baso # (Auto) Abs Immat Gran (auto) Imm/Tot Granulo (auto) Sodium Potassium Chloride Carbon Dioxide Anion Gap BUN 14 13 Creatinine 0.7 0.7 Estimated Creat Clear 113.16 113.16 Estimated GFR 116 116 Glucose Lactate Calcium Total Bilirubin AST 46 H 63 H ALT 20 30 Alkaline Phosphatase Total Protein Albumin Urine Color Urine Appearance Urine pH Ur Specific Supply Urine Protein Urine Glucose (UA) Urine Ketones Urine Blood Urine Nitrite Urine Bilirubin Urine Urobilinogen Ur Leukocyte Esterase Urine RBC Urine WBC Ur Squamous Epith Cells Urine Bacteria OB - PN: A/P Delivery Assessment and Plan (1) Anemia, : Status: Acute Assessment and Plan: She received IV iron about one month ago with the single injection protocol. She did have very low ferritin at that time. We will begin with an additional dose of Venofer today, and then transition to oral iron in 1-2 weeks. (2) Status post primary low transverse section: Problem details: Girl, Yun, Apgars 8/9, weight 9#14oz. Status: Acute Assessment and Plan: Appropriate post-op course. She will have silver dressing removed on Friday in clinic. (3) Spinal headache: Status: Acute Assessment and Plan: Much improved after blood patch. (4) Pre-eclampsia affecting puerperium: Status: Acute Assessment and Plan: Normotensive this AM after a dose of nifedipine ER 60 mg last night, but with continuing rise in AST. We will continue serial labs. If she reaches twice the upper limit of normal, will begin magnesium sulfate infusion for seizure prophylaxis. Otherwise, will follow BP throughout the day and plan for discharge this evening if AST stabilizes. Will likely discharge on nifedipine ER 30 mg BID.
[2023-10-28 18:22] LABS: Hemoglobin* 9.2 gm/dL (12.0-16.0); Mean Corpuscular HGB Conc 32 gm/dL (32-36); Mean Corpuscular Hemoglobin 28 pg (26-34); Mean Corpuscular Volume 87 fL (80-100); Platelet Count* 217 K/uL (140-440); Red Blood Count 3.35 m/uL (4.00-5.20); White Blood Count* 6.51 K/uL (4.50-11.00)
[2023-10-28 18:27] LABS: Slide Review Reflex No
[2023-10-28 20:06] LABS: Blood Urea Nitrogen* 16 mg/dL (5-24)
[2023-10-28 20:07] LABS: Alanine Aminotransferase* 43 U/L (4-35); Aspartate Amino Transferase* 92 U/L (12-35); Creatinine* 0.7 mg/dL (0.5-1.5); Est. Creatinine Clearance* 113.16; Estimated Glomerular Filt Rate 116 ml/min
[2023-10-28] MEDS: MAGNESIUM IV 4 GM/100 ML PIGGYBACK IVPB (21:29)
[2023-10-28] MEDS: MONTELUKAST 10 MG TABLET PO (21:33)
[2023-10-28] MEDS: LACTATED RINGERS 1000 ML 1,000 ML 75 ML IV (22:05)
[2023-10-28] MEDS: MAGNESIUM IV 2 GM/50 ML PIGGYBACK IVPB (22:30)
[2023-10-28] MEDS: MAGNESIUM Infusion 40 GM/1,000 ML IV.SOLN IVPB (22:38)
[2023-10-29] VITALS (13 sets, daily range): BP systolic 99–124; BP diastolic 64–85; PULSE 73–100; RESP 16–18; TEMP 36.4–36.8; O2SAT 95–98
[2023-10-29 00:01] LABS: Hematocrit 27.6 % (33.0-51.0); Hemoglobin* 8.9 gm/dL (12.0-16.0); Mean Corpuscular HGB Conc 32 gm/dL (32-36); Mean Corpuscular Hemoglobin 28 pg (26-34); Mean Corpuscular Volume 87 fL (80-100); Platelet Count* 201 K/uL (140-440); Red Blood Count 3.19 m/uL (4.00-5.20); White Blood Count* 6.07 K/uL (4.50-11.00)
[2023-10-29 00:02] LABS: Slide Review Reflex No
[2023-10-29 00:23] LABS: Alanine Aminotransferase* 55 U/L (4-35); Aspartate Amino Transferase* 119 U/L (12-35); Creatinine* 0.7 mg/dL (0.5-1.5); Est. Creatinine Clearance* 113.16; Estimated Glomerular Filt Rate 116 ml/min
[2023-10-29 00:24] LABS: Blood Urea Nitrogen* 13 mg/dL (5-24)
[2023-10-29] MEDS: OXYCODONE 5 MG TABLET PO (02:59)
[2023-10-29] MEDS: ACETAMINOPHEN 500 MG TABLET 1000 MG PO ×3 (04:15→19:54)
[2023-10-29 06:35] LABS: Hematocrit 28.4 % (33.0-51.0); Mean Corpuscular HGB Conc 32 gm/dL (32-36); Mean Corpuscular Hemoglobin 27 pg (26-34); Mean Corpuscular Volume 86 fL (80-100); Platelet Count* 224 K/uL (140-440); Red Blood Count 3.29 m/uL (4.00-5.20); White Blood Count* 5.16 K/uL (4.50-11.00)
[2023-10-29 06:39] LABS: Slide Review Reflex No
[2023-10-29 06:45] LABS: Creatinine* 0.7 mg/dL (0.5-1.5); Est. Creatinine Clearance* 113.16; Estimated Glomerular Filt Rate 116 ml/min
[2023-10-29 06:46] LABS: Alanine Aminotransferase* 69 U/L (4-35); Aspartate Amino Transferase* 151 U/L (12-35); Blood Urea Nitrogen* 10 mg/dL (5-24)
--- NOTE | 2023-10-29 08:05 | PM.OBPNVD1 ---
OB - PN:Subj Subjective Time Seen by Provider: 08:06 Date Seen: 10/29/23 Interval history: Heidi is a 33 yo woman who is POD #4 s/p primary who was admitted for observation in the setting of elevated BP and headache, progressed to preeclampsia with severe features throughout hospitalization (rising LFTs). Her was complicated by Alport syndrome with chronic proteinuria. She had scattered elevated BPs in her first hospitalization, with several high mild to non-sustained SR in the ED on return to care. Her headache has resolved s/p blood patch. She denies vision changes or RUQ pain. Notes her lower extremity edema is much improved. She denies any significant abdominal pain, lochia is minimal. She is pumping and bottle feeding breast milk and formula. Baby girl, Yun, is doing well. Heidi is well supported by her and mother. OB - PN: Obj Exam Physical Exam: Vital signs: Temp Pulse Resp BP Pulse Ox O2 Del Method 97.7 F 85 16 121/81 97 Room Air 10/29/23 05:45 10/29/23 05:45 10/29/23 05:45 10/29/23 05:45 10/29/23 05:45 10/29/23 05:45 Narrative: General: Alert and oriented, in no acute distress Psych: Appropriate mood and affect Abdomen: Soft, mildly tender to palpation in lower quadrants consistent with post-op state. No RUQ tenderness or hepatosplenomegaly. Fundus at 1 below U. There is adhesive reaction noted at former [place] site and along silver dressing. Dressing is clean/dry. Extremities: SCDs in place. 1+ pitting edema. Calves non-tender and non-erythematous. OB - PN: Obj Data Labs Labs: Laboratory Results - last 24 hr 10/28/23 10/28/23 10/28/23 11:58 18:05 23:55 WBC 7.11 6.51 6.07 RBC 3.16 L 3.35 L 3.19 L Hgb 8.7 L 9.2 L 8.9 L Hct 27.1 L 29.0 L 27.6 L MCV 86 87 87 MCH 28 28 28 MCHC 32 32 32 Plt Count 209 217 201 BUN 13 16 13 Creatinine 0.7 0.7 0.7 Estimated Creat Clear 113.16 113.16 113.16 Estimated GFR 116 116 116 AST 63 H 92 H 119 H ALT 30 43 H 55 H 06/05/24 06:20 WBC 5.16 RBC 3.29 L Hgb 9.0 L Hct 28.4 L MCV 86 MCH 27 MCHC 32 Plt Count 224 BUN 10 Creatinine 0.7 Estimated Creat Clear 113.16 Estimated GFR 116 AST 151 H ALT 69 H OB - PN: A/P Delivery Assessment and Plan (1) Anemia, : Status: Acute (2) Status post primary low transverse section: Problem details: Girl, Yun, Apgars 8/9, weight 9#14oz. Status: Inactive (3) Spinal headache: Problem details: s/p blood patch on 10/27, feeling much improved Status: Acute (4) Pre-eclampsia affecting puerperium: Status: Acute Plan Ms. Amaya is a 33yo seen on POD4 from primary s/p readmission for preeclampsia with severe features. was complicated by Alport syndrome with chronic proteinuria, AMA, asthma. Her course was otherwise complicated by spinal headache, s/p blood patch on 10/27. Blood pressures have been well controlled for >24 hours after a single dose of 60mg XL nifedipine, however they are noted to be uptrending again to 120s/80s. Plan to given nifedipine 30mg XL daily starting this morning to avoid BP rebound. No symptomatic hypotension with previous 60mg dose. Continue to trend HELLP labs Q6H until they plateau/decrease. Diligent I/O monitoring, robust spontaneous diuresis is ongoing. Continue magnesium sulfate for 24 hours, with plan to end at approximately 2100 tonight. Continue routine cares at pumping/feeding support.
[2023-10-29] MEDS: LORATADINE 10 MG TABLET PO (08:14)
[2023-10-29] MEDS: IBUPROFEN 600 MG TABLET PO ×2 (08:15→16:07)
[2023-10-29] MEDS: DOCUSATE SODIUM 100 MG CAPSULE PO (08:15)
[2023-10-29] MEDS: NIFEdipine 30 MG TAB.ER.24 PO (08:46)
[2023-10-29 09:39] LABS: Magnesium* 5.1 mg/dL (1.5-2.6)
[2023-10-29] MEDS: LACTATED RINGERS 1000 ML 1,000 ML 75 ML IV (10:20)
[2023-10-29 12:08] LABS: Hematocrit 29.9 % (33.0-51.0); Hemoglobin* 9.5 gm/dL (12.0-16.0); Mean Corpuscular HGB Conc 32 gm/dL (32-36); Mean Corpuscular Hemoglobin 27 pg (26-34); Mean Corpuscular Volume 86 fL (80-100); Platelet Count* 230 K/uL (140-440); Red Blood Count 3.47 m/uL (4.00-5.20); White Blood Count* 5.65 K/uL (4.50-11.00)
[2023-10-29 12:21] LABS: Slide Review Reflex No
[2023-10-29 12:22] LABS: Alanine Aminotransferase* 71 U/L (4-35); Aspartate Amino Transferase* 145 U/L (12-35); Blood Urea Nitrogen* 12 mg/dL (5-24); Creatinine* 0.7 mg/dL (0.5-1.5); Est. Creatinine Clearance* 113.16; Estimated Glomerular Filt Rate 116 ml/min
--- NOTE | 2023-10-29 15:39 | P.OBPN_ITS ---
OB - PN:Subj Subjective Date Seen: 10/29/23 Interval history: Heidi is a 33 yo woman who is POD #4 s/p primary who was admitted for observation in the setting of elevated BP and headache, progressed to preeclampsia with severe features throughout hospitalization (rising LFTs). Her was complicated by Alport syndrome, chronic proteinuria, obesity and HAWA. Please see AM rounding note for complete details. Bedside RN notes low O2 sat this afternoon while patient was resting, quickly resolved upon repositioning and taking a few deep breaths. Encouraged CPAP use when sleeping. Her O2 sat is noted to downtrend to 92% when she is not thinking about breathing but when the alarm dings she takes a deep breath and it quickly resolves. She denies any chest pain, dyspnea, dizziness/lightheadedness, cough. No lower extremity pain, erythema. Edema is much improved compared to pre- hospitalization. She has no history of VTE. Throughout our 10 minute conversation, O2 sat is 95-99%. VS otherwise notable for absent tachycardia or hypotension. She does feel somewhat drunk or woozy on magnesium - this has been present and unchanged during entire mag course. Physical exam completed. General: Alert and oriented, in no acute distress Heart: Regular rate and rhythm with no rubs, murmurs or gallops. Lungs: Clear to posterior auscultation throughout. No wheezes, rales or crackles. Extremities: 1+ pitting edema, equal bilaterally. no calf erythema or pain. Assessment/plan: Heidi is seen on POD4 for asymptomatic, intermittent low O2 sat. She has several risk factors for this, including HAWA and post-op atelectasis. Encouraged IS use hourly. She denies any chest pain, dyspnea, dizziness/lightheadedness, lower extremity pain/erythema. She has no history of VTE. Discussed if she has persistent hypoxia, tachycardia, chest pain or dyspnea we would proceed with CT chest to rule out PE. That said, I am very reassured by her rapid resolution of brief low O2 sat, absent symptoms and benign physical exam. Discussed prophylactic lovenox at 40mg daily starting now. She does feel drunk and like her legs are weak on magnesium, notes this has been present and unchanged while on mag. Mag was briefly held his morning due to these symptoms, level was WNL at 5.1. Discussed we could consider decreasing dose or stopping magnesium if needed, however ideally we'd continue for 24 hours. All questions answered. Precautions reinforced. OB - PN: Obj Exam Physical Exam: Vital signs: Temp Pulse Resp BP Pulse Ox O2 Del Method 98.2 F 82 16 123/82 98 Room Air 10/29/23 11:37 10/29/23 13:52 10/29/23 13:52 10/29/23 13:52 10/29/23 13:52 10/29/23 13:52 OB - PN: Obj Data Labs Labs: Laboratory Results - last 24 hr 10/28/23 10/28/23 10/29/23 18:05 23:55 06:20 WBC 6.51 6.07 5.16 RBC 3.35 L 3.19 L 3.29 L Hgb 9.2 L 8.9 L 9.0 L Hct 29.0 L 27.6 L 28.4 L MCV 87 87 86 MCH 28 28 27 MCHC 32 32 32 Plt Count 217 201 224 BUN 16 13 10 Creatinine 0.7 0.7 0.7 Estimated Creat Clear 113.16 113.16 113.16 Estimated GFR 116 116 116 Magnesium AST 92 H 119 H 151 H ALT 43 H 55 H 69 H 10/29/23 10/29/23 09:08 11:51 WBC 5.65 RBC 3.47 L Hgb 9.5 L Hct 29.9 L MCV 86 MCH 27 MCHC 32 Plt Count 230 BUN 12 Creatinine 0.7 Estimated Creat Clear 113.16 Estimated GFR 116 Magnesium 5.1 H* AST 145 H ALT 71 H OB - PN: A/P Delivery Assessment and Plan (1) Anemia, : Status: Acute (2) Status post primary low transverse section: Problem details: Girl, Yun, Apgars 8/9, weight 9#14oz. Status: Inactive (3) Spinal headache: Problem details: s/p blood patch on 10/27, feeling much improved Status: Acute (4) Pre-eclampsia affecting puerperium: Status: Acute
[2023-10-29] MEDS: ENOXAPARIN 40 MG/0.4 ML INJ SUBCUT (16:08)
[2023-10-29] MEDS: MAGNESIUM Infusion 40 GM/1,000 ML IV.SOLN IVPB (18:57)
[2023-10-29 19:08] LABS: Hematocrit 29.3 % (33.0-51.0); Hemoglobin* 9.3 gm/dL (12.0-16.0); Mean Corpuscular HGB Conc 32 gm/dL (32-36); Mean Corpuscular Hemoglobin 28 pg (26-34); Mean Corpuscular Volume 87 fL (80-100); Platelet Count* 227 K/uL (140-440); Red Blood Count 3.38 m/uL (4.00-5.20); White Blood Count* 5.43 K/uL (4.50-11.00)
[2023-10-29 19:14] LABS: Slide Review Reflex No
[2023-10-29 19:30] LABS: Alanine Aminotransferase* 67 U/L (4-35); Aspartate Amino Transferase* 121 U/L (12-35); Blood Urea Nitrogen* 13 mg/dL (5-24); Creatinine* 0.8 mg/dL (0.5-1.5); Est. Creatinine Clearance* 99.01; Estimated Glomerular Filt Rate 98 ml/min
[2023-10-29] MEDS: MONTELUKAST 10 MG TABLET PO (21:26)
[2023-10-30 02:33] LABS: Hematocrit 27.2 % (33.0-51.0); Hemoglobin* 8.7 gm/dL (12.0-16.0); Mean Corpuscular HGB Conc 32 gm/dL (32-36); Mean Corpuscular Hemoglobin 27 pg (26-34); Mean Corpuscular Volume 86 fL (80-100); Platelet Count* 213 K/uL (140-440); Red Blood Count 3.17 m/uL (4.00-5.20); White Blood Count* 4.15 K/uL (4.50-11.00)
[2023-10-30 02:36] LABS: Slide Review Reflex No
[2023-10-30] MEDS: IBUPROFEN 600 MG TABLET PO (02:44)
[2023-10-30 02:45] VITALS: BP 126/84; PULSE 94; RESP 18; TEMP 36.6; O2SAT 96
[2023-10-30 02:47] LABS: Alanine Aminotransferase* 56 U/L (4-35); Aspartate Amino Transferase* 95 U/L (12-35); Creatinine* 0.7 mg/dL (0.5-1.5); Est. Creatinine Clearance* 113.16; Estimated Glomerular Filt Rate 116 ml/min
[2023-10-30 02:48] LABS: Blood Urea Nitrogen* 11 mg/dL (5-24)
[2023-10-30] MEDS: OXYCODONE 5 MG TABLET PO (02:52)
[2023-10-30 06:21] VITALS: BP 119/81; PULSE 82; RESP 18; O2SAT 97
[2023-10-30 07:05] LABS: Hematocrit 29.4 % (33.0-51.0); Hemoglobin* 9.3 gm/dL (12.0-16.0); Mean Corpuscular HGB Conc 32 gm/dL (32-36); Mean Corpuscular Hemoglobin 27 pg (26-34); Mean Corpuscular Volume 86 fL (80-100); Platelet Count* 236 K/uL (140-440); Red Blood Count 3.42 m/uL (4.00-5.20); White Blood Count* 3.98 K/uL (4.50-11.00)
[2023-10-30 07:11] LABS: Slide Review Reflex No
[2023-10-30 07:29] LABS: Aspartate Amino Transferase* 105 U/L (12-35); Creatinine* 0.7 mg/dL (0.5-1.5); Est. Creatinine Clearance* 113.16; Estimated Glomerular Filt Rate 116 ml/min
[2023-10-30 07:30] LABS: Alanine Aminotransferase* 60 U/L (4-35); Blood Urea Nitrogen* 10 mg/dL (5-24)
[2023-10-30 08:10] VITALS: BP 119/83; PULSE 85; RESP 18; TEMP 36.6; O2SAT 96
[2023-10-30] MEDS: ACETAMINOPHEN 500 MG TABLET 1000 MG PO (08:23)
[2023-10-30] MEDS: NIFEdipine 30 MG TAB.ER.24 PO (08:24)
--- NOTE | 2023-10-30 08:33 | P.DS_ITS ---
DS: Providers Provider Time Seen by Provider: 07:25 Date Seen: 10/30/23 Date of admission: 10/27/23 23:38 Primary care physician: Val Byrd PA-C Admitting Clinician: Saul Collado MD Attending Physician on discharge: Martina Quevedo MD DS: Diagnosis Discharge Diagnosis (1) Pre-eclampsia affecting puerperium: Status: Acute Problem details: with severe features by LFT's Exam Narrative: Exam Narrative: GENERAL APPEARANCE: Pleasant, [race], well-groomed woman in no acute distress. VITAL SIGNS: as noted in nursing notes HEAD: Normocephalic, atraumatic. THYROID: no masses, nodularity, tenderness or enlargement. LUNGS: Clear to auscultation bilaterally without wheezes, rales or rhonchi. HEART: Regular rate and rhythm with normal S1 and S2. No gallop, rub or murmur. ABDOMEN: Fundus firm at 3 cm below the umbilicus in the midline. Soft, nontender, nondistended, with normal bowels sounds throughout. INCISION: Clean, dry and intact with sutures. Her silver dressing was removed. EXTREMITIES: No cyanosis, clubbing or varicosities. Trace bilateral lower extremity edema to the ankle. NEUROLOGIC: Normal gait and balance. Normal deep tendon reflexes at bilateral patella 2+/2, equal without clonus. PSYCHIATRIC: alert and oriented x3. Normal speech pattern, eye contact and affect. SKIN: Warm, dry, and well perfused. Good turgor. No lesions, nodules. There are 5 erythematous macular patches where adhesive from the [place] monitor was placed on her abdomen. Being treated with hydrocortisone cream. Const: Vital Signs, click to edit/add: Vital Signs - 24 hr 10/29/23 09:11 10/29/23 10:26 10/29/23 11:37 Temperature 97.8 F 98.2 F Pulse Rate [Pulse Oximeter] 82 77 82 Respiratory Rate 16 16 16 Blood Pressure [Le ft Arm] 114/76 101/68 119/80 Blood Pressure [Ri ght Arm] Pulse Oximetry 97 98 96 Oxygen Delivery Me thod Room Air Room Air Room Air 10/29/23 13:52 10/29/23 16:04 10/29/23 18:00 Temperature 97.9 F 97.7 F Pulse Rate [Pulse Oximeter] 82 95 97 Respiratory Rate 16 16 16 Blood Pressure [Le ft Arm] 123/82 124/84 110/76 Blood Pressure [Ri ght Arm] Pulse Oximetry 98 97 97 Oxygen Delivery Me thod Room Air Room Air Room Air 10/29/23 19:56 10/29/23 23:33 10/30/23 02:45 Temperature 97.7 F 97.6 F 97.8 F Pulse Rate [Pulse Oximeter] 100 94 94 Respiratory Rate 16 18 18 Blood Pressure [Le ft Arm] 117/83 99/66 126/84 Blood Pressure [Ri ght Arm] Pulse Oximetry 97 98 96 Oxygen Delivery Me thod Room Air Room Air Room Air 10/30/23 06:21 10/30/23 08:10 Temperature 97.8 F Pulse Rate [Pulse Oximeter] 82 85 Respiratory Rate 18 18 Blood Pressure [Le ft Arm] 119/81 Blood Pressure [Ri ght Arm] 119/83 Pulse Oximetry 97 96 Oxygen Delivery Me thod Room Air Room Air OB - DS: Summary Hospital Course Hospital Course: The patient is a 33 year old G 1 P 1 at day 5 from a primary C- section for arrest of descent on 10/25/2023. She she was readmitted on 12/27/2023 with severe preeclampsia by liver function tests. Her blood pressure was well controlled with nifedipine XL 30 mg daily. Received 24 hours of magnesium for seizure prophylaxis. I postop day number 5 the liver function tests were decreasing, her blood pressure was under good control with nifedipine, she was tolerating regular diet and her pain was controlled with minimal pain medication. She was discharged home on 10/30/2023 in stable condition. Peripartum Data delivery method: Primary C/S; Labored Status at Discharge Functional status at discharge: independent ambulation Overall status at discharge: patient is progressing back to baseline Time Spent with Patient Time attestation: Total time spent providing and/or coordinating discharge services: Time spent: Less than 30 minutes Discharge Plan Discharge Disposition: Home, Self-Care Date of Admission: 10/27/23 23:38 Attending Provider on Discharge: Martina Quevedo Primary Care Provider: Val Byrd Condition: Stable Anticipated Discharge Date/Time: 10/30/23 11:00 Discharge Medications: New nifedipine 30 mg Tablet Extended Release 24hr 30 mg PO DAILY Qty: 60 0RF ibuprofen 600 mg Tablet 600 mg PO Q6H PRNQty: 30 0RF Continued loratadine [Claritin] 10 mg tablet 10 mg PO QDAY albuterol sulfate 90 mcg/actuation HFA aerosol inhaler 2 puff inhalation Q6H PRN Qvar RediHaler 40 mcg/actuation HFA aerosol breath activated 2 inh inhalation BID Hold Instructions: Pt. states not needed montelukast 10 mg tablet 10 mg PO QHS vitamin B complex [B Complex-Vitamin B12] Tablet 1 tab PO QDAY mometasone 50 mcg/actuation spray,non-aerosol 2 spray intranasal QDAY PRN Rx Instructions: administer into each nostril One A Day Women's DHA 28 mg iron- 800 mcg combo pack 1 pkg PO DAILY docusate sodium 100 mg Capsule 100 mg PO BID PRNQty: 120 0RF Rx Instructions: Take 1-2 tablets daily as needed for constipation. hydrocodone-acetaminophen 5-325 mg Tablet 1 - 2 tab PO Q6H PRNQty: 30 0RF Discharge Orders: Discharge Order (Routine); Ordered 10/30/23 Ordered By: Martina Quevedo Patient Education: Preeclampsia and Eclampsia After Delivery (GEN) Additional Instructions: Discharge instructions were reviewed with the patient including signs and symptoms of infection and home going medications Lifting Restrictions: 20 pounds for 6 weeks No not submerge incision under water X 2 weeks? Nothing vaginally for 6 weeks: no tampons or intercourse Do not drive while taking narcotic pain medication(s) Off Work or School for 8 weeks Symptoms to report to doctor: * Bleeding that saturates more than one pad per hour * Passing clots larger than the size of a golf ball * Pain not relieved by prescribed medication * Fever above 100.4 degrees Fahrenheit * A foul vaginal odor * Difficulty in emotions, mood, and functions * Thoughts of hurting yourself and/or * Painful, reddened area in your breast * Any drainage, redness, or tenderness in your IV/epidural site * Severe headache that doesn't improve after taking medications * Changes in vision, including temporary loss of vision, blurred vision, and/or light sensitivity * Upper abdominal pain (usually under ribs on the right side) * Decrease in urination or painful, frequent urinating * Chest pain * Shortness of breath * Tenderness or pain with redness and/swelling in the calf(s) of your leg [facility]?11/03/2023 Call with BP greater than or equal to 160/110 or less than or equal to 90/60 Optional 2-week visit: incision check, discuss infant feeding concerns, review control options and screen for anxiety/depression. 6-week visit for an annual exam. consultation services are available to all mothers and babies for the first year after delivery.? To make an appointment, please call [phone]. Activity Level: Other Discharge Diet: Regular Follow Up Appointments: Val Byrd PA-C [Primary Care Provider] - [facility] [Provider Group] Martina Quevedo MD [Staff Physician] - Forms: fav.[email or web address].it Info Instructions
[2023-10-30] MEDS: LORATADINE 10 MG TABLET PO (09:35)
[2023-10-30 12:00] VITALS: BP 119/86; PULSE 87; RESP 18; O2SAT 96
--- NOTE | 2023-10-30 12:27 | PC.NURSE ---
Nursing Care Hours: [id number] Pt this shift calm and cooperative, alert and oriented. No c/o pain. Denies headache or epigastric pain. VSS, walking independently in room. Lower abdomen incision clean and dry, open to air. Pt reports passing gas, voiding in toilet. IV removed for discharge, home instructions and SS to watch for went over with pt. All questions and concerns addressed.
== END 2023-10-30 12:45 | disposition home or self-care (01) | DRG 561 ==
LOC: ED 22:48 → OB 23:24
PROVIDERS: Obstetrics & Gynecology; Admitting Provider Emergency Medicine; Emergency Provider Emergency Medicine; PCP Physician Assistant; Visit Provider Obstetrics & Gynecology
DX: O14.15 Severe pre-eclampsia, complicating the puerperium (principal); R60.0 Localized edema; O90.81 Anemia of the puerperium; Z98.891 History of uterine scar from previous surgery; G97.1 Other reaction to spinal and lumbar puncture; O89.4 Spinal and epidural anesthesia-induced headache during the puerperium; Q87.81 Alport syndrome; N18.9 Chronic kidney disease, unspecified
CPT/HCPCS: 36415; 62273; 80053; 81001; 82565; 83605; 83735; 84450; 84460; 84520; 85025; 85027; 99283; 99284; A9270; J1650; J1756; J3475; J7120

== ENCOUNTER 2024-04-06 16:02 | Outpatient (CLI) | payer BC, OTHER, SELFPAY ==
--- OUTSIDE RECORDS SUMMARY | 2024-04-10 17:13 | XMS_ITS | Referral Summary ---
Author Organization [facility] Address [address] [place] [id number] Care Team Providers Care Trimmer Tailer Name Role Phone No Ref-Primary, Physician Primary [...] care of it in the past) Medications albuterol (PROVENTIL) (2.5 MG/3ML) 0.083% neb solution Inhale 2.5 mg into the lungs 3 times daily as needed for wheezing or shortness of breath 3 Active aspirin (ASA) 81 MG chewable tablet Take 81 mg by mouth daily Active QVAR REDIHALER 40 MCG/ACT inhaler Inhale 2 puffs into the lungs 2 times daily Active cyanocobalamin (VITAMIN B-12) 1000 MCG tablet Take 2,000 mcg by mouth daily 3 Active montelukast (SINGULAIR) 10 MG tablet Take 1 tablet by mouth at bedtime Active pyridOXINE (VITAMIN B6) 25 MG tablet Take 25 mg by mouth daily Active Vit-Fe Wxe-CU-Jjibo (ONE-A-DAY WOMENS ) 28-0.8 & 223 MG MISC Take 1 tablet by mouth daily Active loratadine (CLARITIN REDITABS) 10 MG ODT Take 10 mg by mouth daily Active Social History Tobacco Use Types Packs/Day Years Used Date Smoking Tobacco: Never Assessed Adolescent Education Answer Date Record ed Getting School Help Needed Not on file 05/22 Comments No Sex and Gender Information Value Date Recorded Sex Assigned at Not on file Legal Sex 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 Gender Identity Not on file Sexual Orientation Not on file Last Filed Vital Signs Vital Sign Reading Time Taken Comments Blood Pressure 114/82 07/03/2023 10:18 AM BRAND ANALYST Pulse 82 07/03/2023 10:18 AM BRAND ANALYST Temperature - - Respiratory Rate 18 07/03/2023 10:18 AM BRAND ANALYST Oxygen Saturation 100% 07/03/2023 10:18 AM BRAND ANALYST RA Inhaled Oxygen Concentration - - Weight - - Height - - Body Mass Index - - Plan of Treatment Not on file Insurance [place] [address] [facility] [place] [address] [facility] Care Teams Trimmer Tailer Relationship Specialty Start Date End Date No Ref-Primary, Physician PCP - General 05/28/23
--- OUTSIDE RECORDS SUMMARY | 2024-04-10 17:13 | XMS_ITS | Clinical Summary ---
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 CHECKER Gender Identity Not on file Sexual Orientation Not on file Last Filed Vital Signs Vital Sign Reading Time Taken Comments Blood Pressure 114/82 07/03/2023 10:18 AM BILLET CHECKER Pulse 82 07/03/2023 10:18 AM BILLET CHECKER Temperature - - Respiratory Rate 18 07/03/2023 10:18 AM BILLET CHECKER Oxygen Saturation 100% 07/03/2023 10:18 AM BILLET CHECKER RA Inhaled Oxygen Concentration - - Weight - - Height - - Body Mass Index - - Plan of Treatment Health Maintenance Due Date Last Done Comments ADVANCE CARE PLANNING 1988 ANNUAL REVIEW OF HM ORDERS 1988 GLUCOSE 1988 HIV SCREENING 09/20/2003 HEPATITIS C SCREENING 2006 PAP 2009 PHQ-2 (once per calendar year) 2023 YEARLY PREVENTIVE VISIT 09/03/2023 09/03/19, 08/28/2021, 07/24/2020, Additional history exists COVID-19 Vaccine ( season) 2024 03/23/2023, 06/17/2021, 06/17/2021, Additional history exists INFLUENZA VACCINE (#1) 2024 , 05/14/2021, 07/24/2020, Additional history exists DTAP/TDAP/TD IMMUNIZATION (9 - Td or Tdap) 06/09/2027 06/09/2017, 07/13/2007, 07/13/2007, Additional history exists RSV VACCINE (1 - 1-dose 75+ series) 09/20/2063 HEPATITIS B IMMUNIZATION Completed 999, 03/02/1999, 10/31/1998, [...] patient's age to complete this topic RSV MONOCLONAL ANTIBODY Aged Out No l onger eligible based on patient's age to complete this topic Insurance [employer] OUT [place] [address] [address] [place] [id number] [employer]BS OUT OF STATE [facility] PMAP Care Teams Fiberglass Insulation Installer Relationship Specialty Start Date End Date No Ref-Primary, Physician PCP - General 05/28/23
--- OUTSIDE RECORDS SUMMARY | 2024-04-10 17:13 | XMS_ITS | Clinical Summary ---
Author Organization [facility] Address [place], [place] [address] Care Team Providers Care Transformer Molder Name Role Phone Val Byrd Primary Care Provider [phone] Allergies Active Allergy Reactions Criticality Noted Date [...] once daily. 180 Tablet 3 09/02/2022 Active 188-yxwb-[id number]-omega 3 27 mg iron- 800 mcg-235 mg cap Take by mouth. 0 03/03/2023 Active aspirin chewable 81 mg chewable tablet Chew 81 mg by mouth. Active ferrous sulfate 325 mg delayed release tablet Take 325 mg by mouth once every other day. 07/28/2023 Active albuterol HFA (PRO-AIR; VENTOLIN; PROVENTIL) 90 mcg/actuation inhalerIndications:M ild persistent asthma without complication Inhale 1-2 Puffs by mouth every 4 hours if needed for Shortness Of Breath or Wheezing. 1 Each 11 10/09/2023 Active albuterol 0.083% (2.5 mg/3 mL) neb solutionIndications: Mild persistent asthma without complication Inhale 3 mL (2.5 mg) via a nebulizer every 4 hours if needed for Shortness Of Breath or Wheezing. 1 box 180 mL 11 10/09/2023 Active beclomethasone dipropionate (Qvar RediHaler) 40 mcg/actuation HFA inhalerIndications:M ild persistent asthma without complication Inhale 2 Puffs by mouth two times daily. 10.6 g 11 10/09/2023 Active montelukast (SINGULAIR) 10 mg tabletIndications:Al lergic rhinitis due to pollen, unspecified seasonality Take 1 Tablet (10 mg) by mouth at bedtime. 90 Tablet 3 10/09/2023 Active triamcinolone 0.1 % ointmentIndications: Polymorphous light eruption Apply topically to affected area(s) two times daily. 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 Val Byrd PA-C, Family Medicine.....................08/31/2021 9:04 AM Endometriosis 07/30/2021 Comments Yes Resolved Problems Problem Noted Date Diagnosed Date Resolved Date Pap smear for cervical cancer screening 07/24/2020 11/27/2021 Overview (08/28/2021): 07/24/2020 NIL/HPV negative. Plan: Pap/HPV due 07/2025 Immunizations Name Administration Dates Next Due COVID-19 vaccine ([employer] 30mcg/0.3mL) PF, MDV 06/17/2021,12/17/2020,11/19/2020 DT (Age < 7 years) 09/17/1993 DTP 01/20/1991, 0,01/31/1989,10/29 DTaP 07/13/2007 HIB HbOC (HibTITER) 03/03/1990 Hepatitis B (Peds) 03/02/1999,10/31/1998, 999 Hepatitis B, Unspecified 03/02/1999,10/31/1998,0 08/21/1998 Human Papilloma Virus Vaccine 01/11/2008, 008,07/13/2007 Influenza A (H1N1), Inactivated 04/15/2009 Influenza Virus, Unspecified 04/23/2016, 04/17/2015,04/04/2014,04/27,05/01/2011,03/31/2009,04/02/2005 ,03/14/2004,06/09/2000,04/03/1999,03/26 Influenza, IIV3 (Age >=3 years) 04/02/20 05,03/14/2004,06/09/2000,04/03 Influenza, IIV4 05/14/2021,,06/28/2019,07/21,04/23/2016 Influenza, IIV4 (=>6mos) MDV 04/17/2015 Influenza,LAIV3 Live Intrana tania (Flumist) 03/31/2009 MMR 09/17/1993,03/03/1990 Meningococcal Vaccine (Menomune) 07/13/2007 [...] 0 10/09/2023 Social Connections Answer Date Recorded Do you often feel lonely or isolated from those around you? 0 10/09/2023 Financial Resource Strain Answer Date R ecorded Difficulty of Paying Living Expenses 3 10/09/2023 Difficulty of Paying Living Expenses Not on file 10/09/2023 Food Insecurity Answer Date Recorded Do you worry your food will run out before you are able to buy more? 1 10/09/2023 Transportation Needs Answer Date Record ed Does lack of transportation keep you from medica l appointments? 1 10/09/2023 Does lack of transportation keep you from work, meetings or getting things that you need? 1 10/09/2023 Housing Stability Answer Date Recorded What is your housing situation today? 1 10/09/2023 Comments Yes Sex and Gender Information Value Date Recorded Sex Assigned at Not on file Gender Identity Not on file Sexual Orientation Not on file Obstetrics History Para Term AB IAB SAB Ectopic Multiple Livin g Live Births 1 Date Outcome GA Total Labor Labor/2nd/3rd Weight Sex Type Anes PTL Christine A1 A5 Name Clin Current Last Filed Vital Signs Vital Sign [...] Health Maintenance Due Date Last Done Comments COVID-19 vaccine series ( season) 2024 03/23/2023, 06/17/2021, 12/17/2020, Additional history exists Influenza for age 9-49 01/25/2024 , 07/24/2020, 06/28/2019, Additional history exists BMI (ht and wt on same day) for age 18+ 10/08/2024 10/09/2023, 09/02/2022, 08/28/2021 Depression screening for age 12+ 10/08/2024 10/09/2023, 10/09/2023, 09/02/2022, Additional history exists Pap test for age 21-65 07/24/2025 (Verified in Care Everywhere or Patient Record) Tetanus booster 06/09/2027 06/09/2017, 06/26, 08/28/2004, Additional history exists RSV vaccine for adults or (1 - 1-dose 75+ series) 09/20/2063 Pneumococcal series for age 6-64 Aged Out 04/04/2014 No longer eligible based on patient's age to complete this topic Tdap Completed 06/09/2017, 07/13/2007 HIV for age 15-65 Completed 09/02/2022 Hepatitis C screening for age 18-79 Completed 09/02/2022 Procedures Procedure Name Priority Date/Time Associated Diagnosis Comments LC HIV-1/O/2, 4TH GENERATION Routine 09/02/2022 10:39 AM CDT Encounter for screening for HIV LC HCV ANTIBODY RFX TO QUANT PCR Routine 09/02/2022 10:39 AM CDT Need for hepatitis C screening test from Last 3 Months or Most Recently Relevant to Health Maintenance Results * LC HCV ANTIBODY RFX TO QUANT PCR (09/02/2022 10:39 AM CDT) HCV Ab Non Reactive Non Reactive 09/04/2022 10:06 PM CDT [facility] Blood BLOOD SPECIMEN / Unknown Venipuncture / Unknown 09/02/2022 10:39 AM CDT 09/02/2022 10:43 AM CDT Narrative [facility] - 09/04/2022 10:06 PM CDT Performed at: ??01 - [facility] ??[id number] Account Management Assistant: Severo Sunshine MD, Phone: ??[phone] Val [facility] ([facility]) [address] [place] [address] * LC HIV-1/O/2, 4TH GENERATION (09/02/2022 10:39 AM CDT) HIV Scr 4th Gen Non Reactive Non Reactive 09/04/2022 10:06 PM CDT [facility] Comment: HIV Negative HIV-1/HIV-2 antibodies and HIV-1 p24 antigen were NOT detected. There is no laboratory evidence of HIV infection. Blood BLOOD SPECIMEN / Unknown Venipuncture / Unknown 09/02/2022 10:39 AM CDT 09/02/2022 10:43 AM CDT Narrative [facility]) - 09/04/2022 10:06 PM CDT Performed at: ??01 - [facility] ??[id number] Account Management Assistant: Severo Sunshine MD, Phone: ??[phone] Val [facility] Performing Organization Address [facility] Co de Phone Number [facility] ([facility]) [address] [place] [address] from Last 3 Months or Most Recently Relevant to Health Maintenance Advance Directives * Full Code (Latest Code Status on File) Date Activated Date Inactivated Comments 05/23/2020 2:04 PM 05/24/2020 1:14 PM Question Answer Comments Code Status Discussion: Not Discussed Care Teams Transformer Molder Relationship Specialty Start Date End Date Val Byrd PA [address] [facility] [address] PCP - General Physician Form Setter/Driver 11/21/22
== END 2024-04-06 16:03 | disposition home or self-care (01) ==
LOC: NFLDREF 04-10 17:11
PROVIDERS: PCP Physician Assistant; Referring Provider Physician Assistant; Visit Provider Internal Medicine Nephrology
DX: R80.9 Proteinuria, unspecified (principal)
CPT/HCPCS: 80061; 80069; 82043; 82570; 84450; 84460; 87086

== ENCOUNTER 2025-03-17 21:32 | Emergency (ER) | payer BC, OTHER, SELFPAY ==
--- OUTSIDE RECORDS SUMMARY | 2025-03-04 10:30 | XMS_ITS | Encounter Summary ---
Author Organization [facility] Address [address] [place] [address] Phone Care Team Providers Care Terminal Computer Operator Name Role Phone Geri Reynaga DO Primary Care Provider Reason for Visit * Reason Comments CKD New Patient * Nephrology Services (Routine) - Closed Specialty Diagnoses / Procedures Referred By Contquinn t Referred To Contact Nephrology Diagnoses Alport syndrome Medullary sponge kidney Geri Reynaga DO [address] [place] [address] Phone: tel: fax: Yoan Wagner MD [address] [place] [address] Phone: tel: fax: Referral ID Status Reason Start Date Expiration Date Visits Re quested Visits Authorized [id number] Closed 10/19/2024 10/19/2025 1 1 Encounter Details Date Type Department Care Team (Late st Contact Info) Description 03/04/2025 10:30 AM CDT [facility] Visit [facility] [address] [place] [id number] Yoan Wagner MD [address] [place] [address] Alport syndrome (Primary Dx); Medullary sponge kidney; Proteinuria, not otherwise specified Social History Tobacco Use Types Packs/Day Years Used Date Smoking Tobacco: Never Smokeless Tobacco: Never Alcohol Use Standard Drinks/Week Comments Not Currently 0 (1 standard drink = 0.6 oz pur e alcohol) Comments Unknown Sex and Gender Information Value Date Recorded Sex Assigned at Not on file Legal Sex Female 8:38 AM EDT Gender Identity Not on file Sexual Orientation Not on file documented as of this encounter Last Filed Vital Signs Vital Sign Reading Time Taken Comments Blood Pressure 122/66 03/04/2025 9:58 AM CDT Pulse 67 03/04/2025 9:58 AM CDT Temperature - - Respiratory Rate - - Oxygen Saturation 99% 03/04/2025 9:58 AM CDT Inhaled Oxygen Concentration - - Weight 114 kg (252 lb) 03/04/2025 9:58 AM CDT Height 172.7 cm (5' 8) 03/04/2025 9:58 AM CDT Body Mass Index 38.32 03/04/2025 9:58 AM CDT documented in this encounter Patient Instructions * Patient Instructions* Mustapha Francois - 03/04/2025 10:30 AM CDT Heidi, I am glad you are doing so well! We will do a 24 hour urine test, spot urine test, and blood test. If your 24 hour urine protein is elevated, we would consider losartan again until you start trying to have another baby at which time you would need to stop. Continue to monitor your blood pressure. When you get , let me know and we will coordinate testing at the OB clinic. Follow-up in 1 year. Checo Wagner MD We will contact you to schedule your 1 year follow up when the schedule becomes available. Labs should be completed 1-2 weeks prior. They will be faxed to Derik Stevenson documented in this encounter Progress Notes * Yoan Wagner MD - 03/04/2025 10:30 AM CDT Images from the original note were not included. Patient: Heidi Amaya Date of : 1990 Chart: [id number] PCP: Geri Reynaga DO Date of Service: 03/04/2025 Chief Complaint: Alport's syndrome, medullary sponge kidney Subjective: Heidi is here today for follow-up for the above. I saw her at the [facility] previously. She is now establishing with me at my [facility]. At my last visit with her in 02/2023, we had taken her off losartan as she wanted to get and she was at that visit and had a baby girl at 39w1d, a healthy baby girl! She did not develop HTN during or pre- eclampsia, but did develop likely pre-eclampsia post-. She had significant MCGUIRE, was re-admitted a few days after delivery, although found to have likely epidural-associated MCGUIRE and patch was placed and her BP normalized and her MCGUIRE went away. However, her LFT's were elevated so she was treated with BP therapy temporarily and IV Magnesium, then discharged, was taken off BP therapy, and she has been off BP therapy since then with normal BP without going back on l osartan. She had monthly labs during her including every 2 month 24 hour urine protein and followed with [facility] or [facility] gun[facility] observer that is [facility] She feels well and has no concerns today. She does not have any edema and did not during or after her . Her home BP's are normal. Her urine Pr:Cr in September 2024 was 0.1 g/g (normal). She has not had a 24 hour urine protein since her delivery. 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 Her maternal grandfather had end-stage renal disease and hearing problems due to Alport syndrome. He was on dialysis for 13 years. Her mother, 2 maternalaunts, 3 cousins, her sister and niece are all carriers for X-linked Alport's syndrome. 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 She was part of a study at [facility] and had genetic testing through this study. She has had microalbuminuria including <100 mg/24hrs on last 24hr urine although this was in 2018 the last time and her urine Alb:Cr spot check is up slightly now. Her father had hearing problems, no females have had hearing problems and she has not either. She also has hx of medullary sponge kidney and nephrolithiasis, she drinks a lot of water and has not had a kidneystone pass since 2009. She has been on losartan 25mg for years. She had cough with lisinopril. She does not monitor BP at home. She is now considering to have kids in near future. She plans to go offbirth control in about 3 weeks. 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 Her daughter, Yun, is a year and a half in Feb 2025 She does not smoke The following portions of the patient's chart were reviewed in this encounter and updated as appropriate: Tobacco Allergies Meds Problems Med Hx Surg Hx Fam Hx Active Problems Patient Active Problem List Diagnosis Medullary sponge kidney Alport syndrome Exacerbation of mild persistent asthma Gastroesophageal reflux disease Nephrolithiasis Proteinuria Review of Systems Patient denies chest pain, SOB at rest, nausea/vomiting, and fever/chills Taking? Provider LT albuterol (2.5 MG/3ML) 0.083% nebulizer solution Vamsi Brooks MD Inhale 2.5 mg every 30 minutes as needed albuterol HFA (PROVENTIL HFA;VENTOLIN HFA) 108 (90 Base) MCG/ACT inhaler Vamsi Brooks MD Inhale 1-2 puffs every 30 minutes as needed Cetirizine HCl (ZyrTEC ALLERGY) 10 MG capsule Vamsi Brooks MD Take by mouth. cyanocobalamin (VITAMIN B-12) 1000 MCG tablet Vamsi Brooks MD Take 2,000 mcg by mouth in the morning. mometasone (NASONEX) 50 MCG/ACT nasal spray Vamsi Brooks MD Administer 2 sprays into affected nostril(s) in the morning. montelukast (SINGULAIR) 10 MG tablet Vamsi Brooks MD Take 10 mg by mouth in the morning. Qvar RediHaler 40 MCG/ACT aerosol Vamsi Brooks MD Inhale 2 puffs in the morning and 2 puffs in the evening. sertraline (ZOLOFT) 50 MG tablet Vamsi Brooks MD Take 50 mg by mouth in the morning. triamcinolone (KENALOG) 0.1 % cream Vamsi Brooks MD Apply topically to affected area(s) two times daily. Allergies Allergen Reactions Amoxicillin Hives Cefaclor Hives Cefuroxime Hives Clindamycin Hives Latex Rash Ondansetron Other (see comments) Other Reaction(s): Chest Pain Shellfish-Derived Products Itching Itchy tongue and lips (benadryl has taken care of it in the past) Benzalkonium Chloride Rash Cyanoacrylate Rash Physical Exam BP 122/66 (BP Location: Left upper arm, Patient Position: Sitting, BP Cuff Size: Adult) Pulse 67 Ht 5' 8 (1.727 m) Wt 252 lb (114 kg) SpO2 99% BMI 38.32 kg/m?? CONSTITUTIONAL: appears well and not in any distress EYES: pupils equal, sclerae not icteric. RESPIRATORY: Clear to auscultation bilaterally, nl effort CARDIOVASCULAR: Regular rate and rhythm, no murmurs. no leg edema. GASTROINTESTINAL: bowel sounds active, not distended PSYCHIATRIC: Alert and pleasant INTEGUMENT: No visible rash on exposed skin MUSCULOSKELETAL: four limbs, no contractures Chemistry and Bone Mineral Lab Units 10/15/24 0000 03/06/23 1037 SODIUM mEq/L 141 139 POTASSIUM mEq/L 4.3 4.2 CHLORIDE 101 104 CO2 mmol/L 32 24 ANION GAP -- 11 CALCIUM mg/dL 9.6 9.3 GLUCOSE mg/dL 94 89 BUN mg/dL 13 9 CREATININE mg/dL 0.81 0.64 EGFR 96 >90 Urine Lab Units 10/15/24 0000 PROT/CREAT RATIO UR 0.1 Imaging: CT Abd/Pelvis 11/16/2020 [facility]: Spleen, pancreas, kidneys, and the other major abdominal viscera are unremarkable. IMPRESSION: No clear cause of abdominal pain. 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 There is variability in whether kidney disease develops in female carriers and it is common to have chronic microscopic hematuria and proteinuria. Prior to [id number], her 24hr urine protein was 168 mg on losartan 25mg daily. She stopped losartan to attempt preg jade in 2022 and had a healthy baby girl in October 2024. -She was on losartan 25mg daily prior to . She has been off of it since. She had post- pre-eclampsia (probably) with brief treatment, no pre-eclampsia or HTN or exacerbation of proteinuria during . Her urine Pr:Cr was 0.1 g/g in September 2024. -Will do BMP, UA, urine Pr:Cr, urine Alb:Cr, and 24 hour urine protein -If no proteinuria and BP remains normal, will not re-start losartan -If any proteinuria or if BP rises, will use losartan 25mg daily again which she tolerate well previously -When she desires next , as soon as she starts to try to become she will discontinue losartan and continue to monitor home BP (she thinks possibly spring 2025) -When again, will follow with monthly labs, every other month 24 hour urine protein, home BP monitoring, and regular follow-up with OB and with me for close monitoring given risk of HTN, proteinuria rising, pre-eclampsia. She is aware of all of this. -She has followed with [facility] and was part of [place] trial. She is well aware of genetic mutation and risk to offspring Return in about 1 year (around 03/04/2026). Total time spent on visit today was 41 minutes. Yoan Wagner MD [facility] documented in this encounter Plan of Treatment Scheduled Orders Name Type Priority Associated Diagnoses Orde r Schedule Urine Protein, 24 hour w/o Creatinine Lab Routine Alport syndrome Expected: 03/04/2025, Expires: 03/04/2026 Basic metabolic panel Lab Routine Alport syndrome Expected: 03/04/2025, Expires: 04/04/2026 Urinalysis with microscopic Lab Routine Alport syndrome Expected: 03/04/2025, Expires: 04/04/2026 Urine Protein / creatinine ratio Lab Routine Alport syndrome Expected: 03/04/2025, Expires: 04/04/2026 Urine Albumin / Creatinine Ratio Lab Routine Alport syndrome Expected: 03/04/2025, Expires: 04/04/2026 documented as of this encounter Visit Diagnoses Diagnosis Alport syndrome- Primary Medullary sponge kidney Proteinuria, not otherwise specified documented in this encounter Care Teams Terminal Computer Operator Relationship Specialty Start Date End Date Geri Reynaga DO [address] [place] [address] PCP - General Family Medicine 10/19/24 documented as of this encounter
--- OUTSIDE RECORDS SUMMARY | 2025-03-17 21:33 | XMS_ITS | Clinical Summary ---
Author Organization [facility] Address [address] [place] [address] Phone Care Team Providers Care Appraisal Coordinator Name Role Phone Geri Reynaga Primary Care Provider [phone] Allergies Active Allergy Reactions Criticality Noted Date Comments Amoxicillin Hives Medium 10/13/2008 Benzalkonium Chloride Rash Low 04/22/2022 Cefaclor Hives Medium 10/13/2008 Cefuroxime Hives Medium 10/13/2008 Clindamycin Hives Medium 02/28/2014 Cyanoacrylate Rash Low 06/12/2020 Latex Rash Medium 07/17/2009 Ondansetron Other (see comments) 02/13/2022 Other Reaction(s): Chest Pain Shellfish Protein-Containing Drug Products Itching 05/22/2020 Itchy tongue and lips (crispinl has taken care of it in the past) Medications albuterol (2.5 MG/3ML) 0.083% nebulizer solution Inhale 2.5 mg every 30 minutes as needed 3 Active albuterol HFA (PROVENTIL HFA;VENTOLIN HFA) 108 (90 Base) MCG/ACT inhaler Inhale 1-2 puffs every 30 minutes as needed 5 Active Qvar RediHaler 40 MCG/ACT aerosol Inhale 2 puffs in the morning and 2 puffs in the evening. 5 Active Cetirizine HCl (ZyrTEC ALLERGY) 10 MG capsule Take by mouth. Activ e cyanocobalamin (VITAMIN B-12) 1000 MCG tablet Take 2,000 mcg by mouth in the morning. 3 Active mometasone (NASONEX) 50 MCG/ACT nasal spray Administer 2 sprays into affected nostril(s) in the morning. 3 Active montelukast (SINGULAIR) 10 MG tablet Take 10 mg by mouth in the morning. 5 Active sertraline (ZOLOFT) 50 MG tablet Take 50 mg by mouth in the morning. 5 Active triamcinolone (KENALOG) 0.1 % cream Apply topically to affected area(s) two times daily. 5 Active Active Problems Problem Noted Date Diagnosed Date Proteinuria 09/03/2023 Exacerbation of mild persistent asthma 2 Nephrolithiasis 06/09/2017 Overview (03/04/2025): Calcium oxalate stone. Alport syndrome 04/23/2016 Gastroesophageal reflux disease 06/29/2012 Medullary sponge kidney 10/07/2008 Encounters Date Type Department Care Team Description 03/04/2025 10:30 AM CDT Office Visit [facility] [address], [place] [address] Yoan Wagner MD Alport syndrome (Primary Dx); Medullary sponge kidney; Proteinuria, not otherwise specified from Last 3 Months Immunizations Immunization Administration Dates Next Due Tdap 08/25/2023,06/09/2017,07/13/2007 Varicella 12/11/2023,11/10/2023 Family History Medical History Relation Comments Diabetes Father Alport syndrome Maternal Grandfather Alport syndrome Mother Johnson's thyroiditis Mother Hypertension Mother Lupus Mother Alport syndrome Sister Johnson's thyroiditis Sister Relation Status Comments Father Maternal Grandfather Mother Sister Social History Tobacco Use Types Packs/Day Years Used Date Smoking Tobacco: Never Smokeless Tobacco: Never Tobacco Cessation:Counseling Given: Not Answered Alcohol Use Standard Drinks/Week Comments Not Currently [...] Mass Index 38.32 03/04/2025 9:58 AM CDT Plan of Treatment Health Maintenance Due Date Last Done Comments Hepatitis B Vaccine (1 of 3 - 19+ 3-dose series) 09/20/2007 Pneumococcal Vaccine: Peds ( 0 to 5 Years) and At-Risk Patients (6 to 49 Years) (2 of 2 - PCV) 04/04/2015 04/04/2014 Influenza Vaccine Completed 03/04/2025, , 07/24/2020, Additional history exists Insurance [id number] [facility] [address] [facility] Care Teams Appraisal Coordinator Relationship Specialty Start Date End Date Geri Reynaga DO [address] [facility] [address] PCP - General Family Medicine 10/19/24
--- OUTSIDE RECORDS SUMMARY | 2025-03-17 21:34 | XMS_ITS | Clinical Summary ---
Author Organization [facility] Address [address] [place] [address] Care Team Providers Care Jig Boring Machine Set Up Operator Name Role Phone Ronnell, Geri Ya DO Primary Care Provider [phone] Allergies Active Allergy Reactions Criticality Noted Date Comments 2-Octyl Cyanoacrylate Rash 06/12/2020 Amoxicillin Hives 05/16/2020 Cefaclor Hives 05/16/2020 Cefuroxime Axetil Hives 05/16/2020 Clindamycin Hives 05/16/2020 Latex Rash 05/16/2020 Benzalkonium Chloride Rash 04/22/2022 Shellfish Derived Itching 05/22/2020 Itchy tongue and lips (benadryl has taken care of it in the past) Ondansetron Chest Pain 02/13/2022 Medications mometasone (NASONEX) (50 mcg each actuation) nasal sprayIndications: Allergic rhinitis due to pollen, unspecified seasonality Inhale 2 Sprays to both nostrils once daily. 17 g 11 3 Active cyanocobalamin (Vitamin B-12) 1,000 mcg tabletIndications :B12 deficiency Take 2 Tablets (2,000 mcg) by mouth once daily. 180 Tablet 3 3 Active Cetirizine (ZyrTEC) 10 mg cap Take by mouth. Activ e albuterol HFA 90 mcg/actuation inhalerIndication s:Mild persistent asthma without complication (HC) Inhale 1-2 Puffs by mouth every 4 hours if needed for Shortness Of Breath or Wheezing. 1 Each 11 5 Active albuterol 0.083% (2.5 mg/3 mL) neb solutionIndicatio ns:Mild persistent asthma without complication (HC) Inhale 3 mL (2.5 mg) via a nebulizer every 4 hours if needed for Shortness Of Breath or Wheezing. 1 box 180 mL 11 5 Active beclomethasone dipropionate (Qvar RediHaler) 40 mcg/actuation HFA inhalerIndication s:Mild persistent asthma without complication (HC) Inhale 2 Puffs by mouth two times daily. 10.6 g 11 5 Active montelukast 10 mg tabletIndications :Allergic rhinitis due to pollen, unspecified seasonality Take 1 Tablet (10 mg) by mouth at bedtime. 90 Tablet 3 5 Active sertraline 50 mg tabletIndications : depression Take 1 Tablet (50 mg) by mouth once daily. 90 Tablet 3 5 Active triamcinolone 0.1 % creamIndications: Polymorphous light eruption Apply topically to affected area(s) two times daily. 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 Plan: Pap/HPV due 07/2025 Encounters Date Type Department Care Team Description 03/04/2025 3:40 PM CDT Nurse/Clinic Staff Only [facility] [[email or web address] [address] [place] [address] Flu Shot; Immunization/Injection 03/04/2025 Travel from Last 3 Months Immunizations Immunization Administration Dates Next Due COVID-19 vaccine ([employer] 30mcg/0.3mL) 12YO+ OMAR-SUCROSE PF, MDV 06/17/2021,12/17/2020 COVID-19 vaccine ([facility] 30mcg/0.3mL) PF, MDV 06/17/2021,12/17/2020,11/19/2020 DT (Age < 7 years) 09/17/1993 DTP 01/20/1991, 0,01/31/1989,10/29 DTaP 07/13/2007 Dtap-5 Pertussis Antigens 01/20/1991,,01/31/1989,10/29 HIB HbOC (HibTITER) 03/03/1990 HIB PRP-T (ActHIB,Hiberix) 03/03/1990 HPV 9 (Gardasil 9) 01/11/2008,09/11/2007, 008 Hepatitis B (Peds) 03/02/1999,10/31/1998, 999 Hepatitis B, Unspecified 03/02/1999,10/31/1998,0 08/21/1998 Human Papilloma Virus Vaccine 01/11/2008, 008,07/13/2007 INFLUENZA, IIV3 PF (AGE >= 6 MO) 03/04/2025 Inactivated Polio Vaccine 09/17/1993,,01/31/1989,10/29 Influenza A (H1N1), Inactivated 04/15/2009 Influenza Virus, Unspecified 04/23/2016, 04/17/2015,04/04/2014,04/27,05/01/2011,03/31/2009,04/02/2005 ,03/14/2004,06/09/2000,04/03/1999,03/26 Influenza, IIV3 (Age >=3 years) 04/02/20 05,03/14/2004,06/09/2000,04/03 Influenza, IIV4 03/21/2023,,07/24/2020,06/28,07/21/2018,04/23/2016 Influenza, IIV4 (=>6mos) MDV 04/17/2015 Influenza,LAIV3 Live Intrana atnia (Flumist) 03/31/2009 MMR 09/17/1993,03/03/1990 Meningococcal Vaccine (Menactra) 07/13/2007 Meningococcal Vaccine (Menomune) 07/13/2007 Oral Polio Vaccine 09/17/1993, 1,01/31/1989,10/29 Pneumococcal Poly,23-Valent (Pneumovax) 04/04/2014 Polio (Oral Polio Vaccine,Unspecified) 0 09/17/1993,01/20/1991,01/31/1989,10/29 Td (Age >=7 Years) 08/28/2004,03/02/1999 Tdap 08/25/2023,06/09/2017,07/13/2007 Varicella Vaccine 12/11/2023,11/10/2023 Family History Medical History Relation Name Comments Diabetes type II Father Hearing loss Father Alport syndrome Maternal Grandfather Alport syndrome Mother Johnson's thyroiditis Mother Hypertension Mother Lupus Mother Alport syndrome Sister Johnson's thyroiditis Sister Other Sister Lupus anticoagu lant Relation Name Status Comments Father Maternal Grandfather Mother Sister Social History Tobacco Use Types Packs/Day Years Used Date Smoking Tobacco: Never Smokeless Tobacco: Never Tobacco Cessation:Counseling Given: Yes Alcohol Use Standard Drinks/Week Comments Not Currently 0 (1 standard drink = 0.6 oz pur e alcohol) PHQ-2 Answer Date Recorded PHQ-2 TOTAL SCORE 0 10/15/2024 Social Connections Answer Date Recorded Do you often feel lonely or isolated from those around you? 0 10/15/2024 Financial Resource Strain Answer Date R ecorded Difficulty of Paying Living Expenses 3 10/15/2024 Difficulty of Paying Living Expenses Not on file 10/15/2024 Food Insecurity Answer Date Recorded Do you worry your food will run out before you are able to buy more? 1 10/15/2024 Transportation Needs Answer Date Record ed Does lack of transportation keep you from medica l appointments? 1 10/15/2024 Does lack of transportation keep you from work, meetings or getting things that you need? 1 10/15/2024 Housing Stability Answer Date Recorded What is your housing situation today? 1 10/15/2024 Interpersonal Safety Answer Date Record ed Are you being hit, kicked, p ushed or yelled at (see row info)? No 06/14/2024 Interpersonal Safety Abuse 12 - 18 Not on file 06/14/2024 Interpersonal Safety Ambulatory Vulnerability No t on file 06/14/2024 Utilities Answer Date Recorded Do you have trouble paying f or utilities (for example, heat, electricity, water, phone)? 1 10/15/2024 Comments No Sex and Gender Information Value Date Recorded Sex Assigned at Not on file Legal Sex Female 11:12 AM CLAIMS COLLECTOR Gender Identity Not on file Sexual Orientation Not on file Obstetrics History Para Term AB IAB SAB Ectopic Multiple Livin g Live Births 1 1 1 1 1 Date Outcome GA Total Labor Labor/2nd/3rd Weight Sex Type Anes PTL Christine A1 A5 Name Clin 10/24 Term 39w 1d F C-Sec tion Living Yun Last Filed Vital Signs Vital Sign Reading Time Taken Comments Blood Pressure 119/83 10/15/2024 2:03 PM CDT Pulse 65 10/15/2024 2:03 PM CDT Temperature 37.3 C (99.1 F) 06/14/2024 11:57 AM CLAIMS COLLECTOR Respiratory Rate 16 06/14/2024 11:57 AM CLAIMS COLLECTOR Oxygen Saturation 98% 06/14/2024 11:57 AM CLAIMS COLLECTOR Inhaled Oxygen Concentration - - Weight 111.1 kg (245 lb) 10/15/2024 2:03 PM CDT Height 169.6 cm (5' 6.77) 10/15/2024 2:03 PM CD T Body Mass Index 38.63 10/15/2024 2:03 PM CDT Plan of Treatment Upcoming Encounters Date Type Department Care Team (Late st Contact Info) Description 04/06/2025 4:00 PM CLAIMS COLLECTOR Orders Only [facility] [[email or web address]] [address] [place] [address] Lab, [facility] Maintenance Due Date Last Done Comments COVID-19 vaccine series ( season) 2025 03/23/2023, 06/17/2021, 06/17/2021, Additional history exists Pap test for age 21-65 07/24/2025 (Verified in Care Everywhere or Patient Record) BMI (ht and wt on same day) for age 18+ 10/15/2025 10/15/2024, 10/09/2023, 09/02/2022, Additional history exists Depression screening for age 12+ 10/15/2025 10/15/2024, 10/09/2023, 10/09/2023, Additional history exists Tetanus booster 08/24/2033 08/25/2023, 05/26, 07/13/2007, Additional history exists RSV vaccine for adults or (1 - 1-dose 75+ series) 09/20/2063 Hepatitis B series for 19+ Completed 03/02, 03/02/1999, 10/31/1998, Additional history exists HPV series for age 9-45 Completed 01/11/20 08, 01/11/2008, 09/11/2007, Additional history exists Pneumococcal series for age 6-49 Aged Out 04/04/2014 No longer eligible based on patient's age to complete this topic HIV for age 15-65 Completed 09/02/2022 Hepatitis C screening for age 18-79 Completed 09/02/2022 Influenza Vaccine Completed 03/04/2025, , 05/14/2021, Additional history exists Procedures Procedure Name Priority [...] 09/04/2022 10:06 PM CDT [facility] ([facility]) Blood BLOOD SPECIMEN / Unknown Venipuncture / Unknown 09/02/2022 10:39 AM CDT 09/02/2022 10:43 AM CDT Narrative [facility] ([facility]) - 09/04/2022 10:06 PM CDT Performed at: 01 - [address] [id number] Informaticist: Severo Sunshine MD, Phone: [phone] us Val [facility] Final Resu lt Performing Organization Address City/Va Hospital/ZIP Co de Phone Number [facility] ([facility]) [address] [place] [address] * LC HIV-1/O/2, 4TH GENERATION (09/02/2022 10:39 AM CDT) HIV Scr 4th Gen Non Reactive Non Reactive 09/04/2022 10:[address] [facility] ([facility]) Comment: HIV Negative HIV-1/HIV-2 antibodies and HIV-1 p24 antigen were NOT detected. There is no laboratory evidence of HIV infection. Blood BLOOD SPECIMEN / Unknown Venipuncture / Unknown 09/02/2022 10:39 AM CDT 09/02/2022 10:43 AM CDT Narrative [facility] ([facility]) - 09/04/2022 10:06 PM CDT Performed at: [address] [place] [id number] Informaticist: Severo Sunshine MD, Phone: [phone] us Val [facility] Final Resu lt Performing Organization Address City/Va Hospital/ZIP Co de Phone Number [facility] ([facility]) [address] [place] [address] from Last 3 Months or Most Recently Relevant to Health Maintenance Insurance [facility] [phone] [place] [id number] [facility] Advance Directives * Full Code (Latest Code Status on File) Date Activated Date Inactivated Comments 05/23/2020 2:04 PM 05/24/2020 1:14 PM Question Answer Comments Code Status Discussion: Not Discussed Care Teams Jig Boring Machine Set Up Operator Relationship Specialty Start Date End Date Geri Reynaga DO [address] [place] [address] PCP - General Family Practice 10/15/24
--- OUTSIDE RECORDS SUMMARY | 2025-03-17 21:34 | XMS_ITS | Clinical Summary ---
Author Organization [facility] Address [address] [place] [id number] Care Team Providers Care Pickling Machine Operator Name Role Phone No Ref-Primary, Physician Primary Care Provider Allergies Active Allergy Reactions Criticality Noted Date Comments Amoxicillin Hives Medium 10/13/2008 Benzalkonium Chloride Rash Low 04/22/2022 Cefaclor Hives Medium 10/13/2008 Cefuroxime Hives Medium 10/13/2008 Clindamycin Hives Medium 02/28/2014 Cyanoacrylate Rash Low 06/12/2020 Latex Rash Medium 07/17/2009 Ondansetron 02/13/2022 Other Reaction(s): Chest Pain Shellfish Protein-Containing Drug Products Itching 05/22/2020 Itchy tongue and lips (mary jane has [...] 25 mg by mouth daily Active Vit-Fe Quv-GP-Pqgoe (ONE-A-DAY WOMENS ) 28-0.8 & 223 MG [...] on file Legal Sex Female 11:48 AM REED MAKER Gender Identity Not on file Sexual Orientation Not on file Last Filed Vital Signs Vital Sign Reading Time Taken Comments Blood Pressure 114/82 07/03/2023 10:18 AM REED MAKER Pulse 82 07/03/2023 10:18 AM REED MAKER Temperature - - Respiratory Rate 18 07/03/2023 10:18 AM REED MAKER Oxygen Saturation 100% 07/03/2023 10:18 AM REED MAKER RA Inhaled Oxygen Concentration - - Weight - - Height - - Body Mass Index - - Plan of Treatment Health Maintenance Due Date Last Done Comments ADVANCE CARE PLANNING 1988 ANNUAL REVIEW OF HM ORDERS 1988 DIABETES SCREENING 1988 PAP 2009 YEARLY PREVENTIVE VISIT 09/03/2023 09/03/19, 08/28/2021, 07/24/2020, Additional history exists PHQ-2 (once per calendar year) 2024 COVID-19 VACCINE (2024- season) 2025 03/23/2023, 06/17/2021, 06/17/2021, Additional history exists INFLUENZA VACCINE (#1) 2025 , 05/14/2021, 07/24/2020, Additional history exists DTAP/TDAP/TD VACCINE (9 - Td or Tdap) 06/09/2027 06/09/2017, 07/13/2007, 07/13/2007, Additional history exists ZOSTER VACCINE (1 of 2) 2038 HEPATITIS B VACCINE Completed 03/02/1999, 03/02/1999, 10/31/1998, Additional history exists MENINGITIS VACCINE Aged Out 07/13/2007, 07/13/2007 No longer eligible based on patient's age to complete this topic HPV VACCINE Completed 01/11/2008, 12/24, 09/11/2007, Additional history exists PNEUMOCOCCAL VACCINE: PEDIATRICS (0 to 5 YEARS) AND AT-RISK PATIENTS (6 to 49 YEARS) Aged Out 04/04/2014 No longer eligible based on patient's age to complete this topic HEPATITIS C SCREENING Completed 09/02/2022 HIV SCREENING Completed 09/02/2022 Insurance BCBS OUT OF STATE [facility] [place] [id number] BCBS OUT OF STATE [facility] [address] [place] [phone] Care Teams Pickling Machine Operator Relationship Specialty Start Date End Date No Ref-Primary, Physician PCP - General 05/28/23
--- OUTSIDE RECORDS SUMMARY | 2025-03-17 21:34 | XMS_ITS | Encounter Summary ---
Author Organization [facility] [place] Address [address] [place] [address] Phone Care Team Providers Care Needle Punch Machine Operator Helper Name Role Phone Geri Reynaga DO Primary Care Provider [phone] Encounter Details Date Type Department Care Team (Late st Contact Info) Description 10/19/2024 Documentation Only [facility] [address] [place] [id number] No, Pcp Social History Tobacco Use Types Packs/Day Years Used Date Smoking Tobacco: Never Assessed Comments Unknown Sex and Gender Information Value Date Recorded Sex Assigned at Not on file Legal Sex Female 8:38 AM EDT Gender Identity Not on file Sexual Orientation Not on file documented as of this encounter Plan of Treatment Not on file documented as of this encounter Visit Diagnoses Not on filedocumented in this encounter Care Teams Needle Punch Machine Operator Helper Relationship Specialty Start Date End Date Ger[place] [address] PCP - General Family Medicine 10/19/24 documented as of this encounter
[2025-03-17 21:52] VITALS: BP 160/108; PULSE 80; RESP 20; TEMP 36.7; O2SAT 98; BMI 37.6
--- NOTE | 2025-03-17 23:11 | CRLHL7_ITS ---
For Patients: As a result of the Century Cures Act, medical imaging exams and procedure reports are released immediately into your electronic medical record. You may view this report before your referring provider. If you have questions, please contact your health care provider. Indication: Back pain. Technique: Two views of the lumbar spine. Comparison: None. Findings/Impression: No acute fracture or suspicious osseous lesion. The lumbar vertebral bodies maintain their normal heights with preserved lordosis. No significant spondylolisthesis. Mild multilevel spondylosis without significant disc space height loss. Mild degenerative changes of the bilateral sacroiliac joints. Moderate colonic stool burden. Paraspinal soft tissues grossly within normal limits. Dictated by Jaime Hills MD @ 03/17/2025 11:52:34 PM (Electronically Signed)
--- NOTE | 2025-03-17 23:17 | ED.BACK ---
HPI - Back Pain/Injury General Date Seen: 03/17/25 Chief Complaint: Back Injury/Pain Stated Complaint: back pain Time Seen by Provider: 03/17/25 22:12 Source: patient, family, RN notes reviewed and old records reviewed Mode of arrival: ambulatory Limitations: no limitations History of Present Illness HPI Narrative: This delightful 34-year-old female presents here with the back pain, that started a few hours ago and gradually built, so bad now that she can not really even stand up or move around, and she is teary. She was the playing with her daughter when this occurred. She describes bilateral leg discomfort going down both legs. And a feeling of weakness she has no numbness or tingling no bowel or bladder symptoms no history of any injury, fevers chills or sweats, or significant trauma. History of back pain in the past but never this bad. No previous back surgeries. MD elicited complaint: back pain Pertinent past history: prior back pain Onset (ago): hour(s) Timing: constant Severity: severe Similar Symptoms Previously: No Quality: burning and stabbing Location: lumbar spine Radiation: left leg below the knee and right leg below the knee Exacerbating factors: movement and supine positioning Relieving factors: immobilization Context: turning/twisting and bending Associated symptoms: denies other symptoms Treatments prior to arrival: cold therapy and NSAIDS Work related injury: No Related Data Home Medications ?Medication ?Instructions ?Recorded ?Confirmed albuterol sulfate 90 mcg/actuation 2 puff inhalation Q6H PRN 03/21/23 04/13/24 aerosol inhaler beclomethasone dipropionate 40 2 inh inhalation BID 03/21/23 04/13/24 mcg/actuation HFA breath activated aerosol (Qvar RediHaler) montelukast 10 mg tablet 10 mg PO QHS 03/21/23 04/13/24 vitamin B complex (B 1 tab PO QDAY 03/21/23 04/13/24 Complex-Vitamin B12 tablet) mometasone 50 mcg/actuation nasal 2 spray intranasal QDAY PRN 09/08/23 04/13/24 spray cetirizine 10 mg capsule (Zyrtec) 10 mg PO QDAY PRN 11/03/23 04/13/24 Previous Rx's ?Medication ?Instructions ?Recorded docusate sodium 100 mg capsule 100 mg PO BID PRN #120 caps 10/27/23 sertraline 50 mg tablet 50 mg PO QDAY #90 tabs 12/11/23 methylprednisolone 4 mg tablets in See Rx Instructions PO .COMPLEX 03/17/25 a dose pack (Medrol (Wade)) #21 ea Allergies Allergy/AdvReac Type Severity Reaction Status Date / Time bacitracin (From Neosporin Allergy Intermediate Verified 04/13/24 16:08 ([id number])) neomycin (From Neosporin Allergy Intermediate Verified 04/13/24 16:08 ([id number])) polymyxin B (From Neosporin Allergy Intermediate Verified 04/13/24 16:08 ([id number])) 2-octyl cyanoacrylate Allergy Mild Verified 04/13/24 16:08 amoxicillin Allergy Mild Verified 04/13/24 16:08 cefaclor Allergy Mild Verified 04/13/24 16:08 cefuroxime Allergy Mild Verified 04/13/24 16:08 clindamycin Allergy Mild Verified 04/13/24 16:08 latex Allergy Mild Verified 04/13/24 16:08 ondansetron Allergy Mild Verified 04/13/24 16:08 shellfish derived Allergy Mild Verified 04/13/24 16:08 dermabond Allergy Intermediate Uncoded 04/13/24 16:08 Benzalkonium Chloride Allergy Rash Uncoded 04/13/24 16:08 Shellfish-Derived Products Allergy Uncoded 04/13/24 16:08 Review of Systems Status of ROS: Reports: 10 or more systems reviewed and unremarkable except as noted in History and below [facility] Medical History Spinal headache ?G97.1 - Other reaction to spinal and lumbar puncture (ICD-10) Headache ?R51.9 - Headache, unspecified (ICD-10) Arrest of descent, delivered, current hospitalization ?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) Polyhydramnios ?O40.9XX0 - Polyhydramnios, unspecified trimester, not applicable or unspecified (ICD-10) Anemia affecting ?O99.019 - Anemia complicating , unspecified trimester (ICD-10) Advanced maternal age (AMA) in 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 - Polymorphous light eruption (ICD-10) Nephrolithiasis ?N20.0 - Calculus of kidney (ICD-10) Vitamin D deficiency ?E55.9 - Vitamin D deficiency, unspecified (ICD-10) B12 deficiency ?E53.8 - Deficiency of other specified B group vitamins (ICD-10) Fibula fracture ?S82.409A - Unspecified fracture of shaft of unspecified fibula, initial encounter for closed fracture (ICD-10) Surgical History Status post primary low transverse section (10/25/23) ?Z98.891 - History of uterine scar from previous surgery (ICD-10) History of cholecystectomy ?Z90.49 - Acquired absence of other specified parts of digestive tract (ICD-10) S/P correction of deviated nasal septum ?Z98.890 - Other specified postprocedural states (ICD-10) H/O laparoscopy ?Z98.890 - Other specified postprocedural states (ICD-10) Family History Sister Alport syndrome Mother Alport syndrome Aunt Alport syndrome Grandfather Alport syndrome Social History What is your current living situation?: I presently have a place to live Problems where you live: no known problems In the past 12 months, utilities in danger of being shut off: no In past 12 months, lack of transportation kept you from medical appts, meetings, work, or getting things needed for daily living: no In the past 12 mos, have been you worried that your food would run out before you had money to buy more?: never true In the past 12 mos, the food you bought just didn't last and you didn't have money to buy more?: never true Smoking Status: Never smoker Do you use any of these nicotine containing products: None Second hand tobacco smoke exposure: No How often do you have a drink containing alcohol: never How often do you have six or more drinks on one occasion: Never AUDIT-C Alcohol total score: 0 Non-prescribed substance use: denies use How often does anyone, including family, friends and others, physically hurt you: never How often does anyone, including family, friends and others, insult or talk down to you: never How often does anyone, including family, friends and others, threaten you with harm: never How often does anyone, including family, friends and others, scream or curse at you: never Exam Narrative: Exam Narrative: On examination in room 7 she is very nice, I am able to walker and talk her through most things. She is able to lift up both of her legs although her right has a positive leg raise. At only about the 30 degree she can come up to about 60 with her left. Her knees have full range of motion EHLs great toe flexors ankle dorsiflexors plantar flexors knee flexors 10 sirs are all normal bilaterally. Sensation is normal over over her legs bilaterally she has 1+ reflexes bilaterally in her ankles, and 2+ in her knees. She is able to sit up for me there is no palpable tenderness on her back there is no palpable masses. , but clearly when I examine her that her is a positive again for straight leg raise on the right. Const: Vital Signs, click to edit/add: Vital Signs - 24 hr 03/17/25 21:52 Temperature 98.0 F Pulse Rate [Pulse Oximeter] 80 Respiratory Rate 20 Blood Pressure [Ri ght Upper Arm] 160/108 H Pulse Oximetry 98 Oxygen Delivery Me thod Room Air Documenting provider has reviewed patient's vital signs: yes Course Vital Signs Vital signs: Initial Vital Signs Temperature 98.0 F 03/17/25 21:52 Temperature Source Temporal Artery Scan 03/17/25 21:52 Pulse Rate 80 03/17/25 21:52 Respiratory Rate 20 03/17/25 21:52 Blood Pressure 160/108 H 03/17/25 21:52 Blood Pressure Mean 125 H 03/17/25 21:52 Blood Pressure Position Sitting 03/17/25 21:52 Pulse Oximetry 98 03/17/25 21:52 Oxygen Delivery Method Room Air 03/17/25 21:52 Vital Signs Temperature 98.0 F 03/17/25 21:52 Pulse Rate 80 03/17/25 21:52 Respiratory Rate 20 03/17/25 21:52 Blood Pressure 160/108 H 03/17/25 21:52 Pulse Oximetry 98 03/17/25 21:52 Oxygen Delivery Method Room Air 03/17/25 21:52 Temperature 98.0 F 03/17/25 21:52 Pulse Rate 80 03/17/25 21:52 Respiratory Rate 20 03/17/25 21:52 Blood Pressure 160/108 H 03/17/25 21:52 Pulse Oximetry 98 03/17/25 21:52 Oxygen Delivery Method Room Air 03/17/25 21:52 Medications Administered Medications: Discontinued Medications Generic Name Dose Route Start Last Admin Trade Name Milvia PRN Reason Stop Dose Admin Ketorolac Tromethamine 30 mg 03/17/25 22:12 03/17/25 22:53 Ketorolac 30 Mg/Ml Inj IM 03/17/25 22:13 30 mg ONCE ONE Administration Morphine Sulfate 10 mg 03/17/25 22:12 03/17/25 22:54 Morphine 10 Mg/Ml Inj IM 03/17/25 22:13 10 mg ONCE ONE Administration Prednisone 50 mg 03/17/25 23:49 03/18/25 00:12 Prednisone 10 Mg Tablet PO 03/17/25 23:50 50 mg ONCE ONE Administration Promethazine HCl 25 mg 03/17/25 23:43 03/18/25 00:12 Promethazine 25 Mg Tablet PO 03/17/25 23:44 25 mg ONCE ONE Administration MDM - Back Pain/Injury MDM Narrative Medical decision making narrative: Life-threatening differential diagnosis considered include: Cauda equina an epidural abscess, other differential diagnosis considered includes sprain, contusion, nerve root entrapment, radiculopathy, muscle spasm, urolithiasis, lumbar fracture, pyelonephritis, appendicitis, biliary colic, as well as other etiologies. The patient denies saddle anesthesia bowel or bladder incontinence or lower extremity weakness, recent weight loss, or history of malignancy. I think it be reasonable to try some Toradol along with some morphine deceiving get her to move around she is already up moving around better. We will do x-rays to check odor disc levels. And we will go from there. I do not think this is cauda equina given what I find, and her normal examination this most likely is disc related. Discharge Plan Discharge Clinical Impression: Back pain Patient Disposition: Home w/ Parent or Adult Condition: Stable Instructions: Acute Low Back Pain (ED), Back Pain (ED), Lumbar Brace (DC) Additional Instructions: Discharge home, use of ice, follow-up with primary care, we will put on a Medrol Dosepak, along with oxycodone. I think this is some right-sided sciatica, likely from a disc, the further testing will be needed if not improving along with physical therapy would be an MRI. Return if bowel or bladder symptoms, but just know the next few days are going to be super tough. Please do not mix ibuprofen with the Medrol, Tylenol is okay to take, Activity Level: Light activity Discharge Diet: Regular Prescriptions: New methylprednisolone [Medrol (Wade)] 4 mg tablets,dose pack See Rx Instructions .ROUTE .COMPLEX Qty: 21 0RF Rx Instructions: for 6 days No Action sertraline 50 mg tablet 50 mg PO QDAY Qty: 90 3RF albuterol sulfate 90 mcg/actuation HFA aerosol inhaler 2 puff inhalation Q6H PRN Qvar RediHaler 40 mcg/actuation HFA aerosol breath activated 2 inh inhalation BID montelukast 10 mg tablet 10 mg PO QHS vitamin B complex [B Complex-Vitamin B12] Tablet 1 tab PO QDAY mometasone 50 mcg/actuation spray,non-aerosol 2 spray intranasal QDAY PRN Rx Instructions: administer into each nostril Zyrtec 10 mg capsule 10 mg PO QDAY PRN docusate sodium 100 mg Capsule 100 mg PO BID PRNQty: 120 0RF Rx Instructions: Take 1-2 tablets daily as needed for constipation. Follow Up/Referrals: Geri Reynaga DO [Primary Care Provider, Family Practice] Stand Alone Forms: MyHealth Info Instructions
[2025-03-18] MEDS: PROMETHAZINE 25 MG TABLET PO (00:12)
== END 2025-03-18 00:13 | disposition home or self-care (01) ==
PROVIDERS: Emergency Provider Family Medicine; PCP Family Medicine
DX: M54.50 Low back pain, unspecified (principal)
CPT/HCPCS: 72100; 96372; 99284; A9270; J1885; J2270; J7512